=== PATIENT | female | born 1965 | race Caucasian/White ===

== ENCOUNTER → 2016-10-09 | Outpatient (CLI) | payer OTHER ==
[~2016-10-09] MED LIST: ALBU18002 INH; ALBUAER19 INH; CRG/20 PO; CYAN100020 PO; CYAN500T13 PO; FERR1TAB13 PO; FERR325T5 PO; FURO-85 PO; FURO20TA PO; IRON PO; LCTL45 PO; OMEP20TA40 PO; PRT40 PO; RXC5 PO; SPIR50TA2 PO; SPIR50TA3 PO; VERA1TAB53 PO; VTMD1000 PO
--- NOTE | 2016-10-09 15:47 | DIAGNOSTIC IMAGING REPORT ---
CT LUMBAR SPINE WITHOUT CT DOSE: 1903.36 mGy.cm CLINICAL HISTORY: Back pain and numbness. TECHNIQUE: Helical images were acquired in transverse plane. Reformatted sagittal and coronal images were reviewed. CONTRAST: No contrast was administered COMPARISON STUDY: None. FINDINGS: L1-2 level: There is no evidence of significant disc bulge or focal herniation. There is no evidence of spinal or foraminal stenosis. L2-3 level: There is a mild circumferential disc bulge. There is no significant spinal foraminal stenosis L3-4 level: There is a circumferential disc bulge. There is moderate spinal stenosis. There is no significant foraminal narrowing L4-5 level: There is a grade 1 spondylolisthesis of L4 and L5. There is a circumferential disc bulge. There is severe spinal stenosis. There is bilateral foraminal narrowing. There is advanced facet joint arthropathy. L5-S1 level: There is no evidence of significant disc bulge or focal herniation. There is no evidence of spinal or foraminal stenosis. IMPRESSION: 1. No acute fractures or subluxations 2. Disc bulge and moderate spinal stenosis at the L3-4 level 3. Grade 1 spondylolisthesis of L4 and L5. Circumferential disc bulge. Severe spinal stenosis. Bilateral foraminal narrowing. Facet joint arthropathy. Electronically signed by: Tom Bryant M.D. 10/09/2016 3:45 PM Dictated Date/Time: 10/09/2016 3:41 PM
--- NOTE | 2016-10-09 17:20 | DIAGNOSTIC IMAGING REPORT ---
MRI OF THE LUMBAR SPINE WITHOUT CONTRAST CLINICAL HISTORY: RADICULOPATHY,LUMBAR REGION COMPARISON STUDY: CT of the lumbar spine October 09, 2016. TECHNIQUE: Utilizing a 1.5 Marycruz magnet and dedicated coil, multiplanar, multiecho imaging of the lumbar spine was performed without IV contrast. FINDINGS: Purposes of numbering on this exam, the L5-S1 disc space is assigned to axial image 27 of 30. There is 3 mm of anterolisthesis of L4 and L5. Alignment is otherwise anatomic. Vertebral body heights are maintained. There are numerous T1 and T2 hyperintense lesions within the lower thoracic and lumbar spine consistent with hemangiomas. Endplate discogenic changes are noted at multiple levels. There is no intracanalicular mass or fluid collection. The conus terminates at the mid L1 level. L1-2: The central canal and neural foramen are patent. L2-3: The central canal and neural foramen are patent. L3-4: There is disc bulge with a left foraminal disc protrusion. There is mild narrowing of the central canal and moderate narrowing of the left neural foramen. L4-5: There is grade I anterolisthesis with uncovering of the disc, ligamentous hypertrophy and facet arthrosis. There is severe narrowing of the central canal and lateral recesses with moderate narrowing of both neural foramen. L5-S1: The central canal and neural foramen are patent. IMPRESSION: 1. Severe central canal stenosis at L4-L5 due to grade I anterolisthesis, ligamentous hypertrophy, facet arthrosis and disc bulge. Minimal central canal narrowing at L3-L4. 2. Moderate left neural foraminal stenosis at L3-L4 due to disc bulge with left foraminal disc protrusion. 3. Numerous hemangiomas within the lower thoracic and lumbar spine. Electronically signed by: Ketan Liriano M.D. 10/09/2016 5:19 PM Dictated Date/Time: 10/09/2016 5:12 PM
--- NOTE | 2016-10-09 17:20 | DIAGNOSTIC IMAGING REPORT ---
MRI OF THE THORACIC SPINE WITHOUT CONTRAST CLINICAL HISTORY: SEGMENTAL/SOMATIC DYSFUNCTION LUMBAR REGION COMPARISON: None. TECHNIQUE: Utilizing a 1.5 Marycruz magnet and dedicated coil, multiplanar, multiecho imaging of the thoracic spine was performed without IV contrast. FINDINGS: Alignment of the thoracic spine is anatomic. Vertebral body heights are maintained. A 1.8 cm T1 and T2 hyperintense T10 vertebral body lesion is consistent with a hemangioma. Additional hemangiomas within the thoracic and lumbar spine are noted. There are no areas of suspicious marrow replacement. There is subtle endplate signal abnormality along the inferior endplate of T6 which is probably degenerative. There is no intracanalicular mass or fluid collection. Thoracic cord signal and caliber are normal. The central canal and neural foramen are patent. Paravertebral soft tissues are unremarkable. Note is made of upper abdominal varices as shown on CT of February 15, 2015. IMPRESSION: 1. Normal thoracic cord signal and caliber. 2. No thoracic disc herniation. Patent central canal and neural foramen. 3. Scattered hemangiomas within the thoracic and lumbar spine. Electronically signed by: Ketan Liriano M.D. 10/09/2016 5:18 PM Dictated Date/Time: 10/09/2016 5:04 PM
== END ==
LOC: C.CTS 15:25
PROVIDERS: ATTEND Physician Assistant
DX: M99.03 Segmental and somatic dysfunction of lumbar region (principal); M54.16 Radiculopathy, lumbar region; M99.02 Segmental and somatic dysfunction of thoracic region

== ENCOUNTER 2016-11-05 05:26 | Inpatient (IN) | payer OTHER ==
[2016-10-20 08:41] VITALS: BMI 42.0
--- NOTE | 2016-10-20 09:03 | PAT Medication Instructions ---
Service Date Oct 20, 2016. Current Home Medication List Albuterol Sulfate (Proair Respiclick), 2 PUFF INH Q4 PRN for SOB/Wheezing Cholecalciferol (Vitamin D3), 1 TAB PO QAM Cyanocobalamin (Vitamin B12), 1 TAB PO QAM Furosemide (Lasix), 20 MG PO QPM Nadolol (Corgard), 20 MG PO QPM Omeprazole (Cvs Omeprazole), 1 TAB PO QAM [Iron], 65 MG PO QAM Medication Instructions For Your Scheduled Surgery - Hold the following medications the morning of surgery: [Iron], 65 MG PO QAM Cholecalciferol (Vitamin D3), 1 TAB PO QAM Cyanocobalamin (Vitamin B12), 1 TAB PO QAM Furosemide (Lasix), 40 MG PO QAM - Take the following medications the morning of surgery with a sip of water OTHERWISE NOTHING TO EAT OR DRINK AFTER MIDNIGHT: Omeprazole (Cvs Omeprazole), 1 TAB PO QAM Albuterol Sulfate (Proair Respiclick), 2 PUFF INH Q4 PRN for SOB/Wheezing (use if needed; BRING TO HOSPITAL) - Take the following medications as scheduled the night before surgery: Furosemide (Lasix), 20 MG PO QPM Nadolol (Corgard), 20 MG PO QPM If you have any questions please call us at [phone] or [phone] or [phone]
[2016-10-20 09:37] LABS: BASO % 0.6 %; BASO ABS # 0.04 K/uL (0-0.2); COMPLETE YES; EOS % 6.9 %; HEMATOCRIT 36.4 % (37-47); IG% 0.3 %; LYMPH % 23.6 %; LYMPH ABS # 1.65 K/uL (1.2-3.4); MEAN CELL VOLUME 91.7 fL (80-100); MEAN CORPUSCULAR HEMOGLOBIN 31.7 pg (25-34); MEAN CORPUSCULAR HGB CONC 34.6 g/dl (32-36); MEAN PLATELET VOLUME 9.3 fL (7.4-10.4); MONO % 17.4 %; NEUT % 51.2 %; PLATELET COUNT 231 K/uL (130-400); RED BLOOD COUNT 3.97 M/uL (4.2-5.4)
[2016-10-20 09:42] LABS: URINE APPEARANCE CLEAR (CLEAR); URINE BILIRUBIN NEG (NEG); URINE COLOR YELLOW; URINE NITRITE NEG (NEG); UROBILINOGEN POS (NEG)
[2016-10-20 09:44] LABS: MANUAL MICROSCOPIC REQUIRED? NO; REVIEW REQ? NO
--- NOTE | 2016-10-20 10:12 | DIAGNOSTIC IMAGING REPORT ---
TWO VIEW CHEST CLINICAL HISTORY: Preoperative examination. FINDINGS: PA and lateral chest radiographs are compared to study dated 02/15/2015. The examination is degraded by large body habitus. The cardiomediastinal silhouette is unremarkable. The lungs and pleural spaces are clear. There is no pneumothorax. The bony thorax appears intact. IMPRESSION: No active disease in the chest. Electronically signed by: Surinder Thomson M.D. 10/20/2016 10:11 AM Dictated Date/Time: 10/20/2016 10:10 AM
[2016-10-20 10:47] LABS: BUN/CREATININE RATIO 9.8 (10-20); CALCIUM 9.4 mg/dl (8.5-10.1); CREATININE 1.1 mg/dl (0.60-1.20); POTASSIUM 4.7 mmol/L (3.5-5.1)
[2016-11-05] VITALS (9 sets, daily range): BP systolic 93–124; BP diastolic 61–77; PULSE 57–74; TEMP 36.3–36.9; O2SAT 96–98; Ht 160 cm; Wt 110.0 kg
[~2016-11-05] VITALS: Ht 160 cm; Wt 110.0 kg
[~2016-11-05 05:26] MED LIST changes: -ALBUAER19 INH; -CYAN500T13 PO; -FERR1TAB13 PO; -FERR325T5 PO; -LCTL45 PO; -PRT40 PO; -RXC5 PO; -SPIR50TA2 PO; -SPIR50TA3 PO; -VERA1TAB53 PO
[2016-11-05] MEDS ORDERED: PREGABALIN 75 MG CAP PO SCH (06:00)
[2016-11-05] MEDS ORDERED: CeleBREX 200 MG CAP PO SCH (06:00)
[2016-11-05] MEDS ORDERED: LACTATED RINGER'S 1000ML 1,000 ML IV SCH (06:00)
[2016-11-05] MEDS ORDERED: CEFAZOLIN 2000 MG/60 ML D5W IV SCH (06:00)
[2016-11-05] MEDS ORDERED: DEXAMETHASONE SOD INJ 4 MG/ML VIAL ONE (06:40)
[2016-11-05] MEDS ORDERED: LIDOCAINE HCL 2% 2 ML VIAL (20MG/ML) ONE (06:40)
[2016-11-05] MEDS ORDERED: HYDROmorphone INJ 2 MG/ML SYR/VIAL ONE (06:40)
[2016-11-05] MEDS ORDERED: MIDAZOLAM HCL 1 MG/ML 2ML VIAL ONE (06:40)
[2016-11-05] MEDS ORDERED: GLYCOPYRROLATE INJ 0.2 MG/ML VIAL ONE ×2 (06:40→08:07)
[2016-11-05] MEDS ORDERED: NEOSTIGMINE METHYLSULFATE 5 MG/5 ML SYR ONE (06:40)
[2016-11-05] MEDS ORDERED: ONDANSETRON INJ 2 MG/ML 2 ML VIAL ONE (06:40)
[2016-11-05] MEDS ORDERED: ROCURONIUM BROMIDE 10 MG/ML 5 ML VIAL ONE (06:40)
[2016-11-05] MEDS ORDERED: PROPOFOL IV EMULSION 10 MG/ML 20 ML VIAL IV ONE (06:40)
[2016-11-05] MEDS ORDERED: FENTANYL CITRATE INJ 50 MCG/1 ML 2 ML VIAL ONE (06:40)
[2016-11-05] MEDS ORDERED: HEPARIN SOD (PORCINE) 1000 UNIT/ML 10 ML VIAL ONE (06:59)
[2016-11-05] MEDS ORDERED: BACITRACIN 50000 UNIT VIAL ONE (06:59)
[2016-11-05] MEDS ORDERED: BUPIVACAINE/EPINEPHRINE 0.5% MPF 1:200,000 10 ML VIAL ONE ×2 (07:00)
--- NOTE | 2016-11-05 07:28 | History & Physical Bridge Note ---
H&P Re-Evaluation Bridge Note: I have examined the patient, reviewed the History & Physical and in the interval since the performance of the History & Physical I have noted the following changes of clinical significance: cleared by pcp, preop LFTs and coags acceptable..No changes noted
[2016-11-05] MEDS ORDERED: THROMBIN FOR SOLN 20000 UNIT KIT ONE (07:41)
[2016-11-05] MEDS ORDERED: THROMBIN 5000 UNITS KIT ONE (07:41)
[2016-11-05] MEDS ORDERED: ONDANSETRON INJ 2 MG/ML 2 ML VIAL IV PRN ×2 (07:45→09:00)
[2016-11-05] MEDS ORDERED: ATROPINE SULFATE 0.1 MG/ML 5ML SYR IV PRN (07:45)
[2016-11-05] MEDS ORDERED: PROMETHAZINE HCL INJ 12.5 MG in SODIUM CHLORIDE 0.9% 50ML 50 ML IV PRN ×2 (07:45→09:00)
[2016-11-05] MEDS ORDERED: HYDROmorphone INJ 2 MG/ML SYR/VIAL IV PRN (07:45)
[2016-11-05] MEDS ORDERED: FLOSEAL HEMOSTATIC MATRIX 10ML TOP ONE (08:47)
--- NOTE | 2016-11-05 08:50 | [facility] Post Operative Brief Note ---
Immediate Operative Summary Operative Date Nov 05, 2016. Pre-Operative Diagnosis Degenerative spondylolisthesis at L4-L5, spinal stenosis L4-L5 and L5-S1 Post-Operative Diagnosis Same as preoperative diagnosis Procedure(s) Performed L4-L5 Decompression and Instrumented Fusion; Interbody Fusion; Autograft versus Allograft Surgeon Dr. Ole Salazar Director Of [employer] Surgeon(s) Torsten Pope PA-C Estimated Blood Loss 300mL Findings dict Specimens No pathology specimens per surgeon
--- NOTE | 2016-11-05 08:54 | [facility] Operative Report ---
Operative Report Operative Date Nov 05, 2016. Pre-Operative Diagnosis Degenerative spondylolisthesis at L4-L5, spinal stenosis L4-L5 Post-Operative Diagnosis Same as preoperative diagnosis Procedure(s) Performed 1. L4 laminectomy 2. L4-5 pedicle screw instrumentation with K2M screws bilateral 3. Posterolateral fusion L4-5 bilateral 4. R Iliac crest bone marrow aspirtation Surgeon Dr. Ole Salazar Juice Weigher Surgeon(s) Torsten Pope PA-C Estimated Blood Loss 300mL Findings see below Specimens No pathology specimens per surgeon Drains 1 Anesthesia GETA Complication(s) None Description of Procedure After identification of the patient and the operative level they were brought to the OR where they underwent induction of general anesthesia. They were positioned prone on a Ahsan spine table with all bony prominence well-padded. Care was taken to avoid pressure on the periorbital area. The lumbosacral area was sterilely prepped and draped in the usual fashion. Antibiotics were administered, a time-out was performed, level was confirmed, and skin incision was with localized lateral fluoroscopy and a spinal needle. The skin was infiltrated with half percent Marcaine with epinephrine. I then made skin incision from the spinous process of L3-5. The dorsal fascia was incised and posterior exposure was accomplished with dissection out to the tips of the transverse processes from L4-5 bilaterally. I then packed the gutters with thrombin-soaked sponges and used fluoroscopy to confirm the operative levels with markers at the operative levels. After identification of the appropriate level I placed Gelpi retractors and proceeded to perform midline decompression. Laminectomies of L4 were performed in the midline with takedown of the intervening ligamentum flavum. I then used an osteotome to remove the medial facets at L4-5. Facet hypertrophy and degenerative changes were noted at the operative levels. I then completed decompression with Kerrison rongeurs and palpated the nerve roots were adequately decompressed at the operative levels from L4-5 bilaterally. I palpated all nerve roots were decompressed adequately. I then obtained hemostasis of epidural bleeding with bipolar cautery and Surgiflo. I then proceeded to place pedicle screws bilaterally at L4-5 with bony anatomy confirmed to be intact with the ball-tipped feeler. I confirmed screw length, trajectory, and position with fluoroscopy. Following this I turned my attention to the L4-5 disc space and prepared the disc space for subsequent cage introduction with a combination of marla and curettes. During preparation I noted the inferior endplate was soft and was violated, therefore no cage was placed. Bone graft consisted of morselized local bone from laminectomy bone as well as bone graft cement mason helper saturated with stem cell concentrate. I obtained stem cell concentrate using a stem cell concentration system after aspiration of bone marrow from the right iliac crest via a separate stab incisions with a Jamshidi needle. I then applied this to bone graft cement mason helper. I then lowered the Austin frame to restore lordosis. I applied rods and end caps bilaterally with final tightening of all caps. I irrigated with bacitracin solution. I then decorticated the transverse processes bilaterally at the operative levels from L4-5 as well as facet joints with a high-speed bur. I then packed the lateral gutters and facets with the bone graft mixture consisting of: infuse BMP and a collagen sponge, tricalcium phosphate logs, stem cell concentrate, morcellized local bone, and bone graft cement mason helper. I then confirmed hemostasis and closed in a layered fashion over a ERICA drain. All sponge and needle counts were correct in the case. I attest to the content of the Intraoperative Record and any orders documented therein. Any exceptions are noted below.
[2016-11-05] MEDS ORDERED: BISACODYL 10 MG SUPP PR PRN (09:00)
[2016-11-05] MEDS ORDERED: NALOXONE HCL 0.4 MG/1 ML VIAL/CARP IV PRN ×2 (09:00→09:45)
[2016-11-05] MEDS ORDERED: LORAZEPAM INJ 0.5 MG in SYRINGE 0 ML IV PRN (09:00)
[2016-11-05] MEDS ORDERED: METOCLOPRAMIDE HCL INJ 5 MG/ML 2 ML VIAL IV PRN (09:00)
[2016-11-05] MEDS ORDERED: LORAZEPAM 0.5 MG TAB PO PRN (09:00)
[2016-11-05] MEDS ORDERED: MAGNESIUM HYDROXIDE SUSP 30 ML UDC PO PRN (09:00)
[2016-11-05] MEDS ORDERED: FAMOTIDINE 20 MG TAB PO PRN (09:00)
[2016-11-05] MEDS ORDERED: ALBUTEROL HFA 8 GM INHALER INH PRN (09:00)
--- NOTE | 2016-11-05 09:03 | DIAGNOSTIC IMAGING REPORT ---
LUMBAR SPINE 2 OR 3 VIEW HISTORY:51 yearsFemaleL4-5 DECOMPRESSION/FUSION/INTERBODY COMPARISON: Lumbar spine CT 10/09/2016. TECHNIQUE: Frontal and lateral spot fluoroscopic images of the lumbar spine were obtained utilizing 9.5 seconds of fluoroscopy time. Interpretation of the images was conducted after the conclusion of the procedure. FINDINGS/IMPRESSION: There has been interval laminectomy with posterior interbody sarah and screw fixation at the L4-L5 level. There appears to be improved alignment at this interspace. The above report was generated using voice recognition software. It may contain grammatical, syntax or spelling errors. Electronically signed by: Amos Galo M.D. 11/05/2016 9:02 AM Dictated Date/Time: 11/05/2016 8:59 AM
[2016-11-05] MEDS ORDERED: SODIUM CHLORIDE 0.9% 1000ML 1,000 ML IV SCH (09:34)
--- NOTE | 2016-11-05 09:37 | Discharge Instructions ---
Discharge Instructions Date of Service Nov 05, 2016. Admission Reason for Admission: Spinal Stenosis Discharge Discharge Diagnosis / Problem: same Discharge Goals Goal(s): Decrease discomfort Activity Recommendations Activity Limitations: per Instructions/Follow-up section . Current Hospital Diet Patient's current hospital diet: Regular Diet Discharge Diet Recommended Diet: Regular Diet Procedures Procedures Performed: 1. L4 laminectomy 2. L4-5 pedicle screw instrumentation with K2M screws bilateral 3. Posterolateral fusion L4-5 bilateral 4. R Iliac crest bone marrow aspirtation Pending Studies Studies pending at discharge: no Medical Emergencies . Who to Call and When: Medical Emergencies: If at any time you feel your situation is an emergency, please call 911 immediately. . Non-Emergent Contact Non-Emergency issues call your: Surgeon . "Provider Documentation" section prepared by Ole Salazar. . VTE Core Measure Inpt VTE Proph given/why not?: Krishan Burton, ESME's PA Drug Monitoring Program Search Results: patient reviewed within database, no issues identified ( checked by PAAntonio)
[2016-11-05] MEDS ORDERED: HYDROmorphone HCL 0.5MG/ML 50 ML CASSETTE ONE (09:41)
--- NOTE | 2016-11-05 10:28 | Anesthesiology Progress Note ---
Anesthesia Post Op Note Date & Time Nov 05, 2016 at 10:28 Vital Signs Pain Intensity: 6 Vital Signs Past 12 Hours Date Time Temp Pulse Resp B/P (MAP) Pulse Ox O2 Delivery O2 Flow Rate FiO2 11/05/16 10:10 74 14 92/58 95 Nasal Cannula 4 11/05/16 10:00 36.4 74 16 92/56 96 Nasal Cannula 4 11/05/16 09:50 76 16 97/58 97 Nasal Cannula 4 11/05/16 09:40 77 15 102/60 96 Mask 4 11/05/16 09:30 80 20 107/55 97 Mask 8 11/05/16 09:20 82 18 106/63 96 Mask 8 11/05/16 09:13 36.9 85 16 104/63 93 Mask 8 11/05/16 06:06 36.9 74 18 100/64 97 Room Air Notes Mental Status: alert / awake / arousable, participated in evaluation Pt Amnestic to Procedure: Yes Nausea / Vomiting: adequately controlled Pain: adequately controlled Airway Patency, RR, SpO2: stable & adequate BP & HR: stable & adequate Hydration State: stable & adequate Anesthetic Complications: no major complications apparent
[2016-11-05] MEDS: HYDROmorphone HCL 0.5MG/ML 50 ML CASSETTE IV PRN ×2 (10:30→15:10)
[2016-11-05] MEDS: SODIUM CHLORIDE 0.9% 1000ML 1,000 ML IV SCH ×2 (10:51→20:53)
[2016-11-05] MEDS ORDERED: FERR1TAB13 PO (12:48)
--- NOTE | 2016-11-05 15:19 | Medical Consult ---
Consultation Date of Consultation: Nov 05, 2016. Attending Physician: Ole Salazar M.D. Reason for Consultation: Post Op Medical Management History of Present Illness 51 year old female who is s/p L4-5 decompression and fusion today by Dr. Salazar. Patient has been having worsening back pain with BL foot numbness for the past several years. Patient failed outpatient conservative measures and therefore presented for the planned procedure today. Post operatively the patient is doing well. She reports her pain is well controlled. She denies chest pain and shortness of breath. Denies radiation of the pain into her legs or numbness. She denies abdominal pain and nausea. No lightheadedness or dizziness. Reilly is in place draining yellow urine. Past Medical/Surgical History Medical Problems: (1) CKD (chronic kidney disease), stage III Status: Chronic (2) CHRIS (nonalcoholic steatohepatitis) Status: Chronic (3) Paroxysmal SVT (supraventricular tachycardia) Status: Chronic (4) SVT (supraventricular tachycardia) Status: Resolved (5) Varices, esophageal Permanent Comment: grade II on EGD 2014 Status: Chronic Surgical Problems: (1) H/O elbow surgery Permanent Comment: Antecubital elbow release Status: Chronic (2) S/P D&C (status post dilation and curettage) Permanent Comment: S/P miscarriage Status: Chronic (3) Status post carpal tunnel release of both wrists Status: Chronic Family History FH: cancer FATHER (Lymphoma) FH: diabetes mellitus MOTHER FH: multiple sclerosis BROTHER FH: thyroid cancer MOTHER Hypertension MOTHER Social History Smoking Status: Never Smoker Alcohol Use: none Allergies Coded Allergies: Pamabrom (Unverified Allergy, Unknown, HIVES, 11/05/16) Pyrilamine (Unverified Allergy, Unknown, HIVES, 11/05/16) Iodinated Diagnostic Agents (Verified Adverse Reaction, Intermediate, TACHYCARDIA, 11/05/16) Home Medications Kp Ferrous Sulfate (Ferrous Sulfate) 325 Mg Tab 1 Tab PO DAILY 30 Days Lasix (Furosemide) 20 Mg Tab 20 Mg PO DAILY afternoon Lasix (Furosemide) 20 Mg Tab 40 Mg PO QPM Corgard (Nadolol) 20 Mg Tab 10 Mg PO QPM Cvs Omeprazole (Omeprazole) 20 Mg Tab 1 Tab PO QAM Proair Respiclick (Albuterol Sulfate) 108 Mcg/Act Aer 2 Puff INH Q4 PRN Vitamin D3 (Cholecalciferol) 1,000 Inter.unit Tab 1 Tab PO QAM Vitamin B12 (Cyanocobalamin) 1,000 Mcg Tab 1 Tab PO QAM Current Inpatient Medications Current Inpatient Medications Medications (Trade) Dose Ordered Sig/Sunny Route Start Time Stop Time Status Last Admin Dose Admin Cefazolin Sodium 60 ml @ 100 mls/hr PREOP IV 11/05/16 06:00 11/05/16 18:00 11/05/16 07:28 100 MLS/HR Celecoxib (CeleBREX CAP) 200 mg PREOP PO 11/05/16 06:00 11/05/16 18:00 11/05/16 05:56 200 MG Pregabalin (Lyrica Cap) 75 mg PREOP PO 11/05/16 06:00 11/05/16 18:00 11/05/16 05:56 75 MG Albuterol (Ventolin Hfa Inhaler) 2 puffs Q4 PRN INH 11/05/16 09:00 12/05/16 08:59 Pantoprazole Sodium (Protonix Tab) 40 mg QAM PO 11/06/16 09:00 12/06/16 08:59 Dexamethasone Sodium Phosphate 6 mg/Syringe 1.5 ml @ 1 mls/min Q8H IV 11/05/16 16:00 11/06/16 08:02 Promethazine HCl 12.5 mg/Sodium Chloride 50.5 ml @ 202 mls/hr Q6H PRN IV 11/05/16 09:00 12/05/16 08:59 Ondansetron HCl (Zofran Inj) 4 mg Q6H PRN IV 11/05/16 09:00 12/05/16 08:59 Metoclopramide HCl (Reglan Inj) 10 mg Q6H PRN IV 11/05/16 09:00 12/05/16 08:59 Lorazepam (Ativan Tab) 0.5 mg Q8H PRN PO 11/05/16 09:00 12/05/16 08:59 Lorazepam 0.5 mg/ Syringe 0.25 ml @ 1 mls/min Q8H PRN IV 11/05/16 09:00 12/05/16 08:59 Sodium Chloride 1,000 ml @ 75 mls/hr [id number] IV 11/05/16 08:54 12/05/16 08:53 11/05/16 10:51 75 MLS/HR Polyethylene (Miralax Powder Packet) 17 gm Q6 PO 11/07/16 06:00 12/07/16 05:59 Bisacodyl (Dulcolax Supp) 10 mg DAILY PRN GA 11/05/16 09:00 12/05/16 08:59 Magnesium Hydroxide (Milk Of Magnesia Susp) 30 ml DAILY PRN PO 11/05/16 09:00 12/05/16 08:59 Hydromorphone HCl (Dilaudid Inj) 0.5-1mg prn moder... Q3H PRN IV 11/06/16 06:00 11/20/16 05:59 Oxycodone HCl (Roxicodone Immediate Rel Tab) 5-10mg prn moderate to sev... Q4H PRN PO 11/06/16 06:00 11/20/16 05:59 Cefazolin Sodium 2000 mg/Dextrose 60 ml @ 100 mls/hr Q8H IV 11/05/16 16:00 11/06/16 00:35 Naloxone HCl (Narcan Inj) 0.1 mg Q5M PRN IV 11/05/16 09:00 12/05/16 08:59 Senna/Docusate Sodium (Senokot S Tab) 2 tab HS PO 11/05/16 21:00 12/05/16 20:59 Famotidine (Pepcid Tab) 20 mg Q12 PRN PO 11/05/16 09:00 12/05/16 08:59 Miscellaneous Information (Discontinue SWEAT BAND SEWER) 1 ea TODAY@0600 N/A 11/06/16 06:00 11/06/16 06:01 Naloxone HCl (Narcan Inj) 0.1 mg Q5M PRN IV 11/05/16 09:45 11/06/16 06:00 Hydromorphone HCl (Dilaudid Retail Sales Assistant) 25 mg PRN PRN IV 11/05/16 09:45 11/06/16 06:00 11/05/16 10:30 25 MG Sodium Chloride 1,000 ml @ 15 mls/hr Q24H IV 11/05/16 09:34 11/06/16 06:00 Nadolol (Corgard Tab) 10 mg QPM PO 11/05/16 21:00 8/11/17 20:59 Review of Systems ROS per HPI, all other systems reviewed and negative Physical Exam Date Time Temp Pulse Resp B/P (MAP) Pulse Ox O2 Delivery O2 Flow Rate FiO2 11/05/16 14:28 71 18 106/72 (83) 98 Nasal Cannula 2.0 11/05/16 13:41 57 18 124/77 (93) 98 Nasal Cannula 4.0 11/05/16 12:42 66 16 114/77 (89) 98 Nasal Cannula 2.0 11/05/16 11:35 60 14 111/76 (88) 97 Nasal Cannula 2.0 11/05/16 10:55 36.7 66 14 115/76 (89) 96 Nasal Cannula 2.0 11/05/16 10:54 Nasal Cannula 4.0 11/05/16 10:35 97 Nasal Cannula 4.0 11/05/16 10:10 74 14 92/58 95 Nasal Cannula 4 11/05/16 10:00 36.4 74 16 92/56 96 Nasal Cannula 4 11/05/16 09:50 76 16 97/58 97 Nasal Cannula 4 11/05/16 09:40 77 15 102/60 96 Mask 4 11/05/16 09:30 80 20 107/55 97 Mask 8 11/05/16 09:20 82 18 106/63 96 Mask 8 11/05/16 09:13 36.9 85 16 104/63 93 Mask 8 11/05/16 06:06 36.9 74 18 100/64 97 Room Air General Appearance: no apparent distress Head: normocephalic Eyes: normal inspection ENT: hearing grossly normal Neck: supple, no JVD Respiratory/Chest: lungs clear, normal breath sounds, no respiratory distress Cardiovascular: regular rate, rhythm, no edema, normal peripheral pulses Abdomen/GI: normal bowel sounds, non tender, soft Genitourinary - Female: + pertinent finding (reilly in place draining clear yellow urine) Back: + pertinent finding (s/p back surgery, pedal pushes and pulls strong BL) Neurologic/Psych: no motor/sensory deficits, alert, normal mood/affect, oriented x 3 Skin: normal color, warm/dry Laboratory Results Last 24 Hours Test 11/05/16 06:45 11/05/16 14:32 Assessment & Plan S/P L4-5 DECOMPRESSION / FUSION - POD#0 - activity and wound care orders as per ortho - pain control with bowel regimen - PT/OT - monitor H/H for acute blood loss anemia and transfuse blood products PRN CHRIS W/ VARICES - stable, no signs of variceal bleeding - continue Nadolol - anticoagulate cautiously HX SVT - continue beta carol DVT PROPHYLAXIS - deferred to ortho - would use pharmacologic prophylaxis cautiously due to varices Thank you for this consultation. We will follow the patient with you during their hospital stay. You can reach a member of the [facility] Hospitalist Team 17/11 via pager @ . ATTENDING NOTE : pt seen at bedside , in agreement with H& P by Zuleika CURRAN 51 yo F underwent spinal decompression surgery today pt found to be heavily sedated during my interview opens eyes to voice , able to say " yes " , No daughter present at bedside P/E: Gen ; sedated lungs: CTA HT ; regular ext : s/p spinal decompression neuro; no focal deficit A/P : s/p lumber decompression surgery -cont management as per spinal ortho Hx of CHRIS with esophageal varices -on Nadolol avoid antiplatelets DVT prophylaxis : mechanical PPx will be appropriate avoid pharmacological anticoagulation due recent spinal surgery and hx of varices please refer to Zuleika CURRAN note for further detail
[2016-11-05] MEDS: DEXAMETHASONE INJ 6 MG in SYRINGE 0 ML IV SCH ×2 (15:24→23:47)
[2016-11-05] MEDS: CEFAZOLIN IV 2,000 MG in DEXTROSE 5% 50ML 50 ML IV SCH ×2 (15:24→23:46)
[2016-11-05 15:55] LABS: URINE APPEARANCE TURBID (CLEAR); URINE BILIRUBIN NEG (NEG); URINE COLOR DK YELLOW; URINE EPITHELIAL CELL AUTO >30 /lpf (0-5); URINE NITRITE NEG (NEG); URINE SPECIFIC GRAVITY 1.026 (1.000-1.030); UROBILINOGEN NEG (NEG); ZZURINE CULT IF INDIC CATH YES
[2016-11-05 15:56] LABS: MANUAL MICROSCOPIC REQUIRED? NO; REVIEW REQ? YES
[2016-11-05 16:04] LABS: URINE MUCUS PRESENT (NONE PRSENT)
[2016-11-05] MEDS: DOCUSATE SODIUM/SENNA 50/8.6MG TAB PO SCH (20:53)
[2016-11-05] MEDS: NADOLOL 40 MG TAB PO SCH (20:54)
[2016-11-05] MEDS ORDERED: NADOLOL 40 MG TAB PO SCH (21:00)
[2016-11-06 03:41] VITALS: BP 95/63; PULSE 58; TEMP 36.3; O2SAT 96
[2016-11-06] MEDS ORDERED: HYDROmorphone INJ 0.5 MG/0.5 ML SYR IV PRN (06:00)
[2016-11-06] MEDS ORDERED: DC PCA SCH (06:00)
[2016-11-06 06:13] LABS: COMPLETE YES; EOS % 0.1 %; HEMATOCRIT 29.3 % (37-47); IG% 0.4 %; LYMPH % 6.2 %; LYMPH ABS # 1.11 K/uL (1.2-3.4); MEAN CELL VOLUME 90.2 fL (80-100); MEAN CORPUSCULAR HEMOGLOBIN 31.1 pg (25-34); MEAN CORPUSCULAR HGB CONC 34.5 g/dl (32-36); MEAN PLATELET VOLUME 9.7 fL (7.4-10.4); MONO % 6.1 %; NEUT % 87.2 %; PLATELET COUNT 189 K/uL (130-400); RED BLOOD COUNT 3.25 M/uL (4.2-5.4)
[2016-11-06] MEDS ORDERED: NURSING VERBAL MED ORDER ONE (06:30)
[2016-11-06 06:43] LABS: INR 1.1 (0.9-1.1); PROTHROMBIN TIME (PATIENT) 11.8 SECONDS (9.0-12.0)
[2016-11-06 06:47] LABS: BUN/CREATININE RATIO 14.9 (10-20); CALCIUM 8.2 mg/dl (8.5-10.1); CREATININE 1.1 mg/dl (0.60-1.20); POTASSIUM 4.7 mmol/L (3.5-5.1)
[2016-11-06] MEDS: DEXAMETHASONE INJ 6 MG in SYRINGE 0 ML IV SCH (07:26)
[2016-11-06 08:07] VITALS: BP 91/60; PULSE 60; TEMP 36.3; O2SAT 97
[2016-11-06 08:26] VITALS: O2SAT 97
[2016-11-06] MEDS: PANTOprazole SOD 40 MG TAB PO SCH (08:57)
--- NOTE | 2016-11-06 10:00 | Anesthesiology Progress Note ---
Anesthesia Post Op Note Date & Time Nov 06, 2016 at 10:00 Vital Signs Pain Intensity: 3.0 Vital Signs Past 12 Hours Date Time Temp Pulse Resp B/P (MAP) Pulse Ox O2 Delivery O2 Flow Rate FiO2 11/06/16 08:26 97 Room Air 11/06/16 08:07 36.3 60 16 91/60 (70) 97 Room Air 11/06/16 07:20 Room Air 11/06/16 03:41 36.3 58 18 95/63 (74) 96 Room Air 11/05/16 23:05 36.5 62 16 93/61 (72) 97 Room Air 95/63 (74) Notes Mental Status: alert / awake / arousable, participated in evaluation Pt Amnestic to Procedure: Yes Nausea / Vomiting: adequately controlled Pain: adequately controlled Airway Patency, RR, SpO2: stable & adequate BP & HR: stable & adequate Hydration State: stable & adequate Anesthetic Complications: no major complications apparent
[2016-11-06] MEDS: OXYCODONE HCL IR 5 MG TAB (IMMEDIATE RELEASE) PO PRN ×2 (11:26→15:44)
[2016-11-06 11:43] VITALS: BP 99/64; PULSE 62; TEMP 36.7; O2SAT 98
--- NOTE | 2016-11-06 13:22 | Orthopedic Progress Note ---
Orthopedic Progress Note Date of Service Nov 06, 2016. Subjective Post OP Day: 1 Reports: feeling well, pain controlled w PO medications, Denies: complaints, chest pain, SOB, nausea / vomiting, light headedness, calf pain, using DATA CENTER ARCHITECT Objective calves soft nontender, N/V intact, dressing C/D/I, A&O x3, hemovac drainage Date Time Temp Pulse Resp B/P (MAP) Pulse Ox O2 Delivery O2 Flow Rate FiO2 11/06/16 11:43 36.7 62 16 99/64 (76) 98 Room Air 11/06/16 08:26 97 Room Air 11/06/16 08:07 36.3 60 16 91/60 (70) 97 Room Air 11/06/16 07:20 Room Air 11/06/16 03:41 36.3 58 18 95/63 (74) 96 Room Air 11/05/16 23:05 36.5 62 16 93/61 (72) 97 Room Air 95/63 (74) 11/05/16 20:20 Room Air 11/05/16 19:58 36.3 59 18 114/74 (87) 98 Room Air 11/05/16 15:30 36.5 66 18 99/66 (77) 98 Nasal Cannula 2.0 11/05/16 15:15 Nasal Cannula 2.0 11/05/16 14:28 71 18 106/72 (83) 98 Nasal Cannula 2.0 11/05/16 13:41 57 18 124/77 (93) 98 Nasal Cannula 4.0 Laboratory Results 24 Hours: Test 11/06/16 05:39 White Blood Count 17.80 K/uL Red Blood Count 3.25 M/uL Hemoglobin 10.1 g/dL Hematocrit 29.3 % Mean Corpuscular Volume 90.2 fL Mean Corpuscular Hemoglobin 31.1 pg Mean Corpuscular Hemoglobin Concent 34.5 g/dl Platelet Count 189 K/uL Mean Platelet Volume 9.7 fL Neutrophils (%) (Auto) 87.2 % Lymphocytes (%) (Auto) 6.2 % Monocytes (%) (Auto) 6.1 % Eosinophils (%) (Auto) 0.1 % Basophils (%) (Auto) 0.0 % Neutrophils # (Auto) 15.51 K/uL Lymphocytes # (Auto) 1.11 K/uL Monocytes # (Auto) 1.09 K/uL Eosinophils # (Auto) 0.01 K/uL Basophils # (Auto) 0.00 K/uL Prothromb Time International Ratio 1.1 Prothrombin Time 11.8 SECONDS Assessment & Plan Assessment: comfortable, numbness improved, tolerated PT Plan: watch labs, d/c tomorrow?
[2016-11-06] MEDS ORDERED: RXC5 PO (13:24)
[2016-11-06 15:25] VITALS: BP 96/62; PULSE 60; TEMP 36.3; O2SAT 98
--- NOTE | 2016-11-06 18:29 | Progress Note ---
Internal Med Progress Note Date of Service: Nov 06, 2016. Provider Documentation: SUBJECTIVE: sitting up on chair , mentions of feeling fine has minimum pain on back surgical site no fever or chills OBJECTIVE: Vital Signs-as noted below Exam: General-no sign of distress Eyes-sclera non icteric ENT-NAD Neck-no JVD Lungs-CTA Heart-regular S1/S2 Abdomen-soft ,non tender Extremities-s/p lumber spinal decompression surgery , ERICA drain present Neuro-AAO x3, no focal deficit Lab data as noted below. ASSESSMENT & PLAN: S/P L4-5 DECOMPRESSION / FUSION - POD#1 - back pain well controlled - PT/OT -leukocytosis due to parish and post op steroid use HYPONATREMIA: acute on chronic -due to vol loss ? Na 131 on 09/2016 Na 125 today , no symptoms of dizzy spell IVF NSS @ 80 ml /hr , follow PRP CHRIS W/ VARICES - stable, no signs of variceal bleeding - continue Nadolol - anticoagulate cautiously HX SVT - continue beta carol DVT PROPHYLAXIS - deferred to ortho DISPOSITION : per primary team Vital Signs: Date Time Temp Pulse Resp B/P (MAP) Pulse Ox O2 Delivery O2 Flow Rate FiO2 11/06/16 15:45 Room Air 11/06/16 15:25 36.3 60 18 96/62 (73) 98 Room Air 11/06/16 11:43 36.7 62 16 99/64 (76) 98 Room Air 11/06/16 08:26 97 Room Air 11/06/16 08:07 36.3 60 16 91/60 (70) 97 Room Air 11/06/16 07:20 Room Air 11/06/16 03:41 36.3 58 18 95/63 (74) 96 Room Air 11/05/16 23:05 36.5 62 16 93/61 (72) 97 Room Air 95/63 (74) 11/05/16 20:20 Room Air 11/05/16 19:58 36.3 59 18 114/74 (87) 98 Room Air Lab Results: Results Past 24 Hours Test 11/06/16 05:39 Range/Units White Blood Count 17.80 4.8-10.8 K/uL Red Blood Count 3.25 4.2-5.4 M/uL Hemoglobin 10.1 12.0-16.0 g/dL Hematocrit 29.3 37-47 % Mean Corpuscular Volume 90.2 80-100 fL Mean Corpuscular Hemoglobin 31.1 25-34 pg Mean Corpuscular Hemoglobin Concent 34.5 32-36 g/dl Platelet Count 189 130-400 K/uL Mean Platelet Volume 9.7 7.4-10.4 fL Neutrophils (%) (Auto) 87.2 % Lymphocytes (%) (Auto) 6.2 % Monocytes (%) (Auto) 6.1 % Eosinophils (%) (Auto) 0.1 % Basophils (%) (Auto) 0.0 % Neutrophils # (Auto) 15.51 1.4-6.5 K/uL Lymphocytes # (Auto) 1.11 1.2-3.4 K/uL Monocytes # (Auto) 1.09 0.11-0.59 K/uL Eosinophils # (Auto) 0.01 0-0.5 K/uL Basophils # (Auto) 0.00 0-0.2 K/uL RDW Standard Deviation 41.6 36.4-46.3 fL RDW Coefficient of Variation 12.5 11.5-14.5 % Immature Granulocyte % (Auto) 0.4 % Immature Granulocyte # (Auto) 0.08 0.00-0.02 K/uL Prothrombin Time 11.8 9.0-12.0 SECONDS Prothromb Time International Ratio 1.1 0.9-1.1 Activated Partial Thromboplast Time 27.0 21.0-31.0 SECONDS Partial Thromboplastin Ratio 1.0 Sodium Level 125 136-145 mmol/L Potassium Level 4.7 3.5-5.1 mmol/L Chloride Level 96 98-107 mmol/L Carbon Dioxide Level 19 21-32 mmol/L Anion Gap 10.0 3-11 mmol/L Blood Urea Nitrogen 16 7-18 mg/dl Creatinine 1.10 0.60-1.20 mg/dl Est Creatinine Clear Calc Drug Dose 71.2 ml/min Estimated GFR () 66.8 Estimated GFR (Non- 57.7 BUN/Creatinine Ratio 14.9 10-20 Random Glucose 162 70-99 mg/dl Calcium Level 8.2 8.5-10.1 mg/dl Total Bilirubin 1.0 0.2-1 mg/dl Direct Bilirubin 0.3 0-0.2 mg/dl Aspartate Amino Transf (AST/SGOT) 23 15-37 U/L Alanine Aminotransferase (ALT/SGPT) 21 12-78 U/L Alkaline Phosphatase 88 45-117 U/L Total Protein 6.6 6.4-8.2 gm/dl Albumin 2.6 3.4-5.0 gm/dl
[2016-11-06] MEDS ORDERED: SODIUM CHLORIDE 0.9% 1000ML 1,000 ML IV SCH (18:30)
[2016-11-06] MEDS: DOCUSATE SODIUM/SENNA 50/8.6MG TAB PO SCH (21:14)
[2016-11-06] MEDS: NADOLOL 40 MG TAB PO SCH (21:17)
[2016-11-06 23:08] VITALS: BP 95/60; PULSE 62; TEMP 36.5; O2SAT 97
[2016-11-07] MEDS: POLYETHYLENE (MIRALAX) 17 GM PACK PO SCH ×3 (06:00→17:43)
[2016-11-07 06:25] VITALS: BP 103/72; PULSE 68; TEMP 36.6; O2SAT 95
[2016-11-07 07:29] LABS: BUN/CREATININE RATIO 18.5 (10-20); CALCIUM 8.5 mg/dl (8.5-10.1); CREATININE 1.2 mg/dl (0.60-1.20); POTASSIUM 4.9 mmol/L (3.5-5.1)
[2016-11-07] MEDS: PANTOprazole SOD 40 MG TAB PO SCH (07:46)
[2016-11-07] MEDS: OXYCODONE HCL IR 5 MG TAB (IMMEDIATE RELEASE) PO PRN ×2 (07:48→21:04)
[2016-11-07 08:00] VITALS: BP 98/56; PULSE 62; TEMP 36.4; O2SAT 97
[2016-11-07] MEDS ORDERED: BISACODYL 10 MG SUPP PR STA (09:00)
--- NOTE | 2016-11-07 09:00 | Discharge Summary ---
Orthopedic Discharge Summary Admission Date/Reason Nov 05, 2016 at 08:57 Spinal Stenosis. Discharge Date/Disposition Nov 07, 2016 Home Diagnosis Principal Diagnosis: same Procedure(s) Performed lumbar fusion Medication Reconciliation New Medications: Oxycodone HCl (Oxycodone HCl) 5 Mg Tab 5-10 MG PO Q4H PRN for Moderate - severe pain, #90 TAB Continued Medications: Albuterol Sulfate (Proair Respiclick) 108 Mcg/Act Aer 2 PUFF INH Q4 PRN for SOB/Wheezing Cholecalciferol (Vitamin D3) 1,000 Inter.unit Tab 1 TAB PO QAM Cyanocobalamin (Vitamin B12) 1,000 Mcg Tab 1 TAB PO QAM Ferrous Sulfate (Kp Ferrous Sulfate) 325 Mg Tab 1 TAB PO DAILY for 30 Days, #30 TAB 3 Refills Furosemide (Lasix) 20 Mg Tab 40 MG PO QPM, TAB Furosemide (Lasix) 20 Mg Tab 20 MG PO DAILY, TAB afternoon Nadolol (Corgard) 20 Mg Tab 10 MG PO QPM, TAB Omeprazole (Cvs Omeprazole) 20 Mg Tab 1 TAB PO QAM Admission Physical Exam As per Admitting History & Physical. Hospital Course The patient was admitted for elective lumbar fusion. They tolerated procedure well and were stable on the floor. They progressed with PT, had stable labs, HVC output decreased, pain was controlled, and bowel function returned. They were discharged in stable condition Discharge Instructions Please refer to the electronic Patient Visit Report (Discharge Instructions) for additional information.
--- NOTE | 2016-11-07 09:00 | Orthopedic Progress Note ---
Orthopedic Progress Note Date of Service Nov 07, 2016. Subjective Post OP Day: 2 Reports: feeling well, pain controlled w PO medications, Denies: complaints, chest pain, SOB, nausea / vomiting, light headedness, calf pain, using DISABILITY COORDINATOR Objective calves soft nontender, N/V intact, dressing C/D/I, A&O x3, hemovac drainage Date Time Temp Pulse Resp B/P (MAP) Pulse Ox O2 Delivery O2 Flow Rate FiO2 11/07/16 08:00 36.4 62 18 98/56 (70) 97 Room Air 11/07/16 08:00 97 Room Air 11/07/16 06:25 36.6 68 20 103/72 (82) 95 Room Air 11/07/16 00:05 Room Air 11/06/16 23:08 36.5 62 20 95/60 (72) 97 Room Air 11/06/16 15:45 Room Air 11/06/16 15:25 36.3 60 18 96/62 (73) 98 Room Air 11/06/16 11:43 36.7 62 16 99/64 (76) 98 Room Air Laboratory Results 24 Hours: Test 11/07/16 06:45 Hematocrit 29.0 % Hemoglobin 9.6 g/dL Assessment & Plan Assessment: comfortable, numbness improved, tolerated PT Plan: watch labs-Na still low, d/c tomorrow?
[2016-11-07] MEDS ORDERED: SODIUM CHLORIDE 0.9% 500ML 500 ML IV SCH (09:15)
[2016-11-07] MEDS ORDERED: SODIUM CHLORIDE 0.9% 1000ML 1,000 ML IV SCH (09:30)
[2016-11-07] MEDS ORDERED: FUROSEMIDE 20 MG TAB PO ONE (10:00)
--- NOTE | 2016-11-07 10:03 | Progress Note ---
Subjective Date of Service: Nov 07, 2016. Subjective Pt evaluation today including: conversation w/ patient, physical exam, lab review, review of studies, review of inpatient medication list Saw/examined the patient in room 319 Doing okay today c/o constipation today No headaches, no nausea/vomiting Decreased PO intake due to the feeling of swelling and fullness in the abdomen Review of Systems Constitutional: No fever, No chills Respiratory: No cough, No shortness of breath Cardiac: No chest pain, No edema, No palpitations Abdomen: + constipation, No pain, No nausea, No vomiting, No diarrhea Heme: No abnormal bleeding/bruising Medications Current Inpatient Medications Medications (Trade) Dose Ordered Sig/Sunny Route Start Time Stop Time Status Last Admin Dose Admin Albuterol (Ventolin Hfa Inhaler) 2 puffs Q4 PRN INH 11/05/16 09:00 12/05/16 08:59 Pantoprazole Sodium (Protonix Tab) 40 mg QAM PO 11/06/16 09:00 12/06/16 08:59 11/07/16 07:46 40 MG Promethazine HCl 12.5 mg/Sodium Chloride 50.5 ml @ 202 mls/hr Q6H PRN IV 11/05/16 09:00 12/05/16 08:59 Ondansetron HCl (Zofran Inj) 4 mg Q6H PRN IV 11/05/16 09:00 12/05/16 08:59 Metoclopramide HCl (Reglan Inj) 10 mg Q6H PRN IV 11/05/16 09:00 12/05/16 08:59 Lorazepam (Ativan Tab) 0.5 mg Q8H PRN PO 11/05/16 09:00 12/05/16 08:59 Lorazepam 0.5 mg/ Syringe 0.25 ml @ 1 mls/min Q8H PRN IV 11/05/16 09:00 12/05/16 08:59 Polyethylene (Miralax Powder Packet) 17 gm Q6 PO 11/07/16 06:00 12/07/16 05:59 11/07/16 06:00 17 GM Bisacodyl (Dulcolax Supp) 10 mg DAILY PRN CO 11/05/16 09:00 12/05/16 08:59 Magnesium Hydroxide (Milk Of Magnesia Susp) 30 ml DAILY PRN PO 11/05/16 09:00 12/05/16 08:59 Hydromorphone HCl (Dilaudid Inj) 0.5-1mg prn moder... Q3H PRN IV 11/06/16 06:00 11/20/16 05:59 Oxycodone HCl (Roxicodone Immediate Rel Tab) 5-10mg prn moderate to sev... Q4H PRN PO 11/06/16 06:00 11/20/16 05:59 11/07/16 07:48 10 MG Naloxone HCl (Narcan Inj) 0.1 mg Q5M PRN IV 11/05/16 09:00 12/05/16 08:59 Senna/Docusate Sodium (Senokot S Tab) 2 tab HS PO 11/05/16 21:00 12/05/16 20:59 11/06/16 21:14 2 TAB Famotidine (Pepcid Tab) 20 mg Q12 PRN PO 11/05/16 09:00 12/05/16 08:59 Nadolol (Corgard Tab) 10 mg QPM PO 11/05/16 21:00 12/05/16 20:59 11/06/16 21:17 10 MG Furosemide (Lasix Tab) 20 mg NOW ONCE PO 11/07/16 10:00 11/07/16 10:01 UNV Objective Vital Signs Date Time Temp Pulse Resp B/P (MAP) Pulse Ox O2 Delivery O2 Flow Rate FiO2 11/07/16 08:00 36.4 62 18 98/56 (70) 97 Room Air 11/07/16 08:00 97 Room Air 11/07/16 07:10 Room Air 11/07/16 06:25 36.6 68 20 103/72 (82) 95 Room Air 11/07/16 00:05 Room Air 11/06/16 23:08 36.5 62 20 95/60 (72) 97 Room Air 11/06/16 15:45 Room Air 11/06/16 15:25 36.3 60 18 96/62 (73) 98 Room Air 11/06/16 11:43 36.7 62 16 99/64 (76) 98 Room Air Physical Exam General Appearance: no apparent distress ENT: hearing grossly normal Respiratory/Chest: lungs clear, normal breath sounds, no respiratory distress, no accessory muscle use Cardiovascular: regular rate, rhythm, no edema, no murmur Abdomen: non tender, + abnormal bowel sounds, + distended Extremities: normal inspection, no pedal edema Neurologic/Psychiatric: no motor/sensory deficits, alert, normal mood/affect Skin: normal color Laboratory Results Last 24 Hours Test 11/07/16 06:45 11/07/16 09:36 Hemoglobin 9.6 g/dL Hematocrit 29.0 % Sodium Level 123 mmol/L Potassium Level 4.9 mmol/L Chloride Level 94 mmol/L Carbon Dioxide Level 19 mmol/L Anion Gap 10.0 mmol/L Blood Urea Nitrogen 22 mg/dl Creatinine 1.20 mg/dl Est Creatinine Clear Calc Drug Dose 65.3 ml/min Estimated GFR () 60.2 Estimated GFR (Non- 51.9 BUN/Creatinine Ratio 18.5 Random Glucose 123 mg/dl Calcium Level 8.5 mg/dl Assessment and Plan This is a 51 year old female with a PMH of CHRIS cirrhosis, CKD stage 3 presents for lumbar decompression/fusion Hyponatremia in the setting of CHRIS cirrhosis patient has had some issues with hyponatremia as outpatient currently Na is dropping; 131 --> 125 --> 123 baseline Na is around 130-131 the current drop is more likely related to fluid buildup will check serum osm, urine osm, urine random sodium hold fluids give 20mg of Lasix recheck chemistry in the afternoon if Na back to ~ 130 by tomorrow, can d/c home (11/08) s/p Lumbar Decompression/Fusion L4-L5 repair POD #2 doing well, pain controlled PT/OT further management as per ortho Hx. of PSVT cont. b-carol DVT ppx as per ortho FULL CODE
[2016-11-07 14:57] LABS: BUN/CREATININE RATIO 21.6 (10-20); CALCIUM 8.4 mg/dl (8.5-10.1); CREATININE 1.1 mg/dl (0.60-1.20); POTASSIUM 5.1 mmol/L (3.5-5.1)
[2016-11-07 15:44] VITALS: BP 96/62; PULSE 61; TEMP 36.3; O2SAT 98
[2016-11-07] MEDS ORDERED: ALBUMIN 25% 50 ML with FUROSEMIDE INJ 40 MG IV ONE ×2 (16:45)
[2016-11-07] MEDS ORDERED: NURSING VERBAL MED ORDER ONE (17:45)
[2016-11-07 19:05] VITALS: BP 115/74; PULSE 67; TEMP 36.5; O2SAT 98
[2016-11-07 20:55] VITALS: BP 95/58; PULSE 67
[2016-11-07] MEDS: NADOLOL 40 MG TAB PO SCH (21:00)
[2016-11-07] MEDS: DOCUSATE SODIUM/SENNA 50/8.6MG TAB PO SCH (21:01)
[2016-11-07 23:12] VITALS: BP 96/60; PULSE 62; TEMP 36.4; O2SAT 98
[2016-11-08 07:03] VITALS: BP 112/65; PULSE 63; TEMP 36.6; O2SAT 95
[2016-11-08 07:09] LABS: BUN/CREATININE RATIO 24.9 (10-20); CALCIUM 8.5 mg/dl (8.5-10.1); POTASSIUM 4.8 mmol/L (3.5-5.1)
[2016-11-08] MEDS: PANTOprazole SOD 40 MG TAB PO SCH (07:55)
[2016-11-08] MEDS: OXYCODONE HCL IR 5 MG TAB (IMMEDIATE RELEASE) PO PRN ×2 (08:02→13:08)
[2016-11-08 12:21] VITALS: BP 112/65; PULSE 63; TEMP 36.6; O2SAT 95
== END 2016-11-08 13:26 | disposition home or self-care (01) | DRG 460 ==
LOC: C.ACU 05:26 → C.3E 08:57 → ENRESERV 09:29
PROVIDERS: ADMIT Orthopaedic Surgery Orthopaedic Surgery of the Spine; ATTEND Orthopaedic Surgery Orthopaedic Surgery of the Spine
PROC: 07DR3ZZ Extraction of Iliac Bone Marrow, Percutaneous Approach (ICD-10-PCS; principal; 2016-11-05 07:30)
PROC: 0SG00AJ Fusion of Lumbar Vertebral Joint with Interbody Fusion Device, Posterior Approach, Anterior Column, Open Approach (ICD-10-PCS; principal; 2016-11-05 07:30)
DX: M48.06 Spinal stenosis, lumbar region (principal); I10 Essential (primary) hypertension; E66.9 Obesity, unspecified

== ENCOUNTER 2017-01-01 19:16 | Observation (INO) | payer OTHER ==
[~2017-01-01] VITALS: Ht 160 cm; Wt 94.6 kg
[~2017-01-01 19:16] MED LIST changes: +FERR1TAB13 PO; -IRON PO; +RXC5 PO
[2017-01-01] MEDS ORDERED: SODIUM CHLORIDE 0.9% 1000ML 1,000 ML IV STA (19:45)
[2017-01-01] MEDS ORDERED: SPIR50TA2 PO (19:46)
[2017-01-01 20:00] LABS: BASO % 0.6 %; BASO ABS # 0.05 K/uL (0-0.2); COMPLETE YES; EOS % 2.4 %; HEMATOCRIT 34.8 % (37-47); IG% 0.2 %; LYMPH % 28.2 %; LYMPH ABS # 2.37 K/uL (1.2-3.4); MEAN CELL VOLUME 88.1 fL (80-100); MEAN CORPUSCULAR HEMOGLOBIN 29.9 pg (25-34); MEAN CORPUSCULAR HGB CONC 33.9 g/dl (32-36); MONO % 14.8 %; NEUT % 53.8 %; PLATELET COUNT 232 K/uL (130-400); RED BLOOD COUNT 3.95 M/uL (4.2-5.4)
[2017-01-01 20:29] LABS: ALKALINE PHOSPHATASE 223 U/L (45-117); ALT/SGPT 30 U/L (12-78); BLOOD UREA NITROGEN 6 mg/dl (7-18); BUN/CREATININE RATIO 6.8 (10-20); CALCIUM 8.7 mg/dl (8.5-10.1); CARBON DIOXIDE 20 mmol/L (21-32); CHLORIDE 104 mmol/L (98-107); CREATININE 0.89 mg/dl (0.60-1.20); GLUCOSE 92 mg/dl (70-99); SODIUM 132 mmol/L (136-145)
--- NOTE | 2017-01-01 20:29 | DIAGNOSTIC IMAGING REPORT ---
CHEST ONE VIEW PORTABLE HISTORY: Atypical CHEST PAIN COMPARISON: Chest 10/20/2016. FINDINGS: There is mild central pulmonary vascular congestion without overt edema. The heart is borderline enlarged. No pleural effusions. No pneumothorax. No focal lung consolidations to suggest pneumonia. IMPRESSION: Borderline cardiomegaly with mild pulmonary vascular congestion without overt edema. Electronically signed by: Bobby Mendez M.D. 01/01/2017 8:27 PM Dictated Date/Time: 01/01/2017 8:26 PM
[2017-01-01] MEDS ORDERED: SODIUM CHLORIDE 0.9% 500ML 500 ML IV SCH (21:45)
[2017-01-01 21:49] LABS: POTASSIUM 3.7 mmol/L (3.5-5.1)
[2017-01-01 21:54] LABS: MAGNESIUM 1.7 mg/dl (1.8-2.4)
--- NOTE | 2017-01-01 21:59 | History and Physical ---
History & Physical Date & Time of Service: Jan 01, 2017 at 21:54 Chief Complaint: Pressure In Chest,Heart Racing,Trouble Breathing Primary Care Physician: Kristen Nogueira D.O. History of Present Illness Source: patient, clinic records 51 year old female with history of Paroxysmal SVT, CHRIS Cirrhosis, CKD 3 presenting with chest discomfort and palpitation an hour prior to admission. Patient follows with [facility] for PSVT, last episode 2011, currently maintained on Nadolol. Patient was at her usual state of health until this evening, while preparing dinner, patient had a sudden onset of chest tightness, palpitations and some dizziness. Denies sweating, nausea, dyspnea. She called her daughter and she was brought to the ER. While in transit, patient was noted to be pale but no syncope noted. Upon arrival at the ER, patient reports that her symptoms have resolved. She estimates that her symptoms lasted for about an hour. HR 97, BP 137/84, EKG Sinus rhythm. Troponin point of care was 0.05. She was then advised admission. On my exam, patient seen laying in bed, not in distress, appears comfortable, daughter at bedside. States symptoms have not recurred since admission to the ER. Denies active chest pain, dyspnea, palpitations, dizziness, nausea. No other symptoms Past Medical/Surgical History Medical Problems: (1) CKD (chronic kidney disease), stage III Status: Chronic (2) CHRIS (nonalcoholic steatohepatitis) Status: Chronic (3) Paroxysmal SVT (supraventricular tachycardia) Status: Chronic (4) SVT (supraventricular tachycardia) Status: Resolved (5) Varices, esophageal Permanent Comment: grade II on EGD 2014 Status: Chronic Surgical Problems: (1) H/O elbow surgery Permanent Comment: Antecubital elbow release Status: Chronic (2) S/P D&C (status post dilation and curettage) Permanent Comment: S/P miscarriage Status: Chronic (3) Status post carpal tunnel release of both wrists Status: Chronic Family History FH: cancer FATHER (Lymphoma) FH: diabetes mellitus MOTHER FH: multiple sclerosis BROTHER FH: thyroid cancer MOTHER Hypertension MOTHER Social History Smoking Status: Never Smoker Smokeless Tobacco Use: No Alcohol Use: socially Drug Use: none Marital Status: Housing status: lives with family Multi-Drug Resistant Organisms History of MDRO: No Allergies Coded Allergies: Pamabrom (Unverified Allergy, Unknown, HIVES, 11/05/16) Pyrilamine (Unverified Allergy, Unknown, HIVES, 11/05/16) Iodinated Diagnostic Agents (Verified Adverse Reaction, Intermediate, TACHYCARDIA, 11/05/16) Home Medications Scheduled Cholecalciferol (Vitamin D3), 1 TAB PO QAM Cyanocobalamin (Vitamin B12), 1 TAB PO QAM Ferrous Sulfate (Kp Ferrous Sulfate), 1 TAB PO DAILY Furosemide (Lasix), 40 MG PO QAM Furosemide (Lasix), 20 MG PO DAILY Nadolol (Corgard), 10 MG PO QPM Omeprazole (Cvs Omeprazole), 1 TAB PO QAM Spironolactone (Aldactone), 50 MG PO DAILY Scheduled PRN Albuterol Sulfate (Proair Respiclick), 2 PUFF INH Q4 PRN for SOB/Wheezing Oxycodone HCl (Oxycodone HCl), 5-10 MG PO Q4H PRN for Moderate - severe pain Review of Systems Constitutional- no fever; no weight loss Eyes- no acute visual changes ENT- no sinus drainage; no pharyngitis Pulmonary- no cough, no wheezing, no shortness of breath Cardiac- (+) as noted above GI- no nausea, no vomiting, no diarrhea, no melena, no hematochezia - no dysuria, no hematuria Musculoskeletal- no arthralgias, no myalgias Derm- no rashes, no new skin lesions, no changing skin lesions Hematologic- no unusual bruising, no unusual bleeding Lymphatics- no adenopathy Endocrine- no polyuria or polydipsia; no heat or cold intolerance Neuro- no headaches, no focal neurologic symptoms Psych- no anxiety, no depression Physical Exam Vital Signs Date Time Temp Pulse Resp B/P (MAP) Pulse Ox O2 Delivery O2 Flow Rate FiO2 01/01/17 21:28 95 18 121/74 97 Room Air 01/01/17 20:33 87 18 126/82 100 Room Air 01/01/17 19:44 97 Room Air 01/01/17 19:29 103 01/01/17 19:19 37.3 97 18 135/84 98 Room Air General Appearance: WD/WN, no apparent distress Head: normocephalic, atraumatic Eyes: normal inspection, EOMI ENT: normal ENT inspection, hearing grossly normal Neck: supple, no adenopathy, thyroid normal, no JVD Respiratory/Chest: chest non-tender, lungs clear, normal breath sounds, no respiratory distress, no accessory muscle use Cardiovascular: regular rate, rhythm, no JVD, no murmur, normal peripheral pulses Abdomen/GI: normal bowel sounds, non tender, soft, no organomegaly Back: normal inspection, no CVA tenderness Extremities/Musculoskelatal: + pertinent finding (mild lower leg edema, with mild erythema but no tenderness) Neurologic/Psych: residential collections II-XII nml as tested, no motor/sensory deficits, alert, normal mood/affect, oriented x 3 Skin: normal color, warm/dry, no rash Lymphatic: no adenopathy Diagnostics Laboratory Results Results Past 24 Hours Test 01/01/17 19:28 01/01/17 20:04 01/01/17 21:31 01/01/17 21:44 Range/Units White Blood Count 8.40 4.8-10.8 K/uL Red Blood Count 3.95 4.2-5.4 M/uL Hemoglobin 11.8 12.0-16.0 g/dL Hematocrit 34.8 37-47 % Mean Corpuscular Volume 88.1 80-100 fL Mean Corpuscular Hemoglobin 29.9 25-34 pg Mean Corpuscular Hemoglobin Concent 33.9 32-36 g/dl Platelet Count 232 130-400 K/uL Mean Platelet Volume 9.0 7.4-10.4 fL Neutrophils (%) (Auto) 53.8 % Lymphocytes (%) (Auto) 28.2 % Monocytes (%) (Auto) 14.8 % Eosinophils (%) (Auto) 2.4 % Basophils (%) (Auto) 0.6 % Neutrophils # (Auto) 4.52 1.4-6.5 K/uL Lymphocytes # (Auto) 2.37 1.2-3.4 K/uL Monocytes # (Auto) 1.24 0.11-0.59 K/uL Eosinophils # (Auto) 0.20 0-0.5 K/uL Basophils # (Auto) 0.05 0-0.2 K/uL RDW Standard Deviation 44.7 36.4-46.3 fL RDW Coefficient of Variation 13.7 11.5-14.5 % Immature Granulocyte % (Auto) 0.2 % Immature Granulocyte # (Auto) 0.02 0.00-0.02 K/uL Sodium Level 132 136-145 mmol/L Potassium Level 3.7 3.5-5.1 mmol/L Chloride Level 104 98-107 mmol/L Carbon Dioxide Level 20 21-32 mmol/L Anion Gap 8.0 3-11 mmol/L Blood Urea Nitrogen 6 7-18 mg/dl Creatinine 0.89 0.60-1.20 mg/dl Est Creatinine Clear Calc Drug Dose 86.7 ml/min Estimated GFR () 86.4 Estimated GFR (Non- 74.5 BUN/Creatinine Ratio 6.8 10-20 Random Glucose 92 70-99 mg/dl Calcium Level 8.7 8.5-10.1 mg/dl Magnesium Level 1.8-2.4 mg/dl Total Bilirubin 1.0 0.2-1 mg/dl Direct Bilirubin 0-0.2 mg/dl Aspartate Amino Transf (AST/SGOT) 15-37 U/L Alanine Aminotransferase (ALT/SGPT) 30 12-78 U/L Alkaline Phosphatase 223 45-117 U/L Total Protein 7.8 6.4-8.2 gm/dl Albumin 3.0 3.4-5.0 gm/dl Lipase 157 73-393 U/L Thyroid Stimulating Hormone (TSH) 1.550 0.300-4.500 uIu/ml Bedside Troponin I 0.050 0-0.045 ng/ml Creatine Kinase MB Ratio 0-3.0 Test 01/01/17 21:53 Range/Units Diagnostic Radiology CHEST ONE VIEW PORTABLE HISTORY: Atypical CHEST PAIN COMPARISON: Chest 10/20/2016. FINDINGS: There is mild central pulmonary vascular congestion without overt edema. The heart is borderline enlarged. No pleural effusions. No pneumothorax. No focal lung consolidations to suggest pneumonia. IMPRESSION: Borderline cardiomegaly with EKG HR 66, sinus rhythm, no signs of acute ischemia or infarct Impression Assessment and Plan 51 year old female with history of Paroxysmal SVT, CHRIS Cirrhosis, CKD 3 presenting with chest discomfort and palpitation an hour prior to admission. EPISODE OF CHEST DISCOMFORT, PALPITATIONS POSSIBLE TACHYARRHYTHMIA, r/o ACS HISTORY OF PAROXYSMAL SVT - initial troponin 0.04 - follow cardiac markers echo - continue usual Nadolol 10mg po HS Aspirin ordered - NPO post midnight gentle IV fluids - monitor electrolytes - Cardiology consulted CHRIS CIRRHOSIS - appears compensated held Lasix and Spironolactone for now re-assess volume status tomorrow CKD 3 stable BILATERAL LOWER LEG EDEMA chronic per patient check D dimer, may need Doppler US to r/o DVT DVT PROPHYLAXIS check D dimer prior to providing SCDs FULL CODE PER PATIENT DISPO lives at home with family anticipate d/c home when medically stable ff up with Dr. Nogueira for PCP and [facility] VTE Prophylaxis VTE Risk Assessment Done? Y/N: Yes Risk Level: Low Given or contraindicated: SCD's (if d dimer/doppler US negative)
[2017-01-01] MEDS ORDERED: ACETAMINOPHEN 325 MG TAB PO PRN (22:00)
[2017-01-01] MEDS ORDERED: OXYCODONE HCL IR 5 MG TAB (IMMEDIATE RELEASE) PO PRN (22:00)
[2017-01-01 22:11] LABS: CKMB/CK RATIO 1.2 (0-3.0)
[2017-01-01] MEDS ORDERED: ASPIRIN 81 MG CHEW PO ONE (22:30)
[2017-01-01 22:35] VITALS: BP 110/74; PULSE 89; TEMP 36.8; O2SAT 97; Ht 160 cm; Wt 94.6 kg
[2017-01-01] MEDS ORDERED: IV FLUIDS COMPLETED PRN (23:45)
--- NOTE | 2017-01-02 01:52 | EMERGENCY ROOM VISIT NOTE ---
ED Visit Note First contact with patient: 19:19 Chief Complaint: I'm having palpitations. History of Present Illness: Ms. Belle is a 51-year-old white female who is brought into the ED via wheelchair accompanied by her daughter complaining of palpitations. Historically patient reports she has a history of supraventricular tachycardia. Patient reports she was standing in the kitchen approximately one hour before she arrived in the emergency department and developed an acute onset of palpitations, chest pressure, shortness of breath and lightheadedness. She reports her daughter took her heart rate and it was overall 100. Her daughter drove her to the ED for further evaluation and care. Patient describes her chest discomfort as a pressure sensation. She currently rates her discomfort 2/10 but reports it was high as 6/10. The discomfort was nonradiating. She did not identify any aggravating or alleviating factors related to the discomfort. She did not take any medications for her discomfort prior to arrival at the hospital. She does report during transport to the hospital she felt like her heart raced stopped racing and she had reduction of her chest discomfort. Associated with her discomfort she does report that she was having some shortness of breath and was diaphoretic. She denies fevers, chills, skin eruptions, skin color changes, headache, upper respiratory tract symptoms, cough, wheezing, abdominal pain, decreased appetite , nausea, vomiting, lower extremity weakness/numbness/tingling, previous clots, claudication, cramping, recent surgery/inactivity/extended travel. Review of Systems: As noted above in history of present illness. All body systems were reviewed and found to be negative as noted above. Past Medical History: As previously noted, hypertension, liver cirrhosis, esophageal varices, chronic kidney disease, status post D&C, carpal tunnel release and unspecified back surgery. Current Medications: Medications Dose Route/Sig Max Daily Dose Days Date Category Dose Instructions Aldactone (Spironolactone) 50 Mg Tab 50 Mg PO DAILY 01/01/17 Reported Oxycodone HCl 5 Mg Tab 5-10 Mg PO Q4H PRN 11/06/16 Rx Kp Ferrous Sulfate (Ferrous Sulfate) 325 Mg Tab 1 Tab PO DAILY 30 11/05/16 Reported Lasix (Furosemide) 20 Mg Tab 20 Mg PO DAILY 10/20/16 Reported afternoon Lasix (Furosemide) 20 Mg Tab 40 Mg PO QAM 10/20/16 Reported Corgard (Nadolol) 20 Mg Tab 10 Mg PO QPM 10/20/16 [address] [facility] Omeprazole (Omeprazole) 20 Mg Tab 1 Tab PO QAM 10/20/16 Reported Proair Respiclick (Albuterol Sulfate) 108 Mcg/Act Aer 2 Puff INH Q4 PRN 10/20/16 Reported Vitamin D3 (Cholecalciferol) 1,000 Inter.unit Tab 1 Tab PO QAM 10/20/16 Reported Vitamin B12 (Cyanocobalamin) 1,000 Mcg Tab 1 Tab PO QAM 10/20/16 Reported Allergies to Medications: IV contrast agents, Pamabrom, Pyrilamine. 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 Physical Examination: Vital Signs: Date Time Temp Pulse Resp B/P (MAP) Pulse Ox O2 Delivery O2 Flow Rate FiO2 01/01/17 20:33 87 18 126/82 100 Room Air 01/01/17 19:44 97 Room Air 01/01/17 19:29 103 01/01/17 19:25 97 Room Air 01/01/17 19:19 37.3 97 18 135/84 98 Room Air GENERAL: 51-year-old female in mild to moderate distress due to symptoms, nontoxic-appearing, afebrile and hemodynamically stable. NEUROLOGICAL: Awake, alert and oriented to person, place and time. Answering questions appropriately and following commands. Normal gait. Good hand eye coordination. SKIN: Warm, dry and pink. No soft tissue eruptions or trauma noted. HEENT: Atraumatic and normocephalic. PERRLA. EOMI. Sclera white and conjunctiva pink. No drainage from naris. Oral cavity moist and pink. Pharynx is nonerythematous or edematous. Speech normal. Trachea midline. No jugular venous distention. BACK: No tenderness over the bony spine. No CVA tenderness. THORAX: Lungs sounds are clear to auscultation and equal bilaterally with symmetrical chest wall. No wheezing, rales or rhonchi. No crepitus, tenderness , subcutaneous air or deformities noted. HEART: Regular rate and rhythm. No gallops, rubs or murmurs are appreciated. PMI is not displaced. No lifts, heaves or thrills. ABDOMEN: Obese, soft and nontender. Positive bowel sounds in all quadrants. No guarding, rigidity or organomegaly. EXTREMITIES: Moves all extremities well on command and with purpose. All distal neurovascular statuses are intact and equal bilaterally. No calf tenderness or cords. ED Course: Patient is assessed as noted above. Patient's medication list was reviewed. Laboratory Testing: Test 01/01/17 19:28 01/01/17 20:04 Range/Units White Blood Count 8.40 4.8-10.8 K/uL Red Blood Count 3.95 4.2-5.4 M/uL Hemoglobin 11.8 12.0-16.0 g/dL Hematocrit 34.8 37-47 % Mean Corpuscular Volume 88.1 80-100 fL Mean Corpuscular Hemoglobin 29.9 25-34 pg Mean Corpuscular Hemoglobin Concent 33.9 32-36 g/dl Platelet Count 232 130-400 K/uL Mean Platelet Volume 9.0 7.4-10.4 fL Neutrophils (%) (Auto) 53.8 % Lymphocytes (%) (Auto) 28.2 % Monocytes (%) (Auto) 14.8 % Eosinophils (%) (Auto) 2.4 % Basophils (%) (Auto) 0.6 % Neutrophils # (Auto) 4.52 1.4-6.5 K/uL Lymphocytes # (Auto) 2.37 1.2-3.4 K/uL Monocytes # (Auto) 1.24 0.11-0.59 K/uL Eosinophils # (Auto) 0.20 0-0.5 K/uL Basophils # (Auto) 0.05 0-0.2 K/uL RDW Standard Deviation 44.7 36.4-46.3 fL RDW Coefficient of Variation 13.7 11.5-14.5 % Immature Granulocyte % (Auto) 0.2 % Immature Granulocyte # (Auto) 0.02 0.00-0.02 K/uL Sodium Level 132 136-145 mmol/L Potassium Level 3.5-5.1 mmol/L Chloride Level 104 98-107 mmol/L Carbon Dioxide Level 20 21-32 mmol/L Anion Gap 8.0 3-11 mmol/L Blood Urea Nitrogen 6 7-18 mg/dl Creatinine 0.89 0.60-1.20 mg/dl Est Creatinine Clear Calc Drug Dose 86.7 ml/min Estimated GFR () 86.4 Estimated GFR (Non- 74.5 BUN/Creatinine Ratio 6.8 10-20 Random Glucose 92 70-99 mg/dl Calcium Level 8.7 8.5-10.1 mg/dl Magnesium Level 1.8-2.4 mg/dl Total Bilirubin 1.0 0.2-1 mg/dl Direct Bilirubin 0-0.2 mg/dl Aspartate Amino Transf (AST/SGOT) 15-37 U/L Alanine Aminotransferase (ALT/SGPT) 30 12-78 U/L Alkaline Phosphatase 223 45-117 U/L Total Protein 7.8 6.4-8.2 gm/dl Albumin 3.0 3.4-5.0 gm/dl Lipase 157 73-393 U/L Thyroid Stimulating Hormone (TSH) 1.550 0.300-4.500 uIu/ml Bedside Troponin I 0.050 0-0.045 ng/ml EKG: Was read by myself and reviewed with Dr. Conde; shows normal sinus rhythm with a ventricular rate of 92 bpm. No ischemic changes. This was compared to a previous and no acute changes were noted. Chest X-Rays: Were read by myself and the radiologist showing borderline cardiomegaly with mild pulmonary vascular congestion without overt edema. No consolidations or pneumothorax. Patient was hydrated with normal saline. Patient was reassessed multiple times during her stay in the emergency department. Patient's case was reviewed with Dr. Conde; we agreed on diagnostic approach, treatment, disposition and plan. Patient's case was consulted with case management and Dr. Mccann, [facility] for medical observation/admission. Patient was educated about today's findings. Clinical Impression: Palpitations. Elevated troponin. Decision-Making: Initially my differential diagnosis I considered supraventricular tachycardia, other arrhythmias, acute coronary syndrome, pulmonary emboli, and other causes. Disposition and Plan: Patient be brought in the hospital by the [facility]ist; please see their notes and orders for final disposition and plan.
[2017-01-02 03:53] VITALS: BP 97/62; PULSE 89; TEMP 37
[2017-01-02 04:17] LABS: BASO % 1.1 %; BASO ABS # 0.06 K/uL (0-0.2); COMPLETE YES; EOS % 3.8 %; HEMATOCRIT 30.4 % (37-47); IG% 0.2 %; LYMPH % 32.9 %; LYMPH ABS # 1.82 K/uL (1.2-3.4); MEAN CELL VOLUME 89.4 fL (80-100); MEAN CORPUSCULAR HGB CONC 33.6 g/dl (32-36); MONO % 13.9 %; NEUT % 48.1 %; PLATELET COUNT 202 K/uL (130-400); WHITE BLOOD COUNT 5.53 K/uL (4.8-10.8)
[2017-01-02 04:35] LABS: BLOOD UREA NITROGEN 7 mg/dl (7-18); BUN/CREATININE RATIO 9.9 (10-20); CALCIUM 7.8 mg/dl (8.5-10.1); CARBON DIOXIDE 21 mmol/L (21-32); CHLORIDE 107 mmol/L (98-107); CREATININE 0.74 mg/dl (0.60-1.20); GLUCOSE 88 mg/dl (70-99); MAGNESIUM 1.9 mg/dl (1.8-2.4); POTASSIUM 3.6 mmol/L (3.5-5.1); SODIUM 135 mmol/L (136-145)
[2017-01-02 04:40] LABS: CKMB/CK RATIO 1.4 (0-3.0)
[2017-01-02 05:37] VITALS: O2SAT 96
--- NOTE | 2017-01-02 06:38 | DIAGNOSTIC IMAGING REPORT ---
ULTRASOUND VENOUS DOPPLER LWR EXT BILA CLINICAL HISTORY: Atypical chest pain. Leg swelling. ELEVATED D-DIMER COMPARISON STUDY: No previous studies for comparison. FINDINGS: Real-time and color flow Doppler imaging were performed. Flow was seen within the femoral, popliteal and calf veins with no intraluminal thrombus demonstrated. The saphenous vein is patent. IMPRESSION: No evidence of lower extremity DVT. Electronically signed by: Tom Bryant M.D. 01/02/2017 6:37 AM Dictated Date/Time: 01/02/2017 6:36 AM
[2017-01-02 07:15] VITALS: BP 99/64; PULSE 79; TEMP 37; O2SAT 95
[2017-01-02] MEDS ORDERED: PANTOprazole SOD 40 MG TAB PO SCH (09:00)
[2017-01-02 10:26] LABS: CKMB/CK RATIO 1.1 (0-3.0)
--- NOTE | 2017-01-02 11:17 | DIAGNOSTIC IMAGING REPORT ---
NUCLEAR MEDICINE VENTILATION/PERFUSION SCAN CLINICAL HISTORY: Chest pain and palpitations. Evaluate for evidence of pulmonary embolism. COMPARISON: Chest radiograph January 01, 2017. TECHNIQUE: For the ventilation portion of this exam, 32 mCi of DTPA was inhaled at 10:30 AM on January 02, 2017. Immediately following inhalation, imaging of the chest was carried out in the anterior, posterior, left lateral, right lateral, LPO, RPO, DANISH and SCHMITZ projections. For the perfusion portion of exam, 5.75 mCi of technetium 99m MAA was injected IV at 10:55 AM on January 02, 2017. Immediately following injection, imaging of the chest was carried out in the same projections. FINDINGS: Mild central radiotracer deposition is noted on the ventilation images. No mismatched defects are identified on this examination. This study is low probability for pulmonary embolus. IMPRESSION: Low probability for pulmonary embolus. Electronically signed by: Ketan Liriano M.D. 01/02/2017 11:15 AM Dictated Date/Time: 01/02/2017 11:13 AM
[2017-01-02 11:31] VITALS: BP 110/72; PULSE 78; TEMP 36.8; O2SAT 96
--- NOTE | 2017-01-02 13:46 | CARDIOLOGY CONSULTATION ---
DATE OF CONSULTATION: 01/02/2017 CONSULTATION REQUESTED BY: Dr. Mccann. REASON FOR CONSULTATION: Chest discomfort and palpitations. HISTORY OF PRESENT ILLNESS: Ms. Belle is a 51-year-old woman who is remotely seen in our cardiology clinic by Dr. Moran in the past for a history of SVT. She presented to [facility] on 01/01/2017 with a complaint of chest discomfort and palpitations. The patient states that on the evening of 01/01/2017, she was in her kitchen, doing Gato fluid, when she suddenly felt her heart start to race. She states it felt as though her heart was pounding out of her chest and this was quickly associated with a sensation of chest pressure. She states that this is exactly similar to her episode of SVT most recently in 2011. After a few minutes, she was able to sit down and catch her breath and her symptoms slowly improved, but still persisted somewhat. At that point, she called her daughter, who insisted her and bringing her to the Emergency Department and her symptoms resolved en route. Upon further questioning, the patient states that she was feeling short of breath and diaphoretic with this episode, but denied any associated lightheadedness or syncope. Again, she states this is exactly similar to previous episodes. Otherwise, she has been in normal health lately with no significant changes to her normal routines. PAST SURGICAL HISTORY: 1. Carpal tunnel surgery. 2. D&C. 3. Upper endoscopy. 4. Elbow surgery. MEDICAL ILLNESSES: 1. History of SVT, controlled on nadolol. 2. Hypertension. 3. Nonalcoholic steatohepatitis. 4. Morbid obesity. 5. Stage III chronic kidney disease. 6. Questionable history of esophageal varices. FAMILY HISTORY: Noncontributory. SOCIAL HISTORY: Denies any alcohol, tobacco or recreational drug use. She is . She lives at home with her . REVIEW OF SYSTEMS: As per HPI, all other review of systems reviewed and negative at this time. ALLERGIES: 1. ____. 2. GLUTEN MEAL. 3. IODINATED CONTRAST AGENTS. MEDICATIONS AN OUTPATIENT: 1. Nadolol 10 mg daily. 2. Lasix 40 mg q.a.m. and 20 mg q.p.m. 3. Spironolactone 50 mg daily. 4. Iron daily. 5. Oxycodone as needed. 6. Omeprazole daily. PHYSICAL EXAMINATION: VITALS: Temperature is 37, pulse 78, respiratory rate 12, and blood pressure 99/64. GENERAL: Awake, alert, and oriented x3, in no acute distress. HEENT: Normocephalic and atraumatic. Pupils equal, round, and reactive to light and accommodation. Extraocular muscles intact. Anicteric sclerae. Moist mucous membranes. NECK: No JVD and no bruit. PULMONARY: Clear to auscultation bilaterally. No rales, rhonchi, or wheezing. ABDOMEN: Bowel sounds x4. Obese. No rebound, guarding, or tenderness. No organomegaly. EXTREMITIES: No clubbing, cyanosis or edema. +2 pedal pulses bilaterally. SKIN: Warm and dry. TEST RESULTS: A 12-lead EKG performed in the Emergency Department independently reviewed at this time shows normal sinus rhythm at 96 beats per minute, normal axis, normal intervals, and normal study. LABORATORY STUDIES OF SIGNIFICANCE: CPK of 123 followed by 100 followed by 97. Troponin negative x3. Exercise stress echocardiogram was nonischemic. No inducible arrhythmias. Markedly reduced exercise tolerance. IMPRESSION: 1. Palpitations with chest discomfort. 2. Nonischemic exercise stress echocardiogram. 3. History of paroxysmal supraventricular tachycardia. RECOMMENDATIONS: Ms. Belle was counseled given the fact that her stress test was nonischemic along with the fact that we are not able to induce any tachyarrhythmias, no further testing will be necessary at this time. Given the fact that this is her first episode since 2011 along with the fact that she is reluctant to increase or change any of her medications, at this point I would recommend continuing her on current dose of nadolol and following with Dr. Moran as an outpatient and consideration there can be given to adjusting her medications or placing her on long-term monitor. Otherwise, it is okay to discharge the patient to home from a cardiac standpoint.
--- NOTE | 2017-01-02 14:25 | Discharge Instructions ---
Discharge Instructions Date of Service Jan 02, 2017. Admission Reason for Admission: Palpitations Discharge Discharge Diagnosis / Problem: Palpitations with chest discomfort in setting of prior SVT Discharge Goals Goal(s): Prevent Disease Progression Activity Recommendations Activity Limitations: per Instructions/Follow-up section . Instructions / Follow-Up Instructions / Follow-Up Please take all medications as instructed. Please ensure follow-up with your [facility] in the next few weeks. You have an appointment with Dr. Nogueira on 01/08 @ 11:55am for follow-up from this hospitalization. It was a pleasure taking care of you! Call if you have any questions or problems. You can reach a [facility] Hospitalist on duty at [facility] 24 hours a day by calling [phone]. Take care of yourself. Neris Butler DO [facility] Hospitalist Current Hospital Diet Patient's current hospital diet: AHA Diet (Heart Healthy) Discharge Diet Recommended Diet: AHA Diet (Heart Healthy) Procedures Procedures Performed: DSE-final read pending, reported as negative for inducible ischemia. TTE Pending Studies Studies pending at discharge: no Medical Emergencies . Who to Call and When: Medical Emergencies: If at any time you feel your situation is an emergency, please call 911 immediately. . Non-Emergent Contact Non-Emergency issues call your: Primary Care Provider . . "Provider Documentation" section prepared by Neris Butler. . VTE Core Measure Inpt VTE Proph given/why not?: SCD's (if d dimer/doppler US negative)
[2017-01-02 14:28] VITALS: BP 110/72; PULSE 78; TEMP 36.8; O2SAT 96
--- NOTE | 2017-01-02 14:42 | EXERCISE STRESS ECHO ---
*NOTICE TO RECEIVING CONSTITUTION PARTY AGENCY This information is strictly Confidential and protected under [place] law. [place] law prohibits you from making any further disclosure of this information unless further disclosure is expressly permitted by the written consent of the person to whom it pertains or is authorized by law. A general authorization for the release of medical or other information is not sufficient for this purpose. Hospital accepts no responsibility if the information is made available to any other person, INCLUDING THE PATIENT. Interpretation Summary * Name: CHRISTINA JEREZ Study Date: 01/02/2017 11:23 AM BP: 108/64 mmHg * Patient Location: C.2T\S\S240\S\1 HR: 80 * : 1965 (M/d/yyyy) Gender: Female Height: 63 in * Age: 51 yrs Ethnicity: CA Weight: 208 lb * Ordering Physician: Mookie Eden * Referring Physician: Self, Referred * Performed By: Payton Gao RDCS * * Reason For Study: CHEST PAIN * BSA: 2.0 m2 * -- Conclusions -- * Nonischemic exercise stress echocardiogram. * No arrhythmias. * Normal HR and BP response to exercise. * Markedly reduced exercise tolerance. * At rest, normal LV chamber size and wall thickness. * Normal LV systolic function, EF 55-60%. * No segmental left ventricular wall motion abnormalities are noted. * Grade I diastolic dysfunction. * No significant valvular pathology. Procedure Details * ECHOEX, CPT #86684 * She refused Definity due to an allergy Left Ventricle * The left ventricle is normal in size. * There is normal left ventricular wall thickness. * Ejection Fraction = 55-60%. * Left ventricular systolic function is normal. * No segmental left ventricular wall motion abnormalities are noted. * The left ventricular wall motion is normal. Right Ventricle * The right ventricular cavity size is normal (basal dimension <4.2 cm in right ventricular apical 4-chamber view). * The right ventricular systolic function is normal as assessed by tricuspid annular plane systolic excursion (TAPSE) (normal >1.5 cm). Atria * The left atrial size is normal. * Right atrial size is normal. * No ASD detected; PFO is not assessed. Mitral Valve * The mitral valve is normal in structure and function. Tricuspid Valve * The tricuspid valve is normal in structure and function. Aortic Valve * The aortic valve is normal in structure and function. Pulmonic Valve * The pulmonary valve is not well seen, but the Doppler examination is normal without significant regurgitation or stenosis. Great Vessels * The aortic root is normal size. Pericardium * There is no pericardial effusion. Stress Parameters * Normal baseline electrocardiogram. * There was no new ST segment depression. * No arrhythmia were noted with stress. * The stress portion of this study was personally supervised by the undersigned interpreting physician. * Rest heart rate was '80' BPM. * Rest blood pressure was '108/64' * Maximum heart rate achieved was 146 bpm. * Maximum heart rate was 86 % of maximum age-predicted heart rate. * Maximum blood pressure was '147/70' * Total exercise time was '4:42' * Maximum exercise MET level achieved was '6.60' METS * Maximum treadmill speed was '2.50' miles per hour. * Maximum treadmill elevation was '12.00'% grade. * Exercise was terminated due to 'ACHIEVING TARGET HR' Left Ventricular Diastolic Function * Grade I diastolic dysfunction, (abnormal relaxation pattern). MMode 2D Measurements and Calculations IVSd 0.99 cm IVSs 1.4 cm LVIDd 4.8 cm LVIDs 3.3 cm LVPWd 10 cm LVPWs 1.4 cm IVS/LVPW 0.99 FS 29.9 % EDV(Teich) 105.8 ml ESV(Teich) 45.4 ml EF(Teich) 57.1 % EDV(cubed) 108.4 ml ESV(cubed) 37.3 ml EF(cubed) 65.6 % % IVS thick 36.4 % % LVPW thick 37.0 % LV mass(C)d 166.9 grams LV mass(C)dI 84.9 grams/m\S\2 LV mass(C)s 154.5 grams LV mass(C)sI 78.6 grams/m\S\2 SV(Teich) 60.4 ml SI(Teich) 30.7 ml/m\S\2 SV(cubed) 71.1 ml SI(cubed) 36.2 ml/m\S\2 Ao root diam 2.7 cm Ao root area 5.6 cm\S\2 LA dimension 3.7 cm LA/Ao 1.4 LVAd ap4 30.7 cm\S\2 LVLd ap4 7.9 cm EDV(MOD-sp4) 96.6 ml EDV(sp4-el) 101.1 ml LVAs ap4 17.5 cm\S\2 LVLs ap4 6.4 cm ESV(MOD-sp4) 40.2 ml ESV(sp4-el) 40.8 ml EF(MOD-sp4) 58.5 % EF(sp4-el) 59.6 % LVAd ap2 34.2 cm\S\2 LVLd ap2 8.8 cm EDV(MOD-sp2) 107.1 ml EDV(sp2-el) 112.5 ml LVAs ap2 18.8 cm\S\2 LVLs ap2 6.6 cm ESV(MOD-sp2) 43.3 ml ESV(sp2-el) 45.1 ml EF(MOD-sp2) 59.6 % EF(sp2-el) 59.9 % LVLd %diff 10.3 % EDV(MOD-bp) 108.3 ml LVLs %diff 3.5 % ESV(MOD-bp) 41.8 ml EF(MOD-bp) 61.3 % SV(MOD-sp4) 56.5 ml SI(MOD-sp4) 28.7 ml/m\S\2 SV(MOD-sp2) 63.8 ml SI(MOD-sp2) 32.4 ml/m\S\2 SV(MOD-bp) 66.4 ml SI(MOD-bp) 33.8 ml/m\S\2 SV(sp4-el) 60.3 ml SI(sp4-el) 30.6 ml/m\S\2 SV(sp2-el) 67.3 ml SI(sp2-el) 34.2 ml/m\S\2 Doppler Measurements and Calculations MV E max brenda 91.3 cm/sec MV A max brenda 106.7 cm/sec MV E/A 0.86 MV dec time 0.24 sec Ao V2 max 153.7 cm/sec Ao max PG 9.4 mmHg Ao max PG (full) 2.4 mmHg LV V1 max PG 7.1 mmHg LV V1 max 132.8 cm/sec
[2017-01-02] MEDS ORDERED: NADOLOL 40 MG TAB PO SCH (21:00)
--- NOTE | 2017-01-03 22:58 | Discharge Summary ---
Discharge Summary Date of Service Jan 03, 2017. Discharge Summary Admission Date: Jan 01, 2017 at 21:24 Discharge Date: Jan 02, 2017 Discharge Disposition: Home Principal Diagnosis: 1. Palpitations with chest discomfort. 2. Nonischemic exercise stress echocardiogram. 3. History of paroxysmal supraventricular tachycardia Procedures: TTE Vaccinations: None. Consultations: Cardio Pending Studies/Follow-Up: see instructions below. Medication Reconciliation Continued Medications: Albuterol Sulfate (Proair Respiclick) 108 Mcg/Act Aer 2 PUFF INH Q4 PRN for SOB/Wheezing Cholecalciferol (Vitamin D3) 1,000 Inter.unit Tab 1 TAB PO QAM Cyanocobalamin (Vitamin B12) 1,000 Mcg Tab 1 TAB PO QAM Ferrous Sulfate (Kp Ferrous Sulfate) 325 Mg Tab 1 TAB PO DAILY for 30 Days, #30 TAB 3 Refills Furosemide (Lasix) 20 Mg Tab 40 MG PO QAM, TAB Furosemide (Lasix) 20 Mg Tab 20 MG PO DAILY, TAB afternoon Nadolol (Corgard) 20 Mg Tab 10 MG PO QPM, TAB Omeprazole (Cvs Omeprazole) 20 Mg Tab 1 TAB PO QAM Oxycodone HCl (Oxycodone HCl) 5 Mg Tab 5-10 MG PO Q4H PRN for Moderate - severe pain, #90 TAB Spironolactone (Aldactone) 50 Mg Tab 50 MG PO DAILY, TAB Admission Information HPI (per Admitting provider): 51 year old female with history of Paroxysmal SVT, CHRIS Cirrhosis, CKD 3 presenting with chest discomfort and palpitation an hour prior to admission. Patient follows with [facility] Cardiology for PSVT, last episode 2011, currently maintained on Nadolol. Patient was at her usual state of health until this evening, while preparing dinner, patient had a sudden onset of chest tightness, palpitations and some dizziness. Denies sweating, nausea, dyspnea. She called her daughter and she was brought to the ER. While in transit, patient was noted to be pale but no syncope noted. Upon arrival at the ER, patient reports that her symptoms have resolved. She estimates that her symptoms lasted for about an hour. HR 97, BP 137/84, EKG Sinus rhythm. Troponin point of care was 0.05. She was then advised admission. On my exam, patient seen laying in bed, not in distress, appears comfortable, daughter at bedside. States symptoms have not recurred since admission to the ER. Denies active chest pain, dyspnea, palpitations, dizziness, nausea. No other symptoms Physical Exam (per Admitting): General Appearance: WD/WN, no apparent distress Head: normocephalic, atraumatic Eyes: normal inspection, EOMI ENT: normal ENT inspection, hearing grossly normal Neck: supple, no adenopathy, thyroid normal, no JVD Respiratory/Chest: chest non-tender, lungs clear, normal breath sounds, no respiratory distress, no accessory muscle use Cardiovascular: regular rate, rhythm, no JVD, no murmur, normal peripheral pulses Abdomen/GI: normal bowel sounds, non tender, soft, no organomegaly Back: normal inspection, no CVA tenderness Extremities/Musculoskelatal: + pertinent finding (mild lower leg edema, with mild erythema but no tenderness) Neurologic/Psych: signal manager II-XII nml as tested, no motor/sensory deficits, alert , normal mood/affect, oriented x 3 Skin: normal color, warm/dry, no rash Lymphatic: no adenopathy Hospital Course 51 yo F arrived to ER with palpitations that began one hour [employer] associated with chest pressure, shortness of breath and lightheadedness. Had a history of SVT and this felt like prior episodes. EKG revealed sinus rhythm in the ER. She was admitted to telemetry and serial cardiac enzymes were negative overnight. She remained hemodynamically stable and afebrile. She underwent a stress echo the following morning which was negative for inducible ischemia. She was sent home in stable condition to continue Nadolol without any changes to her regimen. Follow-up with Cardiology was recommended as outpatient for consideration of long-term monitoring. Total time spent on discharge = 60 minutes This includes examination of the patient, discharge planning, medication reconciliation, and communication with other providers. Discharge Instructions [facility] [address] [place] [address] Discharge Medical Patient Name: Hannah Belle Unit Number: [id number] Date of : 1965 Patient Status: Discharged Inpatient (obs) Attending Doctor: Neris Butler DO DI: Medical v4 Discharge Instructions Date of Service Jan 02, 2017. Admission Reason for Admission: Palpitations Discharge Discharge Diagnosis / Problem: Palpitations with chest discomfort in setting of prior SVT Discharge Goals Goal(s): Prevent Disease Progression Activity Recommendations Activity Limitations: per Instructions/Follow-up section . Instructions / Follow-Up Instructions / Follow-Up Please take all medications as instructed. Please ensure follow-up with your Plate Inspector in the next few weeks. You have an appointment with Dr. Nogueira on 01/08 @ 11:55am for follow-up from this hospitalization. It was a pleasure taking care of you! Call if you have any questions or problems. You can reach a [facility] hospitalist on duty at [facility] 24 hours a day by calling [phone]. Take care of yourself. Neris Butler, DO [facility] Current [facility] Diet Patient's current hospital diet: AHA Diet (Heart Healthy) Discharge Diet Recommended Diet: AHA Diet (Heart Healthy) Procedures Procedures Performed: DSE-final read pending, reported as negative for inducible ischemia. TTE Pending Studies Studies pending at discharge: no Medical Emergencies . Who to Call and When: Medical Emergencies: If at any time you feel your situation is an emergency, please call 911 immediately. . Non-Emergent Contact Non-Emergency issues call your: Primary Care Provider . . "Provider Documentation" section prepared by Neris Butler. . VTE Core Measure Inpt VTE Proph given/why not?: SCD's (if d dimer/doppler US negative) Additional Copies To Kristen Nogueira D.O.
== END 2017-01-02 15:56 | disposition home or self-care (01) ==
LOC: C.EDB 19:18 → C.2T 21:24 → ENRESERV 21:28
PROVIDERS: ADMIT Internal Medicine; ATTEND Hospitalist
DX: R00.2 Palpitations (principal); R42 Dizziness and giddiness; R07.89 Other chest pain; R06.02 Shortness of breath; R78.89 Finding of other specified substances, not normally found in blood; K75.81 Nonalcoholic steatohepatitis (NASH); N18.3 Chronic kidney disease, stage 3 (moderate)

== ENCOUNTER → 2017-02-02 | Outpatient (CLI) | payer OTHER ==
[~2017-02-02] MED LIST changes: +SPIR50TA2 PO
--- NOTE | 2017-02-02 07:37 | DIAGNOSTIC IMAGING REPORT ---
MRI LUMBAR SPINE W/O CONTRAST CLINICAL HISTORY: LUMBAR SPINE PAIN TECHNIQUE: Sagittal and axial T1, T2 and STIR images were obtained. COMPARISON STUDY: 10/09/2016 OBSERVATIONS: The patient refused intravenous gadolinium. Since the prior study, the patient has undergone an L4-5 posterior pedicle screw spinal fusion. Since the prior study the patient has developed a fracture the anterior superior L4 endplate. L1-2: No disc protrusions or extrusions. No evidence of spinal canal or neural foraminal compromise. L2-3: No disc protrusions or extrusions. No evidence of spinal canal or neural foraminal compromise. L3-4: There is diffuse circumferential disc bulge. There is moderate spinal stenosis. There is bilateral foraminal narrowing. L4-5: There are postsurgical changes of a L4-5 discectomy and posterior spinal fusion with a posterior laminectomy. Soft tissue thickening surrounding the thecal sac likely represents postsurgical epidural fibrosis. As stated above, the patient refused intravenous contrast. L5-S1: No disc protrusions or extrusions. No evidence of spinal canal or neural foraminal compromise. The conus medullaris and cauda equina appear normal. IMPRESSION: 1. Interval discectomy and posterior spinal fusion at the L4-5 level 2. L3-4 circumferential disc bulge, moderate spinal stenosis, and bilateral foraminal narrowing 3. Interval development of a fracture involving the anterior superior L4 endplate Electronically signed by: Tom Bryant M.D. 02/02/2017 7:36 AM Dictated Date/Time: 02/02/2017 7:29 AM
== END | disposition home or self-care (01) ==
LOC: C.MRI 06:37
PROVIDERS: ATTEND Orthopaedic Surgery Orthopaedic Surgery of the Spine
DX: M54.5 Low back pain (principal)

== ENCOUNTER 2017-03-11 14:50 | Observation (INO) | payer OTHER ==
[~2017-03-11] VITALS: Ht 160 cm; Wt 108.7 kg
--- NOTE | 2017-03-11 15:28 | EMERGENCY ROOM VISIT NOTE ---
History Report prepared by Ernst: Kwan Benz Under the Supervision of: Dr. Linwood Vega M.D. First contact with patient: 15:01 Chief Complaint: TACHYCARDIA Stated Complaint: SVT ATTACK, HEART RATE HIGH, SENT BY History of Present Illness The patient is a 51 year old female who presents to the Emergency Room with complaints of a resolved SVT attack that happened around 1300, and it lasted 30- 45 minutes. The patient states that she was at home and had chest tightness and her heart was racing. The patient states that once it resolved she called her doctor, and they told her to come to the ED for evaluation. She states that the tightness did not radiate anywhere, and she was very short of breath during the episode. The patient denies any nausea, vomiting, sweating, fevers, chills, cough, and congestion. She reports that she has a history of SVT which started in 2011, and she had an episode of it last month as well. She states that last time she was admitted to the hospital, and she had a stress test. The patient denies smoking, history of blood clots, cancer, recent long flights, or family history of cardiac issues at a young age. Source of History: patient Onset: 1300 Position: other (global) Quality: other (SVT) Timing: resolved Associated Symptoms: No fevers, No chills, No diaphoresis, No cough, No nausea, No vomiting Note: Associated symptoms: Chest tightness Review of Systems See HPI for pertinent positives and negatives. A total of ten systems were reviewed and were otherwise negative. Past Medical & Surgical Medical Problems: (1) Chest tightness (2) CKD (chronic kidney disease), stage III (3) CHRIS (nonalcoholic steatohepatitis) (4) Palpitations (5) Paroxysmal SVT (supraventricular tachycardia) (6) SVT (supraventricular tachycardia) (7) Varices, esophageal Surgical Problems: (1) H/O elbow surgery (2) S/P D&C (status post dilation and curettage) (3) Status post carpal tunnel release of both wrists Family History FH: cancer FATHER (Lymphoma) FH: diabetes mellitus MOTHER FH: multiple sclerosis BROTHER FH: thyroid cancer MOTHER Hypertension MOTHER Social History Smoking Status: Never Smoker Alcohol Use: occasionally Drug Use: none Marital Status: Current/Historical Medications Scheduled Cholecalciferol (Vitamin D3), 1,000 INTER.UNIT PO QAM Cyanocobalamin (Vitamin B12 500MCG), 500 MCG PO DAILY Ferrous Sulfate (Ferrous Sulfate), 325 MG PO DAILY Furosemide (Lasix), 40 MG PO QAM Furosemide (Lasix), 20 MG PO QAfternoon Nadolol (Corgard), 10 MG PO QPM Omeprazole (Cvs Omeprazole), 20 MG PO QAM Scheduled PRN Albuterol Sulfate (Proair Respiclick), 2 PUFFS INH Q4H PRN for SOB/Wheezing Allergies Coded Allergies: Pamabrom (Unverified Allergy, Unknown, HIVES, 11/05/16) Pyrilamine (Unverified Allergy, Unknown, HIVES, 11/05/16) Iodinated Diagnostic Agents (Verified Adverse Reaction, Intermediate, TACHYCARDIA, 11/05/16) Physical Exam Vital Signs Date Time Temp Pulse Resp B/P (MAP) Pulse Ox O2 Delivery O2 Flow Rate FiO2 03/11/17 19:18 83 03/11/17 19:12 82 18 120/77 95 Room Air 03/11/17 18:00 103/62 03/11/17 17:50 82 16 100 03/11/17 17:35 82 20 98 03/11/17 17:30 103/71 03/11/17 17:20 80 28 99 03/11/17 17:05 77 18 99 03/11/17 17:00 102/63 03/11/17 16:50 87 23 100 03/11/17 16:35 81 23 98 03/11/17 16:33 119/74 03/11/17 16:33 80 16 119/74 99 Room Air 03/11/17 16:30 84/66 03/11/17 16:20 79 14 98 03/11/17 16:05 84 22 98 03/11/17 16:00 110/63 03/11/17 15:52 98 Room Air 03/11/17 15:50 84 16 99 03/11/17 15:36 100/65 03/11/17 15:20 86 20 03/11/17 15:11 90 03/11/17 15:08 99 Room Air 03/11/17 15:07 119/71 03/11/17 14:55 97 Room Air 03/11/17 14:53 36.7 88 18 139/85 98 Room Air Physical Exam GENERAL: Awake, alert, well-appearing, in no distress HENT: Normocephalic, atraumatic. Oropharynx unremarkable. EYES: Normal conjunctiva. Sclera non-icteric. NECK: Supple. No nuchal rigidity. FROM. No JVD. RESPIRATORY: Clear to auscultation. CARDIAC: Regular rate, normal rhythm. Extremities warm and well perfused. Pulses equal. ABDOMEN: Soft, non-distended. No tenderness to palpation. No rebound or guarding. No masses. RECTAL: Deferred. MUSCULOSKELETAL: Chest examination reveals no tenderness. The back is symmetrical on inspection without obvious abnormality. There is no CVA tenderness to palpation. No joint edema. LOWER EXTREMITIES: Calves are equal size bilaterally and non-tender. No edema. No discoloration. NEURO: Normal sensorium. No sensory or motor deficits noted. SKIN: No rash or jaundice noted. Medical Decision & Procedures ER Provider Diagnostic Interpretation: Radiology results as stated below per my review and radiologist interpretation: CHEST ONE VIEW PORTABLE CLINICAL HISTORY: Chest pain. COMPARISON STUDY: Chest radiograph January 01, 2017. FINDINGS: Lung volumes are normal. No pneumothorax or pleural effusion is noted. There is pulmonary vascular congestion without overt edema. Ill-defined right midlung opacity may be artifactual. There is no lobar consolidation. Cardiomediastinal silhouette is stable. IMPRESSION: 1. Pulmonary vascular congestion. 2. Subtle apparent right midlung opacity. This is likely artifactual and related to overlying soft tissues. However, short-term follow-up PA and lateral chest radiographs are recommended. Electronically signed by: Ketan Liriano M.D. 03/11/2017 3:58 PM Dictated Date/Time: 03/11/2017 3:54 PM Laboratory Results 03/11/17 15:35 Red Blood Count 4.29, Mean Corpuscular Volume 85.5, Mean Corpuscular Hemoglobin 29.6, Mean Corpuscular Hemoglobin Concent 34.6, Mean Platelet Volume 9.5, Neutrophils (%) (Auto) 42.5, Lymphocytes (%) (Auto) 34.9, Monocytes (%) (Auto) 17.0, Eosinophils (%) (Auto) 4.8, Basophils (%) (Auto) 0.6, Neutrophils # (Auto ) 2.73, Lymphocytes # (Auto) 2.24, Monocytes # (Auto) 1.09, Eosinophils # (Auto ) 0.31, Basophils # (Auto) 0.04 03/11/17 15:35 Test 03/11/17 15:35 03/11/17 17:52 White Blood Count 6.42 K/uL (4.8-10.8) Red Blood Count 4.29 M/uL (4.2-5.4) Hemoglobin 12.7 g/dL (12.0-16.0) Hematocrit 36.7 % (37-47) Mean Corpuscular Volume 85.5 fL (80-100) Mean Corpuscular Hemoglobin 29.6 pg (25-34) Mean Corpuscular Hemoglobin Concent 34.6 g/dl (32-36) Platelet Count 243 K/uL (130-400) Mean Platelet Volume 9.5 fL (7.4-10.4) Neutrophils (%) (Auto) 42.5 % Lymphocytes (%) (Auto) 34.9 % Monocytes (%) (Auto) 17.0 % Eosinophils (%) (Auto) 4.8 % Basophils (%) (Auto) 0.6 % Neutrophils # (Auto) 2.73 K/uL (1.4-6.5) Lymphocytes # (Auto) 2.24 K/uL (1.2-3.4) Monocytes # (Auto) 1.09 K/uL (0.11-0.59) Eosinophils # (Auto) 0.31 K/uL (0-0.5) Basophils # (Auto) 0.04 K/uL (0-0.2) RDW Standard Deviation 45.0 fL (36.4-46.3) RDW Coefficient of Variation 14.5 % (11.5-14.5) Immature Granulocyte % (Auto) 0.2 % Immature Granulocyte # (Auto) 0.01 K/uL (0.00-0.02) Prothrombin Time 12.3 SECONDS (9.0-12.0) Prothromb Time International Ratio 1.1 (0.9-1.1) Activated Partial Thromboplast Time 27.2 SECONDS (21.0-31.0) Partial Thromboplastin Ratio 1.0 Anion Gap 10.0 mmol/L (3-11) Est Creatinine Clear Calc Drug Dose 71.4 ml/min Estimated GFR () 67.6 Estimated GFR (Non- 58.3 BUN/Creatinine Ratio 10.5 (10-20) Calcium Level 9.2 mg/dl (8.5-10.1) Magnesium Level 2.1 mg/dl (1.8-2.4) Total Bilirubin 1.1 mg/dl (0.2-1) Direct Bilirubin 0.4 mg/dl (0-0.2) Aspartate Amino Transf (AST/SGOT) 42 U/L (15-37) Alanine Aminotransferase (ALT/SGPT) 29 U/L (12-78) Alkaline Phosphatase 206 U/L (45-117) Pro-B-Type Natriuretic Peptide 142 pg/ml (0-900) Total Protein 8.3 gm/dl (6.4-8.2) Albumin 3.3 gm/dl (3.4-5.0) Lipase 176 U/L (73-393) Thyroid Stimulating Hormone (TSH) 1.820 uIu/ml (0.300-4.500) Bedside Troponin I 0.070 ng/ml (0-0.045) Laboratory results reviewed by me ECG Indication: tachycardia Rate (beats per minute): 89 Rhythm: normal sinus Findings: no acute ischemic change, other (normal axis) ED Course 1501: The patient was evaluated in room B6. A complete history and physical exam was performed. 171: I reevaluated the patient, and she was doing well. 1901: I discussed the patient with Wendy Pinto - he will evaluate the patient for further treatment. Medical Decision I reviewed the patient's past medical history, medications, and the nursing notes as described above. Differential Diagnoses include: SVT, other arrhythmias, ACS, CHF, pneumonia, bronchitis, dehydration, and electrolyte abnormality The patient is a 51-year-old woman with a past medical history of SVT who presents emergency Department after having an episode around 1 PM of palpitations and chest tightness with shortness of breath per history of present illness. The patient reports that the episode lasted approximately 45 minutes but she called her doctor and was advised to come in for evaluation. Arrival the patient is well-appearing, in no acute distress with afebrile and stable vital signs. EKG is normal sinus at 89 with no signs of acute ischemia. CXR with mild pulmonary edema however patient denies sob at this time and O2 sat wnl on RA. WBC wnl. Trop 1 negative. EKG unremarkable with NSR and no acute ischemia. Patient feeling fatigued but otherwise without recurrent symptoms. Trop2 sent and was mildly elevated to 0.07. Most likely related to prior likely tachy- arrythmia, however, will require admission for trending trop and tele- monitoring. Case d/w Dr. Arteaga, [facility] hospitalist, who will admit the patient for further management. Medication Reconcilliation Current Medication List: was personally reviewed by me Blood Pressure Screening Patient's blood pressure: Normal blood pressure Consults Time Called: 1849 Consulting Physician: Dr. Leblanc Returned Call: 1901 I discussed the patient with Dr. Leblanc - he will evaluate the patient for further treatment. Impression Primary Impression: Substernal chest pain Scribe Attestation The scribe's documentation has been prepared under my direction and personally reviewed by me in its entirety. I confirm that the note above accurately reflects all work, treatment, procedures, and medical decision making performed by me. Departure Information Dispostion Being Evaluated By Hospitalist Referrals Kristen Nogueira D.O. (PCP) Patient Instructions [facility]
[2017-03-11] MEDS ORDERED: CYAN500T13 PO (15:39)
[2017-03-11] MEDS ORDERED: FERR325T5 PO (15:39)
[2017-03-11 15:54] LABS: BASO % 0.6 %; BASO ABS # 0.04 K/uL (0-0.2); COMPLETE YES; EOS % 4.8 %; HEMATOCRIT 36.7 % (37-47); IG% 0.2 %; LYMPH % 34.9 %; LYMPH ABS # 2.24 K/uL (1.2-3.4); MEAN CELL VOLUME 85.5 fL (80-100); MEAN CORPUSCULAR HEMOGLOBIN 29.6 pg (25-34); MEAN CORPUSCULAR HGB CONC 34.6 g/dl (32-36); MEAN PLATELET VOLUME 9.5 fL (7.4-10.4); NEUT % 42.5 %; PLATELET COUNT 243 K/uL (130-400); RED BLOOD COUNT 4.29 M/uL (4.2-5.4); WHITE BLOOD COUNT 6.42 K/uL (4.8-10.8)
--- NOTE | 2017-03-11 15:59 | DIAGNOSTIC IMAGING REPORT ---
CHEST ONE VIEW PORTABLE CLINICAL HISTORY: Chest pain. COMPARISON STUDY: Chest radiograph January 01, 2017. FINDINGS: Lung volumes are normal. No pneumothorax or pleural effusion is noted. There is pulmonary vascular congestion without overt edema. Ill-defined right midlung opacity may be artifactual. There is no lobar consolidation. Cardiomediastinal silhouette is stable. IMPRESSION: 1. Pulmonary vascular congestion. 2. Subtle apparent right midlung opacity. This is likely artifactual and related to overlying soft tissues. However, short-term follow-up PA and lateral chest radiographs are recommended. Electronically signed by: Ketan Liriano M.D. 03/11/2017 3:58 PM Dictated Date/Time: 03/11/2017 3:54 PM
[2017-03-11 16:11] LABS: ALT/SGPT 29 U/L (12-78); BLOOD UREA NITROGEN 11 mg/dl (7-18); BUN/CREATININE RATIO 10.5 (10-20); CALCIUM 9.2 mg/dl (8.5-10.1); CARBON DIOXIDE 22 mmol/L (21-32); CHLORIDE 101 mmol/L (98-107); CREATININE 1.09 mg/dl (0.60-1.20); GLUCOSE 78 mg/dl (70-99); MAGNESIUM 2.1 mg/dl (1.8-2.4); POTASSIUM 3.9 mmol/L (3.5-5.1); SODIUM 133 mmol/L (136-145)
[2017-03-11 16:22] LABS: ALKALINE PHOSPHATASE 206 U/L (45-117); AST/SGOT 42 U/L (15-37)
[2017-03-11] MEDS ORDERED: POTASSIUM CHLORIDE 10 MEQ TABCR PO STA (19:54)
[2017-03-11] MEDS ORDERED: POTASSIUM CHLORIDE 10 MEQ TABCR ONE (20:07)
[2017-03-11] MEDS ORDERED: MoRPHine SULFATE 2 MG/ML CARP IV PRN (20:45)
[2017-03-11] MEDS ORDERED: LORAZEPAM 2 MG/ML 1 ML VIAL IV PRN (20:45)
[2017-03-11] MEDS ORDERED: ONDANSETRON INJ 2 MG/ML 2 ML VIAL IV PRN (20:45)
[2017-03-11] MEDS ORDERED: ACETAMINOPHEN 325 MG TAB PO PRN (20:45)
[2017-03-11] MEDS ORDERED: NITROGLYCERIN 0.4 MG SL PER TAB CHARGE SL PRN (20:45)
[2017-03-11] MEDS ORDERED: TRAMADOL HCL 50 MG TAB PO PRN (20:45)
[2017-03-11] MEDS ORDERED: ENOXAPARIN 40 MG/0.4 ML SYR SC SCH (20:45)
[2017-03-11] MEDS ORDERED: LORAZEPAM INJ 0.5 MG in SYRINGE 0.75 ML IV PRN (21:00)
[2017-03-11] MEDS ORDERED: NADOLOL 40 MG TAB PO SCH (21:00)
[2017-03-11] MEDS ORDERED: NSS + 20MEQ KCL 1000ML 1,000 ML IV ONE (21:00)
[2017-03-11] MEDS ORDERED: IV FLUIDS COMPLETED PRN (21:15)
[2017-03-11 21:31] LABS: INR 1.1 (0.9-1.1); PROTHROMBIN TIME (PATIENT) 12.3 SECONDS (9.0-12.0)
[2017-03-11] MEDS ORDERED: HEPARIN IV LOW DOSE NO BOLUS SCH (21:39)
[2017-03-11 22:26] VITALS: BP 117/78; PULSE 79; TEMP 37; O2SAT 98; Ht 160 cm; Wt 108.7 kg
--- NOTE | 2017-03-11 22:51 | HISTORY & PHYSICAL EXAMINATION ---
DATE OF ADMISSION: 03/11/2017 PRIMARY CARE DOCTOR: Dr. Nogueira. CHIEF COMPLAINT: SVT. HISTORY OF PRESENT ILLNESS: History obtained from patient and records. 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 Recent confinement 12/2016 for palpitations with chest discomfort. Stress echo negative. Patient discharged to home. Patient was driving home yesterday when she experienced palpitations, chest tightness, shortness of breath which lasted for about 30 minutes. Episode reminiscent of SVT episodes in the past, Symptoms relieved with some vagal maneuvers. Still a little short of breath after episode resolved. On and off leg swelling as per patient Denies unusual stress or exertion at home. No cough symptoms. Compliant with home medications. Patient told to by PCP to come to the Emergency Room. MEDICAL HISTORY: As above. SURGERIES: Gynecologic procedures, carpal tunnel surgery. HOME MEDICATIONS: Include ProAir, cyanocobalamin, vitamin D2, ferrous sulfate, Lasix, Corgard, omeprazole. ALLERGIES: TO PAMABROM, PYRILAMINE, IODINATED CONTRAST MEDIA. FAMILY HISTORY: Cancer, diabetes, MS, thyroid cancer. PERSONAL AND SOCIAL HISTORY: Nonsmoker, no chronic intake of alcoholic beverages. 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 REVIEW OF SYSTEMS: As per HPI. All 10 systems reviewed. All other ROS negative. PHYSICAL EXAMINATION: VITAL SIGNS: Blood pressure was noted to be 139/85 later 84/66 later 119/70, pulse rate 88, respiratory rate 18, temperature 36.5, sats 98 on room air. GENERAL: Noted to be slightly anxious, obese, no respiratory distress. SKIN: Normal color. warm HEENT: [place] palpebral conjunctivae. No ptosis. Dry mucosa. NECK: Short neck. No tenderness. CHEST: Clear to auscultation. No tenderness. HEART: Regular rate and rhythm, no murmur. ABDOMEN: Soft, nontender. EXTREMITIES: Minimal LE edema, no tenderness, no gross deformities. NEUROLOGIC: Coherent. No gross focality. LABORATORY DATA: Hemoglobin 12.7, hematocrit 36.7, white cell 6.42, platelets 243. Sodium 131, potassium 3.9, chloride 101, CO2 of 22, BUN 20_, creatinine 1. Glucose was noted to be 78. BNP was normal. Troponin was noted to be 0.07. D-dimer was abnormal. Chest x-ray subtle right mid lung opacity, likely artifactual, mild pulmonary congestion. EKG as per my interpretation, 90, normal sinus rhythm, LAD, LAFB, no ischemia. ASSESSMENT: 1. Chest pain, palpitations, sob symptoms Possible PSVT Patient currently NSR. ro pulmonary embolism as precipitant of episode on account of abnormal d-dimer. 2. Troponinemia secondary to above 3. Cirrhosis secondary to NAFLD No overt decompensation. PLAN: Observation PCU. Facilitate home BB. V/Q scan and lower extremity venous Dopplers for PE workup (Unable to do CT angio due to IV dye allergy.) IV heparin for thromboembolic prevention until PE ruled out Follow cardiac markers Cardiology consult RE recurrent SVT (Patient known to Dr. Moran.) DVT prophylaxis, Heparin. Full code. MTDD
[2017-03-11 23:33] VITALS: BP 106/70; PULSE 71; TEMP 36.3; O2SAT 98
[2017-03-11] MEDS: HEPARIN 25,000 UNIT/500ML D5W 500 ML IV PRN (23:46)
[2017-03-12] MEDS ORDERED: INFLUENZA ADMINISTRATION CHARGE ONE (00:15)
[2017-03-12] MEDS ORDERED: INFLUENZA VIRUS QUAD VACCINE 0.5 ML SYR IM. ONE (00:15)
[2017-03-12 04:16] VITALS: BP 101/67; PULSE 73; TEMP 36.5; O2SAT 97
[2017-03-12 05:12] LABS: BASO % 0.7 %; BASO ABS # 0.04 K/uL (0-0.2); COMPLETE YES; EOS % 6.8 %; HEMATOCRIT 34.8 % (37-47); IG% 0.3 %; LYMPH % 42.2 %; LYMPH ABS # 2.48 K/uL (1.2-3.4); MEAN CELL VOLUME 86.6 fL (80-100); MEAN CORPUSCULAR HEMOGLOBIN 27.9 pg (25-34); MEAN CORPUSCULAR HGB CONC 32.2 g/dl (32-36); MEAN PLATELET VOLUME 9.7 fL (7.4-10.4); MONO % 14.5 %; NEUT % 35.5 %; PLATELET COUNT 219 K/uL (130-400); RED BLOOD COUNT 4.02 M/uL (4.2-5.4); WHITE BLOOD COUNT 5.88 K/uL (4.8-10.8)
[2017-03-12 05:22] LABS: PARTIAL THROMBOPLASTIN RATIO 1.4
[2017-03-12 05:37] LABS: BLOOD UREA NITROGEN 12 mg/dl (7-18); BUN/CREATININE RATIO 12.3 (10-20); CALCIUM 8.4 mg/dl (8.5-10.1); CARBON DIOXIDE 20 mmol/L (21-32); CHLORIDE 104 mmol/L (98-107); CREATININE 0.98 mg/dl (0.60-1.20); GLUCOSE 93 mg/dl (70-99); POTASSIUM 4.4 mmol/L (3.5-5.1); SODIUM 131 mmol/L (136-145)
[2017-03-12] MEDS ORDERED: HEPARIN IV BOLUS 4,500 UNIT in SYRINGE 0 ML IV ONE (06:00)
[2017-03-12] MEDS: HEPARIN 25,000 UNIT/500ML D5W 500 ML IV PRN (06:07)
--- NOTE | 2017-03-12 06:58 | DIAGNOSTIC IMAGING REPORT ---
ULTRASOUND BILATERAL LOWER EXTREMITY VENOUS CLINICAL HISTORY: Lower extremity edema. COMPARISON STUDY: Bilateral lower extremity venous ultrasound dated 01/02/2017. TECHNIQUE: Real-time, grayscale, and color Doppler sonography of the deep veins of the right and left lower extremity was performed from the inguinal crease to the calf. Compression and augmentation were utilized. FINDINGS: There is no sonographic evidence of deep venous thrombosis identified in the right or left lower extremity. The common femoral, superficial femoral, and popliteal veins are patent and normally compressible bilaterally. The greater saphenous vein and the profunda femoris vein at the junction with the common femoral vein are clear in both legs. The visualized calf veins are patent bilaterally. IMPRESSION: There is no sonographic evidence of deep venous thrombosis identified in the right or left lower extremity. Electronically signed by: Surinder Thomson M.D. 03/12/2017 6:57 AM Dictated Date/Time: 03/12/2017 6:57 AM
[2017-03-12 08:39] VITALS: BP 92/57; PULSE 78; TEMP 36.7; O2SAT 98
[2017-03-12] MEDS ORDERED: FERROUS SULFATE 325 MG TAB PO SCH (09:00)
[2017-03-12] MEDS ORDERED: PANTOprazole SOD 40 MG TAB PO SCH (09:00)
--- NOTE | 2017-03-12 09:25 | DIAGNOSTIC IMAGING REPORT ---
NUCLEAR PULMONARY VENTILATION/PERFUSION SCAN CLINICAL HISTORY: Atypical chest pain. Dyspnea. COMPARISON STUDY: Chest x-ray dated 03/11/2017. VQ scan dated 01/02/2017. TECHNIQUE: Initially, ventilation images of both lungs are obtained following the inhalation of 32 mCi of aerosolized technetium 99m DTPA. Subsequently, perfusion images of both lungs were obtained following the IV administration of 5.5 mCi of technetium 99m MAA. Ventilation and perfusion images were acquired in the anterior, posterior, and oblique projections. FINDINGS: A chest x-ray performed 03/11/2017 shows no definite acute cardiopulmonary abnormality. The ventilation of both lungs is mildly heterogeneous but appears symmetric. There is mild deposition of tracer within the central airways. Inhaled tracer is noted in the stomach. Perfusion is mildly heterogeneous. No perfusion defects are identified. IMPRESSION: Findings are considered low probability for pulmonary embolus. Electronically signed by: Surinder Thomson M.D. 03/12/2017 9:24 AM Dictated Date/Time: 03/12/2017 9:21 AM
--- NOTE | 2017-03-12 10:57 | CARDIOLOGY CONSULTATION ---
DATE OF CONSULTATION: 03/12/2017 CONSULTATION REQUESTED BY: Dr. Leblanc. REASON FOR CONSULTATION: Palpitations. HISTORY OF PRESENT ILLNESS: Ms. Belle is a 51-year-old woman who normally follows with Dr. Moran of our cardiology practice for a history of SVT. She presented to [facility] on 03/11/2017 with a complaint of palpitations. The patient states that she was driving her car yesterday, not feeling overly stressed or anxious. When she suddenly developed some slight chest tightness, quickly followed by a feeling of her heart racing. She states it lasted approximately 30 minutes and then resolved on its own. She states that this is similar, but yet not as severe as previous episodes of SVT in the past. She states that she has been compliant with her medications at home including her Corgard and she is not quite sure what set off this episode. She presented to [facility]. She was admitted to telemetry and PE was ruled out by VQ scan. She had no arrhythmias overnight. Currently, she states that she feels fine. She is very anxious to be discharged. Of note, this episode was very similar to an episode she had in December of this year, when she was again admitted to [facility]. At that time, her telemetry monitoring was unremarkable as was a stress test and the patient was discharged home with recommendations to follow up with cardiology as an outpatient. Of note, the patient did not follow up with cardiology as recommended. PAST SURGICAL HISTORY: 1. Carpal tunnel surgery. 2. D&C. 3. Upper endoscopy. 4. Elbow surgery. MEDICAL ILLNESSES: 1. History of SVT, controlled on nadolol. 2. Hypertension. 3. Nonalcoholic steatohepatitis. 4. Obesity. 5. Stage III chronic kidney disease. 6. Questionable history of esophageal varices. FAMILY HISTORY: Noncontributory. SOCIAL HISTORY: Denies any alcohol, tobacco or recreational drug use. She is . She lives at home with her . REVIEW OF SYSTEMS: As per HPI. All other review of systems reviewed and negative at this time. ALLERGIES: 1. PAMPRIN. 2. GLUTEN MEAL. 3. IODINATED CONTRAST AGENTS. MEDICATIONS AN OUTPATIENT: 1. Nadolol 10 mg daily. 2. Lasix 40 mg q.a.m. and 20 mg q.p.m. 3. Spironolactone 50 mg daily. 4. Iron daily. 5. Oxycodone as needed. 6. Omeprazole daily. PHYSICAL EXAMINATION: VITALS: Temperature 36.7, pulse 78, respiratory rate 12, and blood pressure 92/57. GENERAL: Awake, alert, and oriented x3 in no acute distress. HEENT: Normocephalic and atraumatic. Pupils equal, round, and reactive to light and accommodation. Extraocular muscles intact. Anicteric sclerae. Moist mucous membranes. NECK: No JVD and no bruit. CARDIOVASCULAR: Regular. Positive S4. Normal S1 and S2. No S3. No murmurs or rubs. PULMONARY: Clear to auscultation bilaterally. No rales, rhonchi, or wheezing. ABDOMEN: Bowel sounds x4. Soft. No rebound, guarding, or tenderness. No organomegaly. EXTREMITIES: No clubbing, cyanosis or edema. +2 pedal pulses bilaterally. SKIN: Warm and dry. TEST RESULTS: Exercise stress echocardiogram performed on 01/02/2017 was read as nonischemic exercise stress echocardiogram, no arrhythmias, normal heart rate and blood pressure response to exercise, markedly reduced exercise tolerance, at rest normal LV chamber size and wall thickness, normal LV systolic function, EF 55%-60%, no segmental left ventricle wall motion abnormalities were noted, grade 1 diastolic dysfunction, and no significant valvular pathology. A 12-lead EKG performed in the Emergency Department independently reviewed at this time shows normal sinus rhythm at 89 beats per minute, left axis deviation, normal intervals, no signs of active ischemia, and no significant change compared to previous study. Review of telemetry monitoring shows sinus rhythm without any arrhythmias or significant ectopy. Sodium 131, potassium 4.4, BUN 12, and creatinine of 1. Troponin negative x3. IMPRESSION: 1. Palpitations. 2. History of supraventricular tachycardia. 3. Recent nonischemic exercise stress echocardiogram. 4. Hyponatremia. RECOMMENDATIONS: It was my pleasure to see Ms. Belle in consultation today. Given the patient's ongoing history of SVT and recurrent episodes, I believe the most prudent course of action at this point will be try and capture one of her episodes on telemetry monitoring for accurate diagnosis. Again, she is very hesitant to make any medication changes. So, we will continue her current dose of Corgard. I have already contacted my office and she will stop there for a 2-week Zio patch monitor after discharge and then follow up with Dr. Moran as an outpatient. Otherwise, her hyponatremia should be further worked up at this time and appropriately treated as it may be a possible cause for SVT.
[2017-03-12 11:05] VITALS: BP 99/64; PULSE 68; O2SAT 99
[2017-03-12] MEDS ORDERED: SPIR50TA3 PO (12:29)
--- NOTE | 2017-03-12 12:36 | Discharge Instructions ---
Discharge Instructions Date of Service Mar 12, 2017. Admission Reason for Admission: Chest Tightness Discharge Discharge Diagnosis / Problem: Chest discomfort Discharge Goals Goal(s): Prevent Disease Progression Activity Recommendations Activity Limitations: per Instructions/Follow-up section . Instructions / Follow-Up Instructions / Follow-Up Please take all medications as instructed on list above. Please note we are restarting your SPIRONOLACTONE 50mg every other day as discussed. Because of this change to your medication regimen, you will need some non-fasting bloodwork in the next 1-2 weeks. A script was provided for you at discharge. Results are to be sent to Dr. Nogueira's office. Please follow-up with [facility] Cardiology to picking machine operator your event monitor as instructed. You have an appointment with Dr. Kristen Nogueira on , 03/17 @ 11:15am for follow-up from this hospitalization. It was a pleasure taking care of you! Call if you have any questions or problems. You can reach a [facility] hospitalist on duty at [facility] 24 hours a day by calling [phone]. Take care of yourself. Neris Butler DO [facility] Current [facility] Diet Patient's current hospital diet: AHA Diet (Heart Healthy) Discharge Diet Recommended Diet: AHA Diet (Heart Healthy), Gluten Free Diet Pending Studies Studies pending at discharge: no Medical Emergencies . Who to Call and When: Medical Emergencies: If at any time you feel your situation is an emergency, please call 911 immediately. . Non-Emergent Contact Non-Emergency issues call your: Primary Care Provider . . "Provider Documentation" section prepared by Neris Butler. . VTE Core Measure Inpt VTE Proph given/why not?: Other Anticoagulation (heparin drip)
[2017-03-12 13:44] VITALS: BP 99/64; PULSE 68; TEMP 36.7; O2SAT 99
--- NOTE | 2017-03-12 22:13 | Discharge Summary ---
Discharge Summary Date of Service Mar 12, 2017. Discharge Summary Admission Date: Mar 11, 2017 at 19:35 Discharge Date: Mar 12, 2017 Discharge Disposition: Home Principal Diagnosis: Chest tightness Procedures: None. Vaccinations: Flu Consultations: Cards Pending Studies/Follow-Up: see instructions below. Medication Reconciliation New Medications: Spironolactone (Aldactone) 50 Mg Tab 50 MG PO Q2D for 30 Days, #30 TAB 1 Refill Take one pill every other day. Continued Medications: Albuterol Sulfate (Proair Respiclick) 108 Mcg/Act Aer 2 PUFFS INH Q4H PRN for SOB/Wheezing Cholecalciferol (Vitamin D3) 1,000 Inter.unit Tab 1000 INTER.UNIT PO QAM Cyanocobalamin (Vitamin B12 500MCG) 500 Mcg Tab 500 MCG PO DAILY, TAB Ferrous Sulfate (Ferrous Sulfate) 325 Mg Tab 325 MG PO DAILY Furosemide (Lasix) 20 Mg Tab 40 MG PO QAM, TAB Furosemide (Lasix) 20 Mg Tab 20 MG PO QAfternoon, TAB Nadolol (Corgard) 20 Mg Tab 10 MG PO QPM, TAB Omeprazole (Cvs Omeprazole) 20 Mg Tab 20 MG PO QAM Admission Information HPI (per Admitting provider): HISTORY OF PRESENT ILLNESS: History obtained from patient and records. 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 Recent confinement 12/2016 for palpitations with chest discomfort. Stress echo negative. Patient discharged to home. Patient was driving home yesterday when she experienced palpitations, chest tightness, shortness of breath which lasted for about 30 minutes. Episode reminiscent of SVT episodes in the past, Symptoms relieved with some vagal maneuvers. Still a little short of breath after episode resolved. On and off leg swelling as per patient Denies unusual stress or exertion at home. No cough symptoms. Compliant with home medications. Patient told to by PCP to come to the Emergency Room. Physical Exam (per Admitting): PHYSICAL EXAMINATION: VITAL SIGNS: Blood pressure was noted to be 139/85 later 84/66 later 119/70, pulse rate 88, respiratory rate 18, temperature 36.5, sats 98 on room air. GENERAL: Noted to be slightly anxious, obese, no respiratory distress. SKIN: Normal color. warm HEENT: [place] palpebral conjunctivae. No ptosis. Dry mucosa. NECK: Short neck. No tenderness. CHEST: Clear to auscultation. No tenderness. HEART: Regular rate and rhythm, no murmur. ABDOMEN: Soft, nontender. EXTREMITIES: Minimal LE edema, no tenderness, no gross deformities. NEUROLOGIC: Coherent. No gross focality. Hospital Course 51 yo F with a h/o SVT presented with chest tightness while driving her car which was followed by palpitations lasting approximately 30 minutes and resolved spontaneously. She had been compliant with her Nadolol. She was admitted to telemetry and PE was ruled out by VQ scan. She had no arrhythmias overnight and remained asymptomatic, afebrile and hemodynamically stable overnight. She had previously been admitted in December with a similar episode. At that time her telemetry monitoring was unremarkable and so was her stress test. She had been discharged home with instructions to follow-up with Cardiology as an outpatient, but she did not follow-up prior to representing with symptoms. She was noted to have hyponatremia and with her history of cirrhosis, she was on Lasix and Aldactone. However, a couple of months prior ( and prior to the last admission) she was told to stop her Aldactone per the GI provider as outpatient. Unfortunately, she began to have a lot of swelling and started back on it on her own every other day instead of daily. Then just a couple of weeks ago she ran out and the GI provider would not provide a refill. This was refilled for her at discharge until she can get in to see her GI provider in a follow-up and understand the plan better. These fluid changes may have been a trigger for events here. Also the hyponatremia, as a result of the diuretics or other, was also considered a possible trigger for her SVT. Exam on discharge was unremarkable. She was tolerating PO, ambulating at baseline and mentating at baseline. She was discharged in stable condition with close PCP and Cardiology follow-up recommended. Total time spent on discharge = 60 minutes This includes examination of the patient, discharge planning, medication reconciliation, and communication with other providers. Discharge Instructions [facility] [address] [place] [address] Discharge Medical Patient Name: Hannah Belle Unit Number: [id number] Date of : 1965 Patient Status: Discharged Inpatient (obs) Attending Doctor: Neris Butler DO DI: Medical v4 Discharge Instructions Date of Service Mar 12, 2017. Admission Reason for Admission: Chest Tightness Discharge Discharge Diagnosis / Problem: Chest discomfort Discharge Goals Goal(s): Prevent Disease Progression Activity Recommendations Activity Limitations: per Instructions/Follow-up section . Instructions / Follow-Up Instructions / Follow-Up Please take all medications as instructed on list above. Please note we are restarting your SPIRONOLACTONE 50mg every other day as discussed. Because of this change to your medication regimen, you will need some non-fasting bloodwork in the next 1-2 weeks. A script was provided for you at discharge. Results are to be sent to Dr. Nogueira's office. Please follow-up with [facility] Cardiology to picker box operator your event monitor as instructed. You have an appointment with Dr. Kristen Nogueira on , 03/17 @ 11:15am for follow-up from this hospitalization. It was a pleasure taking care of you! Call if you have any questions or problems. You can reach a [facility] hospitalist on duty at [facility] 24 hours a day by calling [phone]. Take care of yourself. Neris Butler, [facility] Hospitalist Current Hospital Diet Patient's current hospital diet: AHA Diet (Heart Healthy) Discharge Diet Recommended Diet: AHA Diet (Heart Healthy), Gluten Free Diet Pending Studies Studies pending at discharge: no Medical Emergencies . Who to Call and When: Medical Emergencies: If at any time you feel your situation is an emergency, please call 911 immediately. . Non-Emergent Contact Non-Emergency issues call your: Primary Care Provider . . "Provider Documentation" section prepared by Neris Butler. . VTE Core Measure Inpt VTE Proph given/why not?: Other Anticoagulation (heparin drip) Additional Copies To Kristen Nogueira D.O.
== END 2017-03-12 14:27 | disposition home or self-care (01) ==
LOC: C.EDB 14:51 → C.2T 19:35 → ENRESERV 19:49
PROVIDERS: ADMIT Hospitalist; ATTEND Hospitalist
DX: R07.89 Other chest pain (principal); Z79.899 Other long term (current) drug therapy; I47.1 Supraventricular tachycardia; K75.81 Nonalcoholic steatohepatitis (NASH); K76.6 Portal hypertension; Z98.890 Other specified postprocedural states; N18.3 Chronic kidney disease, stage 3 (moderate); E66.9 Obesity, unspecified; Z80.7 Family history of other malignant neoplasms of lymphoid, hematopoietic and related tissues; Z83.3 Family history of diabetes mellitus; Z82.0 Family history of epilepsy and other diseases of the nervous system

== ENCOUNTER 2017-11-30 15:09 | Observation (INO) | payer OTHER ==
[~2017-11-30] VITALS: Ht 160 cm; Wt 118.9 kg
[~2017-11-30 15:09] MED LIST changes: -CYAN100020 PO; +CYAN500T13 PO; -FERR1TAB13 PO; +FERR325T5 PO; -RXC5 PO; -SPIR50TA2 PO; +SPIR50TA5 PO
[2017-11-30] MEDS ORDERED: ONDANSETRON INJ 2 MG/ML 2 ML VIAL IV STA (16:31)
[2017-11-30] MEDS ORDERED: HYDROmorphone INJ 1 MG/ML SYR IV STA (16:31)
[2017-11-30] MEDS ORDERED: SODIUM CHLORIDE 0.9% 1000ML 1,000 ML IV STA (16:31)
--- NOTE | 2017-11-30 16:57 | EMERGENCY ROOM VISIT NOTE ---
History First contact with patient: 16:20 Chief Complaint: ABDOMINAL PAIN Stated Complaint: SHARP LOWER RIGHT AB PAIN Nursing Triage Summary: right side abdominal pain since this morning. denies n/v/d. History of Present Illness The patient is a 52 year old female who presents to the Emergency Room with complaints of right lower quadrant abdominal pain. The patient states the pain began approximately 6 hours ago. She states the pain came on fairly suddenly. Pain is in the right lower abdomen and radiates across the abdomen. It is a sharp pain and worsens with movement. She rates her discomfort a 10/10. Nothing has helped her pain. She denies any history of similar symptoms. She reports that she has been told before she has cirrhosis other abdominal issues or surgeries. She denies urinary symptoms, vaginal bleeding or discharge, or changes in her bowel movements. She denies nausea or vomiting. Review of Systems A complete 10 point review of systems was reviewed with the patient with pertinent positives and negatives as per history of present illness. All else were negative. Past Medical/Surgical History Medical Problems: (1) Abdominal pain (2) Chest tightness (3) CKD (chronic kidney disease), stage III (4) CHRIS (nonalcoholic steatohepatitis) (5) Palpitations (6) Paroxysmal SVT (supraventricular tachycardia) (7) SVT (supraventricular tachycardia) (8) Varices, esophageal Surgical Problems: (1) H/O elbow surgery (2) S/P D&C (status post dilation and curettage) (3) Status post carpal tunnel release of both wrists Family History FH: cancer FATHER (Lymphoma) FH: diabetes mellitus MOTHER FH: multiple sclerosis BROTHER FH: thyroid cancer MOTHER Hypertension MOTHER Social History Smoking Status: Never Smoker Alcohol Use: occasionally Drug Use: none Marital Status: Current/Historical Medications Scheduled Cholecalciferol (Vitamin D3), 1,000 INTER.UNIT PO QAM Cyanocobalamin (Vitamin B12 500MCG), 500 MCG PO QAM Ferrous Sulfate (Ferrous Sulfate), 325 MG PO QAM Furosemide (Lasix), 20 MG PO BID17 Nadolol (Corgard), 10 MG PO BID Omeprazole (Cvs Omeprazole), 20 MG PO QAM Spironolactone (Aldactone), 50 MG PO QAM Scheduled PRN Albuterol Sulfate (Proair Respiclick), 2 PUFFS INH Q4H PRN for SOB/Wheezing Physical Exam Vital Signs Date Time Temp Pulse Resp B/P (MAP) Pulse Ox O2 Delivery O2 Flow Rate FiO2 11/30/17 21:59 86 18 115/76 94 Room Air 11/30/17 21:46 90 11/30/17 21:34 89 16 108/63 94 Room Air 11/30/17 20:41 89 113/71 Room Air 11/30/17 20:13 93 17 106/76 92 Room Air 11/30/17 19:14 89 17 99/85 93 Nasal Cannula 3.0 11/30/17 17:56 92 Nasal Cannula 3.0 11/30/17 17:54 87 20 97/66 86 Room Air 11/30/17 17:08 90 11/30/17 15:35 37.3 94 18 113/68 96 Room Air Physical Exam VITALS: Vitals are noted on the nurse's note and reviewed by myself. Vital signs stable. GENERAL: This is a 52-year-old female, in no acute distress, nondiaphoretic, well-developed well-nourished. SKIN: The skin was without rashes. EARS: External auditory canals clear, tympanic membranes pearly reyes without erythema or effusion bilaterally. EYES: Pupils equal round and reactive to light and accommodation. MOUTH: Mucous membranes moist. HEART: Regular rate and rhythm without murmurs gallops or rubs. LUNGS: Clear to auscultation bilaterally without wheezes, rales or rhonchi. ABDOMEN: Positive bowel sounds x 4. Soft, mild tenderness throughout the abdomen with focal tenderness in the right lower quadrant. No guarding or rebound tenderness. NEURO: Patient was alert and oriented to person place and time. Medical Decision & Procedures ER Provider Diagnostic Interpretation: ABD/PELVIS NO IV OR ORAL CONT IMPRESSION: 1. Allowing for noncontrast technique, no acute intra-abdominal pathology. 2. Cirrhosis with portal hypertension evidenced by varices. 3. Hepatic steatosis. 4. Punctate nonobstructing left renal calculus. 5. Findings suggest congestive change of the lung bases. Early pulmonary edema cannot be excluded. CHEST ONE VIEW PORTABLE FINDINGS: Atherosclerosis of the aortic arch. Cardiac silhouette mildly enlarged. Pulmonary vascular prominence. Bronchial wall cuffing. No focal opacity. No large effusion or pneumothorax. Osseous structures normal. Upper abdomen normal. IMPRESSION: 1. Cardiomegaly with volume overload/congestive change. (LIVER) ABDOMEN LIMITED IMPRESSION: 1. Cirrhosis. 2. No cholelithiasis or biliary ductal dilatation. Laboratory Results Test 11/30/17 16:50 11/30/17 18:00 11/30/17 22:09 Prothrombin Time 11.8 SECONDS (9.0-12.0) Prothromb Time International Ratio 1.1 (0.9-1.1) Magnesium Level 1.9 mg/dl (1.8-2.4) Troponin I < 0.015 ng/ml (0-0.045) Lipase 98 U/L (73-393) Urine Color DK YELLOW Urine Appearance CLEAR (CLEAR) Urine pH 8.0 (4.5-7.5) Urine Specific [place] 1.017 (1.000-1.030) Urine Protein NEG (NEG) Urine Glucose (UA) NEG (NEG) Urine Ketones NEG (NEG) Urine Occult Blood TRACE (NEG) Urine Nitrite NEG (NEG) Urine Bilirubin NEG (NEG) Urine Urobilinogen POS (NEG) Urine Leukocyte Esterase TRACE (NEG) Urine WBC (Auto) 1-5 /hpf (0-5) Urine RBC (Auto) 5-10 /hpf (0-4) Urine Hyaline Casts (Auto) 1-5 /lpf (0-5) Urine Epithelial Cells (Auto) >30 /lpf (0-5) Urine Bacteria (Auto) 1+ (NEG) Direct Bilirubin 0.5 mg/dl (0-0.2) Medications Administered Medications (Trade) Dose Ordered Sig/Sunny Route Start Time Stop Time Status Last Admin Dose Admin Sodium Chloride 1,000 ml @ 999 mls/hr Q1H1M STAT IV 11/30/17 16:31 11/30/17 17:31 DC 11/30/17 16:58 999 MLS/HR Hydromorphone HCl (Dilaudid Inj) 1 mg NOW STAT IV 11/30/17 16:31 11/30/17 16:36 DC 11/30/17 16:59 1 MG Ondansetron HCl (Zofran Inj) 4 mg NOW STAT IV 11/30/17 16:31 11/30/17 16:36 DC 11/30/17 16:58 4 MG Ceftriaxone Sodium (Rocephin Inj) 1 gm NOW STAT IV 11/30/17 22:39 8/6/18 23:09 DC 11/30/17 23:21 1 GM ED Course The patient was evaluated as above. Labs were drawn and IV access was obtained. Patient was medicated with 1 mg Dilaudid. Patient did have a decrease in O2 saturations, likely secondary to receiving the Dilaudid. CT of the abdomen and pelvis was performed and read by radiology as above. Patient was reassessed and her pain is returning. Treatment plan was discussed with the patient. She is agreeable to admission. Case was discussed with the [facility]ist, Dr. Leblanc. They agreed to evaluate the patient for admission/observation. Medical Decision Differential diagnosis includes appendicitis, cholecystitis, pancreatitis, gastritis, gastroenteritis, kidney stone, pyelonephritis, UTI, among others. The patient is a 52-year-old female who presents today complaining of abdominal pain. She initially described this as a pain in her right lower abdomen, although it does seem to be radiating there from her right upper abdomen. Labs revealed no leukocytosis or anemia. Total bilirubin was found to be elevated at 2.0, up from recent labs. Patient's creatinine is also slightly elevated at 1.23. AST elevated at 42, alkaline phosphatase 121. INR was within normal limits. Urinalysis suggestive of infection versus contamination. Culture pending. CT was initially performed and does not show any acute findings within the abdomen. Chest x-ray shows congestive changes. Ultrasound of the liver again demonstrates cirrhosis. Due to patient's acutely worsening pain and elevation of bilirubin, I do feel she would benefit from admission/ observation in GI consultation. Patient is agreeable to this. She was admitted to the [facility] service. The patient's case was reviewed with Dr. Vega, ED attending physician, who agreed with my assessment and treatment plan. Medication Reconcilliation Current Medication List: was personally reviewed by wa Blood Pressure Screening Patient's blood pressure: Normal blood pressure Impression Primary Impression: Right upper quadrant abdominal pain Departure Information Referrals Kristen Nogueira D.O. (PCP) Patient Instructions My [facility]
[2017-11-30] MEDS ORDERED: SPIR50TA2 PO (16:59)
[2017-11-30 17:05] LABS: BASO % 0.1 %; BASO ABS # 0.01 K/uL (0-0.2); EOS % 3.4 %; EOS ABS # 0.31 K/uL (0-0.5); HEMATOCRIT 40.9 % (37-47); HEMOGLOBIN 13.9 g/dL (12.0-16.0); IG# 0.01 K/uL (0.00-0.02); LYMPH % 11.8 %; LYMPH ABS # 1.09 K/uL (1.2-3.4); MEAN CELL VOLUME 92.5 fL (80-100); MEAN CORPUSCULAR HEMOGLOBIN 31.4 pg (25-34); MEAN PLATELET VOLUME 10.4 fL (7.4-10.4); MONO % 12.2 %; MONO ABS # 1.13 K/uL (0.11-0.59); NEUT % 72.4 %; PLATELET COUNT 169 K/uL (130-400); RED CELL DISTRIBUTION WIDTH CV 13.6 % (11.5-14.5); WHITE BLOOD COUNT 9.25 K/uL (4.8-10.8)
[2017-11-30 17:19] LABS: ALBUMIN 3.8 gm/dl (3.4-5.0); ALKALINE PHOSPHATASE 121 U/L (45-117); ALT/SGPT 32 U/L (12-78); AST/SGOT 42 U/L (15-37); BLOOD UREA NITROGEN 16 mg/dl (7-18); CALCIUM 9.5 mg/dl (8.5-10.1); CARBON DIOXIDE 22 mmol/L (21-32); CREATININE 1.23 mg/dl (0.60-1.20); GLUCOSE 86 mg/dl (70-99); LIPASE 98 U/L (73-393); POTASSIUM 3.8 mmol/L (3.5-5.1); SODIUM 135 mmol/L (136-145); TOTAL PROTEIN 8.5 gm/dl (6.4-8.2)
--- NOTE | 2017-11-30 17:48 | DIAGNOSTIC IMAGING REPORT ---
ABD/PELVIS NO IV OR ORAL CONT CLINICAL HISTORY: 52 years-old Female presenting with RLQ pain, allergy to IV contrast. TECHNIQUE: Multidetector CT of the abdomen and pelvis was performed without the use of intravenous contrast. IV contrast: None. A dose lowering technique was used consistent with the principles of ALARA (as low as reasonably achievable). COMPARISON: 02/15/2015. CT DOSE (mGy.cm): The estimated cumulative dose is 1884.89 mGy.cm. FINDINGS: Retirement Specialist topogram: Posterior lumbar fusion hardware. Lung bases: Mosaic attenuation. Mild bronchial wall thickening. Pulmonary arteries are dilated relative to their adjacent bronchi. Mild multichamber enlargement of the heart. No pericardial or pleural effusion. Liver: Cirrhotic morphology. Density consistent with hepatic steatosis. Biliary: No gross biliary ductal dilatation allowing for noncontrast technique. Normal gallbladder. Pancreas: Moderate parenchymal atrophy. Spleen: Top normal in size measuring 12 cm in maximal sagittal dimension. Adrenal glands: Normal noncontrast appearance. Kidneys and ureters: Punctate nonobstructing calculus at the lower pole of the left kidney. No hydronephrosis. Ureters grossly normal. Bladder: Circumferential bladder wall thickening though this may be due to underdistention. Pelvic organs: Normal noncontrast appearance. Bowel: Normal noncontrast appearance. The appendix is normal. No bowel obstruction. Peritoneal cavity: No free fluid or intraperitoneal gas. Lymph nodes: No gross lymphadenopathy allowing for noncontrast technique. Vasculature: Prominent perisplenic varices evident. Atherosclerosis of the normal caliber abdominal aorta. Abdominal wall: Normal. Musculoskeletal: Postsurgical changes of posterior lumbar fusion at L4-5. IMPRESSION: 1. Allowing for noncontrast technique, no acute intra-abdominal pathology. 2. Cirrhosis with portal hypertension evidenced by varices. 3. Hepatic steatosis. 4. Punctate nonobstructing left renal calculus. 5. Findings suggest congestive change of the lung bases. Early pulmonary edema cannot be excluded. Electronically signed by: David Epstein M.D. 11/30/2017 5:46 PM Dictated Date/Time: 11/30/2017 5:36 PM
--- NOTE | 2017-11-30 18:26 | DIAGNOSTIC IMAGING REPORT ---
CHEST ONE VIEW PORTABLE CLINICAL HISTORY: 52 years-old Female presenting with abd pain. TECHNIQUE: Portable upright AP view of the chest was obtained. COMPARISON: 03/11/2017. FINDINGS: Atherosclerosis of the aortic arch. Cardiac silhouette mildly enlarged. Pulmonary vascular prominence. Bronchial wall cuffing. No focal opacity. No large effusion or pneumothorax. Osseous structures normal. Upper abdomen normal. IMPRESSION: 1. Cardiomegaly with volume overload/congestive change. Electronically signed by: David Epstein M.D. 11/30/2017 6:24 PM Dictated Date/Time: 11/30/2017 6:22 PM
[2017-11-30 21:15] LABS: INR 1.1 (0.9-1.1)
--- NOTE | 2017-11-30 21:24 | DIAGNOSTIC IMAGING REPORT ---
(LIVER) ABDOMEN LIMITED CLINICAL HISTORY: 52 years-old Female presenting with right abdominal pain, hx cirrhosis. TECHNIQUE: Real-time grayscale and limited color Doppler ultrasound imaging of the abdomen limited to the right upper quadrant was performed. COMPARISON: CT performed earlier today. FINDINGS: Pancreas: Visualized portions of the pancreatic head and body normal. Liver: Nodular contour with hyperechogenic parenchyma and heterogeneous echotexture, consistent with cirrhosis. The liver measures 15.7 cm in maximal sagittal dimension. No sonographic evidence of hepatic mass. Main portal vein patent with normal directional flow. Biliary: No intrahepatic biliary ductal dilatation. Common bile duct not well visualized though measuring up to 7 mm in diameter. Gallbladder: No evidence of gallstones, gallbladder wall thickening, gallbladder distention, or pericholecystic fluid or inflammatory change. Sonographic Castro's sign negative. Right kidney: Normal in appearance without evidence of hydronephrosis. Ascites: Trace ascites. Other: None. IMPRESSION: 1. Cirrhosis. 2. No cholelithiasis or biliary ductal dilatation. Electronically signed by: David Epstein M.D. 11/30/2017 9:23 PM Dictated Date/Time: 11/30/2017 9:21 PM
[2017-11-30] MEDS ORDERED: CEFTRIAXONE SOD INJ 1 GM ADDVIAL IV STA (22:39)
[2017-11-30] MEDS ORDERED: IV FLUIDS COMPLETED PRN (23:00)
[2017-11-30] MEDS ORDERED: PROCHLORPERAZINE INJ 5 MG in SYRINGE 4 ML IV PRN (23:00)
[2017-11-30] MEDS ORDERED: MoRPHine SULFATE 2 MG/ML CARP IV PRN (23:00)
[2017-11-30] MEDS ORDERED: ALBUMIN HUMAN 25% 12.5 GM/50 ML VIAL IV ONE (23:00)
[2017-11-30] MEDS ORDERED: ACETAMINOPHEN 325 MG TAB PO PRN (23:00)
[2017-11-30] MEDS ORDERED: OXYCODONE HCL IR 5 MG TAB (IMMEDIATE RELEASE) PO STA (23:10)
[2017-11-30 23:57] VITALS: BP 139/89; PULSE 87; TEMP 37.1; O2SAT 94; Ht 160 cm; Wt 118.9 kg
[2017-12-01 00:15] VITALS: O2SAT 94
--- NOTE | 2017-12-01 04:23 | HISTORY & PHYSICAL EXAMINATION ---
DATE OF ADMISSION: 11/30/2017 CHIEF COMPLAINT: Abdominal pain. HISTORY OF PRESENT ILLNESS: History obtained from the patient and records. Medical history significant for PSVT, cirrhosis secondary to NAFLD, portal hypertension/esophageal varices as per records. Recent confinement 02/2017 for chest tightness, PSVT episode. This morning, patient woke up with achy right-sided abdominal pain worse with motion, some nausea, no emesis. Denies dysuria. No fever, no chills. Intractable pain at the ER. At the ER, decreased responsiveness and hypoxemia noted after Dilaudid administration. MEDICAL HISTORY: As above. [facility] GI visit last month Increased diuretic dosing for increased peripheral edema. SURGERIES: She has had carpal tunnel, D and C, cervical procedures. HOME MEDICATIONS: Include omeprazole, Aldactone, albuterol, vitamin B12, vitamin D3, ferrous sulfate, Lasix, Corgard. ALLERGIES: ALLERGIC TO dye, pamabrom, pyrilamine FAMILY HISTORY: Diabetes, hypertension, thyroid disease. PERSONAL AND SOCIAL HISTORY: Nonsmoker. No chronic ETOH intake. REVIEW OF SYSTEMS: As per HPI, all 10 systems reviewed. All other ROS negative. PHYSICAL EXAMINATION: VITAL SIGNS: Blood pressure was noted to be 113/68, pulse rate 94, RR 18, temperature 37 O2 sats 96 on room air. GENERAL: Noted to be obese, uncomfortable, no respiratory distress. SKIN: Normal color, warm. HEENT: [place] palpebral conjunctivae. No ptosis. Dry mucosa. NECK: Short, supple. CHEST: Decreased effort, no tenderness. HEART: Regular rate and rhythm, no murmur. ABDOMEN: Distention, right abdominal tenderness. EXTREMITIES: Minimal LE edema, no tenderness. No gross deformities. NEUROLOGIC: Coherent. No gross focality. LABORATORY DATA: Hemoglobin is 13.9, white cell count 8, platelets noted to be 169. Sodium noted to be 136, potassium 4, chloride 103, CO2 is 22, creatinine 1.3. Glucose was noted to be 86. Total bilirubin 2, AST 42, alkaline phosphatase 121. CT abdomen and pelvis showed hepatic steatosis, cirrhosis, esophageal varices, nonobstructing L renal calculus, lung congestion. Ultrasound of the abdomen, cirrhosis UA, occult blood, trace WBC est. ASSESSMENT: 1. R sided abdominal pain ? urinary tract infection vs abdominal wall pain 2. Cirrhosis secondary to NAFLD No overt decompensation 3. ARF, secondary to illness 4. History of PSVT as per records. PLAN: Observation [facility] Analgesia Follow urine cultures. Ceftriaxone for possible UTI. Hold home diuretics until creatinine at baseline. IV albumin. DVT prophylaxis, SCDs. RE hx esophageal varices. Full code. Patient's children requesting updates from providers. Ms. Fierroie Jake, contact number [phone]. Naomi Joseph, contact number [phone]. [facility]
[2017-12-01] MEDS: FERROUS SULFATE 325 MG TAB PO SCH (07:40)
[2017-12-01] MEDS: NADOLOL 40 MG TAB PO SCH ×2 (07:40→21:19)
[2017-12-01] MEDS: OXYCODONE HCL IR 5 MG TAB (IMMEDIATE RELEASE) PO PRN ×3 (07:41→21:31)
[2017-12-01 08:00] VITALS: O2SAT 94
[2017-12-01 08:02] VITALS: BP 104/67; PULSE 91
[2017-12-01 08:18] LABS: ALBUMIN 3.3 gm/dl (3.4-5.0); CALCIUM 8.4 mg/dl (8.5-10.1); CREATININE 1.14 mg/dl (0.60-1.20); POTASSIUM 3.9 mmol/L (3.5-5.1); TOTAL PROTEIN 7.4 gm/dl (6.4-8.2)
[2017-12-01 08:19] VITALS: TEMP 36.9; O2SAT 93
[2017-12-01 08:31] LABS: BASO % 0.2 %; BASO ABS # 0.02 K/uL (0-0.2); EOS % 3.8 %; EOS ABS # 0.38 K/uL (0-0.5); HEMATOCRIT 36.6 % (37-47); HEMOGLOBIN 11.9 g/dL (12.0-16.0); IG# 0.02 K/uL (0.00-0.02); LYMPH % 22.1 %; MEAN CELL VOLUME 94.1 fL (80-100); MEAN CORPUSCULAR HEMOGLOBIN 30.6 pg (25-34); MEAN CORPUSCULAR HGB CONC 32.5 g/dl (32-36); MEAN PLATELET VOLUME 10.3 fL (7.4-10.4); MONO % 13.1 %; MONO ABS # 1.31 K/uL (0.11-0.59); NEUT % 60.6 %; NEUT ABS # 6.04 K/uL (1.4-6.5); PLATELET COUNT 154 K/uL (130-400); RED CELL DISTRIBUTION WIDTH CV 13.6 % (11.5-14.5); RED CELL DISTRIBUTION WIDTH SD 46.7 fL (36.4-46.3); WHITE BLOOD COUNT 9.97 K/uL (4.8-10.8)
[2017-12-01] MEDS ORDERED: PANTOprazole SOD 40 MG TAB PO SCH (09:00)
--- NOTE | 2017-12-01 12:37 | Progress Note ---
Medicine Progress Note Date & Time of Visit: Dec 01, 2017 at 12:36. Subjective Seen resting in bed, having lunch, not in distress Daughter at the bedside As permission patient allow me to examine her States she still has right-sided abdominal pain more in the upper quadrant today Denies fever chills Denies urinary symptoms Objective Last 8 Hrs Date Time Temp Pulse Resp B/P (MAP) Pulse Ox O2 Delivery O2 Flow Rate FiO2 12/01/17 08:19 36.9 18 93 Room Air 12/01/17 08:02 91 104/67 (79) 12/01/17 08:00 94 Room Air Physical Exam: General-oriented 3, not in distress, speaking in sentences Head- atraumatic Eyes- anicteric ENT- oropharynx clear Neck- supple, no JVD Lungs- clear breath sounds bilaterally Heart- regular rhythm; no murmur, normal rate Abdomen- normal bowel sounds, nondistended, soft, mild upper and lower quadrant tenderness Extremities-trace pretibial edema, no calf tenderness Neuro- alert, oriented x 3; no gross focal deficits Skin- warm & dry Laboratory Results: Last 24 Hours Test 11/30/17 16:50 11/30/17 18:00 11/30/17 22:09 12/01/17 07:03 White Blood Count 9.25 K/uL Red Blood Count 4.42 M/uL Hemoglobin 13.9 g/dL Hematocrit 40.9 % Mean Corpuscular Volume 92.5 fL Mean Corpuscular Hemoglobin 31.4 pg Mean Corpuscular Hemoglobin Concent 34.0 g/dl Platelet Count 169 K/uL Mean Platelet Volume 10.4 fL Neutrophils (%) (Auto) 72.4 % Lymphocytes (%) (Auto) 11.8 % Monocytes (%) (Auto) 12.2 % Eosinophils (%) (Auto) 3.4 % Basophils (%) (Auto) 0.1 % Neutrophils # (Auto) 6.70 K/uL Lymphocytes # (Auto) 1.09 K/uL Monocytes # (Auto) 1.13 K/uL Eosinophils # (Auto) 0.31 K/uL Basophils # (Auto) 0.01 K/uL RDW Standard Deviation 46.0 fL RDW Coefficient of Variation 13.6 % Immature Granulocyte % (Auto) 0.1 % Immature Granulocyte # (Auto) 0.01 K/uL Prothrombin Time 11.8 SECONDS Prothromb Time International Ratio 1.1 Sodium Level 135 mmol/L 133 mmol/L Potassium Level 3.8 mmol/L 3.9 mmol/L Chloride Level 103 mmol/L 101 mmol/L Carbon Dioxide Level 22 mmol/L 23 mmol/L Anion Gap 9.0 mmol/L 9.0 mmol/L Blood Urea Nitrogen 16 mg/dl 18 mg/dl Creatinine 1.23 mg/dl 1.14 mg/dl Est Creatinine Clear Calc Drug Dose 65.9 ml/min 71.2 ml/min Estimated GFR () 58.0 63.6 Estimated GFR (Non- 50.0 54.9 BUN/Creatinine Ratio 12.8 16.1 Random Glucose 86 mg/dl 92 mg/dl Calcium Level 9.5 mg/dl 8.4 mg/dl Magnesium Level 1.9 mg/dl Total Bilirubin 2.0 mg/dl 3.5 mg/dl Aspartate Amino Transf (AST/SGOT) 42 U/L 35 U/L Alanine Aminotransferase (ALT/SGPT) 32 U/L 26 U/L Alkaline Phosphatase 121 U/L 84 U/L Troponin I < 0.015 ng/ml Total Protein 8.5 gm/dl 7.4 gm/dl Albumin 3.8 gm/dl 3.3 gm/dl Globulin 4.6 gm/dl 4.1 gm/dl Albumin/Globulin Ratio 0.8 0.8 Lipase 98 U/L Urine Color DK YELLOW Urine Appearance CLEAR Urine pH 8.0 Urine Specific [place] 1.017 Urine Protein NEG Urine Glucose (UA) NEG Urine Ketones NEG Urine Occult Blood TRACE Urine Nitrite NEG Urine Bilirubin NEG Urine Urobilinogen POS Urine Leukocyte Esterase TRACE Urine WBC (Auto) 1-5 /hpf Urine RBC (Auto) 5-10 /hpf Urine Hyaline Casts (Auto) 1-5 /lpf Urine Epithelial Cells (Auto) >30 /lpf Urine Bacteria (Auto) 1+ Direct Bilirubin 0.5 mg/dl Test 12/01/17 07:04 White Blood Count 9.97 K/uL Red Blood Count 3.89 M/uL Hemoglobin 11.9 g/dL Hematocrit 36.6 % Mean Corpuscular Volume 94.1 fL Mean Corpuscular Hemoglobin 30.6 pg Mean Corpuscular Hemoglobin Concent 32.5 g/dl Platelet Count 154 K/uL Mean Platelet Volume 10.3 fL Neutrophils (%) (Auto) 60.6 % Lymphocytes (%) (Auto) 22.1 % Monocytes (%) (Auto) 13.1 % Eosinophils (%) (Auto) 3.8 % Basophils (%) (Auto) 0.2 % Neutrophils # (Auto) 6.04 K/uL Lymphocytes # (Auto) 2.20 K/uL Monocytes # (Auto) 1.31 K/uL Eosinophils # (Auto) 0.38 K/uL Basophils # (Auto) 0.02 K/uL RDW Standard Deviation 46.7 fL RDW Coefficient of Variation 13.6 % Immature Granulocyte % (Auto) 0.2 % Immature Granulocyte # (Auto) 0.02 K/uL Date/Time Source Procedure Growth Status 11/30/17 18:00 Urine , Clean Catch Urine Culture - Preliminary Alpha Strep. Not Enterococcus Resulted Assessment & Plan 52-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 Right-sided abdominal pain Positive elevated bilirubin Still having right-sided abdominal pain GI consulted Possible UTI Final urine culture results pending On empiric ceftriaxone History of [place] cirrhosis Continue nadolol Holding Lasix and Aldactone in light of acute renal failure Resume tomorrow if renal function continues to be stable Acute renal failure Resolved, likely prerenal etiology Monitor History of PSVT On nadolol DVT prophylaxis SCDs Avoiding anticoagulation as patient has a history of esophageal varices Disposition Anticipate discharge to home when medically stable Current Inpatient Medications: Current Inpatient Medications Medications (Trade) Dose Ordered Sig/Sunny Route Start Time Stop Time Status Last Admin Dose Admin Oxycodone HCl (Roxicodone Immediate Rel Tab) 5 mg Q4H PRN PO 11/30/17 22:45 12/14/17 22:44 12/01/17 07:41 5 MG Miscellaneous (Iv Fluids Completed) 1 ea PRN PRN N/A 11/30/17 23:00 11/30/18 22:59 Acetaminophen (Tylenol Tab) 325 mg Q6H PRN PO 11/30/17 23:00 12/30/17 22:59 Morphine Sulfate (MoRPHine SULFATE INJ) 2 mg Q4H PRN IV 11/30/17 23:00 12/14/17 22:59 Prochlorperazine Edisylate 5 mg/ Syringe 5 ml @ 5 mls/min Q6H PRN IV 11/30/17 23:00 12/30/17 22:59 Ferrous Sulfate (Feosol Tab) 325 mg QAM PO 12/01/17 09:00 12/31/17 08:59 12/01/17 07:40 325 MG Nadolol (Corgard Tab) 10 mg BID PO 12/01/17 09:00 12/31/17 08:59 12/01/17 07:40 10 MG Pantoprazole Sodium (Protonix Tab) 40 mg QAM PO 12/01/17 09:00 12/31/17 08:59 12/01/17 07:40 40 MG Ceftriaxone Sodium 1 gm/ Dextrose 50 ml @ 100 mls/hr Q24H IV 12/01/17 23:00 12/04/17 23:29
--- NOTE | 2017-12-01 13:45 | Gastrointestinal Consultation ---
Gastrointestinal Consultation Date of Consultation: Dec 01, 2017 Attending Physician: Alvarez Mccann Consulting Physician: Bud Champion Reason for Consultation: RUQ abd pain, elevated Tbili History of Present Illness Patient is a 52 year old female who is admitted for abd pain, nausea w/o vomiting. She has hx of NAFLD cirrhosis, baseline MELD 9, celiac disease, she is being followed in outpt [facility] GI by BINA Calhoun. She had complications of non bleeding esophageal varices, portal HTN, edema. Recently diuretics increased due to her c/o increased peripheral edema. Starting Thursday she noticed RUQ abd pain w radiating to LUQ area. Pain mostly aggravated by motion, and associated with nausea. She just ate lunch when I saw her and she denies any increased abd pain post prandially. She denies any fever, chills, CP , SOB, or bowel habit changes including diarrhea. She denies any sick contact. Only new meds are diuretic dose changes, no recent antibiotics. She takes Aleve at times for back pain. Denies any ETOH intake. Pt doesn't count sodium intake, daughter said at home lot of food are already salted. Labs: No leukocytosis. H/H 11.9/36.6, INR 1.1, Na 133, BUN/Cr 18/1.14. Tbili 3.5 , AST 42, ALT 32, AP 121, Lipase 98. Urine culture alpha strep not enterococcus. She is on Ceftriaxone. CT abd/pelvis w/o contrast: 1. Allowing for noncontrast technique, no acute intra-abdominal pathology. 2. Cirrhosis with portal hypertension evidenced by varices. 3. Hepatic steatosis. 4. Punctate nonobstructing left renal calculus. 5. Findings suggest congestive change of the lung bases. Early pulmonary edema cannot be excluded. Liver u/s: 1. Cirrhosis. 2. No cholelithiasis or biliary ductal dilatation. CXR: 1. Cardiomegaly with volume overload/congestive change. Past Medical/Surgical History Medical Problems: (1) Substernal chest pain Status: Acute Past Medical History: See above, HTN, PSVT Past Surgical History: Carpal tunnel, D&C, cervical procedures. Family History FH: cancer FATHER (Lymphoma) FH: diabetes mellitus MOTHER FH: multiple sclerosis BROTHER FH: thyroid cancer MOTHER Hypertension MOTHER Social History Smoking Status: Never Smoker Alcohol Use: none Drug Use: none Marital Status: Allergies Coded Allergies: Hydromorphone (Verified Allergy, Intermediate, 0, 11/30/17) sob Pamabrom (Unverified Allergy, Unknown, HIVES, 11/30/17) Pyrilamine (Unverified Allergy, Unknown, HIVES, 11/30/17) Iodinated Diagnostic Agents (Verified Adverse Reaction, Intermediate, TACHYCARDIA, 11/30/17) Current Medications Home Meds and Scripts Medications Dose Route/Sig Max Daily Dose Days Date Category Aldactone (Spironolactone) 50 Mg Tab 50 Mg PO QAM 11/30/17 Reported Ferrous Sulfate 325 Mg Tab 325 Mg PO QAM 03/11/17 Reported Vitamin B12 500MCG (Cyanocobalamin) 500 Mcg Tab 500 Mcg PO QAM 03/11/17 Reported Lasix (Furosemide) 20 Mg Tab 20 Mg PO BID17 10/20/16 Reported Corgard (Nadolol) 20 Mg Tab 10 Mg PO BID 10/20/[address] [facility] Omeprazole (Omeprazole) 20 Mg Tab 20 Mg PO QAM 10/20/16 Reported Proair Respiclick (Albuterol Sulfate) 108 Mcg/Act Aer 2 Puffs INH Q4H PRN 10/20/16 Reported Vitamin D3 (Cholecalciferol) 1,000 Inter.unit Tab 1,000 Inter.unit PO QAM 10/20/16 Reported Review of Systems Constitutional: No fever, No chills Respiratory: No cough, No shortness of breath Cardiac: No chest pain Abdomen: + pain (ruq ), + nausea, No vomiting, No diarrhea, No constipation, No GI bleeding Skin: No rash, No itch, No jaundice Physical Exam Date Time Temp Pulse Resp B/P (MAP) Pulse Ox O2 Delivery O2 Flow Rate FiO2 12/01/17 08:19 36.9 18 93 Room Air 12/01/17 08:02 91 104/67 (79) 12/01/17 08:00 94 Room Air 12/01/17 00:15 94 Room Air 11/30/17 23:57 37.1 87 18 139/89 94 Room Air 11/30/17 23:26 85 17 98/72 94 Room Air 11/30/17 21:59 86 18 115/76 94 Room Air 11/30/17 21:46 90 11/30/17 21:34 89 16 108/63 94 Room Air 11/30/17 20:41 89 113/71 Room Air 11/30/17 20:13 93 17 106/76 92 Room Air 11/30/17 19:14 89 17 99/85 93 Nasal Cannula 3.0 11/30/17 17:56 92 Nasal Cannula 3.0 11/30/17 17:54 87 20 97/66 86 Room Air 11/30/17 17:08 90 11/30/17 15:35 37.3 94 18 113/68 96 Room Air General Appearance: WD/WN, no apparent distress, + obese Eyes: normal inspection, PERRL, EOMI Neck: supple, no JVD, trachea midline Respiratory/Chest: normal breath sounds, no respiratory distress, no accessory muscle use Cardiovascular: regular rate, rhythm, no gallop, no murmur Abdomen: normal bowel sounds, soft, + tenderness (RUQ) Extremities: + swelling (mild swelling on bilateral LE ) Neurologic/Psych: alert, normal mood/affect, oriented x 3 Skin: normal color, no jaundice, no rash Laboratory Results Last 24 Hours Test 11/30/17 16:50 11/30/17 18:00 11/30/17 22:09 12/01/17 07:03 White Blood Count 9.25 K/uL Red Blood Count 4.42 M/uL Hemoglobin 13.9 g/dL Hematocrit 40.9 % Mean Corpuscular Volume 92.5 fL Mean Corpuscular Hemoglobin 31.4 pg Mean Corpuscular Hemoglobin Concent 34.0 g/dl Platelet Count 169 K/uL Mean Platelet Volume 10.4 fL Neutrophils (%) (Auto) 72.4 % Lymphocytes (%) (Auto) 11.8 % Monocytes (%) (Auto) 12.2 % Eosinophils (%) (Auto) 3.4 % Basophils (%) (Auto) 0.1 % Neutrophils # (Auto) 6.70 K/uL Lymphocytes # (Auto) 1.09 K/uL Monocytes # (Auto) 1.13 K/uL Eosinophils # (Auto) 0.31 K/uL Basophils # (Auto) 0.01 K/uL RDW Standard Deviation 46.0 fL RDW Coefficient of Variation 13.6 % Immature Granulocyte % (Auto) 0.1 % Immature Granulocyte # (Auto) 0.01 K/uL Prothrombin Time 11.8 SECONDS Prothromb Time International Ratio 1.1 Sodium Level 135 mmol/L 133 mmol/L Potassium Level 3.8 mmol/L 3.9 mmol/L Chloride Level 103 mmol/L 101 mmol/L Carbon Dioxide Level 22 mmol/L 23 mmol/L Anion Gap 9.0 mmol/L 9.0 mmol/L Blood Urea Nitrogen 16 mg/dl 18 mg/dl Creatinine 1.23 mg/dl 1.14 mg/dl Est Creatinine Clear Calc Drug Dose 65.9 ml/min 71.2 ml/min Estimated GFR () 58.0 63.6 Estimated GFR (Non- 50.0 54.9 BUN/Creatinine Ratio 12.8 16.1 Random Glucose 86 mg/dl 92 mg/dl Calcium Level 9.5 mg/dl 8.4 mg/dl Magnesium Level 1.9 mg/dl Total Bilirubin 2.0 mg/dl 3.5 mg/dl Aspartate Amino Transf (AST/SGOT) 42 U/L 35 U/L Alanine Aminotransferase (ALT/SGPT) 32 U/L 26 U/L Alkaline Phosphatase 121 U/L 84 U/L Troponin I < 0.015 ng/ml Total Protein 8.5 gm/dl 7.4 gm/dl Albumin 3.8 gm/dl 3.3 gm/dl Globulin 4.6 gm/dl 4.1 gm/dl Albumin/Globulin Ratio 0.8 0.8 Lipase 98 U/L Urine Color DK YELLOW Urine Appearance CLEAR Urine pH 8.0 Urine Specific [place] 1.017 Urine Protein NEG Urine Glucose (UA) NEG Urine Ketones NEG Urine Occult Blood TRACE Urine Nitrite NEG Urine Bilirubin NEG Urine Urobilinogen POS Urine Leukocyte Esterase TRACE Urine WBC (Auto) 1-5 /hpf Urine RBC (Auto) 5-10 /hpf Urine Hyaline Casts (Auto) 1-5 /lpf Urine Epithelial Cells (Auto) >30 /lpf Urine Bacteria (Auto) 1+ Direct Bilirubin 0.5 mg/dl Test 12/01/17 07:04 White Blood Count 9.97 K/uL Red Blood Count 3.89 M/uL Hemoglobin 11.9 g/dL Hematocrit 36.6 % Mean Corpuscular Volume 94.1 fL Mean Corpuscular Hemoglobin 30.6 pg Mean Corpuscular Hemoglobin Concent 32.5 g/dl Platelet Count 154 K/uL Mean Platelet Volume 10.3 fL Neutrophils (%) (Auto) 60.6 % Lymphocytes (%) (Auto) 22.1 % Monocytes (%) (Auto) 13.1 % Eosinophils (%) (Auto) 3.8 % Basophils (%) (Auto) 0.2 % Neutrophils # (Auto) 6.04 K/uL Lymphocytes # (Auto) 2.20 K/uL Monocytes # (Auto) 1.31 K/uL Eosinophils # (Auto) 0.38 K/uL Basophils # (Auto) 0.02 K/uL RDW Standard Deviation 46.7 fL RDW Coefficient of Variation 13.6 % Immature Granulocyte % (Auto) 0.2 % Immature Granulocyte # (Auto) 0.02 K/uL Impression Patient is a 52 year old female seen for RUQ abd pain w radiation to LUQ, nausea w/o vomiting and elevated Tbili 3. Abd pain is aggravated by motion, and light palpation. 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 CT and liver u/s w/o significant biliary dilation, gallstones or sludge, CBD 7mm. No acute intrabdominal process. No bowel obstruction. No free fluid. She does have a UTI currently on Ceftriaxone. CXR w signs of congestive heart. DDx: gastritis, PUD (Aleve use), ? biliary colic. MELD: 17 Plan - Obtain MRCP, though yield of biliary stones likely low. - Monitor LFTs - 2g Na, gluten free diet - I had discussed with her about obtaining EGD to r/o PUD, gastritis, Hpylori but pt refused any endoscopic evaluations. - Continue Nadolol 10mg BID - Increase Protonix to 40mg BID - Trial Dicyclomine 10mg TID prn abd pain - Home diuretics Lasix 40mg BID, Spironolactone 50mg daily currently held for UTI, increased Cr. Should restart once renal function improves. - Congestive heart and UTI management per primary team. Attending attestation I have seen, examined this patient, and agree with the findings and above by our mid-level provider Art Brennan. -Patient lying in bed comfortably, just finished PT. C/O pain with moving around and previously ate a solid lunch without pain. Now after PT is having significant pain. States pain is related to moving around and not related to eating. Labs all look in order except indirect bilirubin which likely is related to underlying liver disease. -Ok with MRCP -GI meds to include bentyl and PPI -Will follow
[2017-12-01] MEDS ORDERED: DICYCLOMINE HCL 20 MG TAB PO PRN (14:00)
[2017-12-01 15:28] VITALS: BP 130/83; PULSE 75; TEMP 37.4; O2SAT 92
[2017-12-01] MEDS: PANTOprazole SOD 40 MG TAB PO SCH (21:19)
--- NOTE | 2017-12-01 21:29 | DIAGNOSTIC IMAGING REPORT ---
MRCP HISTORY: elevated total bilirubin, right upper quadrant abd pain TECHNIQUE: MRCP of the abdomen was performed without the use of intravenous contrast according to standard departmental protocol. COMPARISON STUDY: Abdominal ultrasound 11/30/2017. Abdomen and pelvis CT 11/30/2017. MRCP 02/13/2015. FINDINGS: Posterior decompression fusion at L4-L5 with pedicle screws and rods. The spleen remains mildly enlarged measuring 13.8 cm in length. This remains unchanged. Nodular contour to the liver consistent with cirrhosis. The lung bases are clear. Multiple splenic varices remain unchanged. No ascites identified. No hepatic or splenic masses. No retroperitoneal lymphadenopathy. The main portal vein remains patent. Normal caliber common bile duct. No filling defects within the common bile duct. The colon bile duct measures up to 3 mm. No gallbladder wall thickening. No gallstones. The main pancreatic duct is also normal and course and caliber. There is a 9 mm T2 hyperintense lesion within the upper pole the right kidney. This is incompletely characterize on this noncontrast study but favors a cyst. Normal pancreas. IMPRESSION: 1. Cirrhosis, splenomegaly, and multiple splenic varices remain unchanged. 2. No gallstones. No gallbladder wall thickening. 3. The common bile duct and main pancreatic duct are normal in course and caliber. No filling defects identified. Electronically signed by: Bobby Mendez M.D. 12/01/2017 9:28 PM Dictated Date/Time: 12/01/2017 9:22 PM
[2017-12-01] MEDS ORDERED: CEFTRIAXONE SOD INJ 1 GM in DEXTROSE 5% ADD-VANTAGE 50ML 50 ML IV SCH (23:00)
[2017-12-01 23:16] VITALS: BP 100/67; PULSE 69; TEMP 36.9; O2SAT 90
[2017-12-02 06:58] VITALS: BP 106/68; PULSE 78; TEMP 36.9; O2SAT 92
[2017-12-02] MEDS: PANTOprazole SOD 40 MG TAB PO SCH ×2 (07:51→20:24)
[2017-12-02] MEDS: NADOLOL 40 MG TAB PO SCH ×2 (07:51→20:23)
[2017-12-02] MEDS: FERROUS SULFATE 325 MG TAB PO SCH (07:51)
[2017-12-02 07:56] LABS: ALBUMIN 3.3 gm/dl (3.4-5.0); CALCIUM 8.4 mg/dl (8.5-10.1); CREATININE 1.48 mg/dl (0.60-1.20); POTASSIUM 4.1 mmol/L (3.5-5.1); TOTAL PROTEIN 7.6 gm/dl (6.4-8.2)
--- NOTE | 2017-12-02 12:12 | Gastroenterology Progress Note ---
Progress Note Date of Service: Dec 02, 2017 Subjective Pt evaluation today including: conversation w/ patient, conversation w/ family , physical exam, chart review, lab review, review of studies, review of inpatient medication list Pt denies any abd pain overnight. Had some pain this AM. Tolerated diet well w/ o n/v. Bowels moved this AM. MRCP w/o filling defect Tbili trending down Review of Systems Constitutional: No fever, No chills Respiratory: No cough, No shortness of breath Cardiac: No chest pain Abdomen: + pain, No nausea, No vomiting, No diarrhea Medications Current Inpatient Medications Medications (Trade) Dose Ordered Sig/Sunny Route Start Time Stop Time Status Last Admin Dose Admin Oxycodone HCl (Roxicodone Immediate Rel Tab) 5 mg Q4H PRN PO 11/30/17 22:45 12/14/17 22:44 12/01/17 21:31 5 MG Miscellaneous (Iv Fluids Completed) 1 ea PRN PRN N/A 11/30/17 23:00 11/30/18 22:59 Acetaminophen (Tylenol Tab) 325 mg Q6H PRN PO 11/30/17 23:00 12/30/17 22:59 Morphine Sulfate (MoRPHine SULFATE INJ) 2 mg Q4H PRN IV 11/30/17 23:00 12/14/17 22:59 Prochlorperazine Edisylate 5 mg/ Syringe 5 ml @ 5 mls/min Q6H PRN IV 11/30/17 23:00 12/30/17 22:59 Ferrous Sulfate (Feosol Tab) 325 mg QAM PO 12/01/17 09:00 12/31/17 08:59 12/02/17 07:51 325 MG Nadolol (Corgard Tab) 10 mg BID PO 12/01/17 09:00 12/31/17 08:59 12/02/17 07:51 10 MG Ceftriaxone Sodium 1 gm/ Dextrose 50 ml @ 100 mls/hr Q24H IV 12/01/17 23:00 12/04/17 23:29 12/01/17 21:45 100 MLS/HR Pantoprazole Sodium (Protonix Tab) 40 mg BID PO 12/01/17 21:00 12/31/17 08:59 12/02/17 07:51 40 MG Dicyclomine HCl (Bentyl Tab) 10 mg TID PRN PO 12/01/17 14:00 12/31/17 13:59 12/01/17 21:17 10 MG Objective Vital Signs Date Time Temp Pulse Resp B/P (MAP) Pulse Ox O2 Delivery O2 Flow Rate FiO2 12/02/17 08:00 Room Air 12/02/17 06:58 36.9 78 18 106/68 (81) 92 Room Air 12/01/17 23:16 36.9 69 18 100/67 (78) 90 Room Air 12/01/17 20:00 Room Air 12/01/17 16:00 Room Air 12/01/17 15:28 37.4 75 16 130/83 (99) 92 Room Air Physical Exam General Appearance: WD/WN, no apparent distress, + obese Eyes: normal inspection, PERRL, EOMI Neck: supple, no JVD, trachea midline Respiratory/Chest: normal breath sounds, no respiratory distress, no accessory muscle use Cardiovascular: regular rate, rhythm, no gallop, no murmur Abdomen: normal bowel sounds, soft, + tenderness (RUQ) Extremities: no calf tenderness, + pedal edema Neurologic/Psych: alert, normal mood/affect, oriented x 3 Skin: normal color, no jaundice, no rash Laboratory Results Last 24 Hours Test 12/02/17 07:11 Sodium Level 129 mmol/L Potassium Level 4.1 mmol/L Chloride Level 100 mmol/L Carbon Dioxide Level 21 mmol/L Anion Gap 8.0 mmol/L Blood Urea Nitrogen 20 mg/dl Creatinine 1.48 mg/dl Est Creatinine Clear Calc Drug Dose 54.8 ml/min Estimated GFR () 46.4 Estimated GFR (Non- 40.0 BUN/Creatinine Ratio 13.2 Random Glucose 108 mg/dl Calcium Level 8.4 mg/dl Total Bilirubin 2.3 mg/dl Aspartate Amino Transf (AST/SGOT) 28 U/L Alanine Aminotransferase (ALT/SGPT) 24 U/L Alkaline Phosphatase 90 U/L Total Protein 7.6 gm/dl Albumin 3.3 gm/dl Globulin 4.3 gm/dl Albumin/Globulin Ratio 0.8 Assessment and Plan Patient is a 52 year old female seen for RUQ abd pain w radiation to LUQ, nausea w/o vomiting and elevated Tbili 3. Abd pain is aggravated by motion, and light palpation. 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 CT and liver u/s w/o significant biliary dilation, gallstones or sludge, CBD 7mm. No acute intrabdominal process. No bowel obstruction. No free fluid. She does have a UTI currently on Ceftriaxone. CXR w signs of congestive heart. DDx: gastritis, PUD (Aleve use), ? biliary colic, shingles, UTI related flank pain. MELD: 17 (bilirubin driven) Overnight w/o pain. Used Bentyl. Slight pain today. Tolerated breakfast well. MRCP negative for filling defect. Tbili decreasing. Plan - 2g Na, gluten free diet - I had discussed with her about obtaining EGD to r/o PUD, gastritis, Hpylori but pt refused any endoscopic evaluations. - Continue Nadolol 10mg BID - Increase Protonix to 40mg BID - Continue Dicyclomine 10mg TID prn abd pain - Home diuretics Lasix 40mg BID, Spironolactone 50mg daily currently held for UTI, increased Cr. Should restart once renal function improves. - Congestive heart and UTI management per primary team. - GI will sign off; call if new questions/concerns arise. Attending attestation I have seen, examined this patient, and agree with the findings and above by our mid-level provider Art Brennan. -Pain appears to be MSK related, tolerating diet, labs have improved, all GI imaging is normal. -Pt refused EGD -F/U with Maylin Swartz
--- NOTE | 2017-12-02 15:08 | Progress Note ---
Medicine Progress Note Date & Time of Visit: Dec 02, 2017 at 15:07. Subjective Resting in bed, watching TV, comfortable States after having lunch she immediately had recurrence of right-sided abdominal pain-severe On my exam it is moderate No nausea No dysuria or any other urinary symptoms No other symptoms Objective Last 8 Hrs Date Time Temp Pulse Resp B/P (MAP) Pulse Ox O2 Delivery O2 Flow Rate FiO2 12/02/17 08:00 Room Air Physical Exam: General-oriented 3, not in distress, speaking in sentences Eyes- anicteric Neck- no JVD Lungs- clear breath sounds bilaterally, no rales or wheezes Heart-normal rate, regular rhythm; no murmurs Abdomen- normal bowel sounds, nondistended, soft, mild right upper and lower quadrant tenderness Extremities-trace pretibial edema, no calf tenderness Neuro- alert, oriented x 3; no gross focal deficits Skin- warm & dry Laboratory Results: Last 24 Hours Test 12/02/17 07:11 Sodium Level 129 mmol/L Potassium Level 4.1 mmol/L Chloride Level 100 mmol/L Carbon Dioxide Level 21 mmol/L Anion Gap 8.0 mmol/L Blood Urea Nitrogen 20 mg/dl Creatinine 1.48 mg/dl Est Creatinine Clear Calc Drug Dose 54.8 ml/min Estimated GFR () 46.4 Estimated GFR (Non- 40.0 BUN/Creatinine Ratio 13.2 Random Glucose 108 mg/dl Calcium Level 8.4 mg/dl Total Bilirubin 2.3 mg/dl Aspartate Amino Transf (AST/SGOT) 28 U/L Alanine Aminotransferase (ALT/SGPT) 24 U/L Alkaline Phosphatase 90 U/L Total Protein 7.6 gm/dl Albumin 3.3 gm/dl Globulin 4.3 gm/dl Albumin/Globulin Ratio 0.8 Assessment & Plan 52-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 Right-sided abdominal pain Positive elevated bilirubin, trending down MRCP unrevealing GI consulted, recommend upper GI endoscopy to rule out peptic ulcer disease, etc., patient declines at this time Protonix increased to twice daily Bentyl 3 times daily as needed ordered Patient had recurrence of abdominal pain after lunch We will continue to monitor UTI ruled out Final urine culture alpha strep DC ceftriaxone History of Jerez cirrhosis Continue nadolol Holding Lasix and Aldactone in light of acute renal failure Resume tomorrow if renal function continues to be stable Acute renal failure Creatinine increased to 1.4 IV normal saline solution ordered 500 cc total Continue to monitor creatinine History of PSVT On nadolol DVT prophylaxis SCDs Encouraged ambulation Avoiding anticoagulation as patient has a history of esophageal varices Disposition Anticipate discharge to home when medically stable Current Inpatient Medications: Current Inpatient Medications Medications (Trade) Dose Ordered Sig/Sunny Route Start Time Stop Time Status Last Admin Dose Admin Oxycodone HCl (Roxicodone Immediate Rel Tab) 5 mg Q4H PRN PO 11/30/17 22:45 12/14/17 22:44 12/01/17 21:31 5 MG Miscellaneous (Iv Fluids Completed) 1 ea PRN PRN N/A 11/30/17 23:00 11/30/18 22:59 Acetaminophen (Tylenol Tab) 325 mg Q6H PRN PO 11/30/17 23:00 12/30/17 22:59 Morphine Sulfate (MoRPHine SULFATE INJ) 2 mg Q4H PRN IV 11/30/17 23:00 12/14/17 22:59 Prochlorperazine Edisylate 5 mg/ Syringe 5 ml @ 5 mls/min Q6H PRN IV 11/30/17 23:00 12/30/17 22:59 Ferrous Sulfate (Feosol Tab) 325 mg QAM PO 12/01/17 09:00 12/31/17 08:59 12/02/17 07:51 325 MG Nadolol (Corgard Tab) 10 mg BID PO 12/01/17 09:00 12/31/17 08:59 12/02/17 07:51 10 MG Ceftriaxone Sodium 1 gm/ Dextrose 50 ml @ 100 mls/hr Q24H IV 12/01/17 23:00 12/04/17 23:29 12/01/17 21:45 100 MLS/HR Pantoprazole Sodium (Protonix Tab) 40 mg BID PO 12/01/17 21:00 12/31/17 08:59 12/02/17 07:51 40 MG Dicyclomine HCl (Bentyl Tab) 10 mg TID PRN PO 12/01/17 14:00 12/31/17 13:59 12/01/17 21:17 10 MG
[2017-12-02] MEDS ORDERED: DICYCLOMINE HCL 10 MG CAP PO ONE (15:15)
[2017-12-02] MEDS ORDERED: SODIUM CHLORIDE 0.9% 500ML 500 ML IV SCH (15:15)
[2017-12-02 15:56] VITALS: BP 105/67; PULSE 76; TEMP 36.8; O2SAT 92
[2017-12-02 20:00] VITALS: O2SAT 92
[2017-12-02 20:20] VITALS: BP 97/62; PULSE 74
[2017-12-02 23:36] VITALS: BP 129/81; PULSE 80; TEMP 36.9; O2SAT 91
[2017-12-03 07:45] VITALS: BP 106/68; PULSE 74; TEMP 36.6; O2SAT 93
[2017-12-03 07:48] LABS: ALBUMIN 3.2 gm/dl (3.4-5.0); CALCIUM 8.6 mg/dl (8.5-10.1); CREATININE 1.08 mg/dl (0.60-1.20); TOTAL PROTEIN 7.6 gm/dl (6.4-8.2)
[2017-12-03] MEDS: NADOLOL 40 MG TAB PO SCH (07:51)
[2017-12-03] MEDS: PANTOprazole SOD 40 MG TAB PO SCH (07:51)
[2017-12-03] MEDS: FERROUS SULFATE 325 MG TAB PO SCH (07:51)
--- NOTE | 2017-12-03 10:19 | Progress Note ---
Progress Note Date of Service Dec 03, 2017. (Karlie Delacruz CRNP) Progress Note GI asked to see pt again as she had recurrence of upper abd pain after supper and after breakfast this AM. She was eating solid meals. No BMs, no n/v. She is now agreeable to EGD evaluation. She is stable for DC home. She prefers outpt EGD instead of inpt. I have sent a request for our GI schedulers to contact her today/tomorrow to set up EGD appointment next week. Meanwhile can DC home on Protonix 40mg BID, Bentyl 10mg TID prn abd pain, Carafate 1g QID x 1-2 weeks. (Karlie Delacruz, BINA)
[2017-12-03] MEDS ORDERED: FUROSEMIDE 20 MG TAB PO ONE (11:30)
[2017-12-03] MEDS ORDERED: SPIRONOLACTONE 100 MG TAB PO ONE (11:30)
--- NOTE | 2017-12-03 13:29 | Progress Note ---
Medicine Progress Note Date & Time of Visit: Dec 03, 2017 at 13:23. Subjective Seen sitting up in bed, appears comfortable States she had some epigastric/right upper quadrant pain after meals since yesterday denies nausea/vomiting No melena or hematochezia Denies other symptoms Otherwise feels good Objective Last 8 Hrs Date Time Temp Pulse Resp B/P (MAP) Pulse Ox O2 Delivery O2 Flow Rate FiO2 12/03/17 07:45 36.6 74 20 106/68 (81) 93 Room Air Physical Exam: General-oriented 3, not in distress, speaking in sentences Eyes- anicteric Neck- no JVD Lungs- clear breath sounds bilaterally Heart-normal rate, regular rhythm; no murmurs Abdomen- normal bowel sounds, nondistended, soft, no tenderness Extremities-trace pretibial edema, no calf tenderness Neuro- alert, oriented x 3; no gross focal deficits Skin- warm & dry Laboratory Results: Last 24 Hours Test 12/03/17 06:47 Sodium Level 132 mmol/L Potassium Level 4.0 mmol/L Chloride Level 103 mmol/L Carbon Dioxide Level 21 mmol/L Anion Gap 8.0 mmol/L Blood Urea Nitrogen 15 mg/dl Creatinine 1.08 mg/dl Est Creatinine Clear Calc Drug Dose 75.1 ml/min Estimated GFR () 67.9 Estimated GFR (Non- 58.6 BUN/Creatinine Ratio 14.1 Random Glucose 96 mg/dl Calcium Level 8.6 mg/dl Total Bilirubin 1.6 mg/dl Aspartate Amino Transf (AST/SGOT) 25 U/L Alanine Aminotransferase (ALT/SGPT) 20 U/L Alkaline Phosphatase 88 U/L Total Protein 7.6 gm/dl Albumin 3.2 gm/dl Globulin 4.4 gm/dl Albumin/Globulin Ratio 0.7 Assessment & Plan 52-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 Right-sided abdominal/epigastric pain, Positive elevated bilirubin, trending down MRCP unrevealing GI consulted, recommend upper GI endoscopy to rule out peptic ulcer disease, gastritis, etc., patient declines at this time GI recommends outpatient EGD, GI clinic to call patient regarding appointment for this Recommend the following: Protonix 40 mg twice a day Carafate 4 times daily 1-2 weeks Bentyl 3 times daily as needed ordered We will provide instruction regarding dietary modifications Case discussed at length with patient and his son on speaker phone They are agreeable and comfortable advised patient to call for discharge to home today and monitoring of patient as an outpatient, outpatient EGD The family doctor or return to the ER immediately if with worsening of symptoms , nausea, vomiting, change in bowel movements UTI ruled out Final urine culture alpha strep DC ceftriaxone History of Jerez cirrhosis Continue nadolol Lasix and Aldactone were held in light of elevation of creatinine Creatinine back to normal Resume diuretics Acute renal failure resolved Creatinine increased to 1.4 IV normal saline solution ordered 500 cc total Creatinine is back to baseline History of PSVT On nadolol DVT prophylaxis NEUROLOGICAL: No headache, change in mental status, weakness, numbness, or dizziness. SCDs Encouraged ambulation Avoiding anticoagulation as patient has a history of esophageal varices Disposition DC home today and follow up with her primary care physician in 3-5 days- appointment date on patient's discharge instructions GI clinic to call patient regarding EGD schedule Current Inpatient Medications: Current Inpatient Medications Medications (Trade) Dose Ordered Sig/Sunny Route Start Time Stop Time Status Last Admin Dose Admin Oxycodone HCl (Roxicodone Immediate Rel Tab) 5 mg Q4H PRN PO 11/30/17 22:45 12/14/17 22:44 12/01/17 21:31 5 MG Miscellaneous (Iv Fluids Completed) 1 ea PRN PRN N/A 11/30/17 23:00 11/30/18 22:59 Acetaminophen (Tylenol Tab) 325 mg Q6H PRN PO 11/30/17 23:00 12/30/17 22:59 12/03/17 06:14 325 MG Morphine Sulfate (MoRPHine SULFATE INJ) 2 mg Q4H PRN IV 11/30/17 23:00 12/14/17 22:59 Prochlorperazine Edisylate 5 mg/ Syringe 5 ml @ 5 mls/min Q6H PRN IV 11/30/17 23:00 12/30/17 22:59 Ferrous Sulfate (Feosol Tab) 325 mg QAM PO 12/01/17 09:00 12/31/17 08:59 12/03/17 07:51 325 MG Nadolol (Corgard Tab) 10 mg BID PO 12/01/17 09:00 12/31/17 08:59 12/03/17 07:51 10 MG Pantoprazole Sodium (Protonix Tab) 40 mg BID PO 12/01/17 21:00 12/31/17 08:59 12/03/17 07:51 40 MG Dicyclomine HCl (Bentyl Tab) 10 mg TID PRN PO 12/01/17 14:00 12/31/17 13:59 12/01/17 21:17 10 MG Furosemide (Lasix Tab) 20 mg BID17 PO 12/03/17 17:00 01/02/18 16:59 Spironolactone (Aldactone Tab) 50 mg QAM PO 12/04/17 09:00 01/03/18 08:59
[2017-12-03] MEDS ORDERED: PANT40TA2 PO (13:36)
[2017-12-03] MEDS ORDERED: CRFUDL PO (13:36)
[2017-12-03] MEDS ORDERED: BNT20 PO (13:36)
--- NOTE | 2017-12-03 13:47 | Discharge Instructions ---
Discharge Instructions Date of Service Dec 03, 2017. Admission Reason for Admission: Abdominal Pain Discharge Discharge Diagnosis / Problem: Abdominal pain Discharge Goals Goal(s): Diagnostic testing, Therapeutic intervention Activity Recommendations Activity Limitations: as noted below (Resume activity gradually as tolerated) Driving or Machine Use: No driving until reevaluated by primary care physician . Instructions / Follow-Up Instructions / Follow-Up Please refer to new medications and follow instructions carefully. Call primary care physician or return to the ER immediately for worsening of symptoms, Increasing abdominal pain, nausea or vomiting, changes in bowel movements, black or bloody stools.. Avoid acidic foods/beverages, caffeinated beverages, spicy foods. Recommend small, frequent meals- soft diet. Follow up with Primary Care Physician Dr. Christian Yee on Thursday2017 at 1:00pm ([facility]). [facility] will call you regarding the appointment for the Upper GI Endoscopy. Their telephone number is . Current Hospital Diet Patient's current hospital diet: Low Sodium Diet (2gm Na) Discharge Diet Recommended Diet: AHA Diet (Heart Healthy), Low Fiber Diet Pending Studies Studies pending at discharge: yes List of pending studies: Upper GI Endoscopy Medical Emergencies . Who to Call and When: Medical Emergencies: If at any time you feel your situation is an emergency, please call 911 immediately. . Non-Emergent Contact Non-Emergency issues call your: Primary Care Provider Call Non-Emergent contact if: you have a fever, your pain is not controlled, your pain is worsening, your pain is unusual for you, you have any medication questions . . "Provider Documentation" section prepared by Alvarez Mccann. .
[2017-12-03 13:51] VITALS: BP 106/68; PULSE 74; TEMP 36.6; O2SAT 93
--- NOTE | 2017-12-03 13:54 | Discharge Summary ---
Discharge Summary Date of Service Dec 03, 2017. Discharge Summary Admission Date: Nov 30, 2017 at 22:40 Discharge Date: Dec 03, 2017 Discharge Disposition: Home Principal Diagnosis: Right-sided abdominal/epigastric pain Secondary Diagnoses/Problems: Please refer to hospital course below. Procedures: ABD/PELVIS NO IV OR ORAL CONT CLINICAL HISTORY: 52 years-old Female presenting with RLQ pain, allergy to IV contrast. TECHNIQUE: Multidetector CT of the abdomen and pelvis was performed without the use of intravenous contrast. IV contrast: None. A dose lowering technique was used consistent with the principles of ALARA (as low as reasonably achievable). COMPARISON: 02/15/2015. CT DOSE (mGy.cm): The estimated cumulative dose is 1884.89 mGy.cm. 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 Lung bases: Mosaic attenuation. Mild bronchial wall thickening. Pulmonary arteries are dilated relative to their adjacent bronchi. Mild multichamber enlargement of the heart. No pericardial or pleural effusion. Liver: Cirrhotic morphology. Density consistent with hepatic steatosis. Biliary: No gross biliary ductal dilatation allowing for noncontrast technique. Normal gallbladder. Pancreas: Moderate parenchymal atrophy. Spleen: Top normal in size measuring 12 cm in maximal sagittal dimension. Adrenal glands: Normal noncontrast appearance. Kidneys and ureters: Punctate nonobstructing calculus at the lower pole of the left kidney. No hydronephrosis. Ureters grossly normal. Bladder: Circumferential bladder wall thickening though this may be due to underdistention. Pelvic organs: Normal noncontrast appearance. Bowel: Normal noncontrast appearance. The appendix is normal. No bowel obstruction. Peritoneal cavity: No free fluid or intraperitoneal gas. Lymph nodes: No gross lymphadenopathy allowing for noncontrast technique. Vasculature: Prominent perisplenic varices evident. Atherosclerosis of the normal caliber abdominal aorta. Abdominal wall: Normal. Musculoskeletal: Postsurgical changes of posterior lumbar fusion at L4-5. IMPRESSION: 1. Allowing for noncontrast technique, no acute intra-abdominal pathology. 2. Cirrhosis with portal hypertension evidenced by varices. 3. Hepatic steatosis. 4. Punctate nonobstructing left renal calculus. 5. Findings suggest congestive change of the lung bases. Early pulmonary edema cannot be excluded. CHEST ONE VIEW PORTABLE CLINICAL HISTORY: 52 years-old Female presenting with abd pain. TECHNIQUE: Portable upright AP view of the chest was obtained. COMPARISON: 03/11/2017. FINDINGS: Atherosclerosis of the aortic arch. Cardiac silhouette mildly enlarged. Pulmonary vascular prominence. Bronchial wall cuffing. No focal opacity. No large effusion or pneumothorax. Osseous structures normal. Upper abdomen normal. IMPRESSION: 1. Cardiomegaly with volume overload/congestive change. (LIVER) ABDOMEN LIMITED CLINICAL HISTORY: 52 years-old Female presenting with right abdominal pain, hx cirrhosis. TECHNIQUE: Real-time grayscale and limited color Doppler ultrasound imaging of the abdomen limited to the right upper quadrant was performed. COMPARISON: CT performed earlier today. FINDINGS: Pancreas: Visualized portions of the pancreatic head and body normal. Liver: Nodular contour with hyperechogenic parenchyma and heterogeneous echotexture, consistent with cirrhosis. The liver measures 15.7 cm in maximal sagittal dimension. No sonographic evidence of hepatic mass. Main portal vein patent with normal directional flow. Biliary: No intrahepatic biliary ductal dilatation. Common bile duct not well visualized though measuring up to 7 mm in diameter. Gallbladder: No evidence of gallstones, gallbladder wall thickening, gallbladder distention, or pericholecystic fluid or inflammatory change. Sonographic Castro's sign negative. Right kidney: Normal in appearance without evidence of hydronephrosis. Ascites: Trace ascites. Other: None. IMPRESSION: 1. Cirrhosis. 2. No cholelithiasis or biliary ductal dilatation. MRCP HISTORY: elevated total bilirubin, right upper quadrant abd pain TECHNIQUE: MRCP of the abdomen was performed without the use of intravenous contrast according to standard departmental protocol. COMPARISON STUDY: Abdominal ultrasound 11/30/2017. Abdomen and pelvis CT 11/30/2017. MRCP 02/13/2015. FINDINGS: Posterior decompression fusion at L4-L5 with pedicle screws and rods. The spleen remains mildly enlarged measuring 13.8 cm in length. This remains unchanged. Nodular contour to the liver consistent with cirrhosis. The lung bases are clear. Multiple splenic varices remain unchanged. No ascites identified. No hepatic or splenic masses. No retroperitoneal lymphadenopathy. The main portal vein remains patent. Normal caliber common bile duct. No filling defects within the common bile duct. The colon bile duct measures up to 3 mm. No gallbladder wall thickening. No gallstones. The main pancreatic duct is also normal and course and caliber. There is a 9 mm T2 hyperintense lesion within the upper pole the right kidney. This is incompletely characterize on this noncontrast study but favors a cyst. Normal pancreas. IMPRESSION: 1. Cirrhosis, splenomegaly, and multiple splenic varices remain unchanged. 2. No gallstones. No gallbladder wall thickening. 3. The common bile duct and main pancreatic duct are normal in course and caliber. No filling defects identified. Consultations: Heel Turner Dr. Champion/BINA Delacruz Pending Studies/Follow-Up: Please refer to hospital course below. Medication Reconciliation New Medications: Dicyclomine HCl (Dicyclomine HCl) 20 Mg Tab 10 MG PO TID PRN for abd pain for 14 Days, #20 TAB 0 Refills Pantoprazole (Pantoprazole Sodium) 40 Mg Tab 40 MG PO BID for 14 Days, #28 TAB 0 Refills take at least 30 minutes before meal Sucralfate (Sucralfate) 1 Gm/10 Ml Susp 1 GM PO QID for 14 Days, #560 ML 0 Refills Continued Medications: Albuterol Sulfate (Proair Respiclick) 108 Mcg/Act Aer 2 PUFFS INH Q4H PRN for SOB/Wheezing Cholecalciferol (Vitamin D3) 1,000 Inter.unit Tab 1000 INTER.UNIT PO QAM Cyanocobalamin (Vitamin B12 500MCG) 500 Mcg Tab 500 MCG PO QAM Ferrous Sulfate (Ferrous Sulfate) 325 Mg Tab 325 MG PO QAM Furosemide (Lasix) 20 Mg Tab 20 MG PO BID17 Nadolol (Corgard) 20 Mg Tab 10 MG PO BID Spironolactone (Aldactone) 50 Mg Tab 50 MG PO QAM Discontinued Medications: Omeprazole (Cvs Omeprazole) 20 Mg Tab 20 MG PO QAM Admission Information HPI (per Admitting provider): DATE OF ADMISSION: 11/30/2017 CHIEF COMPLAINT: Abdominal pain. HISTORY OF PRESENT ILLNESS: History obtained from the patient and records. Medical history significant for PSVT, cirrhosis secondary to NAFLD, portal hypertension/esophageal varices as per records. Recent confinement 02/2017 for chest tightness, PSVT episode. This morning, patient woke up with achy right-sided abdominal pain worse with motion, some nausea, no emesis. Denies dysuria. No fever, no chills. Intractable pain at the ER. At the ER, decreased responsiveness and hypoxemia noted after Dilaudid administration. Physical Exam (per Admitting): PHYSICAL EXAMINATION: VITAL SIGNS: Blood pressure was noted to be 113/68, pulse rate 94, RR 18, temperature 37 O2 sats 96 on room air. GENERAL: Noted to be obese, uncomfortable, no respiratory distress. SKIN: Normal color, warm. HEENT: [place] palpebral conjunctivae. No ptosis. Dry mucosa. NECK: Short, supple. CHEST: Decreased effort, no tenderness. HEART: Regular rate and rhythm, no murmur. ABDOMEN: Distention, right abdominal tenderness. EXTREMITIES: Minimal LE edema, no tenderness. No gross deformities. NEUROLOGIC: Coherent. No gross focality. Hospital Course 52-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 Right-sided abdominal/epigastric pain Positive elevated bilirubin, trending down from 3.5 to 1.6 MRCP negative for filling defect GI consulted, recommend upper GI endoscopy to rule out peptic ulcer disease, gastritis, etc., patient declines at this time abdominal tenderness improvintg GI recommends outpatient EGD, GI clinic to call patient regarding appointment for this Recommend the following: Protonix 40 mg twice a day Carafate 4 times daily 1-2 weeks Bentyl 3 times daily as needed ordered will provide instruction regarding dietary modifications Case discussed at length with patient and his son on speaker phone They are agreeable and comfortable advised patient to call for discharge to home today and monitoring of patient as an outpatient, outpatient EGD Advised to call primary care physician or return to the ER immediately if with worsening of symptoms, nausea, vomiting, change in bowel movements UTI ruled out Final urine culture alpha strep Discontinued ceftriaxone History of [place] cirrhosis Continue nadolol Lasix and Aldactone were held in light of elevation of creatinine Creatinine back to normal Resumed diuretics Acute renal failure resolved Creatinine increased to 1.4 IV normal saline solution ordered 500 cc total Creatinine is back to baseline History of PSVT On nadolol DC home today and follow up with her primary care physician in 3-5 days- appointment date on patient's discharge instructions GI clinic to call patient regarding EGD schedule Total time spent on discharge = 40 minutes This includes examination of the patient, discharge planning, medication reconciliation, and communication with other providers. Discharge Instructions Discharge Instructions Date of Service Dec 03, 2017. Admission Reason for Admission: Abdominal Pain Discharge Discharge Diagnosis / Problem: Abdominal pain Discharge Goals Goal(s): Diagnostic testing, Therapeutic intervention Activity Recommendations Activity Limitations: as noted below (Resume activity gradually as tolerated) Driving or Machine Use: No driving until reevaluated by primary care physician . Instructions / Follow-Up Instructions / Follow-Up Please refer to new medications and follow instructions carefully. Call primary care physician or return to the ER immediately for worsening of symptoms, Increasing abdominal pain, nausea or vomiting, changes in bowel movements, black or bloody stools.. Avoid acidic foods/beverages, caffeinated beverages, spicy foods. Recommend small, frequent meals- soft diet. Follow up with Primary Care Physician Dr. Christian Yee on Thursday2017 at 1:00pm ([facility]). [facility] will call you regarding the appointment for the Upper GI Endoscopy. Their telephone number is . Current Hospital Diet Patient's current hospital diet: Low Sodium Diet (2gm Na) Discharge Diet Recommended Diet: AHA Diet (Heart Healthy), Low Fiber Diet Pending Studies Studies pending at discharge: yes List of pending studies: Upper GI Endoscopy Medical Emergencies . Who to Call and When: Medical Emergencies: If at any time you feel your situation is an emergency, please call 911 immediately. . Non-Emergent Contact Non-Emergency issues call your: Primary Care Provider Call Non-Emergent contact if: you have a fever, your pain is not controlled, your pain is worsening, your pain is unusual for you, you have any medication questions . . "Provider Documentation" section prepared by Alvarez Mccann. .
[2017-12-03] MEDS ORDERED: SUCRALFATE 1 GM/10 ML UDC PO SCH (17:00)
[2017-12-03] MEDS ORDERED: FUROSEMIDE 20 MG TAB PO SCH (17:00)
[2017-12-04] MEDS ORDERED: SPIRONOLACTONE 100 MG TAB PO SCH (09:00)
== END 2017-12-03 16:43 | disposition home or self-care (01) ==
LOC: C.EDB 15:12 → C.MED 22:40 → ENRESERV 23:02 → C.MS2W 12-01 13:36
PROVIDERS: ADMIT Internal Medicine; ATTEND Internal Medicine
DX: R10.31 Right lower quadrant pain (principal); R10.13 Epigastric pain; Z79.899 Other long term (current) drug therapy; N18.3 Chronic kidney disease, stage 3 (moderate); I47.1 Supraventricular tachycardia; K76.0 Fatty (change of) liver, not elsewhere classified; K90.0 Celiac disease; K76.6 Portal hypertension

== ENCOUNTER → 2017-12-10 | Day surgery (SDC) | payer OTHER ==
[2017-12-07 11:26] VITALS: Ht 160 cm; Wt 117.3 kg
[~2017-12-10] VITALS: Ht 160 cm; Wt 117.3 kg
[~2017-12-10] MED LIST changes: +BNT20 PO; +CRFUDL PO; -FURO20TA PO; +LIDOCAINE HCL 2% 2 ML VIAL (20MG/ML) ONE; +MIDAZOLAM HCL 1 MG/ML 2ML VIAL ONE; -OMEP20TA40 PO; +ONDANSETRON INJ 2 MG/ML 2 ML VIAL ONE; +PANT40TA2 PO; +PROPOFOL IV EMULSION 10 MG/ML 20 ML VIAL ONE; +SODIUM CHLORIDE 0.9% 500ML 500 ML IV ONE; +SPIR50TA2 PO; -SPIR50TA5 PO
--- NOTE | 2017-12-10 11:06 | Endo History and Physical ---
History & Physical Date of Service: Dec 10, 2017. Chief Complaint: ABDOMINAL PAIN, CIRRHOSIS Referring Physician: DR. MULLER History of Present Illness Liver cirrhosis with Hx of esophageal varices, has intermittent abd pain Past Medical History Hypertension, Other Past Surgical History Hx Cardiac Surgery: No Hx Internal Defibrillator: No Hx Pacemaker: No Hx Abdominal Surgery: Yes (CERVIX SX, D&C) Hx of Implantable Prosthesis: No Hx Post-Op Nausea and Vomiting: No Hx Cancer Surgery: No Hx Thoracic Surgery: No Hx Orthopedic: Yes (Back surgery, RT/LT CTR, RT/LT ELBOW SX) Hx Urinary Tract Surgery: No Family History None Social History Smoking Status: Never Smoker Hx Substance Use: No Hx Alcohol Use: No Allergies Coded Allergies: Hydromorphone (Verified Allergy, Intermediate, 0, 12/07/17) sob Pamabrom (Verified Allergy, Unknown, HIVES, 12/10/17) Pyrilamine (Verified Allergy, Unknown, HIVES, 12/10/17) Iodinated Diagnostic Agents (Verified Adverse Reaction, Intermediate, TACHYCARDIA, 12/07/17) Current Medications Reported Home Medications Medications Dose Route/Sig Max Daily Dose Days Date Category Dose Instructions Sucralfate 1 Gm/10 Ml Susp 1 Gm PO QID 14 12/03/17 Rx Pantoprazole Sodium (Pantoprazole) 40 Mg Tab 40 Mg PO BID 14 12/03/17 Rx take at least 30 minutes before meal Dicyclomine HCl 20 Mg Tab 10 Mg PO TID PRN 14 12/03/17 Rx Aldactone (Spironolactone) 50 Mg Tab 50 Mg PO QAM 11/30/17 Reported Ferrous Sulfate 325 Mg Tab 325 Mg PO QAM 03/11/17 Reported Vitamin B12 500MCG (Cyanocobalamin) 500 Mcg Tab 500 Mcg PO QAM 03/11/17 Reported Lasix (Furosemide) 20 Mg Tab 20 Mg PO BID17 10/20/16 Reported Corgard (Nadolol) 20 Mg Tab 10 Mg PO BID 10/20/16 Reported Proair Respiclick (Albuterol Sulfate) 108 Mcg/Act Aer 2 Puffs INH Q4H PRN 10/20/16 Reported Vitamin D3 (Cholecalciferol) 1,000 Inter.unit Tab 1,000 Inter.unit PO QAM 10/20/16 Reported Vital Signs Weight (Kilograms): 117.27 Height (Feet): 5 Height (Inches): 3 Date Time Temp Pulse Resp B/P (MAP) Pulse Ox O2 Delivery O2 Flow Rate FiO2 12/10/17 10:42 36.5 60 18 104/65 (78) 97 Room Air Physical Exam General Appearance: no apparent distress Respiratory/Chest: Auscultation: breath sounds normal Cardiovascular: Heart Auscultation: RRR Abdomen: Inspection & Palpation: soft, non-distended Assessment and Plan Stable for EGD
--- NOTE | 2017-12-10 12:28 | GI REPORT ---
Patient Name: Hannah Belle Procedure Date: 12/10/2017 11:52 AM Date of : 1965 Admit Type: Outpatient Age: 52 Gender: Female Attending MD: Austin Florian MD Procedure: Upper GI endoscopy Providers: Austin Florian MD Referring MD: Maylin Bowens Indications: Follow-up of esophageal varices Medicines: Monitored Anesthesia Care Complications: No immediate complications. Estimated Blood Loss: Estimated blood loss: none. Procedure: Pre-Anesthesia Assessment: - Prior to the procedure, a History and Physical was performed, and patient medications and allergies were reviewed. The patient is competent. The risks and benefits of the procedure and the sedation options and risks were discussed with the patient. All questions were answered and informed consent was obtained. Patient identification and proposed procedure were verified by the physician and the nurse in the procedure room. Mental Status Examination: alert and oriented. Airway Examination: normal oropharyngeal airway and neck mobility. Respiratory Examination: clear to auscultation. CV Examination: normal. ASA Grade Assessment: III - A patient with severe systemic disease. After reviewing the risks and benefits, the patient was deemed in satisfactory condition to undergo the procedure. The anesthesia plan was to use monitored anesthesia care (MAC). Immediately prior to administration of medications, the patient was re-assessed for adequacy to receive sedatives. The heart rate, respiratory rate, oxygen saturations, blood pressure, adequacy of pulmonary ventilation, and response to care were monitored throughout the procedure. The physical status of the patient was re-assessed after the procedure. After obtaining informed consent, the endoscope was passed under direct vision. Throughout the procedure, the patient's blood pressure, pulse, and oxygen saturations were monitored continuously. The scope was introduced through the mouth, and advanced to the second part of duodenum. The upper GI endoscopy was accomplished without difficulty. The patient tolerated the procedure well. Findings: The Z-line was regular and was found 38 cm from the incisors. Two columns of grade III varices were found in the lower third of the esophagus,. Red vira signs were present. Two bands were successfully placed with complete eradication, resulting in deflation of varices. There was no bleeding during the procedure. Mild portal hypertensive gastropathy was found in the gastric body. There is no endoscopic evidence of varices in the gastric fundus. The duodenal bulb and second portion of the duodenum were normal. Impression: - Z-line regular, 38 cm from the incisors. - Grade III esophageal varices with red vira sign. Banded. - Portal hypertensive gastropathy. - Normal duodenal bulb and second portion of the duodenum. - No specimens collected. Recommendation: - Discharge patient to home. - Clear liquid diet today then soft diet for 2 days. - Use Protonix (pantoprazole) 40 mg PO BID for 1 month then continue once daily. - Use sucralfate 1 gram PO QID for 2 weeks. - Repeat upper endoscopy in 8 weeks for retreatment. - Continue Nadolol. - Return to referring physician. Austin Florian MD 12/10/2017 12:28:23 PM This report has been signed electronically. Note Initiated On: 12/10/2017 11:52 AM Number of Addenda: 0 I attest to the content of the Intraoperative Record and orders documented therein, exceptions below {[id number]}
--- NOTE | 2017-12-10 12:49 | Discharge Instructions ---
Endoscopy Patient Instructions Date / Procedure(s) Performed Dec 10, 2017. EGD Allergy Information Coded Allergies: Hydromorphone (Verified Allergy, Intermediate, 0, 12/07/17) sob Pamabrom (Verified Allergy, Unknown, HIVES, 12/10/17) Pyrilamine (Verified Allergy, Unknown, HIVES, 12/10/17) Iodinated Diagnostic Agents (Verified Adverse Reaction, Intermediate, TACHYCARDIA, 12/07/17) Discharge Date / Findings Dec 10, 2017. Large esophageal varices, banded. Provider Instructions Activity Restrictions - No exercising or heavy lifting for 24 hours. - Do not drink alcohol the day of the procedure. - Do not drive a car or operate machinery until the day after the procedure. - Do not make any important decisions or sign important papers in 24 hours after the procedure. Following Day: - Return to full activity which may include returning to work/school. Diet Start your diet with liquids and light foods (jello, soup, juice, toast). Then eat your usual diet if not nauseated. Treatment For Common After Affects For mild abdominal pain, bloating, or excessive gas: - Rest - Eat lightly - Lie on right side Follow-Up Information Follow-up with DR. MULLER as scheduled Anesthesia Information What You Should Know You have had a procedure that required some medicine to reduce anxiety and discomfort. This treatment is called moderate sedation. After receiving the treatment, you may be sleepy, but you will be able to breathe on your own. The effects of the treatment may last for several hours. Follow these instructions along with Activity/Diet recommendations noted above: * Do NOT do anything where dizziness or clumsiness would be dangerous. * Rest quietly at home today, then you can be up and about tomorrow. * Have a responsible person stay with you the rest of today. * You may have had an I.V. today. If so, you may take the dressing off later today. Recommendations Call your doctor if: * Trouble breathing * Continuous vomiting for more than 24 hours * Temperature above 101 degrees * Severe abdominal pain or bloating * Pain not relieved by pain medicine ordered * There is increased drainage or redness from any incision * A large amount of rectal bleeding greater than 2-3 tablespoons. (If you had a polyp/s removed or have hemorrhoids, a small amount of blood - from the rectum is to be expected.) * You have any unanswered questions or concerns. IN THE EVENT OF A SERIOUS EMERGENCY, GO TO THE NEAREST EMERGENCY ROOM Your discharge instructions were prepared by provider Austin Florian. Patient Instructions Signature Page Hannah Belle Patient (or Guardian) Signature/Date: I have read and understand the instructions given to me by my caregivers. Caregiver/RN/Doctor Signature/Date: The above-named patient and/or guardian has received patient instructions on this date. + Original Patient Signature Page (only) stays with chart. Please make copy for patient.
[2017-12-10 12:52] VITALS: BP 118/64; PULSE 65; O2SAT 97
--- NOTE | 2017-12-10 12:55 | Anesthesiology Progress Note ---
Anesthesia Post Op Note Date & Time Dec 10, 2017 at 12:55 Vital Signs Pain Intensity: 0 Vital Signs Past 12 Hours Date Time Temp Pulse Resp B/P (MAP) Pulse Ox O2 Delivery O2 Flow Rate FiO2 12/10/17 12:37 67 24 107/67 (80) 94 Room Air 12/10/17 12:22 68 24 102/64 (77) 95 Room Air 12/10/17 10:42 36.5 60 18 104/65 (78) 97 Room Air Notes Mental Status: alert / awake / arousable, participated in evaluation Pt Amnestic to Procedure: Yes Nausea / Vomiting: adequately controlled Pain: adequately controlled Airway Patency, RR, SpO2: stable & adequate BP & HR: stable & adequate Hydration State: stable & adequate Anesthetic Complications: no major complications apparent
== END | disposition home or self-care (01) ==
LOC: C.GI 10:17
PROVIDERS: ATTEND Student in an Organized Health Care Education/Training Program
DX: R10.9 Unspecified abdominal pain (principal); K74.60 Unspecified cirrhosis of liver; K31.89 Other diseases of stomach and duodenum; Z91.041 Radiographic dye allergy status; Z88.5 Allergy status to narcotic agent; I85.00 Esophageal varices without bleeding

== ENCOUNTER 2020-03-05 18:28 | Observation (INO) ==
[2020-03-05] MEDS ORDERED: SODIUM CHLORIDE 0.9% 1000ML 1,000 ML IV SCH (18:45)
[2020-03-05 18:54] LABS: Basophils # (auto) 0.04 K/uL (0-0.2); Basophils % (auto) 0.4 %; Eosinophils # (auto) 0.27 K/uL (0-0.5); Eosinophils % (auto) 2.8 %; Hematocrit (blood only) 41.2 % (37-47); Hemoglobin 13.5 g/dL (12.0-16.0); Immature Granulocytes # (auto) 0.03 K/uL (0.00-0.02); Immature Granulocytes % (auto) 0.3 %; Lymphocytes # (auto) 1.58 K/uL (1.2-3.4); Lymphocytes % (auto) 16.3 %; Mean Corpuscular Hemoglobin 31.2 pg (25-34); Mean Corpuscular Hgb Conc 32.8 g/dL (32-36); Mean Corpuscular Volume 95.2 fL (80-100); Mean Platelet Volume 9.6 fL (7.4-10.4); Monocytes # (auto) 1.02 K/uL (0.11-0.59); Monocytes % (auto) 10.5 %; Neutrophils # (auto) 6.74 K/uL (1.4-6.5); Neutrophils % (auto) 69.7 %; Platelet Count 225 K/uL (130-400); RDW Coefficient of Variation 13.4 % (11.5-14.5); RDW Standard Deviation 47.1 fL (36.4-46.3); Red Blood Count 4.33 M/uL (4.2-5.4); White Blood Count 9.68 K/uL (4.8-10.8)
--- NOTE | 2020-03-05 19:02 | XRay Report ---
SINGLE VIEW CHEST CLINICAL HISTORY: Atypical chest pain. FINDINGS: An AP, portable, semierect chest radiograph is compared to study dated 11/30/2017. The heart is top normal for projection. Chronic residual thickening is similar to previous. Mild atelectasis is seen at the left lung base. The lungs and pleural spaces are otherwise clear. No pneumothorax is see n. The skeletal structures are osteopenic. The bony thorax is grossly intact. IMPRESSION: No active disease in the chest. ACT 112: Negative or not required by law. Electronically signed by: Surinder Thomson M.D. 03/05/2020 7:01 PM
[2020-03-05 19:08] LABS: Partial Thromboplastin Ratio 0.9; Partial Thromboplastin Time 26.4 Seconds (21.0-31.0); Prothrombin Time 10.9 Seconds (9.0-12.0)
[2020-03-05 19:15] LABS: BUN Creatinine Ratio 11.6 (10-20); Calcium 9.1 mg/dl (8.5-10.1); Creatinine Clr Calc Pharmacy 62.2 ml/min; Est GFR (African American) 64.7; Est GFR (Non-African American) 55.9; Potassium 3.5 mmol/L (3.5-5.1)
[2020-03-05 19:29] LABS: Troponin I 0.116 ng/ml (0-0.045)
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
[2020-03-05] MEDS ORDERED: ACETAMINOPHEN 325 MG TAB PO PRN (22:58)
[2020-03-05] MEDS ORDERED: ONDANSETRON INJ 2 MG/ML 2 ML VIAL IV PRN (22:58)
[2020-03-05] MEDS ORDERED: POLYETHYLENE (MIRALAX) 17 GM PACK PO PRN (22:58)
[2020-03-05] MEDS ORDERED: NITROGLYCERIN SL 0.4 MG/TAB TAB SL PRN (22:58)
[2020-03-05] MEDS ORDERED: ZOLPIDEM TARTRATE 5 MG TAB PO PRN (22:58)
[2020-03-05] MEDS ORDERED: NAPROXEN 250 MG TAB PO PRN (23:15)
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
[2020-03-06] MEDS: HEPARIN SOD 5,000 UNIT/0.5 ML VIAL SQ SCH ×2 (06:16→14:00)
[2020-03-06 06:30] LABS: Appearance Urine Cloudy (Clear); Bacteria Urine Automated Negative (Negative); Bilirubin Urine Negative (Negative); Blood Urine Negative (Negative); Cast Urine Automated 0 /lpf (0-5); Color Urine Yellow; Glucose Urine UA Negative (Negative); Ketones Urine Negative (Negative); Leukocyte Esterase Urine Negative (Negative); Nitrite Urine Negative (Negative); Protein Urine Negative (Negative); RBC Urine Automated 0-4 /hpf (0-4); Specific Gravity Urine 1.014 (1.000-1.030); Urobilinogen Urine Negative (Negative); WBC Urine Automated 0 /hpf (0-5)
[2020-03-06 06:48] LABS: Amphetamines+Metham, Urine Neg (Neg); Barbiturates, Urine Neg (Neg); Benzodiazepine, Urine Neg (Neg); Cocaine, Urine Neg (Neg); MDMA (Ecstacy), Urine Neg (Neg); Methadone, Urine Neg (Neg); Opiate, Urine Neg (Neg); Phencyclidine, Urine Neg (Neg)
[2020-03-06 08:12] LABS: Hematocrit (blood only) 38.2 % (37-47); Hemoglobin 12.3 g/dL (12.0-16.0); Mean Corpuscular Hemoglobin 30.7 pg (25-34); Mean Corpuscular Hgb Conc 32.2 g/dL (32-36); Mean Corpuscular Volume 95.3 fL (80-100); Mean Platelet Volume 9.6 fL (7.4-10.4); Platelet Count 213 K/uL (130-400); RDW Coefficient of Variation 13.6 % (11.5-14.5); RDW Standard Deviation 47.6 fL (36.4-46.3); Red Blood Count 4.01 M/uL (4.2-5.4)
[2020-03-06 08:44] LABS: Calcium 8.8 mg/dl (8.5-10.1); Creatinine Clr Calc Pharmacy 95.2 ml/min; Est GFR (African American) 93.4; Est GFR (Non-African American) 80.6; Potassium 3.8 mmol/L (3.5-5.1)
[2020-03-06 08:53] LABS: Troponin I 0.062 ng/ml (0-0.045)
[2020-03-06] MEDS ORDERED: FUROSEMIDE 40 MG TAB PO SCH (09:00)
[2020-03-06] MEDS ORDERED: FERROUS SULFATE 325 MG TAB PO SCH (09:00)
[2020-03-06] MEDS ORDERED: PANTOprazole 40 MG TAB PO SCH (09:00)
[2020-03-06] MEDS ORDERED: CHOLECALCIFEROL 1,000 UNITS 25 MCG TAB PO SCH (09:00)
[2020-03-06] MEDS ORDERED: SPIRONOLACTONE 25 MG TAB PO SCH (09:00)
[2020-03-06] MEDS ORDERED: FLUTICASONE PROPIONATE NA SPR 16 GM BTL NAE SCH (09:00)
[2020-03-06] MEDS ORDERED: MAGNESIUM OXIDE 400 MG TAB PO SCH (09:00)
[2020-03-06] MEDS ORDERED: PYRIDOXINE HCL 50 MG TAB PO SCH (09:00)
[2020-03-06] MEDS ORDERED: FLUTICASONE/VILANTEROL 200/25MCG 14 PUFFS/INHALER INH SCH (09:00)
[2020-03-06] MEDS ORDERED: ATROPINE SULFATE 0.1 MG/ML 10ML SYR IV ONE (09:46)
[2020-03-06] MEDS ORDERED: DOBUTamine HCL 12.5 MG/ML 20 ML VIAL IV ONE (09:47)
[2020-03-06] MEDS ORDERED: METOPROLOL TARTRATE 1 MG/ML VIAL IV ONE (09:47)
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
--- NOTE | 2020-03-06 11:42 | Electrocardiogram Report ---
Test Reason : Blood Pressure : / mmHG Vent. Rate : 081 BPM Atrial Rate : 081 BPM P-R Int : 200 ms QRS Dur : 104 ms QT Int : 394 ms P-R-T Axes : 060 -27 029 degrees QTc Int : 457 ms Normal sinus rhythm Possible Left atrial enlargement Borderline ECG When compared with ECG of 30-NOV-2017 17:08, No significant change was found Confirmed by Fabio Beebe ([id number]) on 03/06/2020 11:41:48 AM Referred By: REFERRED SELF Confirmed By:Fabio Beebe
--- NOTE | 2020-03-06 11:45 | Electrocardiogram Report ---
Test Reason : Blood Pressure : / mmHG Vent. Rate : 075 BPM Atrial Rate : 075 BPM P-R Int : 198 ms QRS Dur : 102 ms QT Int : 436 ms P-R-T Axes : 062 -26 026 degrees QTc Int : 486 ms Normal sinus rhythm Incomplete right bundle branch block Septal infarct , age undetermined Abnormal ECG When compared with ECG of 05-MAR-2020 18:36, (unconfirmed) No significant change was found Confirmed by Fabio Beebe ([id number]) on 03/06/2020 11:44:41 AM Referred By: REFERRED SELF Confirmed By:Fabio Beebe
--- NOTE | 2020-03-06 11:48 | Electrocardiogram Report ---
Test Reason : Blood Pressure : / mmHG Vent. Rate : 078 BPM Atrial Rate : 078 BPM P-R Int : 194 ms QRS Dur : 102 ms QT Int : 420 ms P-R-T Axes : 049 -23 010 degrees QTc Int : 479 ms Normal sinus rhythm Prolonged QT Abnormal ECG When compared with ECG of 05-MAR-2020 20:06, (unconfirmed) No significant change was found Confirmed by Fabio Beebe ([id number]) on 03/06/2020 11:48:35 AM Referred By: REFERRED SELF Confirmed By:Fabio Beebe
--- NOTE | 2020-03-06 11:53 | Electrocardiogram Report ---
Test Reason : Blood Pressure : / mmHG Vent. Rate : 068 BPM Atrial Rate : 068 BPM P-R Int : 208 ms QRS Dur : 102 ms QT Int : 444 ms P-R-T Axes : 012 -17 013 degrees QTc Int : 472 ms Normal sinus rhythm Normal ECG When compared with ECG of 05-MAR-2020 21:35, (unconfirmed) No significant change was found Confirmed by Fabio Beebe ([id number]) on 03/06/2020 11:53:01 AM Referred By: REFERRED SELF Confirmed By:Fabio Beebe
--- NOTE | 2020-03-06 11:59 | Communication Note ---
Date of Service: March 06, 2020 Patient underwent dobutamine stress echocardiogram. The first attempt of the test had to be terminated as the patient's IV infiltrated after the test was initiated. A new IV was placed, and the test was repeated. There was no EKG or echocardiographic evidence of inducible ischemia of the heart rate achieved. The heart rate response was suboptimal as the patient's heart rate was attenuated due to chronic beta-carol use, but was felt to be clinically adequate. No symptoms suggestive angina were induced. Headache was reported with dobutamine administration. Patient left the department stable condition. Heart rate and blood pressure had returned to preprocedure baseline. Recommendations: Continue prior to hospital treatment with nadolol, furosemide, spironolactone. Patient's anxiety/grief concerns to be addressed by the hospital service.
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
[2020-03-06] MEDS ORDERED: GABAPENTIN 300 MG CAP PO SCH (21:00)
[2020-03-06] MEDS ORDERED: nadoloL 40 MG TAB PO SCH (21:00)
== END 2020-03-06 16:28 | disposition home or self-care (01) ==
LOC: ED 18:28 → 2S 18:28 → SUATTDRO 21:54 → 2S 22:24

== ENCOUNTER 2023-03-29 07:32 | Inpatient (IN) ==
--- OUTSIDE RECORDS SUMMARY | 2023-03-29 07:38 | External Medical Summary | Summary of Care ---
Author Name Unknown Organization [facility] Address [address] [place] [address] Phone [phone] Care Team Providers Care Chemical Recovery Operator Name Role Phone Laura Lisseth Ag PA-C Primary Care Provider [phone] Reason for Visit * Reason Onset Date Comments Appointment 03/16/2023 Encounter Details Date Type Department Care Team (Late st Contact Info) Description 03/16/2023 Telephone Radiology [address] [facility] [place] [address] Yamile Bundy TECH Appointment Allergies Active Allergy Reactions Criticality Noted Date Comments Perflutren Lipid Microsphere Medium 020 Back pain Hydromorphone Hcl High 12/05/2017 Chest pain, SOB, trouble breathing Iodinated Contrast Media 02/19/2012 Sob, pain Aybj-Wpkldazx-Gvgtxygdfn Hives High 01/16/2012 Penicillins Unknown 09/20/2021 documented as of this encounter (statuses as of 03/16/2023) Medications Medication Sig Dispensed Refills Start Date End Date Status Ferrous Sulfate (IRON) 325 (65 FE) MG TABS Take by mouth daily. 0 Active Cholecalciferol (EQL VITAMIN D3) 1000 UNITS Tablet Take 1,000 Units by mouth daily. 0 05/26/2016 Active Pyridoxine HCl (VITAMIN B-6) 500 MG TABS Take 1 Tablet by mouth in the morning. 0 Active Magnesium 250 MG Tablet Take 1 Tablet by mouth in the morning. 0 Active Probiotic 250 MG Oral Capsule Take by mouth. 0 Active Erythromycin 5 MG/GM Ophthalmic Ointment 0 09/18/2021 Activ e prednisoLONE Acetate 1 % Ophthalmic Suspension (Pred Forte) 0 09/18/2021 Active Carboxymeth-Glycerin- Polysorb 0.5-1-0.5 % Ophthalmic Solution Instill into eye . 0 09/11/2021 Active Naproxen Sodium 220 MG Oral Capsule Take 1 Capsule by mouth as needed for Pain, Mild. 0 Active Refresh 1.4-0.6 % Ophthalmic Solution (polyvinyl alcohol-povidone PF) 1 Drop as needed. 0 Active Furosemide 40 MG Oral Tablet (Lasix) TAKE 1 TABLET BY MOUTH TWICE A DAY 180 Tablet 3 08/25/2022 Active Nadolol 20 MG Oral Tablet (Corgard)Indications: Paroxysmal SVT (supraventricular tachycardia) TAKE 1 TABLET BY MOUTH EVERY DAY 90 Tablet 3 08/25/2022 Active Pantoprazole Sodium 40 MG Oral Tablet Delayed Release (Protonix) TAKE 1 TABLET BY MOUTH EVERY DAY 90 Tablet 3 08/25/2022 Active Spironolactone 50 MG Oral Tablet (Aldactone)Indication s:Liver cirrhosis secondary to CHRIS (nonalcoholic steatohepatitis) (HCC) TAKE 1 TABLET BY MOUTH EVERY DAY 90 Tablet 3 08/25/2022 Active Fluticasone Propionate 50 MCG/ACT Nasal Suspension (Flonase) SPRAY 2 SPRAYS INTO EACH NOSTRIL EVERY DAY 48 mL 1 09/28/2022 Active Albuterol Sulfate HFA 108 (90 Base) MCG/ACT Inhalation Aerosol SolutionIndications:M ild persistent asthma without complication Inhale 2 Puffs by mouth every 4 hours as needed for Wheezing. 18 g 5 01/05/2023 Active Fluticasone-Salmetero l 230-21 MCG/ACT Inhalation Aerosol (Advair)Indications:M ild persistent asthma without complication Inhale 2 Puffs by mouth in the morning and 2 Puffs before bedtime. 12 g 12 01/05/2023 Active LORazepam 1 MG Oral Tablet (Ativan) 1 tab 1/2 hour prior to MRI then 1 tab at MRI site then 1 tab if needed 3 Tablet 0 02/17/2023 Active documented as of this encounter (statuses as of 03/16/2023) Active Problems Problem Noted Date Diagnosed Date Depression, unspecified 03/05/2023 Morbid obesity 01/05/2023 Asthma, mild persistent 02/03/2022 Chronic obstructive pulmonary disease 11/05/2021 Cellulitis of left lower extremity 11/29/2020 Stage 3a chronic kidney disease 03/05/2020 Overview: Per CKD protocol Asthma with severity to be determined 11/09/2019 Nocturnal hypoxemia 09/28/2019 Periodic limb movement disorder (PLMD) 0 Secondary esophageal varices without bleeding Body mass index (BMI) of 40.0 to 44.9 in adult 0 07/04/2019 Overview: Per Obesity protocol - Per Obesity protocol Spinal stenosis of lumbar re gion with neurogenic claudication 02/10/2019 Portal hypertension 01/08/2017 Liver cirrhosis secondary to CHRIS (nonalcoholic steatohepatitis) 03/31/2016 Vitamin D deficiency 06/04/2015 Paroxysmal SVT (supraventricular tachycardia) documented as of this encounter (statuses as of 03/16/2023) Resolved Problems Problem Noted Date Diagnosed Date Resolved Date Generalized anxiety disorder 02/03/2022 01/05/2023 Vasculitis 12/27/2020 01/29/2021 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 01/29/2021 EMERY (dyspnea on exertion) 09/28/2019 Sacroiliitis, not elsewhere classified 09/14/2019 11/30/2020 BMI 45.0-49.9, adult 09/14/2019 020 Body mass index (BMI) of 45. 0 to 49.9 in adult 10/04/2018 07/07/2019 Overview: Per Obesity protocol Body mass index (BMI) of 40. 0 to 44.9 in adult 01/08/2017 10/06/2018 Overview: Per Obesity protocol ICD-10 update of inactive term Kidney disease, chronic, sta ge III (GFR 30-59 ml/min) 09/01/2016 03/08/2020 Overview: Per CKD protocol #1 Edema 01/27/2014 11/30/2020 documented as of this encounter (statuses as of 03/16/2023) Immunizations Name Administration Dates Next Due COVID-19 mRNA, LNP-s, No Pre serve, 2-Dose Series (Pfizer) 08/10/2020,07/20/2020 COVID-19, LNP-s, No Preserve , Lupillo-sucrose, Ages 12+ (Pfizer) 07/16/2021 TDAP (age 10 and older)(Boostrix) 07/29/2013 Zoster Vaccine Recombinant (Shingrix) 10/04/2019 ,07/04/2019 documented as of this encounter Social History Tobacco Use Types Packs/Day Years Used Date Smoking Tobacco: Never Smokeless Tobacco: Never Alcohol Use Standard Drinks/Week Comments Yes 0 (1 standard drink = 0.6 oz pur e alcohol) once or twice a year AUDIT-C Answer Date Recorded Q1: How often do you have a drink containing alc ohol? Monthly or less 01/29/2021 Q2: How many drinks containi ng alcohol do you have on a typical day when you are drinking? Not asked 01/29/2021 Q3: How often do you have si x or more drinks on one occasion? Not asked 01/29/2021 PHQ-2 Answer Date Recorded PHQ-2 Score 0 07/04/2019 Sex and Gender Information Value Date Recorded Sex Assigned at Not on file Gender Identity Not on file Sexual Orientation Not on file Job Start Date Occupation Industry Not on file Not on file Not on file documented as of this encounter Functional Status Functional Status Response Date of Assess ment Are you deaf or do you have serious difficulty h earing? No 11/29/2020 Are you blind or do you have serious difficulty seeing, even when wearing glasses? No 11/29/2020 Do you have serious difficul ty walking or climbing stairs? (5 years old or older) No 11/29/2020 Do you have difficulty dress ing or bathing? (5 years old or older) No 11/29/2020 Because of a physical, menta l, or emotional condition, do you have difficulty doing errands alone such as visiting a doctor s office or shopping? (15 years old or older) No 11/30/19 21 Cognitive Status Response Date of Assessm ent Because of a physical, menta l, or emotional condition, do you have serious difficulty concentrating, remembering, or making decisions? (5 years old or older) No 11/29/2020 documented as of this encounter Plan of Treatment Upcoming Encounters Date Type Department Care Team (Late st Contact Info) Description 03/17/2023 11:30 AM EST Office Visit Gastroenterology, [facility] [address] [facility] [place] [address] Maylin Swartz CRNP [address] [place] [address] 03/20/2023 4:00 PM EST Imaging Radiology [address] [facility] [place] [address] 04/06/2023 2:40 PM EST Office Visit Nephrology, [facility] [address] [place] [address] Ky Puentes MD [address] [place] [address] 06/24/2023 10:00 AM EST Office Visit Neurology [facility] [address] [place] [address] Joseline Espinosa PA-C [address] [place] [address] 12/25/2023 9:00 AM EDT Imaging Radiology [address] [place] [address] Health Maintenance Due Date Last Done Comments Hepatitis B (1 of 3 - 3-dose series) 1964 Pneumococcal Vaccine: Pediatrics (0 to 5 Years) and At-Risk Patients (6 to 64 Years) (1 - PCV) 1970 Alpha-1 Antitrypsin 1982 HPV/Co-Test 1994 Cologuard 2009 Colonoscopy 2009 Colorectal Cancer Screening 2009 Fecal Occult Blood Test 2009 Sigmoidoscopy 2009 Depression Screening 07/03/2020 07/04/2019 COVID-19 Vaccine ( season) 2022 07/16/2021, 08/10/2020, 07/20/2020 Influenza Vaccine (FLU shot) (#1) 2022 GFR 07/06/2023 01/05/2023, 12/26, 09/20/2021, Additional history exists DTaP,Tdap,and Td Vaccines (2 - Td or Tdap) 07/30/2023 07/29/2013 Mammogram 12/24/2023 12/23/2022, 03/0 06/2020, 08/03/2017, Additional history exists Albumin/Creatinine Ratio 01/06/2024 01/05/2023 CKD HGB USE SMARTSET 04503 01/06/202401/05, 04/07/2022, 04/07/2022, Additional history exists CKD PHOS USE SMARTSET 20633 01/06/202412/26, 01/08/2022, 11/30/2020, Additional history exists O2 ASSESSMENT COMPLETED IN PAST YEAR FOR COPD 02/27/2024 02/26/2023 Cervical Cancer Screening 10/14/2024 Pap Smear 10/14/2024 10/14/2021, 04/0 08/2020, 03/02/2017, Additional history exists Diabetes Screening 01/05/2026 01/05/2023, 0 01/05/2023, 04/07/2022, Additional history exists Lipid Panel 04/07/2027 04/07/2022, 07/0 09/2016, 08/15/2014 Zoster Vaccines Completed 10/04/2019, 07/04/2019 GARDASIL-HPV IMMUNIZATION SERIES Aged Out No longer eligible based on patient's age to complete this topic MENINGOCOCCAL (MENACTRA/MENVEO) Aged Out No longer eligible based on patient's age to complete this topic documented as of this encounter Medical Devices Not on filedocumented as of this encounter Advance Directives Latest Code Status on File Code Status Date Activated Date Inactivated Comments Full Code 11/29/2020 5:58 PM 12/02/2020 6:44 PM This or mamta reflects the patients wishes and were consensually agreed upon. Question Answer Comments Discussion of Advance Directives occurred with: Patient Healthcare Agents on File Name Relationship Healthcare Agent [facility] p Communication Kamini Jake Adult Child First Alternate Health Care Agent Care Teams Chemical Recovery Operator Relationship Specialty Start Date End Date Laura July Kimberli, MABLEC [address] [facility] [place] [address] PCP - General Physician Education Rn 09/06/18 documented as of this encounter
--- OUTSIDE RECORDS SUMMARY | 2023-03-29 07:38 | External Medical Summary | Summary of Care ---
Author Name Unknown Organization [facility] Address [address] [facility] [address] Phone [phone] Care Team Providers Care Stapler Hand Name Role Phone Lisseth Sanchez PA-C Primary Care Provider [phone] Reason for Visit * Reason Onset Date Comments Health Maintenance 03/13/2023 Encounter Details Date Type Department Care Team (Late st Contact Info) Description 03/13/2023 Telephone Family Practice [facility] [place] [address] [facility] [place] [address] Lisseth Sanchez PA-C [address] [facility] [place] [address] Health Maintenance Allergies Active Allergy Reactions Criticality Noted Date Comments Perflutren Lipid Microsphere Medium 020 Back pain Hydromorphone Hcl High 12/05/2017 Chest pain, SOB, trouble breathing Iodinated Contrast Media 02/19/2012 Sob, pain Qktw-Ocrxmwsa-Uayqowsawk Hives High 01/16/2012 Penicillins Unknown 09/20/2021 documented as of this encounter (statuses as of 03/13/2023) Medications Medication Sig Dispensed Refills Start Date [...] as of this encounter (statuses as of 03/13/2023) Active Problems Problem Noted Date Diagnosed Date [...] as of this encounter (statuses as of 03/13/2023) Resolved Problems Problem Noted Date Diagnosed Date [...] as of this encounter (statuses as of 03/13/2023) Immunizations Name Administration Dates Next Due COVID-19 mRNA, LNP-s, No Pre serve, 2-Dose Series ([employer]) 08/10/2020,07/20/2020 COVID-19, LNP-s, No Preserve , Lupillo-sucrose, [...] (15 years old or older) No 11/30/19 Cognitive Status Response Date of Assessm ent Because of a physical, menta l, or emotional condition, do you have serious difficulty concentrating, remembering, or making decisions? (5 years old or older) No 11/29/2020 documented as of this encounter Miscellaneous Notes * Telephone Encounter - Palak Martinez LPN - 03/13/2023 9:50 AM EST Care Gaps Comprehensive Care Outreach Last Office/Telemedicine Visit: 01/05/2023 (in office), 03/12/2020 (telemedicine) Next Office Visit: Visit date not found Hemoglobin AIC Results: Lab Results Component Value Date/Time HEMOGLOBIN A1C - [facility] 5.5 01/05/2023 11:26 AM HEMOGLOBIN A1C - [facility] 5.5 04/07/2022 10:10 AM Reviewed Health Maintenance below: Health Maintenance Topic Date Due Hepatitis B (1 of 3 - 3-dose series) Never done Pneumococcal Vaccine: Pediatrics (0 to 5 Years) and At-Risk Patients (6 to 64 Years) (1 - PCV) Never done Alpha-1 Antitrypsin Never done Colorectal Cancer Screening Never done Depression Screening 07/03/2020 Influenza Vaccine (FLU shot) (1) Never done COVID-19 Vaccine ( season) 2022 GFR 07/06/2023 Cologuard follow my g Just [place] Care Gap Outreach Action Taken: Myportal message sent documented in this encounter Plan of Treatment Upcoming Encounters Date Type Department Care Team (Late st Contact Info) Description 03/20/2023 4:00 PM EST Imaging Radiology [address], [address] [place] [address] 04/06/2023 2:40 PM EST Office Visit Nephrology, [place] [address] [place] [address] Ky Puentes MD [address] [place] [address] 06/24/2023 10:00 AM EST Office Visit Neurology [facility] [address] [place] [address] Joseline Espinosa PA-C [address] [place] [address] [address] 12/25/2023 9:00 AM EDT Imaging Radiology [facility], [place] [address] [place] [address] Scheduled Procedures Name Priority Associated Diagnoses Date/Ti me ESOPHAGOGASTRODUODENOSCOPY ( EGD), FLEXIBLE, TRANSORAL, DIAGNOSTIC Recall Esophageal varices (HCC) Health Maintenance Due Date Last Done Comments Hepatitis B (1 of 3 - 3-dose series) 1965 Pneumococcal Vaccine: Pediatrics (0 to 5 Years) and At-Risk Patients (6 to 64 Years) (1 - PCV) 1970 Alpha-1 Antitrypsin 1982 HPV/Co-Test 1994 Cologuard 2009 Colonoscopy 2009 Colorectal Cancer Screening 2009 Fecal Occult Blood Test 2009 Sigmoidoscopy 2009 Depression Screening 07/03/2020 07/04/2019 COVID-19 Vaccine (4 - 2022- season) 2022 07/16/2021, 08/10/2020, 07/20/2020 Influenza Vaccine (FLU shot) (#1) 2022 GFR 07/06/2023 01/05/2023, 12/26, 09/20/2021, Additional history exists DTaP,Tdap,and Td Vaccines (2 - Td or Tdap) 07/30/2023 07/29/2013 Mammogram 12/24/2023 12/23/2022, 03/0 06/2020, 08/03/2017, Additional history exists Albumin/Creatinine Ratio 01/06/2024 01/05/2023 CKD HGB USE SMARTSET 69274 01/06/202401/05, 04/07/2022, 04/07/2022, Additional history exists CKD PHOS USE SMARTSET 99971 01/06/202412/26, 01/08/2022, 11/30/2020, Additional history exists O2 [...] [facility] p Communication Kamini Joseph Adult Child First Alternate Health Care Agent Care Teams Stapler Hand Relationship Specialty Start Date End Date Lisseth Sanchez PA-C [address] [place] [address] PCP - General Physician Senior Cytotechnologist 09/06/18 documented as of this encounter
--- OUTSIDE RECORDS SUMMARY | 2023-03-29 07:38 | External Medical Summary | Summary of Care ---
Author Name Unknown Organization [facility] Address [address] [facility] [place] [address] Phone [phone] Care Team Providers Care Terminal Superintendent Name Role Phone Lisseth Sanchez PA-C Primary Care Provider [phone] Reason for Visit * Reason Comments Follow Up Encounter Details Date Type Department Care Team (Late st Contact Info) Description 03/17/2023 11:30 AM EST Telemedicine Gastroenterology, [facility] [address] [place] [address] Maylin Swartz CRNP [address] [place] [address] NAFLD (nonalcoholic fatty liver disease)* Allergies Active Allergy Reactions Criticality Noted Date Comments Perflutren Lipid Microsphere Medium 020 Back pain Hydromorphone Hcl High 12/05/2017 Chest pain, SOB, trouble breathing Iodinated Contrast Media 02/19/2012 Sob, pain Pirz-Nxrmhfjh-Qfhefwaqbx Hives High 01/16/2012 Penicillins Unknown 09/20/2021 documented as of this encounter (statuses as of 03/17/2023) Medications Medication Sig Dispensed Refills Start Date [...] as of this encounter (statuses as of 03/17/2023) Active Problems Problem Noted Date Diagnosed Date [...] as of this encounter (statuses as of 03/17/2023) Resolved Problems Problem Noted Date Diagnosed Date [...] as of this encounter (statuses as of 03/17/2023) Immunizations Name Administration Dates Next Due COVID-19 [...] No 11/29/2020 documented as of this encounter Progress Notes * Maylin Swartz CRNP - 03/17/2023 11:51 AM EST Telemedicine Visit 03/17/2023: REFERRING PHYSICIAN: Lisseth Sanchez PA-C Patient location: HOME. I was in a hospital or clinic location. After connecting through televideo,patient was verified with two unique identifiers. Patient (or authorized legal resources representative) was then informed that this was a Telemedicine visit and being conducted confidentially over secure lines. Methods to assure confidentiality were taken. Patient acknowledged consent and understanding of pr ivacy and security of the Telemedicine visit. The patient agreed to participate. CC: f/u CHRIS Cirrhosis, Celiac HPI: Recall that Ms. Hannah Belle is a 57 yr old female pt of Lisseth Sanchez with a hx of DM-2, obesity, Celiac who presents for recheck for CHRIS cirrhosis complicated by esophageal varices and ascites. She is doing well. She was recently on Topamax for tremor which caused poor coordination, fatigue,slow mentation. The med was dc'ed and she feels much better, "back to normal." Now - Passing 2 BMs/day. No blood in bowel movements, no increase fluid on her belly or lower legs,no yellow eyes or skin, no confusion. No recent meld labs Current GI Meds: Nadolol 20mg QD - only takes at night because causes dizziness. Pantoprazole 40mg daily Furosemide 40mg BID Spironolactone 50mg daily Complications: EV: grade 2 on EGD in 2014. No varices on recent EGD. Most recent EGD March 2022: No esophageal varices. Normal stomach and duodenum Ascites: stable, maintained on furosemide 40mg BID/spironolactone 50mg daily Screenings: For HCC: (due) US June 2021: Hepatic cirrhosis. No hepatic mass identified. MRI liver 06/27/20: Cirrhosis with portal hypertension. No hepatic lesions suspicious for hepatocellular carcinoma. Past Medical History: Diagnosis Date Celiac disease 12/08/2016 ttG 125 Dysplasia of cervix, high grade MARYAM 2 2016 HTN, goal below 140/90 Leukocytoclastic vasculitis (HCC) 11/30/2020 Liver cirrhosis secondary to CHRIS (nonalcoholic steatohepatitis) (HCC) 03/31/2016 Menopause Nocturnal hypoxemia 09/28/2019 Paroxysmal SVT (supraventricular tachycardia) 01/16/2012 Portal hypertension (HCC) 01/08/2017 Secondary esophageal varices without bleeding (HCC) 09/14/2019 Spinal stenosis of lumbar region with neurogenic claudication 02/10/2019 Stage 3a chronic kidney disease 03/05/2020 Per CKD protocol Family History Problem Relation Age of Onset Diabetes Mother Hypertension Mother Thyroid Disorder Mother Cancer Father lymph nodes Neurological Disorder Brother MS No Past Hx Daughter No Past Hx Son Diabetes Sister Diabetes Sister Past Surgical History: Procedure Laterality Date CARPAL TUNNEL SURGERY Carpal tunnel release bialteroal DILATION AND CURETTAGE (D&C) after miscarriage. EGD, FLEXIBLE, DIAGNOSTIC 03/09/2015 eso varices, portal gastropathy, celiac disease on bx/ESOPHAGOGASTRODUODENOSCOPY (EGD), FLEXIBLE, TRANSORAL, DIAGNOSTIC performed by Poli Velásquez DO at ENDOSCOPY [facility] EGD, FLEXIBLE, DIAGNOSTIC 12/10/2017 eso varices, portal hypertensive gastropathy, repeat 8 wks/[facility] EGD, FLEXIBLE, DIAGNOSTIC 12/10/2017 portal hypertensive gastropathy, repeat 8 wks/[facility] EGD, FLEXIBLE, DIAGNOSTIC 04/26/2019 normal, repeat 1 yr/[facility] EGD, FLEXIBLE, DIAGNOSTIC N/A 04/02/2022 normal/repeat 1-2 years/EGD/[place] INFORMATION antecubital elbow release REMOVE CERVIX CONE W/LOOP ELECTRODE N/A 07/31/2016 LOOP ELECTROSURGERY EXCISION PROCEDURE performed by Braeden Florentino MD at OR [facility] SPINAL FUSION, 4-7 VERT, ANTERIOR Social History Tobacco Use Smoking status: Never Smokeless tobacco: Never Vaping Use Vaping Use: Never used Substance Use Topics Alcohol use: Yes Comment: once or twice a year Drug use: No Review of patient's allergies indicates: Allergen Reactions Dilaudid [Hydromorphone Hcl] Chest pain, SOB, trouble breathing Pamprin [Ikks-Ivyeoija-Dttjihzgyr] Hives Definity [Perflutren Lipid Microsphere] Back pain Iodinated Contrast Media Sob, pain Penicillins Unknown Current Outpatient Medications Medication Sig Dispense Refill Ferrous Sulfate (IRON) 325 (65 FE) MG TABS Take by mouth daily. Cholecalciferol (EQL VITAMIN D3) 1000 UNITS Tablet Take 1,000 Units by mouth daily. Pyridoxine HCl (VITAMIN B-6) 500 MG TABS Take 1 Tablet by mouth in the morning. Magnesium 250 MG Tablet Take 1 Tablet by mouth in the morning. Probiotic 250 MG Oral Capsule Take by mouth. Erythromycin 5 MG/GM Ophthalmic Ointment prednisoLONE Acetate 1 % Ophthalmic Suspension (Pred Forte) Zrykotuszei-Prwdvsfa-Owdirixs 0.5-1-0.5 % Ophthalmic Solution Instill into eye . (Patient not taking: Reported on 02/26/2023) Naproxen Sodium 220 MG Oral Capsule Take 1 Capsule by mouth as needed for Pain, Mild. Refresh 1.4-0.6 % Ophthalmic Solution (polyvinyl alcohol-povidone PF) 1 Drop as needed. Furosemide 40 MG Oral Tablet (Lasix) TAKE 1 TABLET BY MOUTH TWICE A DAY 180 Tablet 3 Nadolol 20 MG Oral Tablet (Corgard) TAKE 1 TABLET BY MOUTH EVERY DAY 90 Tablet 3 Pantoprazole Sodium 40 MG Oral Tablet Delayed Release (Protonix) TAKE 1 TABLET BY MOUTH EVERY DAY 90 Tablet 3 Spironolactone 50 MG Oral Tablet (Aldactone) TAKE 1 TABLET BY MOUTH EVERY DAY 90 Tablet 3 Fluticasone Propionate 50 MCG/ACT Nasal Suspension (Flonase) SPRAY 2 SPRAYS INTO EACH NOSTRIL EVERYDAY 48 mL 1 Albuterol Sulfate HFA 108 (90 Base) MCG/ACT Inhalation Aerosol Solution Inhale 2 Puffs by mouth every 4 hours as needed for Wheezing. 18 g 5 Fluticasone-Salmeterol 230-21 MCG/ACT Inhalation Aerosol (Advair) Inhale 2 Puffs by mouth in the morning and 2 Puffs before bedtime. 12 g 12 LORazepam 1 MG Oral Tablet (Ativan) 1 tab 1/2 hour prior to MRI then 1 tab at MRI site then 1 tab if needed 3 Tablet 0 No current facility-administered medications for this visit. REVIEW OF SYSTEMS: A total of 12 systems were reviewed. All other findings negative except as noted in HPI. EXAM: GENERAL: Appears stated age, well developed, well nourished in no acute distress. SKIN: No apparent rashes, jaundice, ecchymosis, oral lesions. HEENT: Neck supple. Normocephalic, sclera non-icteric LUNGS: No respiratory distress or apparent accessory muscles used. Normal chest excursion. No audible wheezing NEURO: No lateralizing findings. Cranial nerves IV, V, , VII, XI and XII in tact. Motor grossly normal. PSYCHOSOCIAL: Appropriate affect, normal memory recall, ASSESSMENT AND PLAN: Continue furosemide 40 BID, spironolactone 50 daily. Continue Pantoprazole 40mg daily Continue Nadolol 20 mg daily Low salt diet. Avoid tylenol. NAFLD (nonalcoholic fatty liver disease) (Primary) - CBC WITH WBC DIFFERENTIAL; Future; Expected date: 03/19/2023 - COMPREHENSIVE METABOLIC PANEL; Future; Expected date: 03/19/2023 - BILIRUBIN, DIRECT; Future; Expected date: 03/19/2023 - PT INR; Future; Expected date: 03/19/2023 - US ABDOMEN LIMITED; Future; Expected date: 03/24/2023 Follow Up: Return in about 6 months (around 09/15/2023). - ED for emergencies - yellow eyes or skin, confusion, lethargy, blood in bowel movements black tarry bowel movements. - Please call with any questions or concerns RETURN TO CLINIC: 6m BINA Morin 03/17/2023 12:08 PM R: 03/17/2023 documented in this encounter Plan of Treatment Upcoming Encounters Date Type Department Care Team (Late st Contact Info) Description 03/20/2023 4:00 PM EST Imaging Radiology [address], [address] [place] [address] 04/06/2023 2:40 PM EST Office Visit Nephrology, [place] [address] [place] [address] Ky Puentes MD 200 [facility] [place] [address] 06/24/2023 10:00 AM EST Office Visit Neurology [facility] [place] [facility] [place] [address] Joseline Espinosa PA-C 200 [facility] [place] [address] 12/25/2023 9:00 AM EDT Imaging Radiology [address] [facility] [place] [address] Scheduled Orders Name Type Priority Associated Diagnoses Orde r Schedule CBC WITH WBC DIFFERENTIAL Lab Routine NAFLD (nonalcoholic fatty liver disease) Expected: 03/19/2023, Expires: 03/17/2024 COMPREHENSIVE METABOLIC PANEL Lab Routine NAFLD (nonalcoholic fatty liver disease) Expected: 03/19/2023, Expires: 03/17/2024 BILIRUBIN, DIRECT Lab Routine NAFLD (nonalcoholic fatty liver disease) Expected: 03/19/2023, Expires: 03/17/2024 PT INR Lab Routine NAFLD (nonalcoholic fatty liver disease) Expected: 03/19/2023, Expires: 03/17/2024 US ABDOMEN LIMITED Medical Imaging Routine NAFLD (nonalcoholic fatty liver disease) Expected: 03/24/2023, Expires: 04/16/2024 Health Maintenance Due Date Last Done Comments Hepatitis B (1 of 3 - 3-dose series) 1965 Pneumococcal Vaccine: Pediatrics (0 to 5 Years) and At-Risk Patients (6 to 64 Years) (1 - PCV) 1970 Alpha-1 Antitrypsin 1982 HPV/Co-Test 1994 Cologuard 2009 Colonoscopy 2009 Colorectal Cancer Screening 2009 Fecal Occult Blood Test 2009 Sigmoidoscopy 2009 Depression Screening 07/03/2020 07/04/2019 COVID-19 Vaccine (2022- season) 2022 07/16/2021, 08/10/2020, 07/20/2020 Influenza Vaccine (FLU shot) (#1) 2022 GFR 07/06/2023 01/05/2023, 12/26, 09/20/2021, Additional history exists DTaP,Tdap,and Td Vaccines (2 - Td or Tdap) 07/30/2023 07/29/2013 Mammogram 12/24/2023 12/23/2022, 03/0 06/2020, 08/03/2017, Additional history exists Albumin/Creatinine Ratio 01/06/2024 01/05/2023 CKD HGB USE SMARTSET 22414 01/06/202401/05, 04/07/2022, 04/07/2022, Additional history exists CKD PHOS USE SMARTSET 41848 01/06/202412/26, 01/08/2022, 11/30/2020, Additional history exists O2 [...] Not on filedocumented as of this encounter Visit Diagnoses Diagnosis NAFLD (nonalcoholic fatty liver disease)- Primary Other chronic nonalcoholic liver disease documented in this encounter Advance Directives Latest Code Status on File Code Status Date Activated Date Inactivated Comments Full Code 11/29/2020 5:58 PM 12/02/2020 6:44 PM This or mamta reflects the patients wishes and were consensually agreed upon. Question Answer Comments Discussion of Advance Directives occurred with: Patient Healthcare Agents on File Name Relationship Healthcare Agent [facility] p Communication Kamini Jake Adult Child First Alternate Health Care Agent Care Teams Terminal Superintendent Relationship Specialty Start Date End Date Laura July PHILLY Ag [address] [place] [address] PCP - General Physician Supplier Quality Manager 09/06/18 documented as of this encounter
--- OUTSIDE RECORDS SUMMARY | 2023-03-29 07:39 | External Medical Summary ---
Author Name Unknown Address Unknown Organization [id number]:[facility] [place] [address] [facility] [address] Laboratory Report Ordering Provider Test Date Status 01/05/2023 11:26:52 Final Observation Date Value Abnormality Reference (Units ) Status HbA1C 01/05/2023 11:26:52 5.5 4.0-5.6 (% ) Final The use of HbA1c to monitor glycemic status is based on normal hemoglobin and HbA composition. This test should not be used in patients with abnormal hemoglobin that affects the half life of the red blood cell or the in vivo glycation rates. Glucose, estimated average 01/05/2023 11:26:52 111 <126 (mg/dL) Final Performing Location [facility] [place] [address] [facility] [address]
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
--- OUTSIDE RECORDS SUMMARY | 2023-03-29 07:39 | External Medical Summary | Summary of Care ---
Author Name Unknown Organization [facility] Address [address] [place] [address] Phone [phone] Care Team Providers Care Coal Inspector Name Role Phone Lisseth Sanchez PA-C Primary Care Provider [phone] Reason for Visit * Reason Comments Tremor * Evaluate & Treat - Unlimited Visits (Within 30 days (routine)) - Authorized Specialty Diagnoses / Procedures Referred By Charity guerra Referred To Contact Neurology Diagnoses Tremors of nervous system Lisseth Sanchez PA-C [address] [place] [address] Referral ID Status Reason Start Date Expiration Date Visits Requested Visits Authorized [id number] Authorized Specialty Services Required 01/05/[phone] Encounter Details Date Type Department Care Team Description 01/16/2023 [facility] [address] [place] [address] Sanjay Smyth MD [address] [place] [address] Action tremor* Allergies Active Allergy Reactions Severity Noted Date Comments Perflutren Lipid Microsphere Medium 020 Back pain Hydromorphone Hcl High 12/05/2017 Chest pain, SOB, trouble breathing Iodinated Contrast Media 02/19/2012 Sob, pain Fqcv-Nnowgapx-Vviyqwwuro Hives High 01/16/2012 Penicillins Unknown 09/20/2021 documented as of this encounter (statuses as of 01/22/2023) Medications Medication Sig Dispensed Refills Start Date [...] Ophthalmic Suspension (Pred Forte) 0 09/18/2021 Active Carboxymeth-Glycerin -Polysorb 0.5-1-0.5 % Ophthalmic Solution Instill into eye [...] 08/25/2022 Active Nadolol 20 MG Oral Tablet (Corgard)Indications :Paroxysmal SVT (supraventricular tachycardia) TAKE 1 TABLET BY MOUTH EVERY DAY 90 Tablet 3 08/25/2022 Active Pantoprazole Sodium 40 MG Oral Tablet Delayed Release (Protonix) TAKE 1 TABLET BY MOUTH EVERY DAY 90 Tablet 3 08/25/2022 Active Spironolactone 50 MG Oral Tablet (Aldactone)Indicatio ns:Liver cirrhosis secondary to CHRIS (nonalcoholic steatohepatitis) (HCC) TAKE 1 TABLET BY MOUTH EVERY DAY 90 Tablet 3 08/25/2022 Active Fluticasone Propionate 50 MCG/ACT Nasal Suspension (Flonase) SPRAY 2 SPRAYS INTO EACH NOSTRIL EVERY DAY 48 mL 1 09/28/2022 Active Albuterol Sulfate HFA 108 (90 Base) MCG/ACT Inhalation Aerosol SolutionIndications: Mild persistent asthma without complication Inhale 2 Puffs by mouth every 4 hours as needed for Wheezing. 18 g 5 01/05/2023 Active Fluticasone-Salmeter ol 230-21 MCG/ACT Inhalation Aerosol (Advair)Indications: Mild persistent asthma without complication Inhale 2 Puffs by mouth in the morning and 2 Puffs before bedtime. 12 g 12 01/05/2023 Active Topiramate 25 MG Oral Tablet (Topamax)Indications :Action tremor Take 1 Tablet by mouth every night at bedtime for 7 days, THEN 1 Tablet 2 times a day for 7 days, THEN 2 Tablets 2 times a day for 28 days. 133 Tablet 0 01/16/2023 02/27/2023 Active documented as of this encounter (statuses as of 01/22/2023) Active Problems Problem Noted Date Morbid obesity 01/05/2023 Asthma, mild persistent 02/03/2022 Chronic obstructive pulmonary disease Cellulitis of left lower extremity 11/29 Stage 3a chronic kidney disease 03/05/20 Overview: Per CKD protocol Asthma with severity [...] as of this encounter (statuses as of 01/22/2023) Resolved Problems Problem Noted Date Resolved Date Generalized anxiety disorder 02/03/202202/2023 Vasculitis 12/27/2020 01/29/2021 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 10/0 08/2020 EMERY (dyspnea on exertion) 09/28/20192020 Sacroiliitis, not [...] as of this encounter (statuses as of 01/22/2023) Immunizations Name Administration Dates Next Due COVID-19 mRNA, LNP-s, No Pre serve, 2-Dose Series (Devario) 08/10/2020,07/20/2020 COVID-19, LNP-s, No Preserve , Lupillo-sucrose, Ages 12+ (Devario) 07/16/2021 TDAP (age 10 and older)(Boostrix) 07/29/2013 [...] Office Visit Nephrology Ky Puentes MD [address] [facility] [place] [address] 12/25/2023 Imaging Radiology Scheduled Procedures Name Priority Associated Diagnoses Date/Ti [...] or Tdap) 07/30/2023 07/29/2013 Mammogram 12/24/2023 12/23/2022, 03/06/2020, 08/03/2017, Additional history exists Albumin/Creatinine Ratio 01/06/2024 01/05/2023 CKD HGB USE SMARTSET 28133 01/06/202401/05, 04/07/2022, 04/07/2022, Additional history exists CKD PHOS USE SMARTSET 40511 01/06/202412/26, 01/08/2022, 11/30/2020, Additional history exists O2 [...] as of this encounter Visit Diagnoses Diagnosis Action tremor- Primary Essential and other specified forms of tremor documented in this encounter Advance Directives Latest Code Status on File Code Status Date Activated Date Inactivated Comments Full Code 11/29/2020 5:58 PM 12/02/2020 6:44 PM This or mamta reflects the patients wishes and were consensually agreed upon. Question Answer Comments Discussion of Advance Directives occurred with: Patient Healthcare Agents on File Name Relationship Healthcare Agent [facility] p Communication Kamini Joseph Adult Child First Alternate Health Care Agent Care Teams Coal Inspector Relationship Specialty Start Date End Date Laura Lisseth PHILLY Ag [address] [place] [address] PCP - General Physician Band Booker 09/06/18 documented as of this encounter
--- OUTSIDE RECORDS SUMMARY | 2023-03-29 07:39 | External Medical Summary | Summary of Care ---
Author Name Unknown Organization [facility] Address [address] [place] [address] Phone [phone] Care Team Providers Care Truck Chauffeur Name Role Phone Lisseth Sanchez PA-C Primary Care Provider [phone] Reason for Referral * Precert (Within 10 days (routine)) - Authorized Specialty Diagnoses / Procedures Referred By Charity guerra Referred To Contact Sleep Disorders Diagnoses Snoring Hypersomnolence Sleep apnea, unspecified type Procedures SLEEP STUDY, W/ CPAP (TREATMENT SETTINGS) Haylee Valenzuela DO [address] [place] [address] Referral ID Status Reason Start Date Expiration Date V isits Requested Visits Authorized [id number] Authorized 02/26/2023 999 999 * Precert (Within 10 days (routine)) - Authorized Specialty Diagnoses / Procedures Referred By Charity guerra Referred To Contact Sleep Disorders Diagnoses Snoring Hypersomnolence Sleep apnea, unspecified type Procedures SLEEP STUDY, W/O CPAP Haylee Valenzuela DO [address] [place] [address] Referral ID Status Reason Start Date Expiration Date V isits Requested Visits Authorized [id number] Authorized 02/26/2023 999 999 Reason for Visit * Reason Comments NEW PATIENT Here new sleep. Lizzy ent snores and stops breathing. * Evaluate & Treat - Unlimited Visits (Within 10 days (routine)) - Authorized Specialty Diagnoses / Procedures Referred By Contac t Referred To Contact Sleep Medicine / Sleep Disorders Diagnoses Action tremor Confusion and disorientation Joseline Espinosa PA-C [address] [place] [address] Referral ID Status Reason Start Date Expiration Date Visits Requested Visits Authorized [id number] Authorized Specialty Services Required 3 2 2 Encounter Details Date Type Department Care Team (Late st Contact Info) Description 02/26/2023 1:40 PM EDT Office [facility] [place] [address] [facility] [address] Haylee Valenzuela DO [address] [place] [address] Snoring*; Hypersomnolence; Sleep apnea, unspecified type Allergies Active Allergy Reactions Criticality Noted Date Comments Perflutren Lipid Microsphere Medium 020 Back pain Hydromorphone Hcl High 12/05/2017 Chest pain, SOB, trouble breathing Iodinated Contrast Media 02/19/2012 Sob, pain Tvvb-Oktbojbn-Kizldzdkem Hives High 01/16/2012 Penicillins Unknown 09/20/2021 documented as of this encounter (statuses as of 02/26/2023) Medications Medication Sig Dispensed Refills Start Date [...] as of this encounter (statuses as of 02/26/2023) Active Problems Problem Noted Date Diagnosed Date Morbid obesity 01/05/2023 Asthma, mild persistent [...] as of this encounter (statuses as of 02/26/2023) Resolved Problems Problem Noted Date Diagnosed Date [...] as of this encounter (statuses as of 02/26/2023) Immunizations Name Administration Dates Next Due COVID-19 mRNA, LNP-s, No Pre serve, 2-Dose Series (Oxonica) 08/10/2020,07/20/2020 COVID-19, LNP-s, No Preserve , Lupillo-sucrose, [...] Sign Reading Time Taken Comments Blood Pressure 118/78 02/26/2023 1:31 PM EDT Pulse 73 02/26/2023 1:31 PM EDT Temperature 37.1 C (98.8 F) 02/26/2023 1:31 PM ED T Respiratory Rate 16 02/26/2023 1:31 PM EDT Oxygen Saturation 96% 02/26/2023 1:31 PM EDT Inhaled Oxygen Concentration - - Weight 97.1 kg (214 lb) 02/26/2023 1:31 PM EDT Height 160 cm (5' 3") 02/26/2023 1:31 PM EDT Body Mass Index 37.91 02/26/2023 1:31 PM EDT documented in this encounter Functional Status [...] this encounter Patient Instructions * Patient Instructions* Haylee Valenzuela, DO - 02/26/2023 2:33 PM EDT OBSTRUCTIVE SLEEP APNEA We are concerned that you may have obstructive sleep apnea. Obstructive sleep apnea is when someonehas difficulties with breathing only during sleep. This typically happens without the patient beingaware they are having breathing issues. Obstructive sleep apnea is very common. It can be seen in kids and adults. It can cause symptoms of excessive daytime sleepiness, fatigue, morning headaches, and poor memory and cognition. It can also lead to difficulties at work or school and motor vehicle accidents. If left untreated, it puts people at risk for heart attacks, strokes, and diabetes. We diagnose obstructive sleep apnea with either an in-lab sleep study or a home sleep apnea test. If you come in for an in lab sleep study, a trained nutrition technician will be present at the sleep center to administer and monitor the test. They will be putting sensors on you that monitor your brain waves, breathing, movements, and respiratory effort. They will not be putting in any IV's or using any needles, and none of the sensors should be painful, though they may be annoying or uncomfortable to some patients when they are trying to sleep. You will have a private room with your own bathroom.Please feel free to bring your own pillow or blanket if you feel this would help you sleep more comf ortably. They provide these things for you, but we want you to feel as comfortable and relaxed as possible when you are spending the night in the sleep center. [facility] is accredited by the [place] [employer] (AASM). To receive accreditation, a sleep centermust meet or exceed all standards for professional quality sleep medicine care as designated by the[facility]. More information can be obtained at: SleepEducation.org documented in this encounter Progress Notes * Haylee Valenzuela DO - 02/26/2023 2:08 PM EDT Sleep Medicine Evaluation [address] [place] [address] Consultation was requested by: Joseline Espinosa PA-C for: sleepiness and a copy of this report is being sent to the provider electronically. Relevant available records reviewed. HPI: Hannah Belle is a(n) 57 year old female presenting for evaluation of excessive sleepiness,concern for sleep apnea. Prior PSG 06/10/2019 (BMI 47.11): AHI (4%) 2, SpO2 david 84%, time <89% 41 min, PLMI 16.6. She was more sleepy when taking topiramate (which had been started due to tremor). She would put her grandkids on the bus, then sleep until they got home from school. Stopped the topiramate a couple weeks ago. Sleepiness has improved off of the medication. 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 When working: Patient reports a typical bedtime of midnight. It takes varying times to fall asleep. Patient awakens varying times overnight, to go to the bathroom. Patient awakens for the day at 6 AM, feeling usually rested. Patient does not typically feel sleepy or tired during the day. Patient does sometimes take naps. If she worked that night and did not get as much sleep. When not working: Bedtime 9-9:30 PM with [employer]. Sleeps solidly those nights. Up around 6 AM. Patient does not use caffeine. The patient reports having ("+" indicates reports, "-" indicates denies): + Snoring, used to wake herself up snoring. + hx Observed apneas, had been mentioned years ago by her . - Choking/gasping awakenings (sometimes wakes up coughing though) probably Mouth breathing, always has a dry mouth - Acid reflux at night + Nocturia (depending on when she takes her fluid pill) sometimes Morning headaches -- woke up with a bad headache this morning unsure Teeth grinding Restless Legs Syndrome Symptoms ("+" indicates reports, "-" indicates denies): - Urge to move legs at night Parasomnias Symptoms ("+" indicates reports, "-" indicates denies): - Sleepwalking - Dream-enactment Excessive Daytime Sleepiness: Hollister Sleepiness Scale 13 Modified F.O.S.Q. 40 +/- Drowsy driving, she attributed this to the topiramate making her sleepy. sometimes Sleepy with sedentary activity Hollister Sleepiness Scale Question 02/26/2023 1:27 PM EDT - Filed by Debbie Begum LPN What is the chance you will doze off in the following situation? Sitting and reading High chance of dozing Watching TV High chance of dozing Sitting inactive in a public place, such as a theater or meeting No chance of dozing As a passenger in a car for an hour without a break Slight chance of dozing Lying down to rest in the afternoon when circumstances permit High chance of dozing When sitting and talking to someone No chance of dozing When sitting quietly after lunch without alcohol No chance of dozing In a car, while stopped for a few minutes in traffic High chance of dozing Score (range: 0 - 24) 13 Travel Screening Question 02/26/2023 1:28 PM EDT - Filed by Debbie Begum LPN Do you have any of the following new or worsening symptoms? None of these Have you recently been in contact with someone who was sick? No / Unsure Functional Outcomes Of Sleep Question 02/26/2023 1:31 PM EDT - Filed by Debbie Begum LPN Please complete the following questions. Do you have difficulty concentrating because you are sleepy or tired? No Do you have difficulty remembering things because you are sleepy or tired? No Do you have difficulty operating a motor vehicle for short distances (less than 100 miles) because you become sleepy? No Do you have difficulty operating a motor vehicle for long distances (more than 100 miles) because you become sleepy? No Do you have difficulty visiting family or friends in their home because you become sleepy or tired?No Has your relationship with family, friends, or work colleagues been affected because you are sleepyor tired? No Do you have difficulty watching a movie or video because you become sleepy or tired? No Do you have difficulty being as active as you want to be in the evening because you are tired or sleepy? No Do you have difficulty being as active as you want to be in the morning because you are tired or sleepy? No Has your mood been affected because you are sleepy or tired? No Score (range: 10 - 40) 40 Prior sleep study: just the one in 2019, as noted above. PMH: Past Medical History: Diagnosis Date Celiac disease [...] chronic kidney disease 03/05/2020 Per CKD protocol Note: Pt denies Celiac disease. Eats gluten and feels fine. Past Surgical History: Procedure Laterality Date CARPAL TUNNEL SURGERY Carpal tunnel release bialteroal DILATION AND CURETTAGE (D&C) after miscarriage. EGD, FLEXIBLE, DIAGNOSTIC 03/09/2015 eso varices, portal gastropathy, celiac disease on bx/ESOPHAGOGASTRODUODENOSCOPY (EGD), FLEXIBLE, TRANSORAL, DIAGNOSTIC performed by Poli Velásquez DO at ENDOSCOPY [facility] EGD, FLEXIBLE, DIAGNOSTIC 12/10/2017 eso varices, portal hypertensive gastropathy, repeat 8 wks/[facility] EGD, FLEXIBLE, DIAGNOSTIC 12/10/2017 portal hypertensive gastropathy, repeat 8 wks/[facility] EGD, FLEXIBLE, DIAGNOSTIC 04/26/2019 normal, repeat 1 yr/[facility] EGD, FLEXIBLE, DIAGNOSTIC N/A 04/02/2022 normal/repeat 1-2 years/EGD/[place] INFORMATION antecubital elbow release REMOVE CERVIX CONE W/LOOP ELECTRODE N/A 07/31/2016 LOOP ELECTROSURGERY EXCISION PROCEDURE performed by Braeden Florentino MD at OR [facility] SPINAL FUSION, 4-7 VERT, ANTERIOR ALLERGIES: Review of patient's allergies indicates: Allergen Reactions Dilaudid [Hydromorphone Hcl] Chest pain, SOB, trouble breathing Pamprin [Odll-Ydpygwau-Halylyuxsz] Hives Definity [Perflutren Lipid Microsphere] Back pain Iodinated Contrast Media Sob, pain Penicillins Unknown MEDS: Outpatient Medications Marked as Taking for the 02/26/23 encounter (Office Visit) with Haylee Valenzuela, Medication Sig LORazepam 1 MG Oral Tablet (Ativan) 1 tab 1/2 hour prior to MRI then 1 tab at MRI site then 1 tab if needed Albuterol Sulfate HFA 108 (90 Base) MCG/ACT Inhalation Aerosol Solution Inhale 2 Puffs by mouth every 4 hours as needed for Wheezing. Fluticasone-Salmeterol 230-21 MCG/ACT Inhalation Aerosol (Advair) Inhale 2 Puffs by mouth in the morning and 2 Puffs before bedtime. Fluticasone Propionate 50 MCG/ACT Nasal Suspension (Flonase) SPRAY 2 SPRAYS INTO EACH NOSTRIL EVERYDAY Furosemide 40 MG Oral Tablet (Lasix) TAKE 1 TABLET BY MOUTH TWICE A DAY Nadolol 20 MG Oral Tablet (Corgard) TAKE 1 TABLET BY MOUTH EVERY DAY Pantoprazole Sodium 40 MG Oral Tablet Delayed Release (Protonix) TAKE 1 TABLET BY MOUTH EVERY DAY Spironolactone 50 MG Oral Tablet (Aldactone) TAKE 1 TABLET BY MOUTH EVERY DAY Refresh 1.4-0.6 % Ophthalmic Solution (polyvinyl alcohol-povidone PF) 1 Drop as needed. Erythromycin 5 MG/GM Ophthalmic Ointment Naproxen Sodium 220 MG Oral Capsule Take 1 Capsule by mouth as needed for Pain, Mild. prednisoLONE Acetate 1 % Ophthalmic Suspension (Pred Forte) Probiotic 250 MG Oral Capsule Take by mouth. Magnesium 250 MG Tablet Take 1 Tablet by mouth in the morning. Pyridoxine HCl (VITAMIN B-6) 500 MG TABS Take 1 Tablet by mouth in the morning. Cholecalciferol (EQL VITAMIN D3) 1000 UNITS Tablet Take 1,000 Units by mouth daily. Ferrous Sulfate (IRON) 325 (65 FE) MG TABS Take by mouth daily. She takes the nadolol at nighttime. FHx: mother had sleep apnea Social hx: Tobacco Use: Low Risk (02/26/2023) Patient History Smoking Tobacco Use: Never Smokeless Tobacco Use: Never Passive Exposure: Not on file Alcohol use: rare, in moderation Drug use: none Employment: [employer] PE: VITAL SIGNS: Filed Vitals: 02/26/23 1331 BP: 118/78 Pulse: 73 Resp: 16 Temp: 37.1 C (98.8 F) TempSrc: Tympanic SpO2: 96% Weight: 97.1 kg (214 lb) Height: 1.6 m (5' 3") Body mass index is 37.91 kg/m. GEN: Ambulatory, obese, NAD EYES: No conjunctival icterus or pallor ORAL: Hard palate normal Oral mucous membranes moist OP: Soft palate normal Mallampati IV NECK: Circumference not enlarged RESP: Unlabored respirations Breath sounds clear, no wheezes or rales CVS: Regular rate and rhythm No murmurs or gallops NEURO: Speech clear and appropriate IMPRESSION/RECOMMENDATIONS: Snoring, hx witnessed apneas, excessive sleepiness - suspect ELSA. Reduced sleeps times after work shifts can also contribute to daytime sleepiness; byhistory the significant worsening of sleepiness did seem to be a SE of the topiramate and has improved with discontinuing the medication. - STOP-BANG 5 (snoring, tired, observed apneas, BMI > 35, and age > 50) - Discussed the pathophysiology, implications on short- and long-term health, diagnostic evaluation, and likely treatment options of ELSA - Schedule an overnight PSG - split night protocol if meets criteria. - Avoid driving when sleepy/drowsy. Follow-up: Return will send MyG with PSG results. | Check-out note: PSG [facility] Haylee Valenzuela DO documented in this encounter Nursing Notes * Debbie Begum LPN - 02/26/2023 1:35 PM EDT Chief Complaint Patient presents with NEW PATIENT Here new sleep. Patient snores and stops breathing. Neck: 13". Hollister Sleepiness Scale Question 02/26/2023 1:27 PM EDT - Filed by Debbie Begum LPN What is the chance you will doze off in the following situation? Sitting and reading High chance of dozing Watching TV High chance of dozing Sitting inactive in a public place, such as a theater or meeting No chance of dozing As a passenger in a car for an hour without a break Slight chance of dozing Lying down to rest in the afternoon when circumstances permit High chance of dozing When sitting and talking to someone No chance of dozing When sitting quietly after lunch without alcohol No chance of dozing In a car, while stopped for a few minutes in traffic High chance of dozing Score (range: 0 - 24) 13 Travel Screening Question 02/26/2023 1:28 PM EDT - Filed by Debbie Begum LPN Do you have any of the following new or worsening symptoms? None of these Have you recently been in contact with someone who was sick? No / Unsure Functional Outcomes Of Sleep Question 02/26/2023 1:31 PM EDT - Filed by Debbie Begum LPN Please complete the following questions. Do you have difficulty concentrating because you are sleepy or tired? No Do you have difficulty remembering things because you are sleepy or tired? No Do you have difficulty operating a motor vehicle for short distances (less than 100 miles) because you become sleepy? No Do you have difficulty operating a motor vehicle for long distances (more than 100 miles) because you become sleepy? No Do you have difficulty visiting family or friends in their home because you become sleepy or tired?No Has your relationship with family, friends, or work colleagues been affected because you are sleepyor tired? No Do you have difficulty watching a movie or video because you become sleepy or tired? No Do you have difficulty being as active as you want to be in the evening because you are tired or sleepy? No Do you have difficulty being as active as you want to be in the morning because you are tired or sleepy? No Has your mood been affected because you are sleepy or tired? No Score (range: 10 - 40) 40 documented in this encounter Plan of Treatment Upcoming Encounters Date Type Department Care Team (Late st Contact Info) Description 03/20/2023 4:00 PM EST Imaging Radiology [address] [place] [address] 04/06/2023 2:40 PM EST Office Visit Nephrology, [facility] [address] [facility] [place] [address] [place] Puentes MD [address] [facility] [place] [address] 06/24/2023 10:00 AM EST Office Visit Neurology [facility] [address] [place] [address] Joseline Espinosa PA-C [address] [place] [address] 12/25/2023 9:00 AM EDT Imaging Rad[facility] [address] [facility], [place] [address] [facility] [place] [address] Scheduled Orders Name Type Priority Associated Diagnoses Orde r Schedule SLEEP STUDY, W/O CPAP Procedures Routine Snoring Hypersomnolence Sleep apnea, unspecified type Ordered: 02/26/2023 SLEEP STUDY, W/ CPAP (TREATMENT SETTINGS) Procedures Routine Snoring Hypersomnolence Sleep apnea, unspecified type Ordered: 02/26/2023 Scheduled Procedures Name Priority Associated Diagnoses Date/Ti [...] Ratio 01/06/2024 01/05/2023 CKD HGB USE SMARTSET 22362 01/06/202401/05, 04/07/2022, 04/07/2022, Additional history exists CKD PHOS USE SMARTSET 40188 01/06/202412/26, 01/08/2022, 11/30/2020, Additional history exists O2 ASSESSMENT COMPLETED IN PAST YEAR FOR COPD 02/18/2024 02/26/2023 Cervical Cancer Screening 10/14/2024 Pap Smear [...] as of this encounter Visit Diagnoses Diagnosis Snoring- Primary Other dyspnea and respiratory abnormality Hypersomnolence Hypersomnia, unspecified Sleep apnea, unspecified type documented in this encounter Advance Directives Latest Code Status on File Code Status Date Activated Date Inactivated Comments Full Code 11/29/2020 5:58 PM 12/02/2020 6:44 PM This or mamta reflects the patients wishes and were consensually agreed upon. Question Answer Comments Discussion of Advance Directives occurred with: Patient Healthcare Agents on File Name Relationship Healthcare Agent [facility] p Communication Kamini Jake Adult Child First Alternate Health Care Agent Care Teams Truck Chauffeur Relationship Specialty Start Date End Date Laura Lisseth Kimberli, PAEzeC [address] [facility] [place] [address] PCP - General Physician Database Coordinator 09/06/18 documented as of this encounter
--- OUTSIDE RECORDS SUMMARY | 2023-03-29 07:39 | External Medical Summary | Summary of Care ---
Author Name Unknown Organization [facility] Address [address] [place] [address] Phone [phone] Care Team Providers Care Mold Finisher Name Role Phone Lisseth Sanchez PA-C Primary Care Provider [phone] Reason for Visit * Reason Onset Date Comments Health Maintenance 11/25/2022 Encounter Details Date Type Department Care Team Description 11/25/2022 Telephone Family Practice [facility] [place] [address] [facility] [place] [address] Lisseth Sanchez PA-C [address] [facility] [place] [address] Health Maintenance Allergies Active Allergy Reactions Severity Noted Date Comments Perflutren Lipid Microsphere Medium 020 Back pain Hydromorphone Hcl High 12/05/2017 Chest pain, SOB, trouble breathing Iodinated Contrast Media 02/19/2012 Sob, pain Dzcy-Ebvsrilg-Eneibfabdu Hives High 01/16/2012 Penicillins Unknown 09/20/2021 documented as of this encounter (statuses as of 11/25/2022) Medications Medication Sig Dispensed Refills Start Date [...] Oral Capsule Take by mouth. 0 Active Fluticasone-Salmetero l 230-21 MCG/ACT Inhalation Aerosol (Advair)Indications:M ild persistent asthma without complication Inhale 2 Puffs by mouth 2 times a day. 12 g 12 04/02/2021 Active Albuterol Sulfate HFA 108 (90 Base) MCG/ACT Inhalation Aerosol SolutionIndications:M ild persistent asthma without complication Inhale 2 Puffs by mouth every 4 hours as needed for Wheezing. 18 g 5 04/02/2021 Active Erythromycin 5 MG/GM Ophthalmic Ointment 0 09/18/2021 Activ e prednisoLONE Acetate 1 % Ophthalmic Suspension (Pred Forte) 0 09/18/2021 Active Carboxymeth-Glycerin- Polysorb 0.5-1-0.5 % Ophthalmic Solution Instill into eye . 0 09/11/2021 Active Naproxen Sodium 220 MG Oral Capsule Take by mouth 220 mg as needed for Pain, Mild. 0 Active Gabapentin 300 MG Oral Capsule (Neurontin)Indication s:Periodic limb movement disorder (PLMD) TAKE 1 CAPSULE BY MOUTH AT BEDTIME 90 MINUTES BEFORE BED 90 Capsule 1 01/28/2022 Active cycloSPORINE 0.05 % Ophthalmic Emulsion (Restasis) 1 Drop in the morning and 1 Drop before bedtime. 0 Active Refresh 1.4-0.6 % Ophthalmic Solution (polyvinyl alcohol-povidone PF) 1 Drop as needed. 0 Active Doxycycline Hyclate 100 MG Oral Tablet Take 1 Tablet (100 mg) by mouth in the morning and 1 Tablet (100 mg) before bedtime. 0 Active Furosemide 40 MG Oral Tablet (Lasix) TAKE 1 TABLET BY MOUTH TWICE A DAY 180 Tablet 3 08/25/2022 Active Nadolol 20 MG Oral Tablet (Corgard)Indications: Paroxysmal SVT (supraventricular tachycardia) (HCC) TAKE 1 TABLET [...] EVERY DAY 48 mL 1 09/28/2022 Active documented as of this encounter (statuses as of 11/25/2022) Active Problems Problem Noted Date Asthma, mild persistent 02/03/2022 Generalized anxiety disorder 02/03/2022 Chronic obstructive pulmonary disease Cellulitis of [...] as of this encounter (statuses as of 11/25/2022) Resolved Problems Problem Noted Date Resolved Date Vasculitis 12/27/2020 01/29/2021 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 10/0 [...] as of this encounter (statuses as of 11/25/2022) Immunizations Name Administration Dates Next Due COVID-19 [...] Telephone Encounter - Palak Martinez LPN - 11/25/2022 10:12 AM EDT Care Gaps Comprehensive Care Outreach Last Office/Telemedicine Visit: 02/03/2022 (in office), 03/12/2020 (telemedicine) Next Office Visit: Visit date not found Hemoglobin AIC Results: Lab Results Component Value Date/Time HEMOGLOBIN A1C - BELÉNER 5.5 04/07/2022 10:10 AM Reviewed Health Maintenance below: Health Maintenance Topic Date Due Hepatitis B (1 of 3 - 3-dose series) Never done Pneumococcal Vaccine: Pediatrics (0 to 5 Years) and At-Risk Patients (6 to 64 Years) (1 - PCV) Never done Albumin/Creatinine Ratio Never done Alpha-1 Antitrypsin Never done Colorectal Cancer Screening Never done Depression Screening, Annual for Pts 12 and Over 07/03/2020 Mammogram 06/27/2021 COVID-19 Vaccine (4 - Pfizer series) 09/10/2021 GFR 07/08/2022 Influenza Vaccine (FLU shot) (1) 12/26/2022 CKD PHOS USE SMARTSET 47210 01/08/2023 CKD HGB USE SMARTSET 12650 04/07/2023 Urine Colon Mamm scheduled Labs ordered and scheduled Ov scheduled Care Gap Outreach Action Taken: Spoke to patient documented in this encounter Plan of Treatment Upcoming Encounters Date Type Specialty Care Team Description 12/23/2022 Imaging Radiology 01/05/2023 Office Visit Family Medicine Lisseth Sanchez PA-C [address] [place] [address] 01/05/2023 Laboratory Laboratory [facility] [address] [place] [address] 04/06/2023 Office Visit Nephrology Ky Puentes MD [address] [place] [address] Scheduled Orders Name Type Priority Associated Diagnoses Orde r Schedule MAMMOGRAM SCREENING ANNALEE BILATERAL Medical Imaging Routine Encounter for screening mammogram for malignant neoplasm of breast Expected: 11/25/2022, Expires: 12/27/2023 ALBUMIN / CREATININE RATIO, URINE Lab Routine Chronic kidney disease, unspecified CKD stage Expected: 12/26/2022 (Approximate), Expires: 11/26/2023 COMPREHENSIVE METABOLIC PANEL Lab Routine Chronic kidney disease, unspecified CKD stage Expected: 12/26/2022, Expires: 11/26/2023 PHOSPHORUS Lab Routine Chronic kidney disease, unspecified CKD stage Expected: 12/26/2022, Expires: 11/26/2023 HGB Lab Routine Chronic kidney disease, unspecified CKD stage Expected: 12/26/2022, Expires: 11/26/2023 Scheduled Procedures Name Priority Associated Diagnoses Date/Ti [...] Occult Blood Test 2009 Sigmoidoscopy 2009 Depression Screening, Annual for Pts 12 and Over 07/03/2020 07/04/2019 Mammogram 06/27/2021 06/27/2020, 04/0 12/2017, 04/30/2016 COVID-19 Vaccine (4 - Pfizer series) 09/10/2021 07/16/2021, 08/10/2020, 07/20/2020 GFR 07/08/2022 01/08/2022, 08/26, 12/01/2020, Additional history exists Influenza Vaccine (FLU shot) (#1) 2022 CKD PHOS USE SMARTSET 40892 01/08/202312/26, 11/30/2020, 12/07/2019, Additional history exists CKD HGB USE SMARTSET 35578 04/07/202304/07, 04/07/2022, 01/08/2022, Additional history exists O2 ASSESSMENT COMPLETED IN PAST YEAR FOR COPD 04/07/2023 04/07/2022 DTaP,Tdap,and Td Vaccines (2 - Td or Tdap) 07/30/2023 07/29/2013 Cervical Cancer Screening 10/14/2024 Pap Smear 10/14/2024 10/14/2021, 04/0 08/2020, 03/02/2017, Additional history exists Diabetes Screening 04/07/2025 04/07/2022, 0 01/08/2022, 09/20/2021, Additional history exists Lipid Panel 04/07/2027 04/07/2022, 07/0 09/2016, 08/15/2014 Zoster Vaccines Completed 10/04/2019, 07/04/2019 GARDASIL-HPV IMMUNIZATION SERIES Aged Out No longer eligible based on patient's age to complete this topic MENINGOCOCCAL (MENACTRA/MENVEO) Aged Out No longer eligible based on patient's age to complete this topic documented as of this encounter Medical Devices Not on filedocumented as of this encounter Visit Diagnoses Diagnosis Encounter for screening mammogram for malignant neoplasm of breast- Primary Other screening mammogram Chronic kidney disease, unspecified CKD stage documented in this encounter Advance Directives Latest Code Status on File Code Status Date Activated Date Inactivated Comments Full Code 11/29/2020 5:58 PM 12/02/2020 6:44 PM This or mamta reflects the patients wishes and were consensually agreed upon. Question Answer Comments Discussion of Advance Directives occurred with: Patient Healthcare Agents on File Name Relationship Healthcare Agent [facility] p Communication Kamini Joseph Adult Child First Alternate Health Care Agent Care Teams Mold Finisher Relationship Specialty Start Date End Date Laura Lisseth PHILLY Ag [address] [place] [address] PCP - General Physician Manager Programs 09/06/18 documented as of this encounter
--- OUTSIDE RECORDS SUMMARY | 2023-03-29 07:39 | External Medical Summary ---
Author Name Unknown Address Unknown Organization [id number]:[facility] [place] [address] Laboratory Report Ordering Provider Test Date Status 01/05/2023 11:26:52 Final Observation Date Value Abnormality Reference (Units ) Status Phosphate 01/05/2023 11:26:52 3.4 2.5-4.8 (m g/dL) Final Performing Location [facility] [place] [address]
--- OUTSIDE RECORDS SUMMARY | 2023-03-29 07:39 | External Medical Summary | Summary of Care ---
Author Name Unknown Organization [facility] Address [address] [place] [address] Phone [phone] Care Team Providers Care Client Business Manager Name Role Phone Lisseth Sanchez PA-C Primary Care Provider [phone] Reason for Visit * Reason Comments Outpatient Testing Encounter Details Date Type Department Care Team Description 01/05/2023 Laboratory [facility] [place] [address] [place] [address] [facility] [address] [facility] [place] [address] Chronic kidney disease, unspecified CKD stage; Tremors of nervous system; Prediabetes; Vitamin D deficiency Allergies Active Allergy Reactions Severity Noted Date Comments Perflutren Lipid Microsphere Medium 020 Back pain Hydromorphone Hcl High 12/05/2017 Chest pain, SOB, trouble breathing Iodinated Contrast Media 02/19/2012 Sob, pain Unre-Xikkigdv-Vboyzbrsou Hives High 01/16/2012 Penicillins Unknown 09/20/2021 documented [...] before bedtime. 12 g 12 01/05/2023 Active documented as of this encounter (statuses as of 01/05/2023) Active Problems Problem Noted Date Morbid obesity 01/05/2023 Asthma, mild persistent 02/03/2022 Generalized anxiety disorder [...] mRNA, LNP-s, No Pre serve, 2-Dose Series (Telesocial) 08/10/2020,07/20/2020 COVID-19, LNP-s, No Preserve , Lupillo-sucrose, [...] Office Visit Nephrology Ky Puentes MD [address] [place] [address] 07/14/2023 Telemedicine Neurology Thiago Graves MD [address] [place] [address] 12/25/2023 Imaging Radiology Pending Results Name Type Priority Associated Diagnoses Date /Time COMPREHENSIVE METABOLIC PANEL Lab Routine Chronic kidney disease, unspecified CKD stage 01/05/2023 11:26 AM EDT PHOSPHORUS Lab Routine Chronic kidney disease, unspecified CKD stage 01/05/2023 11:26 AM EDT TSH WITH FREE T4 IF INDICATED Lab Routine Tremors of nervous system 01/05/2023 11:26 AM EDT CBC Lab Routine Tremors of nervous system 01/05/2023 11:26 AM EDT VITAMIN B12 Lab Routine Tremors of nervous system 01/05/2023 11:26 AM EDT HEMOGLOBIN A1C Lab Routine Prediabetes 01/05/2023 11:26 AM EDT 25-HYDROXY VITAMIN D Lab Routine Vitamin D deficiency 01/05/2023 11:26 AM EDT ALBUMIN / CREATININE RATIO, URINE Lab Routine Chronic kidney disease, unspecified CKD stage 01/05/2023 11:32 AM EDT Scheduled Procedures Name Priority Associated Diagnoses Date/Ti [...] shot) (#1) 2022 CKD PHOS USE SMARTSET 03723 01/08/2023 09/1 07/2021, 11/30/2020, 12/07/2019, Additional history exists CKD HGB USE SMARTSET 94569 04/07/202304/07, 04/07/2022, 01/08/2022, Additional history exists O2 ASSESSMENT COMPLETED IN PAST YEAR FOR COPD 04/07/2023 04/07/2022 DTaP,Tdap,and Td Vaccines (2 - Td or Tdap) 07/30/2023 07/29/2013 Mammogram 12/24/2023 12/23/2022, 03/0 06/2020, 08/03/2017, Additional history exists Cervical Cancer Screening 10/14/2024 Pap Smear 10/14/2024 [...] as of this encounter Visit Diagnoses Diagnosis Chronic kidney disease, unspecified CKD stage Tremors of nervous system Abnormal involuntary movements [...] Agents on File Name Relationship Healthcare Agent [facility] p Communication Kamini Fillmore Adult Child First Alternate Health Care Agent Care Teams Client Business Manager Relationship Specialty Start Date End Date Lisseth Sanchez PA-C [address] [place] [address] [place] [address] PCP - General Physician Motion Picture Film Examiner 09/06/18 documented as of this encounter
--- OUTSIDE RECORDS SUMMARY | 2023-03-29 07:39 | External Medical Summary ---
Author Name Unknown Address Unknown Organization K01:[facility] [place] [address] [facility] [address] Laboratory Report Ordering Provider Test Date Status 01/05/2023 11:26:52 Final Observation Date Value Abnormality Reference (Units ) Status TSH 01/05/2023 11:26:52 1.97 0.27-4.20 (uIU/mL) Final Performing Location [facility] [place] [address] [facility] [address]
--- OUTSIDE RECORDS SUMMARY | 2023-03-29 07:39 | External Medical Summary ---
Author Name Unknown Address Unknown Organization K09:[facility] [address] [place] [address] Laboratory Report Ordering Provider Test Date Status 01/05/2023 11:26:52 Final Observation Date Value Abnormality Reference (Units ) Status BUN 01/05/2023 11:26:52 13 6-20 (mg/dL) Final Creatinine 01/05/2023 11:26:52 1.0 0.5-1.0 (mg/dL) Final Glomerular filtration rate/1.73 sq M.predicted [Volume Rate/Area] in Serum, Plasma or Blood by Creatinine-based formula (CKD-EPI) 01/05/2023 11:26:52 67 >=60 (mL/min) Final eGFR is calculated based on the CKD-EPI 2020 equation SODIUM 01/05/2023 11:26:52 138 135-146 (m mol/L) Final Potassium 01/05/2023 11:26:52 4.1 3.5-5.1 (m mol/L) Final Cl 01/05/2023 11:26:52 103 98-107 (mm ol/L) Final CO2 01/05/2023 11:26:52 24 22-32 (mmo l/L) Final Anion gap 01/05/2023 11:26:52 11 7-15 (mmol /L) Final Glucose 01/05/2023 11:26:52 93 70-120 (mg /dL) Final Albumin 01/05/2023 11:26:52 3.4 Below low normal 3.8 -5.0 (g/dL) Final AST (Aspartate aminotransferase) 01/05/2023 11:26:52 57 Above high normal 10-35 (U/L) Final Alk Phos 01/05/2023 11:26:52 143 Above high normal 35 -130 (U/L) Final Bilirubin, Total 01/05/2023 11:26:52 1.5 Above high no rmal <=1.2 (mg/dL) Final Calcium 01/05/2023 11:26:52 9.0 8.4-10.2 ( mg/dL) Final Protein 01/05/2023 11:26:52 6.4 6.0-8.3 (g /dL) Final ALT (Alanine aminotransferase) 01/05/2023 11:26:52 39 Above high normal 10-35 (U/L) Final Performing Location [facility] [address] [place] [address]
--- OUTSIDE RECORDS SUMMARY | 2023-03-29 07:39 | External Medical Summary | Summary of Care ---
Author Name Unknown Organization [facility] Address [address] [place] [address] Phone [phone] Care Team Providers Care Mechanical Research Engineer Name Role Phone Lisseth Sanchez PA-C Primary Care Provider [phone] Reason for Visit * Reason Comments Outpatient Testing Encounter Details Date Type Department Care Team Description 01/05/2023 Laboratory [facility] [place] [address] [place] [address] [facility] [address] [facility] [place] [address] Chronic kidney disease, unspecified CKD stage; Tremors of nervous system; Prediabetes; Vitamin D deficiency Allergies Active Allergy Reactions Severity Noted Date Comments Perflutren Lipid Microsphere Medium 020 Back pain Hydromorphone Hcl High 12/05/2017 Chest pain, SOB, trouble breathing Iodinated Contrast Media 02/19/2012 Sob, pain Qtip-Ffbeyqvh-Sfgrrxuomr Hives High 01/16/2012 Penicillins Unknown 09/20/2021 documented [...] mRNA, LNP-s, No Pre serve, 2-Dose Series (Windcentrale) 08/10/2020,07/20/2020 COVID-19, LNP-s, No Preserve , Lupillo-sucrose, [...] Nephrology Ky Puentes MD [address] [place] [address] 07/14/2023 Telemedicine Neurology Thiago Graves MD [address] [place] [address] 12/25/2023 Imaging Radiology Pending Results Name Type [...] shot) (#1) 2022 CKD PHOS USE SMARTSET 94985 01/08/202312/26, 11/30/2020, 12/07/2019, Additional history exists CKD HGB USE SMARTSET 18677 04/07/202301/05, 04/07/2022, 04/07/2022, Additional history exists O2 ASSESSMENT COMPLETED IN [...] Not on filedocumented as of this encounter Procedures Procedure Name Priority Date/Time Associated Diagnosis Comments CBC Routine 01/05/2023 11:26 AM EDT Tremors of nervous system documented in this encounter Results * CBC (01/05/2023 11:26 AM EDT) WBC 5.74 4.00 - 10.80 K/uL 01/05/2023 11:36 AM EDT [facility] RBC 4.55 3.85 - 5.15 M/uL 01/05/2023 11:36 AM EDT [facility] HGB 14.1 12.0 - 15.3 g/dL 01/05/2023 11:36 AM EDT [facility] HCT 43.4 36.0 - 45.2 % 01/05/2023 11:36 AM EDT [facility] 56 MCV 95.4 81.5 - 97.5 fL 01/05/2023 11:36 AM EDT [address] MCH 31.0 27.0 - 34.0 pg 01/05/2023 11:36 AM EDT [address] MCHC 32.5 32.0 - 36.0 g/dL 01/05/2023 11:36 AM EDT [address] RDW 14.1 11.5 - 15.5 % 01/05/2023 11:36 AM EDT [address] PLT 207 140 - 400 K/uL 01/05/2023 11:36 AM EDT [address] MPV 10.2 6.6 - 11.1 fL 01/05/2023 11:36 AM EDT [address] Blood Venous blood specimen / Unknown Venipuncture / Unknown 01/05/2023 11:26 AM EDT 01/05/2023 11:27 AM EDT July Laura [facility]AG[facility] LAB BLOOD ORDERABLES [place] [address] [address] [facility] [place] [address] documented in this encounter Visit Diagnoses Diagnosis Chronic kidney [...] Agents on File Name Relationship Healthcare Agent [facility] Communication Kamini Joseph Adult Child First Alternate Health Care Agent Care Teams Mechanical Research Engineer Relationship Specialty Start Date End Date Lisseth Sanchez [facility]-C [address] [facility] [place] [address] PCP - General Physician Carrot Harvester 5/13/19 documented as of this encounter
--- OUTSIDE RECORDS SUMMARY | 2023-03-29 07:39 | External Medical Summary | Summary of Care ---
Author Name Unknown Organization [facility] Address [address] [place] [address] Phone [phone] Care Team Providers Care Metal Window Screen Assembler Name Role Phone Lisseth Sanchez PA-C Primary Care Provider [phone] Reason for Visit * Reason Onset Date Comments Advice 02/10/2023 Encounter Details Date Type Department Care Team Description [facility]/10[facility] [address] [place] [address] Sanjay Smyth MD [address] [place] [address] Advice Allergies Active Allergy Reactions Severity Noted Date Comments Perflutren Lipid Microsphere Medium 020 Back pain Hydromorphone Hcl High 12/05/2017 Chest pain, SOB, trouble breathing Iodinated Contrast Media 02/19/2012 Sob, pain Nlwh-Hpiusciw-Yzrwydxgxw Hives High 01/16/2012 Penicillins Unknown 09/20/2021 documented as of this encounter (statuses as of 02/11/2023) Medications Medication Sig Dispensed Refills Start Date [...] as of this encounter (statuses as of 02/11/2023) Active Problems Problem Noted Date Morbid obesity [...] as of this encounter (statuses as of 02/11/2023) Resolved Problems Problem Noted Date Resolved Date Generalized anxiety disorder 02/03/202202/2023 Vasculitis 12/27/2020 01/29/2021 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 Patient's daughter is calling because she doesn't think her mom can wean off the topiramate. She said her mom is staring off and it almost seems like she is drunk. She wants her to just stop taking the med instead of weaning off of it. Please call Kamini at [phone] to discuss. * Telephone Encounter - ELSA [place] - 02/10/2023 4:08 PM EDT Relayed below message to pt. Appt made, 02/16/2023 Joseline Altamirano MD * Telephone Encounter - Barak Katz LPN - 02/10/2023 2:33 PM EDT Please call patient and assist in scheduling new Neurology appointment in [place]. * Telephone Encounter - Barak Katz LPN - 02/10/2023 2:27 PM EDT Called patient. Patient verified identity by spelling of last name and date. Patient reporting that since starting the Topiramate for tremors, she has not noticed a decrease intremors and is reporting side effects. Patient has not been able to increase past the 50 mg dose asshe is lethargic and having slurred speech. During phone call patient was slowed to answer questions and seemed very tired and did have slightly slurred speech at times. Messaged provider and ok for patient to discontinue Topiramate and transfer care to Neurology [place]. Called patient and made aware of same. * Telephone Encounter - ELSA [place] - 02/10/2023 11:45 AM EDT Pt requesting a call back today around [phone] as she wants you to speak with her children. They feelshe is not responding well to the med prescribed , topiramate, by Dr Smyth. States she is sleeping all of the time and is in a daze .please call [phone] Topiramate 25 MG Oral Tablet (Topamax) [51806] (Order [id number]) Medication Date: 01/16/2023 [facility] Ordering/Authorizing: Sanjay Smyth Outpatient Medication Detail Disp Refills Start End Topiramate 25 MG Oral Tablet (Topamax) 133 Tablet 0 01/16/2023 02/27/2023 Sig - Route: Take 1 Tablet by mouth every night at bedtime for 7 days, THEN 1 Tablet 2 times a day for 7 days, THEN 2 Tablets 2 times a day for 28 days. - Oral Sent to pharmacy as: Topiramate 25 MG Oral Tablet (Topamax) Class: ePrescribing Order: [id number] Date/Time Signed: 01/16/2023 11:10 E-Prescribing Status: Receipt confirmed by pharmacy (01/16/2023 11:10 AM EDT) Associated Diagnoses Action tremor [G25.2] - Primary Order Providers Prescribing Provider ([id number]) Sanjay Smyth MD Supervision Information Encounter Supervising Provider Type of Supervision ([id number]) Sanjay Woodson DO Direct Order Supervising Provider ([id number]) Sanjay Woodson DO documented in this encounter Plan of Treatment Upcoming Encounters Date Type Specialty Care Team Description 02/16/2023 Office Visit Neurology Joseline Altamirano MD [address] [facility] [place] [address] 04/06/2023 Office Visit Nephrology Ky Puentes MD [address] [facility] [place] [address] 12/25/2023 Imaging Radiology Scheduled Procedures Name Priority [...] Screening 07/03/2020 07/04/2019 COVID-19 Vaccine (4 - season) 2022 07/16/2021, 08/10/2020, 07/20/2020 Influenza Vaccine (FLU shot) (#1) 2022 GFR 07/06/2023 01/05/2023, 12/26, 09/20/2021, Additional history exists DTaP,Tdap,and Td Vaccines (2 - Td or Tdap) 07/30/2023 07/29/2013 Mammogram 12/24/2023 12/23/2022, 0306/2020, 08/03/2017, Additional history exists Albumin/Creatinine Ratio 01/06/2024 01/05/2023 CKD HGB USE SMARTSET 97443 01/06/202401/05, 04/07/2022, 04/07/2022, Additional history exists CKD PHOS USE SMARTSET 90820 01/06/202412/26, 01/08/2022, 11/30/2020, Additional history exists O2 [...] 5:58 PM 12/02/2020 6:44 PM This or ammta reflects the patients wishes and were consensually agreed upon. Question Answer Comments Discussion of Advance Directives occurred with: Patient Healthcare Agents on File Name Relationship Healthcare Agent [facility] Communication Kamini Joseph Adult Child First Alternate Health Care Agent Care Teams Metal Window Screen Assembler Relationship Specialty Start Date End Date Lisseth Sanchez PA-C [address] [place] [address] PCP - General Physician Dramatic Coach 09/06/18 documented as of this encounter
--- OUTSIDE RECORDS SUMMARY | 2023-03-29 07:39 | External Medical Summary ---
Author Name Unknown Address Unknown Organization K01:[facility] [place] - [address] [place] [address] Laboratory Report Ordering Provider Test Date Status 01/05/2023 11:26:52 Final Deficient: <20 ng/mL
Ins ufficient: 20-29 ng/mL
Recommended/Optimum:30-50 ng/mL

Vitamin D intoxication is rare. If suspicious of Vitamin D toxicity, evaluation of serum Calcium and PTH is recommended. Observation Date Value Abnormality Reference (Units ) Status 25-OH Vitamin D total 01/05/2023 11:26:52 28 >19 (ng/mL) Final Performing Location [facility] - [address] [place] [address]
--- OUTSIDE RECORDS SUMMARY | 2023-03-29 07:39 | External Medical Summary | Summary of Care ---
Author Name Unknown Organization [facility] Address [address] [place] [address] Phone [phone] Care Team Providers Care Parking Analyst Name Role Phone Lisseth Sanchez PA-C Primary Care Provider [phone] Reason for Visit * Reason Onset Date Comments Advice 02/10/2023 Encounter Details Date Type Department Care Team Description [facility] [address] [place] [address] Sanjay Smyth MD [address] [place] [address] Advice Allergies Active Allergy Reactions Severity Noted Date Comments Perflutren Lipid Microsphere Medium 020 Back pain Hydromorphone Hcl High 12/05/2017 Chest pain, SOB, trouble breathing Iodinated Contrast Media 02/19/2012 Sob, pain Cvxa-Ioxbgitr-Tijspnrowm Hives High 01/16/2012 Penicillins Unknown 09/20/2021 documented [...] encounter Miscellaneous Notes * Telephone Encounter - Barb Bolanos RN - 02/11/2023 5:05 PM EDT [facility] Phone: Received call from daughter, verified the patient by name and . Questioned about taper topamax, how fast. Reviewed with Dr. Woodson and Dr. Sneed, okay to d/c to nothing from 25 mg daily she is currently taking, only has been 2 weeks. She verbalized understanding and appreciation. Barb Bolanos RN Cerebrovascular Nurse Navigator [facility] * Telephone Encounter - ELSA Moore - [...] off of it. Please call Kamini at [phone] to discuss. * Telephone Encounter - ELSA Del Rio - 02/10/2023 4:08 PM EDT Relayed below message to pt. Appt made, 02/16/2023 Joseline Altamirano MD * Telephone Encounter - Barak Katz LPN - 02/10/2023 2:33 PM EDT Please call patient and assist in scheduling new Neurology appointment in [place]. * Telephone Encounter - Barak Katz LPN [...] discontinue Topiramate and transfer care to Neurology [place]. Called patient and made aware of same. [...] and is in a daze .please call [phone] Topiramate 25 MG Oral Tablet (Topamax) [[id number]] (Order [id number]) Medication Date: 01/16/2023 [facility] Ordering/Authorizing: Sanjay Smyth Outpatient Medication Detail Disp [...] MG Oral Tablet (Topamax) Class: ePrescribing Order: [id number] Date/Time Signed: 01/16/2023 11:10 E-Prescribing Status: Receipt confirmed by pharmacy (01/16/2023 11:10 AM EDT) Associated Diagnoses Action tremor [G25.2] - Primary Order Providers Prescribing Provider ([id number]) Sanjay Smyth MD Supervision Information Encounter Supervising Provider Type of Supervision ([id number]) Sanjay Woodson DO Direct Order Supervising Provider ([id number]) Sanjay Woodson DO documented in this encounter Plan of Treatment Upcoming Encounters Date Type Specialty Care Team Description 02/16/2023 Office Visit Neurology Joseline Altamirano MD [address] [place] [place] [address] 04/06/2023 Office Visit Nephrology Ky Puentes MD [address] [place] [address] 12/25/2023 Imaging Radiology Scheduled Procedures Name Priority [...] Ratio 01/06/2024 01/05/2023 CKD HGB USE SMARTSET 89256 01/06/202401/05, 04/07/2022, 04/07/2022, Additional history exists CKD PHOS USE SMARTSET 71803 01/06/202412/26, 01/08/2022, 11/30/2020, Additional history exists O2 [...] Agents on File Name Relationship Healthcare Agent [facility] p Communication Kamini Joseph Adult Child First Alternate Health Care Agent Care Teams Parking Analyst Relationship Specialty Start Date End Date LauraJuly PHILLY Ag [address] [place] [address] PCP - General Physician Binder Lockstitch 09/06/18 documented as of this encounter
--- OUTSIDE RECORDS SUMMARY | 2023-03-29 07:39 | External Medical Summary | Summary of Care ---
Author Name Unknown Organization [facility] Address [address] [place] [address] Phone [phone] Care Team Providers Care Rubber Stamp Maker Name Role Phone Lisseth Sanchez PA-C Primary Care Provider [phone] Reason for Visit * Reason Onset Date Comments Health Maintenance 01/09/2023 Encounter Details Date Type Department Care Team Description 01/09/2023 Telephone Family Practice [facility] Mirta [place] [address] [facility] [place] [address] Lisseth Sanchez PA-C [address] [facility] [place] [address] Health Maintenance Allergies Active Allergy Reactions Severity Noted Date Comments Perflutren Lipid Microsphere Medium 020 Back pain Hydromorphone Hcl High 12/05/2017 Chest pain, SOB, trouble breathing Iodinated Contrast Media 02/19/2012 Sob, pain Hbsl-Uojqpshy-Blmgivucwm Hives High 01/16/2012 Penicillins Unknown 09/20/2021 documented as of this encounter (statuses as of 01/09/2023) Medications Medication Sig Dispensed Refills Start Date [...] as of this encounter (statuses as of 01/09/2023) Active Problems Problem Noted Date Morbid obesity [...] as of this encounter (statuses as of 01/09/2023) Resolved Problems Problem Noted Date Resolved Date [...] as of this encounter (statuses as of 01/09/2023) Immunizations Name Administration Dates Next Due COVID-19 mRNA, LNP-s, No Pre serve, 2-Dose Series ([facility]) 08/10/2020,07/20/2020 COVID-19, LNP-s, No Preserve , Lupillo-sucrose, [...] Telephone Encounter - Palak Martinez LPN - 01/09/2023 10:46 AM EDT Care Gaps Comprehensive Care Outreach [...] Cancer Screening Never done Depression Screening 07/03/2020 COVID-19 Vaccine (4 - Pfizer series) 09/10/2021 Influenza Vaccine (FLU shot) (1) Never done Just reached out Care Gap Outreach Action Taken: Outreach not indicated documented in this encounter Plan of Treatment Upcoming Encounters Date Type Specialty Care Team Description 04/06/2023 Office Visit Nephrology Ky Puentes MD [address] [place] [address] 07/14/2023 Telemedicine Neurology Thiago Graves MD [address] [place] [address] 12/25/2023 Imaging Radiology Scheduled Procedures Name Priority [...] Ratio 01/06/2024 01/05/2023 CKD HGB USE SMARTSET 82616 01/06/202401/05, 04/07/2022, 04/07/2022, Additional history exists CKD PHOS USE SMARTSET 36176 01/06/202412/26, 01/08/2022, 11/30/2020, Additional history exists O2 [...] Agents on File Name Relationship Healthcare Agent [facility] p Communication Kamini Joseph Adult Child First Alternate Health Care Agent Care Teams Rubber Stamp Maker Relationship Specialty Start Date End Date Lisseth Sanchez PA-C [address] [place] [address] PCP - General Physician Prop Making Supervisor 09/06/18 documented as of this encounter
--- OUTSIDE RECORDS SUMMARY | 2023-03-29 07:39 | External Medical Summary ---
Author Name Unknown Address Unknown Organization K01:[facility] [place] [address] [place] [address] Laboratory Report Ordering Provider Test Date Status 01/05/2023 11:26:52 Final Observation Date Value Abnormality Reference (Units ) Status Vitamin B12 01/05/2023 11:26:52 [phone] (pg/mL) Final Performing Location [facility] - [address] [place] [address]
--- OUTSIDE RECORDS SUMMARY | 2023-03-29 07:39 | External Medical Summary ---
Author Name Unknown Address Unknown Organization K09:[facility] [place] [address] Laboratory Report Ordering Provider Test Date Status 01/05/2023 11:26:52 Final Observation Date Value Abnormality Reference (Units ) Status WBC, Total 01/05/2023 11:26:52 5.74 4.00-10.8 0 (K/uL) Final RBC 01/05/2023 11:26:52 4.55 3.85-5.15 (M/uL) Final Hemoglobin 01/05/2023 11:26:52 14.1 12.0-15.3 (g/dL) Final HCT 01/05/2023 11:26:52 43.4 36.0-45.2 (%) Final MCV 01/05/2023 11:26:52 95.4 81.5-97.5 (fL) Final MCH 01/05/2023 11:26:52 31.0 27.0-34.0 (pg) Final MCHC 01/05/2023 11:26:52 32.5 32.0-36.0 (g/dL) Final RDW 01/05/2023 11:26:52 14.1 11.5-15.5 (%) Final Platelets 01/05/2023 11:26:52 207 140-400 (K /uL) Final MPV 01/05/2023 11:26:52 10.2 6.6-11.1 ( fL) Final Performing Location [facility] [place] [address]
--- OUTSIDE RECORDS SUMMARY | 2023-03-29 07:39 | External Medical Summary | Summary of Care ---
Author Name Unknown Organization [facility] Address [address] [place] [address] Phone [phone] Care Team Providers Care Exterminator Helper Name Role Phone Lisseth Sanchez PA-C Primary Care Provider Encounter Details Date Type Department Care Team (Late st Contact Info) Description 02/17/2023 Telephone Family Practice [facility] [address] [place] [address] Lisseth Sanchez PA-C [address] [place] [address] Allergies Active Allergy Reactions Criticality Noted Date Comments Perflutren Lipid Microsphere Medium 020 Back pain Hydromorphone Hcl High 12/05/2017 Chest pain, SOB, trouble breathing Iodinated Contrast Media 02/19/2012 Sob, pain Oiof-Zshshehc-Ewbqakvulb Hives High 01/16/2012 Penicillins Unknown 09/20/2021 documented as of this encounter (statuses as of 02/17/2023) Medications Medication Sig Dispensed Refills Start Date [...] as of this encounter (statuses as of 02/17/2023) Active Problems Problem Noted Date Diagnosed Date [...] as of this encounter (statuses as of 02/17/2023) Resolved Problems Problem Noted Date Diagnosed Date [...] as of this encounter (statuses as of 02/17/2023) Immunizations Name Administration Dates Next Due COVID-19 mRNA, LNP-s, No Pre serve, 2-Dose Series ([employer]) 08/10/2020,07/20/2020 COVID-19, LNP-s, No Preserve , Lupillo-sucrose, [...] encounter Miscellaneous Notes * Telephone Encounter - Lisseth Sanchez PA-C - 02/17/2023 7:23 PM EDT Additional lab ordered * Telephone Encounter - Lisseth Sanchez PA-C - 02/17/2023 7:20 PM EDT ----- Message from Joseline Espinosa PA-C sent at 02/17/2023 1:22 PM EDT ----- Regarding: tremor I saw Hannah today for tremor. She appeared very drowsy. I'm not treating the tremor until the underlying issues are address. I ordered an MRI brain and sleep study. After the visit I was looking more at her problem list and labs. I did order an ammonia level and ferritin. Would you look at the labs and see if there is anything else was should address. This is the first time meeting her so its really hard to know what her baseline is. Thank you Joseline Espinosa PA-C 02/17/2023 1:25 PM documented in this encounter Plan of Treatment Upcoming Encounters Date Type Department Care Team (Late st Contact Info) Description 02/26/2023 1:40 PM EDT Office Visit Sleep Disorders Ctr [facility] [address] [facility] [place] [phone] Haylee Valenzuela, [address] [facility] [place] [address] 03/20/2023 4:00 PM EST Imaging Radiology [address] [place] [address] 04/06/2023 2:40 PM EST Office Visit Nephrology, [place] [address] [place] [address] Ky Puentes MD [address] [facility] [place] [address] 06/24/2023 10:00 AM EST Office Visit Neurology [facility] [address] [place] [address] Joseline Espinosa PA-C [address] [place] [address] 12/25/2023 9:00 AM EDT Imaging Radiology [facility] [address] [facility], [place] [address] [place] [address] Scheduled Orders Name Type Priority Associated Diagnoses Orde r Schedule COMPREHENSIVE METABOLIC PANEL Lab Routine Tremors of nervous system Expected: 02/17/2023 (Approximate), Expires: 02/17/2024 Scheduled Procedures Name Priority Associated Diagnoses Date/Ti [...] Ratio 01/06/2024 01/05/2023 CKD HGB USE SMARTSET 98638 01/06/202401/05, 04/07/2022, 04/07/2022, Additional history exists CKD PHOS USE SMARTSET 62966 01/06/202412/26, 01/08/2022, 11/30/2020, Additional history exists O2 ASSESSMENT COMPLETED IN PAST YEAR FOR COPD 02/18/2024 02/17/2023 Cervical Cancer Screening 10/14/2024 Pap Smear 10/14/2024 [...] as of this encounter Visit Diagnoses Diagnosis Tremors of nervous system- Primary Abnormal involuntary movements documented in this encounter Advance Directives Latest Code Status on File Code Status Date Activated Date Inactivated Comments Full Code 11/29/2020 5:58 PM 12/02/2020 6:44 PM This or mamta reflects the patients wishes and were consensually agreed upon. Question Answer Comments Discussion of Advance Directives occurred with: Patient Healthcare Agents on File Name Relationship Healthcare Agent [facility] p Communication Kamini [place] Adult Child First Alternate Health Care Agent Care Teams Exterminator Helper Relationship Specialty Start Date End Date LauraJuly PHILLY Ag [address] [place] [address] PCP - General Physician Commissioned Fire Officer 09/06/18 documented as of this encounter
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
--- OUTSIDE RECORDS SUMMARY | 2023-03-29 07:39 | External Medical Summary | Summary of Care ---
Author Name Unknown Organization [facility] Address [address] [place] [address] Phone [phone] Care Team Providers Care Hog Counter Name Role Phone Lisseth Sanchez PA-C Primary Care Provider [phone] Reason for Visit * Reason Onset Date Comments Advice 02/10/2023 Encounter Details Date Type Department Care Team Description [facility]/10[facility] [address] [place] [address] Sanjay Smyth MD [address] [place] [address] Advice Allergies Active Allergy Reactions Severity Noted Date Comments Perflutren Lipid Microsphere Medium 020 Back pain Hydromorphone Hcl High 12/05/2017 Chest pain, SOB, trouble breathing Iodinated Contrast Media 02/19/2012 Sob, pain Kkkg-Kurtmxtw-Hqffimhkxj Hives High 01/16/2012 Penicillins Unknown 09/20/2021 documented [...] off of it. Please call Kamini at [phone] to discuss. * Telephone Encounter - ELSA [place] - 02/10/2023 4:08 PM EDT Relayed below message to pt. Appt made, 02/16/2023 Joseline Altamirano MD * Telephone Encounter - Barak Katz LPN - 02/10/2023 2:33 PM EDT Please call patient and assist in scheduling new Neurology appointment in [place]. * Telephone Encounter - Barak Katz LPN [...] discontinue Topiramate and transfer care to Neurology [place]. Called patient and made aware of same. [...] and is in a daze .please call [phone] Topiramate 25 MG Oral Tablet (Topamax) [97968] (Order [id number]) Medication Date: 01/16/2023 [facility] Ordering/Authorizing: Sanjay Smyth Outpatient Medication Detail Disp [...] MG Oral Tablet (Topamax) Class: ePrescribing Order: [id number] Date/Time Signed: 01/16/2023 11:10 E-Prescribing Status: Receipt confirmed by pharmacy (01/16/2023 11:10 AM EDT) Associated Diagnoses Action tremor [G25.2] - Primary Order Providers Prescribing Provider ([id number]) Sanjay Smyth MD Supervision Information Encounter Supervising Provider Type of Supervision ([id number]) Sanjay Woodson DO Direct Order Supervising Provider ([id number]) Sanjay Woodson DO documented in this encounter Plan of Treatment Upcoming Encounters Date Type Specialty Care Team Description 02/16/2023 Office Visit Neurology Joseline Altamirano MD [address] [facility] [place] [address] 04/06/2023 Office Visit Nephrology Ky Puentes MD [address] [facility] [place] [address] 12/25/2023 Imaging Radiology Scheduled Procedures Name Priority [...] Ratio 01/06/2024 01/05/2023 CKD HGB USE SMARTSET 85529 01/06/202401/05, 04/07/2022, 04/07/2022, Additional history exists CKD PHOS USE SMARTSET 92169 01/06/202412/26, 01/08/2022, 11/30/2020, Additional history exists O2 [...] on File Name Relationship Healthcare Agent [facility] Communication Kamini Joseph Adult Child First Alternate Health Care Agent Care Teams Hog Counter Relationship Specialty Start Date End Date Lisseth Sanchez PA-C [address] [place] [address] PCP - General Physician Stone Polisher Hand 09/06/18 documented as of this encounter
--- OUTSIDE RECORDS SUMMARY | 2023-03-29 07:39 | External Medical Summary | Summary of Care ---
Author Name Unknown Organization [facility] Address [address] [place] [address] Phone [phone] Care Team Providers Care Bean Weigher Name Role Phone Lisseth aSnchez PA-C Primary Care Provider [phone] Reason for Visit * Reason Comments Tremor * Evaluate & Treat - Unlimited Visits (Within 30 days (routine)) - Authorized Specialty Diagnoses / Procedures Referred By Charity guerra Referred To Contact Neurology Diagnoses Tremors of nervous system Lisseth Sanchez PA-C [address] [place] [address] Referral ID Status Reason Start Date Expiration Date Visits Requested Visits Authorized [id number] Authorized Specialty Services Required 01/05/2023 999 999 Encounter Details Date Type Department Care Team (Late st Contact Info) Description 01/16/2023 8:00 AM EDT [facility] [address] [place] [address] Sanjay Smyth MD [facility] [place] [address] Action tremor* Allergies Active Allergy Reactions Criticality Noted Date Comments Perflutren Lipid Microsphere Medium 020 Back pain Hydromorphone Hcl High 12/05/2017 Chest pain, SOB, trouble breathing Iodinated Contrast Media 02/19/2012 Sob, pain Cgbf-Nyynvpxp-Kucavnuvci Hives High 01/16/2012 Penicillins Unknown 09/20/2021 documented as of this encounter (statuses as of 03/03/2023) Medications Medication Sig Dispensed Refills Start Date [...] 01/05/2023 Active Topiramate 25 MG Oral Tablet (Topamax)Indicatio ns:Action tremor Take 1 Tablet by mouth every night at bedtime for 7 days, THEN 1 Tablet 2 times a day for 7 days, THEN 2 Tablets 2 times a day for 28 days. 133 Tablet 0 01/16/2023 02/17/2023 Discontinued (Patient preference/d iscontinuati on) documented as of this encounter (statuses as of 03/03/2023) Active Problems Problem Noted Date Diagnosed Date [...] as of this encounter (statuses as of 03/03/2023) Resolved Problems Problem Noted Date Diagnosed Date [...] as of this encounter (statuses as of 03/03/2023) Immunizations Name Administration Dates Next Due COVID-19 mRNA, LNP-s, No Pre serve, 2-Dose Series (twago - teamwork across global offices) 08/10/2020,07/20/2020 COVID-19, LNP-s, No Preserve , Lupillo-sucrose, [...] as of this encounter Progress Notes * aSnjay Woodson, - 03/03/2023 11:10 PM EST I have discussed the patient's management with the medical trainee and agree with the note. Please refer to the documented findings and plan of care. This patient's visit today consisted of a service. I have reviewed the medical history, physical examination, diagnosis, and plan, as performed by the trainee. Sanjay Woodson DO 03/03/2023 11:10 PM' documented in this encounter Plan of Treatment Upcoming Encounters Date Type Department Care Team (Late st Contact Info) Description 03/20/2023 4:00 PM EST Imaging Radiology [address], [address] [place] [address] 04/06/2023 2:40 PM EST Office Visit Nephrology, [facility] [place] [address] [place] [address] Ky Puentes MD [address] [place] [address] [address] 06/24/2023 10:00 AM EST Office Visit [facility] [place] [address] [place] [address] Joseline Espinosa PA-C [address] [place] [address] 12/25/2023 9:00 AM EDT Imaging Radiology [facility] [place] [address] [place] [address] Scheduled Procedures Name Priority Associated Diagnoses Date/Ti [...] Depression Screening 07/03/2020 07/04/2019 COVID-19 Vaccine ( - 2022- season) 2022 07/16/2021, 08/10/2020, 07/20/2020 Influenza Vaccine (FLU shot) (#1) 2022 GFR 07/06/2023 01/05/2023, 12/26, 09/20/2021, Additional history exists DTaP,Tdap,and Td Vaccines (2 - Td or Tdap) 07/30/2023 07/29/2013 Mammogram 12/24/2023 12/23/2022, 03/06/2020, 08/03/2017, Additional history exists Albumin/Creatinine Ratio 01/06/2024 01/05/2023 CKD HGB USE SMARTSET 29432 01/06/202401/05, 04/07/2022, 04/07/2022, Additional history exists CKD PHOS USE SMARTSET 10484 01/06/202412/26, 01/08/2022, 11/30/2020, Additional history exists O2 [...] Agent [facility] p Communication Kamini Smithland Adult Child First Alternate Health Care Agent Care Teams Bean Weigher Relationship Specialty Start Date End Date LauraJuly PHILLY Ag [address] [place] [address] PCP - General Physician Engineering Technical Specialist 09/06/18 documented as of this encounter
--- OUTSIDE RECORDS SUMMARY | 2023-03-29 07:39 | External Medical Summary ---
Author Name Unknown Address Unknown Organization K01:LABORATORY [facility] - [address] [place] [address] Laboratory Report Ordering Provider Test Date Status 01/05/2023 11:32:50 Final Normal: <30 mg/g creatinine< br/>High: 30-300 mg/g creatinine
Very High: >300 mg/g creatinine
Nephrotic: >2200 mg/g creatinine Observation Date Value Abnormality Reference (Units) Status Albumin, Urine 01/05/2023 11:32:50 <1.20 (mg/dL) Final Creatinine, Urine 01/05/2023 11:32:50 26 (mg/dL) Final ALBUMIN/CREATININE RATIO, HIDE 01/05/2023 11:32:50 Uninterpretable Albumin/Creatinine ratio due to very low albumin and creatinine values. <30 (mg/g Creat) Final Performing Location LABORATORY [facility] - [address] [facility] [address]
--- OUTSIDE RECORDS SUMMARY | 2023-03-29 07:40 | External Medical Summary | Summary of Care ---
Author Name Unknown Organization [facility] Address [address] [place] [address] Phone [phone] Care Team Providers Care Personal Lines Insurance Advisor Name Role Phone Lisseth Sanchez PA-C Primary Care Provider [phone] Reason for Visit * Reason Onset Date Comments abnormal pap 10/27/2022 Pap Close the Lo op Encounter Details Date Type Department Care Team Description 10/27/2022 Telephone Gynecology/Obstetrics [facility] [address], [place] [id number] Barb Wilson CRNP [address] [place] [address] abnormal pap (Pap Close the Loop) Allergies Active Allergy Reactions Severity Noted Date Comments Perflutren Lipid Microsphere Medium 020 Back pain Hydromorphone Hcl High 12/05/2017 Chest pain, SOB, trouble breathing Iodinated Contrast Media 02/19/2012 Sob, pain Llah-Ilxkwgso-Rzrzyvsbrx Hives High 01/16/2012 Penicillins Unknown 09/20/2021 documented as of this encounter (statuses as of 10/27/2022) Medications Medication Sig Dispensed Refills Start Date [...] as of this encounter (statuses as of 10/27/2022) Active Problems Problem Noted Date Asthma, mild [...] as of this encounter (statuses as of 10/27/2022) Resolved Problems Problem Noted Date Resolved Date [...] as of this encounter (statuses as of 10/27/2022) Immunizations Name Administration Dates Next Due COVID-19 [...] encounter Miscellaneous Notes * Telephone Encounter - Marisa Dial LPN - 10/27/2022 2:23 PM EDT Last Pap 10/14/21 See message dated 10/21/21 Due for Pap Left message for return call documented in this encounter Plan of Treatment Upcoming Encounters Date Type Specialty Care Team Description 11/07/2022 Office Visit Gastroenterology Maylin Swartz CRNP [address] [place] [address] 04/06/2023 [facility] [address] [facility] [address] Scheduled Procedures Name Priority Associated Diagnoses Date/Ti me ESOPHAGOGASTRODUODENOSCOPY ( EGD), FLEXIBLE, TRANSORAL, DIAGNOSTIC Recall Esophageal varices (HCC) Health Maintenance Due Date Last Done Comments Hepatitis B (1 of 3 - 3-dose series) 1965 Pneumococcal Vaccine: Pediatrics (0 to 5 Years) and At-Risk Patients (6 to 64 Years) (1 - PCV) 1970 Albumin/Creatinine Ratio 1982 Alpha-1 Antitrypsin 1982 Cologuard 2009 Colonoscopy 2009 Colorectal Cancer Screening 2009 Fecal Occult Blood Test 2009 Sigmoidoscopy 2009 Depression Screening, Annual for Pts 12 and Over 07/03/2020 07/04/2019 Mammogram 06/27/2021 06/27/2020, 12/2017, 04/30/2016 COVID-19 Vaccine (4 - Pfizer series) 09/10/2021 07/16/2021, 08/10/2020, 07/20/2020 GFR 07/08/2022 01/08/2022, 08/26, 12/01/2020, Additional history exists Influenza Vaccine (FLU shot) (#1) 2022 CKD PHOS USE SMARTSET 92487 01/08/202312/26, 11/30/2020, 12/07/2019, Additional history exists CKD HGB USE SMARTSET 06785 04/07/202304/07, 04/07/2022, 01/08/2022, Additional history exists O2 ASSESSMENT COMPLETED IN PAST YEAR FOR COPD 04/07/2023 04/07/2022 DTaP,Tdap,and Td Vaccines (2 - Td or Tdap) 07/30/2023 07/29/2013 Diabetes Screening 04/07/2025 04/07/2022, 0 01/08/2022, 09/20/2021, Additional history exists Pap Smear 10/14/2026 10/14/2021, 04/0 08/2020, 03/02/2017, Additional history exists Lipid Panel 04/07/2027 04/07/2022, [...] Agents on File Name Relationship Healthcare Agent Relationshi p Communication Kamini Jake Adult Child First Alternate Health Care Agent Care Teams Personal Lines Insurance Advisor Relationship Specialty Start Date End Date LauraJuly PHILLY Ag [address] [place] [place] [address] PCP - General Physician Salon Sales Consultant 09/06/18 documented as of this encounter
--- NOTE | 2023-03-29 07:56 | Emergency Department Note ---
ED Provider Note History of Present Illness Chief Complaint: Abdominal Pain Stated Complaint: ABDOMINAL PAIN Time Seen by Provider: 03/29/23 07:38 Source: patient Mode of arrival: ambulatory Limitations: no limitations This patient is a 57-year-old female who presents to the emergency department for evaluation of abdominal pain. Patient reports that her symptoms started 4 days ago. She states that she got up to go to the bathroom and developed some stabbing pains in her abdomen. She did have some vomiting and diarrhea at that time. She developed some chills that night. She later developed a fever and states temperatures have been up to 102 F. She has had fatigue, occasional headaches and intermittent stabbing abdominal pain. She reports this is mostly across her lower abdomen. She has been taking Excedrin, Tylenol and ibuprofen for symptoms. Patient has a history of cirrhosis. She denies heavy alcohol use. She does report that she was bitten by a tick a little over a month ago and did have a bull's-eye rash and some bodyaches after this. She was treated with 2 weeks of doxycycline and did take this. Home Medications Medication Instructions Recorded Confirmed Type cholecalciferol (vitamin D3) 25 1,000 unit PO QAM 01/29/18 03/29/23 History mcg (1,000 unit) tablet ferrous sulfate 325 mg (65 mg 325 mg PO QAM 01/29/18 03/29/23 History iron) tablet furosemide 40 mg tablet 40 mg PO BID 01/29/18 03/29/23 History nadolol 20 mg tablet 20 mg PO HS 01/29/18 03/29/23 History pantoprazole 40 mg tablet,delayed 40 mg PO QAM 01/29/18 03/29/23 History release pyridoxine (vitamin B6) 500 mg 500 mg PO QAM 01/29/18 03/29/23 History tablet spironolactone 50 mg tablet 50 mg PO QAM 01/29/18 03/29/23 History magnesium 250 mg tablet 250 mg PO QAM 04/15/19 03/29/23 History naproxen sodium 220 mg tablet 220 mg PO BID PRN Pain 01/19/20 03/29/23 History (Aleve) fluticasone propionate 50 2 spray intranasal DAILY 03/05/20 03/29/23 History mcg/actuation nasal spray,suspension albuterol sulfate 90 mcg/actuation 2 puff inhalation QID PRN 03/27/22 03/29/23 History aerosol inhaler Shortness Of Breath Or Wheezing carboxymethylcellulose sodium 1 % 1 drp ophthalmic (eye) BID 03/27/22 03/29/23 History eye liquid gel drops fluticasone propionate 230 2 puff inhalation BID 03/27/22 03/29/23 History mcg-salmeterol 21 mcg/actuation HFA inhaler (Advair HFA) prednisolone acetate 1 % eye 1 drp ophthalmic (eye) BID PRN 03/27/22 03/29/23 History drops,suspension flare Allergies Allergy/AdvReac Type Severity Reaction Status Date / Time pepper (genus Capsicum) Allergy Severe Diarrhea Verified 03/29/23 14:05 hydromorphone Allergy Intermediate Anaphylaxis Verified 03/29/23 10:25 pamabrom Allergy Intermediate HIVES Verified 03/29/23 10:25 pyrilamine Allergy Intermediate HIVES Verified 03/29/23 10:25 Penicillins Allergy Unknown Unknown Verified 03/29/23 10:25 Iodinated Contrast Media AdvReac Intermediate TACHYCARDIA Verified 03/29/23 10:25 Past Med/Surg History Medical History (Updated 04/01/23 @ 21:00 by Bethanie Pickett PA-C) Celiac disease Pt does not follow gluten free diet-Pt states she does not have History of COVID-19 07/2020-sob, cough, no hospitalization, no current issues Asthma well controlled with inhaler Periodic limb movement disorder Reactive airway disease Following with [facility] pulmonology, recently had chest CT showing air trapping, PFTs with good BD response. 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 BISHOP. Last seen 03/2021. "Walking several miles per day without exertional symptoms. Weight unchanged. Exercising regularly on her treadmill. Functional capacity as improved. Denies palpitations, lightheadedness, dizziness, syncope, or near syncope. ...Continue beta- carol, nadolol 10 mg twice daily. Furosemide and Aldactone will be continued as directed per Gastroenterology. No further cardiac testing at this time." Surgical History Family history of reaction to anesthesia MOTHER-NAUSEA/VOMITTING [place] teeth removed History of nasal cauterization History of surgery lesion removed from uterus History of dilatation and curettage History of elbow surgery RT/LEFT History of carpal tunnel release RT/LEFT History of esophagogastroduodenoscopy (EGD) 02/02/2018 [facility] History of surgery nasal cauterization Status post lumbar spine surgery for decompression of spinal cord S/P D&C (status post dilation and curettage) "S/P miscarriage " H/O elbow surgery "Antecubital elbow release" Status post carpal tunnel release of both wrists Family History Mother Family history of diabetes mellitus Sister Family history of diabetes mellitus 2 sisters Social History Smoking Status: Never smoker Second Hand Exposure: No; Do You Dip or Chew Tobacco: No; Hx Alcohol Use: Yes Alcohol type: wine and hard liquor Alcohol Intake Frequency: 2-4 x/Month Hx Substance Use: No Preferred Language: Syrian Communication Ability: Effective 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 Beliefs That Will Affect Care: None Current Living Situation: Family Current Living Situation Comment: Lives with daughter and son in law Other Information That Helps Us Care for You: No Feels Safe at Home: Yes Safety Concerns: Feels Safe At This Time Diet: low salt and regular Physical Activity Frequency: Daily Gender Identity: Female Assistive Devices: None Physical Exam Vital Signs Vital Signs - 24 hr 03/29/23 07:35 Temperature 36.8 C Temperature Source Temporal Artery Scan Pulse Rate 53 L Respiratory Rate 18 Respiratory Effort / Characteristics Non-Labored Respiratory Depth Normal Blood Pressure 95/57 L Blood Pressure Mean 69 Pulse Oximetry 96 Oxygen Delivery Method Room Air Sepsis Recent Fever Within 48 Hours No Sepsis New/Unexplained Change in Mental Status No Sepsis Action Taken by Nursing No Action Required VITALS: Vitals are noted on the nurse's note and reviewed by myself. GENERAL: This is a 57-year-old female, in no acute distress, well-developed well-nourished. SKIN: Slight jaundice noted. EYES: Pupils equal round and reactive to light and accommodation. MOUTH: Mucous membranes moist. NECK: Supple without nuchal rigidity. HEART: Regular rate and rhythm without murmurs gallops or rubs. LUNGS: Clear to auscultation bilaterally without wheezes, rales or rhonchi. ABDOMEN: Positive bowel sounds x 4. Soft, mild generalized tenderness to palpation. No guarding or rebound tenderness. NEURO: Patient was alert and oriented to person place and time. Course Administered Medications Acetaminophen (Acetaminophen 325 Mg Tab) 650 mg PO Q4H PRN PRN Reason: Pain or Fever Stop: 04/28/23 14:00 Last Admin: 03/30/23 12:24 Dose: 650 mg Documented By: ZAC Artificial Tears (Artificial Tears) 1 drops OP BID [facility] Stop: 04/28/23 20:59 Last Admin: 04/01/23 20:02 Dose: Not Given Documented By: Admin: 04/01/23 08:40 Dose: 1 drops Documented By: Admin: 03/31/23 21:09 Dose: 1 drops Documented By: Admin: 03/31/23 08:41 Dose: 1 drops Documented By: Admin: 03/30/23 19:44 Dose: 1 drops Documented By: Admin: 03/30/23 09:26 Dose: 1 drops Documented By: Admin: 03/29/23 20:58 Dose: Not Given Documented By: ASMITA Azithromycin (Azithromycin 250 Mg Tab) 500 mg PO QAM [facility] Stop: 04/02/23 09:01 Last Admin: 04/01/23 12:39 Dose: 500 mg Documented By: Enoxaparin Sodium (Enoxaparin Inj 40 Mg/0.4 Ml Syr) 40 mg SQ Q24H [facility] Stop: 04/28/23 14:29 Last Admin: 04/01/23 18:24 Dose: 40 mg Documented By: Admin: 03/31/23 17:22 Dose: 40 mg Documented By: Admin: 03/30/23 18:05 Dose: 40 mg Documented By: Admin: 03/29/23 18:11 Dose: 40 mg Documented By: ZAC Ferrous Sulfate (Ferrous Sulfate 325 Mg Tab) 325 mg PO QAM [facility] Stop: 04/29/23 08:59 Last Admin: 04/01/23 10:14 Dose: 325 mg Documented By: Admin: 03/31/23 11:05 Dose: 325 mg Documented By: Admin: 03/30/23 08:56 Dose: 325 mg Documented By: ZAC Fluticasone Propionate (Fluticasone Propionate Na Spr 16 Gm Btl) 2 sprays NA DAILY [facility] Stop: 04/29/23 08:59 Last Admin: 04/01/23 08:38 Dose: 2 sprays Documented By: Admin: 03/31/23 08:43 Dose: 2 sprays Documented By: Admin: 03/30/23 08:56 Dose: 2 sprays Documented By: ZAC Fluticasone/Vilanterol (Fluticasone/Vilanterol 200/25mcg 14 Puffs/Inhaler) 1 puffs INH DAILY [facility] Stop: 04/29/23 08:59 Last Admin: 04/01/23 08:39 Dose: 1 puffs Documented By: Admin: 03/31/23 08:43 Dose: 1 puffs Documented By: Admin: 03/30/23 09:00 Dose: Not Given Documented By: ZAC Lactobacillus Acidophilus (Advanced Probiotic 1250 Mg Capsule) 2 cap PO DAILY [facility] Stop: 04/29/23 08:59 Last Admin: 04/01/23 08:39 Dose: 2 cap Documented By: Admin: 03/31/23 08:44 Dose: 2 cap Documented By: Admin: 03/30/23 08:56 Dose: 2 cap Documented By: ZAC Nadolol (Nadolol 40 Mg Tab) 20 mg PO HS [facility] Stop: 04/28/23 20:59 Last Admin: 04/01/23 20:02 Dose: Not Given Documented By: Admin: 03/31/23 21:09 Dose: 20 mg Documented By: Admin: 03/30/23 21:15 Dose: Not Given Documented By: Admin: 03/29/23 20:57 Dose: Not Given Documented By: ASMITA Pantoprazole Sodium (Pantoprazole 40 Mg Tab) 40 mg PO QAM [facility] Stop: 04/29/23 08:59 Last Admin: 04/01/23 08:39 Dose: 40 mg Documented By: Admin: 03/31/23 08:44 Dose: 40 mg Documented By: Admin: 03/30/23 08:56 Dose: 40 mg Documented By: ZAC Pyridoxine HCl (Pyridoxine Hcl 50 Mg Tab) 500 mg PO QAM [facility] Stop: 04/29/23 08:59 Last Admin: 04/01/23 08:39 Dose: 500 mg Documented By: Admin: 03/31/23 08:45 Dose: 500 mg Documented By: Admin: 03/30/23 08:56 Dose: 500 mg Documented By: ZAC Discontinued Medications Azithromycin (Azithromycin 250 Mg Tab) 500 mg PO NOW STA Stop: 03/30/23 07:10 Last Admin: 03/30/23 08:01 Dose: 500 mg Documented By: ZAC Azithromycin ([facility]ith[facility] 250 Mg Tab) [facility]: 04/02/23 08:59 Last Admin: 03/31/23 08:42 Dose: 500 mg Documented By: ZAC Sodium Chloride (Nss) 1,000 mls @ 999 mls/hr IV .Q1H1M [facility] Stop: 03/29/23 12:00 Last Infusion: 03/29/23 14:32 Dose: Infused Documented By: Admin: 03/29/23 12:14 Dose: 999 mls/hr Documented By: Infusion: 03/29/23 11:05 Dose: Infused Documented By: Admin: 03/29/23 10:02 Dose: 999 mls/hr Documented By: YELENA Ceftriaxone Sodium (Rocephin) 2,000 mg in 50 mls @ 100 mls/hr IV NOW STA Stop: 03/29/23 10:25 Last Infusion: 03/29/23 14:32 Dose: Infused Documented By: Admin: 03/29/23 10:25 Dose: 100 mls/hr Documented By: YELENA Sodium Chloride (Nss) 500 mls @ 999 mls/hr IV .Q31M ONE Stop: 03/29/23 11:35 Last Infusion: 03/29/23 14:32 Dose: Infused Documented By: Admin: 03/29/23 12:15 Dose: 999 mls/hr Documented By: JESUS Albumin Human (Albumin 25%) 12.5 gm in 50 mls @ 50 mls/hr IV ONE ONE Stop: 03/29/23 14:58 Last Infusion: 03/29/23 17:41 Dose: Infused Documented By: Admin: 03/29/23 15:18 Dose: 50 mls/hr Documented By: VARUN Potassium Chloride/Sodium Chloride (Normal Saline W/20 Meq Kcl) 20 meq in 1,000 mls @ 80 mls/hr IV .[id number] [facility] Stop: 03/30/23 15:00 Last Infusion: 03/30/23 15:45 Dose: Infused Documented By: Admin: 03/30/23 06:26 Dose: 80 mls/hr Documented By: Infusion: 03/30/23 06:26 Dose: Infused Documented By: Admin: 03/29/23 18:11 Dose: 80 mls/hr Documented By: ZAC Ceftriaxone Sodium 2,000 mg/ (Dextrose) 50 mls @ 100 mls/hr IV Q24H [facility]; Protocol Stop: 04/04/23 08:59 Last Infusion: 04/01/23 09:09 Dose: Infused Documented By: Admin: 04/01/23 08:39 Dose: 100 mls/hr Documented By: Infusion: 03/31/23 09:23 Dose: Infused Documented By: Admin: 03/31/23 08:41 Dose: 100 mls/hr Documented By: Infusion: 03/30/23 09:27 Dose: Infused Documented By: Admin: 03/30/23 08:55 Dose: 100 mls/hr Documented By: ZAC Sodium Chloride (1/2 Nss) 1,000 mls @ 80 mls/hr IV .[id number] [facility] Stop: 04/01/23 18:14 Last Infusion: 04/01/23 18:25 Dose: Infused Documented By: Admin: 04/01/23 05:49 Dose: 80 mls/hr Documented By: Infusion: 04/01/23 05:49 Dose: Infused Documented By: Admin: 03/31/23 17:19 Dose: 80 mls/hr Documented By: ZAC Oxycodone HCl (Oxycodone Hcl Ir 5 Mg Tab (Immediate Release)) Confirm Administered Dose 5 mg .ROUTE .STK-MED ONE Stop: 03/31/23 22:08 Last Admin: 03/31/23 22:11 Dose: 5 mg Documented By: DEBORAH Potassium Chloride (Potassium Chloride Crtab 20 Meq Tabcr) 40 meq PO NOW STA Stop: 03/29/23 11:19 Last Admin: 03/29/23 12:10 Dose: 40 meq Documented By: JESUS Medical Decision Making Differential Diagnosis Spontaneous bacterial peritonitis, appendicitis, ovarian cyst, ovarian torsion, TOA, PID, diverticulitis, UTI, bowel obstruction, mesenteric ischemia, aortic pathology, inflammatory bowel disease, renal colic, PUD, pancreatitis, biliary pathology, hernia, volvulus, constipation, as well as other pathologies. Home Medications was personally reviewed by me Laboratory Data Attestation: I reviewed the patient's lab results. 04/01/23 04:58 04/01/23 04:58 Lab Results 03/29/23 03/29/23 03/29/23 Range/Units 08:04 09:10 10:02 WBC 4.50 L (4.8-10.8) K/ul RBC 3.94 L (4.20-5.40) M/uL Hgb 12.5 (12.0-16.0) g/dl Hct 36.0 L (37.0-47.0) % MCV 91.4 (80.0-100.0) fL MCH 31.7 (25.0-34.0) pg MCHC 34.7 (32.0-36.0) g/dL RDW Std Deviation 46.7 H (36.4-46.3) fL RDW Coeff of Baltazar 13.8 (11.5-14.5) % Plt Count 165 (130-400) K/uL MPV 10.7 (9.4-12.4) fL Immature Gran % (Auto) 0.2 % Neut % (Auto) 48.8 % Lymph % (Auto) 31.6 % [place] % (Auto) 12.9 % Eos % (Auto) 5.6 % Baso % (Auto) 0.9 % Neut # (Auto) 2.20 (1.40-6.50) K/uL Lymph # (Auto) 1.42 (1.20-3.40) K/uL [place] # (Auto) 0.58 (0.11-0.59) K/uL Eos # (Auto) 0.25 (0.00-0.50) K/uL Baso # (Auto) 0.04 (0.00-0.20) K/uL Immature Gran # (Auto) 0.01 (0.01-0.20) K/uL PT 13.0 H (9.0-12.0) Seconds INR 1.2 H (0.9-1.1) APTT 29.7 (21.0-31.0) Seconds PTT Ratio 1.1 Sodium 134 L (136-145) mmol/L Potassium 3.2 L (3.5-5.1) mmol/L Chloride 101 (98-107) mmol/L Carbon Dioxide 24 (21-32) mmol/L Anion Gap 9 (3-11) BUN 20 (6-23) mg/dl Creatinine 1.20 (0.6-1.2) mg/dl Est Cr Clr Drug Dosing 54.2 ml/min Est GFR ( Amer) 57.7 ml/min Est GFR (Non-Af Amer) 49.8 ml/min BUN/Creatinine Ratio 16.7 (10-20) Glucose 100 H (70-99(Fasting)) mg/dl Lactate 1.6 (0.4-2.0) mmol/L Calcium 8.4 L (8.6-10.3) mg/dl Magnesium 1.9 (1.7-2.4) mg/dl Total Bilirubin 3.1 H (0.2-1.0) mg/dl AST 40 H (13-39) U/L ALT 32 (7-52) U/L Alkaline Phosphatase 97 (34-104) U/L Total Protein 6.5 (6.0-8.3) gm/dl Albumin 3.0 L (3.4-5.0) gm/dl Globulin 3.5 (2.5-4.0) gm/dl Albumin/Globulin Ratio 0.9 (0.9-2) Lipase 7 L (11-82) U/L Urine Color Dark Yellow Urine Appearance Clear (Clear) Urine pH 5.5 (4.5-7.5) Ur Specific [place] 1.018 (1.000-1.030) Urine Protein Negative (Negative) Urine Glucose (UA) Negative (Negative) Urine Ketones Trace H (Negative) Urine Blood Negative (Negative) Urine Nitrite Negative (Negative) Urine Bilirubin Negative (Negative) Urine Urobilinogen Negative (Negative) Ur Leukocyte Esterase 1+ H (Negative) Urine WBC (Auto) >30 H (0-5) /hpf Urine RBC (Auto) 0-4 (0-4) /hpf U Hyaline Cast (Auto) 10-30 H (0-5) /lpf U Epithel Cells (Auto) 10-20 H (0-5) /lpf Urine Bacteria (Auto) 3+ H (Negative) Anaplasma Smear See Comment Lyme Disease IgG Ab Positive A (Negative) Lyme IgG (Western Blot) NEGATIVE (NEGATIVE) Lyme IgG 18 kDa Band NON-REACTIVE Lyme IgG 23 kDa Band REACTIVE A Lyme IgG 28 kDa Band NON-REACTIVE Lyme IgG 30 kDa Band NON-REACTIVE Lyme IgG 39 kDa Band NON-REACTIVE Lyme IgG 41 kDa Band REACTIVE A Lyme IgG 45 kDa Band NON-REACTIVE Lyme IgG 58 kDa Band NON-REACTIVE Lyme IgG 66 kDa Band NON-REACTIVE Lyme IgG 93 kDa Band NON-REACTIVE Lyme IgM Ab (WB) NEGATIVE (NEGATIVE) Lyme Disease IgM Ab Negative (Negative) Lyme IgM 23 kDa Band NON-REACTIVE Lyme IgM 39 kDa Band NON-REACTIVE Lyme IgM 41 kDa Band REACTIVE A Staphylococcus sp PCR (NotDetected) Bld Cult ID Panel PCR (NotDetected) 03/29/23 Range/Units 10:03 WBC (4.8-10.8) K/ul RBC (4.20-5.40) M/uL Hgb (12.0-16.0) g/dl Hct (37.0-47.0) % MCV (80.0-100.0) fL MCH (25.0-34.0) pg MCHC (32.0-36.0) g/dL RDW Std Deviation (36.4-46.3) fL RDW Coeff of Baltazar (11.5-14.5) % Plt Count (130-400) K/uL MPV (9.4-12.4) fL Immature Gran % (Auto) % Neut % (Auto) % Lymph % (Auto) % [place] % (Auto) % Eos % (Auto) % Baso % (Auto) % Neut # (Auto) (1.40-6.50) K/uL Lymph # (Auto) (1.20-3.40) K/uL [place] # (Auto) (0.11-0.59) K/uL Eos # (Auto) (0.00-0.50) K/uL Baso # (Auto) (0.00-0.20) K/uL Immature Gran # (Auto) (0.01-0.20) K/uL PT (9.0-12.0) Seconds INR (0.9-1.1) APTT (21.0-31.0) Seconds PTT Ratio Sodium (136-145) mmol/L Potassium (3.5-5.1) mmol/L Chloride (98-107) mmol/L Carbon Dioxide (21-32) mmol/L Anion Gap (3-11) BUN (6-23) mg/dl Creatinine (0.6-1.2) mg/dl Est Cr Clr Drug Dosing ml/min Est GFR ( Amer) ml/min Est GFR (Non-Af Amer) ml/min BUN/Creatinine Ratio (10-20) Glucose (70-99(Fasting)) mg/dl Lactate (0.4-2.0) mmol/L Calcium (8.6-10.3) mg/dl Magnesium (1.7-2.4) mg/dl Total Bilirubin (0.2-1.0) mg/dl AST (13-39) U/L ALT (7-52) U/L Alkaline Phosphatase (34-104) U/L Total Protein (6.0-8.3) gm/dl Albumin (3.4-5.0) gm/dl Globulin (2.5-4.0) gm/dl Albumin/Globulin Ratio (0.9-2) Lipase (11-82) U/L Urine Color Urine Appearance (Clear) Urine pH (4.5-7.5) Ur Specific [place] (1.000-1.030) Urine Protein (Negative) Urine Glucose (UA) (Negative) Urine Ketones (Negative) Urine Blood (Negative) Urine Nitrite (Negative) Urine Bilirubin (Negative) Urine Urobilinogen (Negative) Ur Leukocyte Esterase (Negative) Urine WBC (Auto) (0-5) /hpf Urine RBC (Auto) (0-4) /hpf U Hyaline Cast (Auto) (0-5) /lpf U Epithel Cells (Auto) (0-5) /lpf Urine Bacteria (Auto) (Negative) Anaplasma Smear Lyme Disease IgG Ab (Negative) Lyme IgG (Western Blot) (NEGATIVE) Lyme IgG 18 kDa Band Lyme IgG 23 kDa Band Lyme IgG 28 kDa Band Lyme IgG 30 kDa Band Lyme IgG 39 kDa Band Lyme IgG 41 kDa Band Lyme IgG 45 kDa Band Lyme IgG 58 kDa Band Lyme IgG 66 kDa Band Lyme IgG 93 kDa Band Lyme IgM Ab (WB) (NEGATIVE) Lyme Disease IgM Ab (Negative) Lyme IgM 23 kDa Band Lyme IgM 39 kDa Band Lyme IgM 41 kDa Band Staphylococcus sp PCR DETECTED A (NotDetected) Bld Cult ID Panel PCR See PCR Comment (NotDetected) Imaging Data Attestation: I personally reviewed and interpreted this imaging study as follows: Radiologist's Impression: Abdomen/Pelvis CT 03/29/23 07:53 CT OF THE ABDOMEN AND PELVIS WITHOUT CONTRAST CLINICAL HISTORY: Abdominal pain, hx cirrhosis. COMPARISON STUDY: MRCP December 01, 2017. CT of the abdomen and pelvis March 05, 2020. TECHNIQUE: Axial images of the abdomen and pelvis were obtained without IV contrast. Images were reviewed in the axial, sagittal, and coronal planes. Automated exposure control was utilized for the study. A dose lowering technique was utilized adhering to the principles of ALARA. FINDINGS: No pneumatosis, free air or portal venous gas is present. There is a punctate calculus within the lower pole of the left kidney. There are no ureteral calculi. There is no hydronephrosis. Evaluation of the remainder of the abdomen and pelvis is suboptimal on this unenhanced exam. The liver is cirrhotic. Although sensitivity is diminished on this unenhanced exam, no hepatic lesions are identified. There is no biliary or pancreatic ductal dilatation. Gallstones within the gallbladder. No evidence for acute cholecystitis. Splenorenal shunt is again noted. Additional varices are present. There is no ascites. The spleen is stable. There is no evidence for a bowel obstruction. There is no evidence for acute appendicitis. Prominent mesenteric lymph nodes remain unchanged. Postoperative findings within the lumbar spine remain unchanged. Loss of height of the superior endplate of L4 is unchanged. Chronic sacral deformity is present. No acute fractures are identified within the visualized skeletal structures. IMPRESSION: 1. Punctate left renal calculus. No ureteral calculi or hydronephrosis. 2. Cirrhosis. Varices, including a splenorenal shunt, indicate portal hypertension. No ascites. 3. No bowel obstruction. 4. Cholelithiasis. No evidence for acute cholecystitis. ACT 112: Negative or not required by law. Electronically signed by: Ketan Liriano M.D. 03/29/2023 9:04 AM Chest X-Ray 03/29/23 10:33 XR chest 1V portable CLINICAL HISTORY: Fever. COMPARISON STUDY: Chest radiograph and right rib series November 06, 2021. FINDINGS: Lung volumes are normal. Lungs are clear. There is no pneumothorax or pleural effusion. Cardiac size is normal. Mediastinal contours are normal. There is no evidence for pulmonary edema. IMPRESSION: No acute cardiopulmonary findings. No change in appearance of the chest. ACT 112: Negative or not required by law. Electronically signed by: Ketan Liriano M.D. 03/29/2023 10:59 AM MDM Narrative Continuous clinical research monitor: Order was placed for continuous clinical research monitor. Patient was placed on the clinical research monitor. Patient was noted to be in sinus bradycardia at an initial rate of 52 bpm. The patient is a 57-year-old female who presents today complaining of abdominal pain. Patient has a history of cirrhosis. Labs revealed a mild leukopenia. Lactate is not elevated. Urinalysis is suggestive of infection with 3+ bacteria and greater than 30 white blood cells with only 10-20 epithelial cells. Lyme IgG was positive. Patient was hypotensive which is not usual for her. She was treated with fluids. Due to the hypotension I did recommend admission for further care. Blood cultures pending. Patient was treated with Rocephin to cover for the UTI. Case was discussed with the [facility] who agreed to evaluate the patient for further care Impression Hypotension, Abdominal pain, UTI (urinary tract infection) Discharge Plan Visit Data Chief Complaint: Abdominal Pain Stated Complaint: ABDOMINAL PAIN ED Provider: [facility] Midlevel Provider: Bethanie Pickett Discharge Problem: Hypotension, Abdominal pain, UTI (urinary tract infection) Patient Disposition: Admitted As Inpatient Discharge Instructions Interventions: ED Discharge Assessment Last Done: 03/29/23 17:04
[2023-03-29 08:41] LABS: Albumin Globulin Ratio 0.9 (0.9-2); BUN Creatinine Ratio 16.7 (10-20); Bilirubin,Total 3.1 mg/dl (0.2-1.0); Calcium 8.4 mg/dl (8.6-10.3); Creatinine Clr Calc Pharmacy 54.2 ml/min; Est GFR (African American) 57.7 ml/min; Est GFR (Non-African American) 49.8 ml/min; Globulin 3.5 gm/dl (2.5-4.0); Potassium 3.2 mmol/L (3.5-5.1); Total Protein 6.5 gm/dl (6.0-8.3)
[2023-03-29 08:45] LABS: Basophils # (auto) 0.04 K/uL (0.00-0.20); Basophils % (auto) 0.9 %; Eosinophils # (auto) 0.25 K/uL (0.00-0.50); Eosinophils % (auto) 5.6 %; Hemoglobin 12.5 g/dl (12.0-16.0); Immature Granulocytes # (auto) 0.01 K/uL (0.01-0.20); Immature Granulocytes % (auto) 0.2 %; Lymphocytes # (auto) 1.42 K/uL (1.20-3.40); Lymphocytes % (auto) 31.6 %; Mean Corpuscular Hemoglobin 31.7 pg (25.0-34.0); Mean Corpuscular Hgb Conc 34.7 g/dL (32.0-36.0); Mean Corpuscular Volume 91.4 fL (80.0-100.0); Mean Platelet Volume 10.7 fL (9.4-12.4); Monocytes # (auto) 0.58 K/uL (0.11-0.59); Monocytes % (auto) 12.9 %; Neutrophils % (auto) 48.8 %; Platelet Count 165 K/uL (130-400); RDW Coefficient of Variation 13.8 % (11.5-14.5); RDW Standard Deviation 46.7 fL (36.4-46.3); Red Blood Count 3.94 M/uL (4.20-5.40)
[2023-03-29 08:52] LABS: INR 1.2 (0.9-1.1); Partial Thromboplastin Ratio 1.1; Partial Thromboplastin Time 29.7 Seconds (21.0-31.0)
--- NOTE | 2023-03-29 09:06 | CT Scan Report ---
CT OF THE ABDOMEN AND PELVIS WITHOUT CONTRAST CLINICAL HISTORY: Abdominal pain, hx cirrhosis. COMPARISON STUDY: MRCP December 01, 2017. CT of the abdomen and pelvis March 05, 2020. TECHNIQUE: Axial images of the abdomen and pelvis were obtained without IV contrast. Images were revi ewed in the axial, sagittal, and coronal planes. Automated exposure control was utilized for the luz maria dy. A dose lowering technique was utilized adhering to the principles of ALARA. FINDINGS: No pneumatosis, free air or portal venous gas is present. There is a punctate calculus with in the lower pole of the left kidney. There are no ureteral calculi. There is no hydronephrosis. Eval uation of the remainder of the abdomen and pelvis is suboptimal on this unenhanced exam. The liver is cirrhotic. Although sensitivity is diminished on this unenhanced exam, no hepatic lesions are identi fied. There is no biliary or pancreatic ductal dilatation. Gallstones within the gallbladder. No evid ence for acute cholecystitis. Splenorenal shunt is again noted. Additional varices are present. There is no ascites. The spleen is stable. There is no evidence for a bowel obstruction. There is no evide nce for acute appendicitis. Prominent mesenteric lymph nodes remain unchanged. Postoperative findings within the lumbar spine remain unchanged. Loss of height of the superior endplate of L4 is unchanged . Chronic sacral deformity is present. No acute fractures are identified within the visualized skelet al structures. IMPRESSION: 1. Punctate left renal calculus. No ureteral calculi or hydronephrosis. 2. Cirrhosis. Varices, including a splenorenal shunt, indicate portal hypertension. No ascites. 3. No bowel obstruction. 4. Cholelithiasis. No evidence for acute cholecystitis. ACT 112: Negative or not required by law. Electronically signed by: Ketan Liriano M.D. 03/29/2023 9:04 AM
[2023-03-29 09:33] LABS: Appearance Urine Clear (Clear); Bacteria Urine Automated 3+ (Negative); Bilirubin Urine Negative (Negative); Blood Urine Negative (Negative); Color Urine Dark Yellow; Glucose Urine UA Negative (Negative); Ketones Urine Trace (Negative); Leukocyte Esterase Urine 1+ (Negative); Nitrite Urine Negative (Negative); Protein Urine Negative (Negative); Specific Gravity Urine 1.018 (1.000-1.030); Urobilinogen Urine Negative (Negative); WBC Urine Automated >30 /hpf (0-5); pH Urine 5.5 (4.5-7.5)
[2023-03-29 09:34] LABS: Lyme Ab IgM w/WB Rflx Negative (Negative)
[2023-03-29 09:40] LABS: Lyme Ab IgG w/WB Rflx Positive (Negative)
[2023-03-29 09:43] LABS: RBC Urine Automated 0-4 /hpf (0-4)
[2023-03-29] MEDS ORDERED: cefTRIAXone SODIUM 2,000 MG/50 ML BAG IV STA (09:56)
[2023-03-29] MEDS: SODIUM CHLORIDE 0.9% 1,000 ML IV SCH ×2 (10:02→12:14)
--- NOTE | 2023-03-29 10:35 | History & Physical Report ---
Date of Service March 29, 2023 Assessment & Plan (1) Dehydration: (2) Abdominal pain: (3) UTI (urinary tract infection): Plan: Patient is a 57-year-old female with PMH liver cirrhosis, JEREZ, portal hypertension, esophageal varices, ascites, celiac, paroxysmal SVT, CKD III, COPD/asthma presented to ER with complaint of abdominal pain, fever x3 days. No further vomiting or diarrhea reported today WBC: 4.5. Lactate WNL UA: 1+ leuk est, >30 WBC, 3+bacteria, 10-[address] Abd/pelvis: Punctate left renal calculus. No ureteral calculi or hydronephrosis. Cirrhosis. Varices, including a splenorenal shunt, indicate portal hypertension. No ascites. No bowel obstruction. Cholelithiasis. No evidence for acute cholecystitis. In ER patient afebrile, BP 95/57, 89/46 and improving to 99/54 after IVF In ER given 2 L NSS, Rocephin Urine culture pending Blood culture pending Clinically appears dehydrated Given additional NSS bolus and continue IVF Rocephin If would develop diarrhea obtain stool studies, C. difficile No ascites, less likely suspect SBP Continue home PPI Hold home diuretics Clear liquid diet for now CBC, CMP in a.m. (4) Tick bite: Plan: Reported tick bite over one month ago with associated bulls eye rash. Treated with 2 week course doxycycline outpatient Lyme IgG Ab positive Western blot pending Anaplasma smear appears negative (5) Hypokalemia: Plan: K: 3.2 Replace and monitor (6) Liver cirrhosis secondary to JEREZ: Plan: History esophageal varices, ascites No ascites noted on CT abdomen and pelvis today Hold home Lasix spironolactone currently Follows with [facility] (7) Paroxysmal SVT (supraventricular tachycardia): Plan: No SVT noted on EKG Continue nadolol with holding parameters EKG in am (8) CKD (chronic kidney disease), stage III: Plan: Cr: 1.2. Baseline Cr: 1.0 Monitor renal functions, avoid nephrotoxic agents when possible (9) Celiac disease: Plan: History celiac disease States does not follow gluten free diet as causes constipation when follows strict gluten free diet (10) Asthma: Plan: History asthma, reactive airway No signs exacerbation Continue home inhalers DVT Prophylaxis Lovenox Full Code as per discussion with pt Follows with Lisseth Sanchez PA-C for routine care Pt was seen and care coordinated with Dr Crisostomo. See addendum History of Present Illness Chief Complaint: Abdominal pain Primary Care Provider: Lisseth Sanchez PA-C Patient is a 57-year-old female with PMH liver cirrhosis, JEREZ, portal hypertension, esophageal varices, ascites, celiac, paroxysmal SVT, CKD III, COPD/asthma presented to ER with complaint of abdominal pain x3 days. History obtained from patient, patient family member, outpatient chart review. Patient states 3 days ago had onset of lower abdominal aching. Also had nausea, vomiting and loose BMs. The vomiting and loose BMs lasted 2 days. Patient states had normal BM last night. States lower abdominal discomfort is aggravated by eating. Admits has not been eating or drinking well past several days. Reports 3 days ago had episode of trouble urinating and states had to sit for an hour prior to being able to urinate. Since that time states has been urinating without difficulty. Denies any noted increased abdominal girth. Patient also reports fevers the past couple days. Has been using Aleve and Tylenol with limited relief. Patient states SBPs usually run in the 90s. Patient states 1 month ago had tick bite to left lower back and had surrounding red bull's-eye-like rash. Treated with doxycycline. Patient states he finished week course but developed some myalgias, MCMAHON and fevers and states was given additional week course and she thinks finished 2-week course. Denies any lab testing. Patient reports chronic nonproductive cough, denies any increased cough. Reports family members had URI symptoms recently. Denies melena, hematochezia, hematemesis. Denies dizziness, syncope, vision changes, neck pain, CP, SOB, orthopnea, palpitations, sore throat, choking, rhinorrhea, extremity weakness, extremity edema, rashes, dysuria, urinary frequency, hematuria. Allergies Allergy/AdvReac Type Severity Reaction Status Date / Time pepper (genus Capsicum) Allergy Severe Diarrhea Verified 03/29/23 14:05 hydromorphone Allergy Intermediate Anaphylaxis Verified 03/29/23 10:25 pamabrom Allergy Intermediate HIVES Verified 03/29/23 10:25 pyrilamine Allergy Intermediate HIVES Verified 03/29/23 10:25 Penicillins Allergy Unknown Unknown Verified 03/29/23 10:25 Iodinated Contrast Media AdvReac Intermediate TACHYCARDIA Verified 03/29/23 10:25 Home Medications Medication Instructions Recorded Confirmed Type cholecalciferol (vitamin D3) 25 1,000 unit PO QAM 01/29/18 03/29/23 History mcg (1,000 unit) tablet ferrous sulfate 325 mg (65 mg 325 mg PO QAM 01/29/18 03/29/23 History iron) tablet furosemide 40 mg tablet 40 mg PO BID 01/29/18 03/29/23 History nadolol 20 mg tablet 20 mg PO HS 01/29/18 03/29/23 History pantoprazole 40 mg tablet,delayed 40 mg PO QAM 01/29/18 03/29/23 History release pyridoxine (vitamin B6) 500 mg 500 mg PO QAM 01/29/18 03/29/23 History tablet spironolactone 50 mg tablet 50 mg PO QAM 01/29/18 03/29/23 History magnesium 250 mg tablet 250 mg PO QAM 04/15/19 03/29/23 History naproxen sodium 220 mg tablet 220 mg PO BID PRN Pain 01/19/20 03/29/23 History (Aleve) fluticasone propionate 50 2 spray intranasal DAILY 03/05/20 03/29/23 History mcg/actuation nasal spray,suspension albuterol sulfate 90 mcg/actuation 2 puff inhalation QID PRN 03/27/22 03/29/23 History aerosol inhaler Shortness Of Breath Or Wheezing carboxymethylcellulose sodium 1 % 1 drp ophthalmic (eye) BID 03/27/22 03/29/23 History eye liquid gel drops fluticasone propionate 230 2 puff inhalation BID 03/27/22 03/29/23 History mcg-salmeterol 21 mcg/actuation HFA inhaler (Advair HFA) prednisolone acetate 1 % eye 1 drp ophthalmic (eye) BID PRN 03/27/22 03/29/23 History drops,suspension flare Past Med/Surg History Medical History (Updated 03/29/23 @ 12:50 by Gbarielle Brandt PA-C) Celiac disease Pt does not follow gluten free diet-Pt states she does not have History of COVID-19 07/2020-sob, cough, no hospitalization, no current issues Asthma well controlled with inhaler Periodic limb movement disorder Reactive airway disease Following with [facility] pulmonology, recently had chest CT showing air trapping, PFTs with good BD response. Chronic kidney disease Stage III per [facility] records Pt denies Bulging disc LUMBAR SPINE Liver cirrhosis secondary to JEREZ (nonalcoholic steatohepatitis) Follows with [facility] for this Esophageal varices H/O BANDING 11/2017 + 2018 [facility] Anemia Spinal stenosis SVT (supraventricular tachycardia) FOLLOWS YEARLY W/ DR. BISHOP. Last seen 03/2021. "Walking several miles per day without exertional symptoms. Weight unchanged. Exercising regularly on her treadmill. Functional capacity as improved. Denies palpitations, lightheadedness, dizziness, syncope, or near syncope. ...Continue beta- carol, nadolol 10 mg twice daily. Furosemide and Aldactone will be continued as directed per Gastroenterology. No further cardiac testing at this time." Surgical History Family history of reaction to anesthesia MOTHER-NAUSEA/VOMITTING [place] teeth removed History of nasal cauterization History of surgery lesion removed from uterus History of dilatation and curettage History of elbow surgery RT/LEFT History of carpal tunnel release RT/LEFT History of esophagogastroduodenoscopy (EGD) 02/02/2018 [facility] History of surgery nasal cauterization Status post lumbar spine surgery for decompression of spinal cord S/P D&C (status post dilation and curettage) "S/P miscarriage " H/O elbow surgery "Antecubital elbow release" Status post carpal tunnel release of both wrists Family History Mother Family history of diabetes mellitus Sister Family history of diabetes mellitus 2 sisters Social History Smoking Status: Never smoker Second Hand Exposure: No; Do You Dip or Chew Tobacco: No; Hx Alcohol Use: Yes Alcohol type: wine and hard liquor Alcohol Intake Frequen cy: 2-4 x/Month Hx Substance Use: No Preferred Language: Filipino Communication Ability: Effective Senior Audit Manager Required: No Beliefs That Will Affect Care: None and Sabianist Current Living Situation: Family Current Living Situation Comment: Lives with daughter and son in law Feels Safe at Home: Yes Diet: low salt and regular Physical Activity Frequency: Daily Gender Identity: Female Assistive Devices: None Review of Systems Review of Systems: All systems reviewed & are unremarkable except as noted in HPI & below Physical Exam Physical Exam: General: no acute distress, chronic ill appearing obese female Head: normocephalic, atraumatic Eyes: conjunctiva non-injected, anicteric ENT: normal inspection external ears, nose, mucous membranes dry Neck: supple, trachea midline Lungs: clear, no respiratory distress, no wheezing/rhonchi/rales CV: RRR, no murmur, no pretibial edema Abd: normal BS, soft, +tender to palpation RLQ, LLQ Ext: no cyanosis, no calf tenderness Neuro: A&O x 3, no focal deficits noted, normal affect Skin: warm, dry Results & Data Results & Data Vital Signs (Past 12 Hours) Vital Signs Temp Pulse Resp BP Pulse Ox O2 Del Method 03/29/23 09:51 52 L 12 99 03/29/23 09:51 81/56 L 03/29/23 09:13 52 L 18 99 03/29/23 09:13 89/46 L 03/29/23 09:10 62 17 03/29/23 08:35 69 03/29/23 08:31 59 L 16 99 03/29/23 07:35 36.8 C 53 L 18 95/57 L 96 Room Air Laboratory Results Short CBC 03/29/23 Range/Units 08:04 WBC 4.50 L (4.8-10.8) K/ul Hgb 12.5 (12.0-16.0) g/dl Hct 36.0 L (37.0-47.0) % Plt Count 165 (130-400) K/uL BMP 03/29/23 08:04 Sodium 134 L Potassium 3.2 L Chloride 101 Carbon Dioxide 24 BUN 20 Creatinine 1.20 Glucose 100 H Calcium 8.4 L Liver Function 03/29/23 Range/Units 08:04 Total Bilirubin 3.1 H (0.2-1.0) mg/dl AST 40 H (13-39) U/L ALT 32 (7-52) U/L Alkaline Phosphatase 97 (34-104) U/L Albumin 3.0 L (3.4-5.0) gm/dl Urine 03/29/23 Range/Units 09:10 Urine Color Dark Yellow Urine Appearance Clear (Clear) Urine pH 5.5 (4.5-7.5) Ur Specific [place] 1.018 (1.000-1.030) Urine Protein Negative (Negative) Urine Glucose (UA) Negative (Negative) Diagnostic Findings Abdomen/Pelvis CT 03/29/23 07:53 CT OF THE ABDOMEN AND PELVIS WITHOUT CONTRAST CLINICAL HISTORY: Abdominal pain, hx cirrhosis. COMPARISON STUDY: MRCP December 01, 2017. CT of the abdomen and pelvis March 05, 2020. TECHNIQUE: Axial images of the abdomen and pelvis were obtained without IV contrast. Images were reviewed in the axial, sagittal, and coronal planes. Automated exposure control was utilized for the study. A dose lowering technique was utilized adhering to the principles of ALARA. FINDINGS: No pneumatosis, free air or portal venous gas is present. There is a punctate calculus within the lower pole of the left kidney. There are no ureteral calculi. There is no hydronephrosis. Evaluation of the remainder of the abdomen and pelvis is suboptimal on this unenhanced exam. The liver is cirrhotic. Although sensitivity is diminished on this unenhanced exam, no hepatic lesions are identified. There is no biliary or pancreatic ductal dilatation. Gallstones within the gallbladder. No evidence for acute cholecystitis. Splenorenal shunt is again noted. Additional varices are present. There is no ascites. The spleen is stable. There is no evidence for a bowel obstruction. There is no evidence for acute appendicitis. Prominent mesenteric lymph nodes remain unchanged. Postoperative findings within the lumbar spine rem ain unchanged. Loss of height of the superior endplate of L4 is unchanged. Chronic sacral deformity is present. No acute fractures are identified within the visualized skeletal structures. IMPRESSION: 1. Punctate left renal calculus. No ureteral calculi or hydronephrosis. 2. Cirrhosis. Varices, including a splenorenal shunt, indicate portal hypertension. No ascites. 3. No bowel obstruction. 4. Cholelithiasis. No evidence for acute cholecystitis. ACT 112: Negative or not required by law. Electronically signed by: Ketan Liriano M.D. 03/29/2023 9:04 AM Chest X-Ray 03/29/23 10:33 XR chest 1V portable CLINICAL HISTORY: Fever. COMPARISON STUDY: Chest radiograph and right rib series November 06, 2021. FINDINGS: Lung volumes are normal. Lungs are clear. There is no pneumothorax or pleural effusion. Cardiac size is normal. Mediastinal contours are normal. There is no evidence for pulmonary edema. IMPRESSION: No acute cardiopulmonary findings. No change in appearance of the chest. ACT 112: Negative or not required by law. Electronically signed by: Ketan Liriano M.D. 03/29/2023 10:59 AM ECG Additional Comments: sinus bradycardia, rate 51. t wave inversions septal anterior leads per my interpretation Supervising Physician Co-Signing Physician Notes Patient is a 57-year-old female with history of [place] cirrhosis, esophageal varices, celiac disease, CKD stage III and other medical problems presents with history of abdominal pain associated with nausea, vomiting, loose bowel movements, since 3 days duration. Abdominal pain increases with food intake. A lso reports myalgia, fever and reports history of noticing bull's-eye-like rash on her back and was treated with doxycycline 2 weeks ago. Please review HPI for complete details of presentation. Admits residual mild hyponatremia, hypokalemia, elevated total bilirubin 3.1, albumin 3.0, normal lipase and lactate levels. Urinalysis suggestive of possible UTI. Lyme screen pending. CT abdomen suggestive left renal calculus, cirrhosis, varices suggestive of portal hypertension and cholelithiasis. Chest x-ray is within normal limits. On exam patient is obese, no apparent distress, chronically appearing, normocephalic atraumatic, EOMI, normal breath sounds, clear to auscultation, S1- S2, no audible murmur, abdomen soft, mild lower quadrant tenderness, no guarding or rigidity, alert, awake, oriented, grossly no focal deficits, 1+ lower extremity edema present. Patient is admitted for management of abdominal pain, dehydration likely secondary to UTI. Possible sepsis. CT abdomen not contr ibutory to present condition. Blood, urine cultures obtained. Started on Rocephin, IV fluids. Stool studies if develops diarrhea. Hold diuretics for now. Lyme serology pending. Replace electrolytes for hypokalemia. Abnormal EKG likely demand ischemia secondary to hypotension. We will repeat EKG in the morning. Currently patient denies any chest pain. If develops chest pain, will consider further evaluation. I personally reviewed the record. Patient is interviewed and examined at bedside. Patient's care is coordinated with Melody Yost PA-C. Please refer to the documentation above for details of patient's presentation and for discussion of other issues.
--- NOTE | 2023-03-29 11:01 | XRay Report ---
XR chest 1V portable CLINICAL HISTORY: Fever. COMPARISON STUDY: Chest radiograph and right rib series November 06, 2021. FINDINGS: Lung volumes are normal. Lungs are clear. There is no pneumothorax or pleural effusion. Car diac size is normal. Mediastinal contours are normal. There is no evidence for pulmonary edema. IMPRESSION: No acute cardiopulmonary findings. No change in appearance of the chest. ACT 112: Negative or not required by law. Electronically signed by: Ketan Liriano M.D. 03/29/2023 10:59 AM
[2023-03-29] MEDS ORDERED: SODIUM CHLORIDE 0.9% 500 ML IV ONE (11:05)
[2023-03-29] MEDS ORDERED: POTASSIUM CHLORIDE CRTAB 20 MEQ TABCR PO STA (11:18)
[2023-03-29 12:25] LABS: Magnesium 1.9 mg/dl (1.7-2.4)
--- NOTE | 2023-03-29 13:27 | Electrocardiogram Report ---
Test Reason : Blood Pressure : / mmHG Vent. Rate : 051 BPM Atrial Rate : 051 BPM P-R Int : 200 ms QRS Dur : 110 ms QT Int : 538 ms P-R-T Axes : 099 -19 028 degrees QTc Int : 495 ms Sinus bradycardia Minimal voltage criteria for LVH, may be normal variant ( ) Prolonged QT Abnormal ECG When compared with ECG of 25-NOV-2020 14:18, Premature ventricular complexes are no longer Present Vent. rate has decreased BY 25 BPM T wave inversion now evident in Anterior leads Confirmed by Bear Perrin ([id number]) on 03/29/2023 1:27:12 PM Referred By: REFERRED SELF Confirmed By:Bear Perrin
[2023-03-29] MEDS ORDERED: ALBUMIN 25% 12.5 GM/50 ML VIAL IV ONE (13:59)
[2023-03-29] MEDS ORDERED: ALBUTEROL HFA 8 GM INHALER INH PRN (14:01)
[2023-03-29] MEDS ORDERED: PROMETHAZINE HCL 12.5 MG in SODIUM CHLORIDE 0.9% 50 ML IV PRN (14:01)
[2023-03-29] MEDS ORDERED: POLYETHYLENE (MIRALAX) 17 GM PACK PO PRN (14:01)
[2023-03-29] MEDS ORDERED: ACETAMINOPHEN 325 MG TAB PO PRN (14:01)
[2023-03-29] MEDS: NSS + 20MEQ KCL 20 MEQ/1,000 ML BAG IV SCH (18:11)
[2023-03-29] MEDS: ENOXAPARIN INJ 40 MG/0.4 ML SYR SQ SCH (18:11)
[2023-03-29] MEDS: nadoloL 40 MG TAB PO SCH (20:57)
[2023-03-29] MEDS: ARTIFICIAL TEARS OP SCH (20:58)
[2023-03-30 04:21] LABS: Basophils # (auto) 0.03 K/uL (0.00-0.20); Basophils % (auto) 0.8 %; Eosinophils # (auto) 0.18 K/uL (0.00-0.50); Eosinophils % (auto) 4.9 %; Hematocrit (blood only) 33.5 % (37.0-47.0); Hemoglobin 11.2 g/dl (12.0-16.0); Immature Granulocytes # (auto) 0.01 K/uL (0.01-0.20); Immature Granulocytes % (auto) 0.3 %; Lymphocytes # (auto) 1.08 K/uL (1.20-3.40); Lymphocytes % (auto) 29.5 %; Mean Corpuscular Hemoglobin 31.3 pg (25.0-34.0); Mean Corpuscular Hgb Conc 33.4 g/dL (32.0-36.0); Mean Corpuscular Volume 93.6 fL (80.0-100.0); Mean Platelet Volume 10.2 fL (9.4-12.4); Monocytes # (auto) 0.44 K/uL (0.11-0.59); Neutrophils # (auto) 1.92 K/uL (1.40-6.50); Neutrophils % (auto) 52.5 %; Platelet Count 129 K/uL (130-400); RDW Coefficient of Variation 14.1 % (11.5-14.5); RDW Standard Deviation 48.8 fL (36.4-46.3); Red Blood Count 3.58 M/uL (4.20-5.40); White Blood Count 3.66 K/ul (4.8-10.8)
[2023-03-30 04:35] LABS: Albumin Globulin Ratio 0.9 (0.9-2); Albumin Level 2.6 gm/dl (3.4-5.0); BUN Creatinine Ratio 19.7 (10-20); Bilirubin,Total 2.1 mg/dl (0.2-1.0); Calcium 7.9 mg/dl (8.6-10.3); Creatinine Clr Calc Pharmacy 100.1 ml/min; Est GFR (African American) 112.9 ml/min; Est GFR (Non-African American) 97.4 ml/min; Globulin 2.9 gm/dl (2.5-4.0); Magnesium 1.8 mg/dl (1.7-2.4); Prealbumin 4.2 mg/dl (20-40); Total Protein 5.5 gm/dl (6.0-8.3)
[2023-03-30] MEDS: NSS + 20MEQ KCL 20 MEQ/1,000 ML BAG IV SCH (06:26)
[2023-03-30 06:47] LABS: Adenovirus F 40/41 PCR Not Detected (NotDetected); Astrovirus PCR Not Detected (NotDetected); Cryptosporidium PCR Not Detected (NotDetected); Cyclospora cayetanensis PCR Not Detected (NotDetected); Entamoeba histolytica PCR Not Detected (NotDetected); Enteroaggregative E.coli(EAEC) Not Detected (NotDetected); Enteropathogenic E.coli (EPEC) Not Detected (NotDetected); Enterotoxigenic E.coli (ETEC) Not Detected (NotDetected); Giardia lamblia PCR Not Detected (NotDetected); Norovirus GI/GII PCR Not Detected (NotDetected); Plesiomonas shigelloides PCR Not Detected (NotDetected); Rotavirus A PCR Not Detected (NotDetected); Salmonella PCR Not Detected (NotDetected); Sapovirus PCR Not Detected (NotDetected); Shiga-like Toxin E.coli (STEC) Not Detected (NotDetected); Shigella/Enteroinvasive E.coli Not Detected (NotDetected); Vibrio cholerae PCR Not Detected (NotDetected); Vibrio species PCR Not Detected (NotDetected); Yersinia enterocolitica PCR Not Detected (NotDetected)
[2023-03-30 06:52] LABS: Campylobacter PCR DETECTED (NotDetected)
--- NOTE | 2023-03-30 07:01 | Communication Note ---
Date of Service: March 30, 2023 Notified by RN of stool CS positive for Campylobacter. AP Campylobacter diarrhea Immunocompromised patient given history of cirrhosis. Azithromycin 3-day course
[2023-03-30] MEDS ORDERED: AZITHROMYCIN 250 MG TAB PO STA (07:09)
[2023-03-30 07:46] LABS: A calco-baum cmplx NotReported Not Detected (NotDetected); Bact fragilis Not Reported Not Detected (NotDetected); Blood Culture Id Panel See PCR Comment (NotDetected); C auris Not Reported Not Detected (NotDetected); Calbicans Not Reported Not Detected (NotDetected); Candida glabrata Not Reported Not Detected (NotDetected); Candida krusei Not Reported Not Detected (NotDetected); Cneoformans/gatti Not Reported Not Detected (NotDetected); Cparapsilosis Not Reported Not Detected (NotDetected); E cloacae compx Not Reported Not Detected (NotDetected); Efaecalis Not Reported Not Detected (NotDetected); Efaecium Not Reported Not Detected (NotDetected); Enterobacterales Not Reported Not Detected (NotDetected); Escherichia coli Not Reported Not Detected (NotDetected); H influenzae Not Reported Not Detected (NotDetected); K aerogenes Not Reported Not Detected (NotDetected); Koxytoca Not Reported Not Detected (NotDetected); Kpneumoniae grp Not Reported Not Detected (NotDetected); Lmonocyt Not Reported Not Detected (NotDetected); N meningitidis Not Reported Not Detected (NotDetected); P aeruginosa Not Reported Not Detected (NotDetected); Proteus spp Not Reported Not Detected (NotDetected); Salmonella spp Not Reported Not Detected (NotDetected); Smarcescens Not Reported Not Detected (NotDetected); Staph lugdunensis Not Reported Not Detected (NotDetected); Staph spp. Not Reported DETECTED (NotDetected); Staphaureus Not Reported Not Detected (NotDetected); Staphepi Not Reported Not Detected (NotDetected); Stenmaltophilia Not Reported Not Detected (NotDetected); Strep agal(GrpB) Not Reported Not Detected (NotDetected); Strep pneum Not Reported Not Detected (NotDetected); Strep pyog (GrpA) Not Reported Not Detected (NotDetected); Strep spp Not Reported Not Detected (NotDetected)
[2023-03-30 07:52] LABS: Staphylococcus spp. DETECTED (NotDetected)
[2023-03-30] MEDS: cefTRIAXone SODIUM 2,000 MG in DEXTROSE 5 % MINI-B 50 ML IV SCH (08:55)
[2023-03-30] MEDS: FERROUS SULFATE 325 MG TAB PO SCH (08:56)
[2023-03-30] MEDS: PANTOprazole 40 MG TAB PO SCH (08:56)
[2023-03-30] MEDS: FLUTICASONE PROPIONATE NA SPR 16 GM BTL SCH (08:56)
[2023-03-30] MEDS: ADVANCED PROBIOTIC 1250 MG CAPSULE PO SCH (08:56)
[2023-03-30] MEDS: PYRIDOXINE HCL 50 MG TAB PO SCH (08:56)
[2023-03-30] MEDS: FLUTICASONE/VILANTEROL 200/25MCG 14 PUFFS/INHALER INH SCH (09:00)
[2023-03-30] MEDS: ARTIFICIAL TEARS OP SCH ×2 (09:26→19:44)
[2023-03-30] MEDS ORDERED: Nursing to Pharmacy Communication SCH (10:45)
--- NOTE | 2023-03-30 12:46 | Electrocardiogram Report ---
Test Reason : Blood Pressure : / mmHG Vent. Rate : 068 BPM Atrial Rate : 068 BPM P-R Int : 194 ms QRS Dur : 104 ms QT Int : 462 ms P-R-T Axes : 005 -10 044 degrees QTc Int : 491 ms Normal sinus rhythm Prolonged QT Abnormal ECG When compared with ECG of 29-MAR-2023 08:01, T wave inversion no longer evident in Anterior leads Confirmed by Bear Perrin ([id number]) on 03/30/2023 12:46:01 PM Referred By: REFERRED SELF Confirmed By:Bear Perrin
--- NOTE | 2023-03-30 15:27 | Hospitalist Progress Note ---
Date of Service March 30, 2023 Assessment & Plan (1) Abdominal pain: Plan 57-year-old female with PMH of liver cirrhosis, CHRIS, portal hypertension, esophageal varices, ascites, celiac, paroxysmal SVT, CKD III, COPD/asthma presented to ER 03/29 with complaint of abdominal pain, fever x3 days a/w N,V, D. She is being managed for the following: Campylobacter gastroenteritis Dehydration, abdominal pain Patient presented with abdominal pain associated with fever/nausea/vomiting/loose stools. No sepsis POA. Lactate WNL. Stool PCR positive for Campylobacter. Dehydrated at presentation. Status post IV fluid resuscitation in the ED. Patient is started on azithromycin for 3 days Patient reports improvement in her nausea, vomiting, still with loose stool. Tolerating clear liquid diet, advance diet as tolerated. Continue to follow clinically. Monitor and replete electrolytes. Acute UTI: Admitting UA suggestive of UTI, follow admitting urine culture. Admitting CTAP with punctate left renal calculus, no ureteral calculi or hydronephrosis. Patient started on Rocephin 03/29, follow admitting urine and blood culture. Blood Culture positive: 2 of 4 bottles 03/29 positive w/ GPC, pt already on rocephin from 03/29. Will repeat Bl Cx 03/30. Pt has been afebrile, if deemed suspicious or true infection, will consult ID and do ECHO. will follow blood culture results closely. Tick bite: Reported tick bite over a month ago [employer] with associated bull's-eye rash, status post 2-week course of doxycycline. Western blot pending, Lyme IgG antibody positive. Anaplasma smear negative. We will follow Western blot. Patient already on Rocephin for different purpose. Liver cirrhosis secondary to CHRIS: History esophageal varices, ascites No ascites noted on CT abdomen and pelvis this admission Hold home Lasix spironolactone currently due to dehydration from AGE. Follows with [facility] Paroxysmal SVT (supraventricular tachycardia): No SVT noted on EKG. Continue nadolol with holding parameters. CKD (chronic kidney disease), stage III: Cr: 1.2. Baseline Cr: 1.0. Monitor renal functions, avoid nephrotoxic agents when possible. Celiac disease: History celiac disease. States does not follow gluten free diet as causes constipation when follows strict gluten free diet. Asthma: stable, c/w home inhalers. DVT Prophylaxis: Lovenox Full Code Follows with Lisseth Sanchez PA-C for routine care Admission and Anticipated Discharge Date Admission Date: March 29, 2023 Subjective Patient was seen and examined at bedside. Patient was sitting up in chair, on room air, NAD, resting comfortably. Patient reports having 2 loose stool while in the hospital, last 1 was more liquidy. Patient reports abdominal pain, denies nausea or vomiting. Has been tolerating clear liquid diet, advance diet as tolerated. Patient's daughter was also updated at bedside over the phone that patient was in connection with. Physical Exam Physical Exam: GENERAL: Alert and oriented x3. NAD, on RA. HEENT: No pallor, no icterus. Pupils equal, round and reactive to light. Oral mucosa moist. NECK: No JVD, no neck masses. HEART: S1 and S2 heard. Regular rate and rhythm. No murmur, no gallop. RESPIRATORY SYSTEM: Normal AP diameter. No accessory muscle use. No wheezing, no crackles. ABDOMEN: Soft, bowel sounds present, generalized abd tender - mild, no distention. CENTRAL NERVOUS SYSTEM: No facial droop. Speech is clear. Obeys simple commands. Moves extremities. EXTREMITIES: No edema, no erythema seen. Results & Data Results & Data Vital Signs (Past 12 Hours) Vital Signs Temp Pulse Resp BP Pulse Ox O2 Del Method 03/30/23 15:08 36.6 C 74 18 113/70 96 Room Air 03/30/23 10:56 36.5 C 68 18 96/59 L 97 Room Air 03/30/23 07:05 36.7 C 63 18 97/58 L 93 Room Air 03/30/23 07:00 Room Air 03/30/23 03:53 37 C 62 16 99/49 L 94 Room Air
[2023-03-30] MEDS: ENOXAPARIN INJ 40 MG/0.4 ML SYR SQ SCH (18:05)
[2023-03-30] MEDS: nadoloL 40 MG TAB PO SCH (21:15)
[2023-03-31 06:36] LABS: Hematocrit (blood only) 33.7 % (37.0-47.0); Hemoglobin 11.2 g/dl (12.0-16.0); Mean Corpuscular Hemoglobin 31.8 pg (25.0-34.0); Mean Corpuscular Hgb Conc 33.2 g/dL (32.0-36.0); Mean Corpuscular Volume 95.7 fL (80.0-100.0); Mean Platelet Volume 10.4 fL (9.4-12.4); Platelet Count 132 K/uL (130-400); RDW Coefficient of Variation 14.3 % (11.5-14.5); RDW Standard Deviation 49.8 fL (36.4-46.3); Red Blood Count 3.52 M/uL (4.20-5.40); White Blood Count 3.25 K/ul (4.8-10.8)
[2023-03-31 07:09] LABS: BUN Creatinine Ratio 13.4 (10-20); Calcium 8.2 mg/dl (8.6-10.3); Creatinine Clr Calc Pharmacy 81.7 ml/min; Est GFR (African American) 91.4 ml/min; Est GFR (Non-African American) 78.9 ml/min; Magnesium 1.8 mg/dl (1.7-2.4); Phosphorus 3.6 mg/dl (2.5-4.9); Potassium 3.7 mmol/L (3.5-5.1)
[2023-03-31] MEDS: ARTIFICIAL TEARS OP SCH ×2 (08:41→21:09)
[2023-03-31] MEDS: cefTRIAXone SODIUM 2,000 MG in DEXTROSE 5 % MINI-B 50 ML IV SCH (08:41)
[2023-03-31] MEDS: FLUTICASONE/VILANTEROL 200/25MCG 14 PUFFS/INHALER INH SCH (08:43)
[2023-03-31] MEDS: FLUTICASONE PROPIONATE NA SPR 16 GM BTL SCH (08:43)
[2023-03-31] MEDS: ADVANCED PROBIOTIC 1250 MG CAPSULE PO SCH (08:44)
[2023-03-31] MEDS: PANTOprazole 40 MG TAB PO SCH (08:44)
[2023-03-31] MEDS: PYRIDOXINE HCL 50 MG TAB PO SCH (08:45)
[2023-03-31] MEDS ORDERED: AZITHROMYCIN 250 MG TAB PO SCH (09:00)
[2023-03-31] MEDS: FERROUS SULFATE 325 MG TAB PO SCH (11:05)
--- NOTE | 2023-03-31 17:11 | Hospitalist Progress Note ---
Date of Service March 31, 2023 Assessment & Plan (1) Abdominal pain: Plan 57-year-old female with PMH of liver cirrhosis, CHRIS, portal hypertension, esophageal varices, ascites, celiac, paroxysmal SVT, CKD III, COPD/asthma presented to ER 03/29 with complaint of abdominal pain, fever x3 days a/w N,V, D. She is being managed for the following: Campylobacter gastroenteritis Dehydration, abdominal pain Patient presented with abdominal pain associated with fever/nausea/vomiting/loose stools. No sepsis POA. Lactate WNL. Stool PCR positive for Campylobacter. Dehydrated at presentation. Status post IV fluid resuscitation in the ED. Patient is started on azithromycin for 3 days Patient reports improvement in her nausea, vomiting, still with loose stool but decreasing freq Tolerating soft diet. Continue to follow clinically. Monitor and replete electrolytes. WBC suppressed, low BP, will c/w iv atb for UTI and will use ivf for low bp. Acute UTI: Admitting UA suggestive of UTI, follow admitting urine culture - ecoli Admitting CTAP with punctate left renal calculus, no ureteral calculi or hydronephrosis. Patient started on Rocephin 03/29, continue. Blood Culture positive: 2 of 4 bottles 03/29 positive w/ GPC, pt already on rocephin from 03/29. Repeated Bl Cx 03/30. Pt has been afebrile, if deemed suspicious or true infection, will consult ID and do ECHO. will follow repeat blood culture for 48 hours. 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 Western blot pending, Lyme IgG antibody positive. Anaplasma smear negative. We will follow Western blot. Patient already on Rocephin for different purpose. Liver cirrhosis secondary to CHRIS: History esophageal varices, ascites No ascites noted on CT abdomen and pelvis this admission Hold home Lasix spironolactone currently due to dehydration from AGE. Follows with [facility] Paroxysmal SVT (supraventricular tachycardia): No SVT noted on EKG. Continue nadolol with holding parameters. CKD (chronic kidney disease), stage III: Cr: 1.2. Baseline Cr: 1.0. Monitor renal functions, avoid nephrotoxic agents when possible. Celiac disease: History celiac disease. States does not follow gluten free diet as causes constipation when follows strict gluten free diet. Asthma: stable, c/w home inhalers. DVT Prophylaxis: Lovenox Full Code Follows with Lisseth Sanchez PA-C for routine care Admission and Anticipated Discharge Date Admission Date: March 29, 2023 Subjective Patient was seen and examined at bedside. Patient was sitting up in bed, on room air, NAD, resting comfortably. Patient reports having 1 loose stool last evening, liquidy per her. Feels weak, has soft BP, will use IVF today. Reports improving abdominal pain. Denies nausea and vomiting. Advance diet as tolerated. Patient's daughter was also updated at bedside over the phone that patient was in connection with. Physical Exam Physical Exam: GENERAL: Alert and oriented x3. NAD, on RA. HEENT: No pallor, no icterus. Pupils equal, round and reactive to light. Oral mucosa moist. NECK: No JVD, no neck masses. HEART: S1 and S2 heard. Regular rate and rhythm. No murmur, no gallop. RESPIRATORY SYSTEM: Normal AP diameter. No accessory muscle use. No wheezing, no crackles. ABDOMEN: Soft, bowel sounds present, generalized abd tender - improved, no distention. CENTRAL NERVOUS SYSTEM: No facial droop. Speech is clear. Obeys simple commands. Moves extremities. EXTREMITIES: No edema, no erythema seen. Results & Data Results & Data Vital Signs (Past 12 Hours) Vital Signs Temp Pulse Resp BP Pulse Ox O2 Del Method 03/31/23 15:08 36.5 C 68 18 92/54 L 98 Room Air 03/31/23 11:12 36.4 C L 64 17 95/61 L 99 Room Air 03/31/23 07:04 36.7 C 65 19 100/63 95 Room Air 03/31/23 07:00 Room Air
[2023-03-31] MEDS: SODIUM CHLORIDE 0.45 % 1,000 ML IV SCH (17:19)
[2023-03-31] MEDS: ENOXAPARIN INJ 40 MG/0.4 ML SYR SQ SCH (17:22)
[2023-03-31] MEDS: nadoloL 40 MG TAB PO SCH (21:09)
[2023-03-31] MEDS ORDERED: oxyCODONE HCL IR 5 MG TAB (IMMEDIATE RELEASE) PO PRN (21:56)
--- NOTE | 2023-03-31 21:58 | Communication Note ---
Date of Service: March 31, 2023 Notified by RN of epigastric pain going to the chest. Similar to gallbladder attack as per patient. No fever, no chills. Diarrhea resolved. Lipase noted to be 600s AP Acute pancreatitis History cholelithiasis Rule out cholecystitis N.p.o. Continue IVF Gallbladder ultrasound GI consult Re: Pancreatitis
[2023-03-31] MEDS ORDERED: MoRPHine SULFATE 4 MG/ML 1 ML CARP\\VIAL IV PRN (21:59)
[2023-03-31] MEDS ORDERED: oxyCODONE HCL IR 5 MG TAB (IMMEDIATE RELEASE) ONE (22:07)
[2023-03-31 23:22] LABS: BUN Creatinine Ratio 9.2 (10-20); Calcium 8.2 mg/dl (8.6-10.3); Creatinine Clr Calc Pharmacy 55.8 ml/min; Est GFR (African American) 57.7 ml/min; Est GFR (Non-African American) 49.8 ml/min; Potassium 3.8 mmol/L (3.5-5.1)
[2023-03-31 23:40] LABS: Albumin Globulin Ratio 0.9 (0.9-2); Albumin Level 2.8 gm/dl (3.4-5.0); Bilirubin,Total 1.5 mg/dl (0.2-1.0); Globulin 3.1 gm/dl (2.5-4.0); Total Protein 5.9 gm/dl (6.0-8.3)
--- NOTE | 2023-04-01 04:30 | Ultrasound Report ---
Exam(s): US GALLBLADDER EXAM: US Abdomen Limited, Gallbladder CLINICAL HISTORY: Abdominal pain. TECHNIQUE: Real-time ultrasound of the right upper quadrant with image documentation. COMPARISON: No relevant prior studies available. FINDINGS: Liver: Cirrhosis. The liver measures 16.6 cm. Gallbladder: Cholelithiasis. Common bile duct: The common bile duct is normal measuring 0.3 cm. No stones. No dilation. Pancreas: The pancreatic head and body are within normal limits. The tail is not visualized due to overlying bowel gas. Right kidney: The right kidney is not visualized. IMPRESSION: 1. Cirrhosis. 2. Cholelithiasis. No ultrasound evidence of acute cholecystitis. Electronically signed by: Mendy Neri MD 04/01/23 04:29 AM
[2023-04-01] MEDS: SODIUM CHLORIDE 0.45 % 1,000 ML IV SCH (05:49)
[2023-04-01 06:00] LABS: Hematocrit (blood only) 31.9 % (37.0-47.0); Hemoglobin 10.9 g/dl (12.0-16.0); Mean Corpuscular Hemoglobin 31.8 pg (25.0-34.0); Mean Corpuscular Hgb Conc 34.2 g/dL (32.0-36.0); Mean Platelet Volume 10.4 fL (9.4-12.4); Platelet Count 141 K/uL (130-400); RDW Standard Deviation 47.7 fL (36.4-46.3); Red Blood Count 3.43 M/uL (4.20-5.40); White Blood Count 4.53 K/ul (4.8-10.8)
[2023-04-01 06:09] LABS: BUN Creatinine Ratio 11.3 (10-20); Calcium 8.1 mg/dl (8.6-10.3); Creatinine Clr Calc Pharmacy 69.1 ml/min; Est GFR (African American) 74.6 ml/min; Est GFR (Non-African American) 64.4 ml/min; Magnesium 1.8 mg/dl (1.7-2.4); Phosphorus 3.5 mg/dl (2.5-4.9); Potassium 3.8 mmol/L (3.5-5.1)
[2023-04-01] MEDS: FLUTICASONE PROPIONATE NA SPR 16 GM BTL SCH (08:38)
[2023-04-01] MEDS: cefTRIAXone SODIUM 2,000 MG in DEXTROSE 5 % MINI-B 50 ML IV SCH (08:39)
[2023-04-01] MEDS: FLUTICASONE/VILANTEROL 200/25MCG 14 PUFFS/INHALER INH SCH (08:39)
[2023-04-01] MEDS: PYRIDOXINE HCL 50 MG TAB PO SCH (08:39)
[2023-04-01] MEDS: ADVANCED PROBIOTIC 1250 MG CAPSULE PO SCH (08:39)
[2023-04-01] MEDS: PANTOprazole 40 MG TAB PO SCH (08:39)
[2023-04-01] MEDS: ARTIFICIAL TEARS OP SCH ×2 (08:40→20:02)
[2023-04-01 09:02] LABS: 18KDIGG Band NON-REACTIVE; 23KDIGG Band REACTIVE; 23KDIGM Band NON-REACTIVE; 28KDIGG Band NON-REACTIVE; 30KDIGG Band NON-REACTIVE; 39KDIGG Band NON-REACTIVE; 39KDIGM Band NON-REACTIVE; 41KDIGG Band REACTIVE; 41KDIGM Band REACTIVE; 45KDIGG Band NON-REACTIVE; 58KDIGG Band NON-REACTIVE; 66KDIGG Band NON-REACTIVE; 93KDIGG Band NON-REACTIVE; Lyme Antibodies, WB IgG NEGATIVE (NEGATIVE); Lyme Antibodies, WB IgM NEGATIVE (NEGATIVE)
[2023-04-01] MEDS: FERROUS SULFATE 325 MG TAB PO SCH (10:14)
--- NOTE | 2023-04-01 10:17 | Gastrointestinal Consultation ---
Date of Consultation April 01, 2023 Assessment & Plan (1) Pancreatitis: (2) Tick bite: (3) UTI (urinary tract infection): (4) Campylobacter gastroenteritis: Plan This is a 57 y/o female with h/o JEREZ cirrhosis c/b EV and ascites, recent tick bite, admitted w/ abd pain, diarrhea, fever, found to have Campylobacter in her stool, UTI, and ? active Lyme. Last night developed upper abd pain and lipase elevated > 600, clinically suspicious for pancreatitis. Etiology not clear; she has gallstones but no césar dil and no acute change in her LFTs/bilirubin; no acute cholecystitis, she doesn't drink ETOH. She appears stable from a liver disease standpoint. She's been on multiple different ABX so consider med induced. Will check TG level. - TG level - Will d/w attending whether she would need repeat imaging at this point, also whether to finish 3 days of azithromycin for her Campylobacter now that her diarrhea is resolved - ABX per PCP otherwise for her other issues - NPO for now for the pancreatitis - IVF - Monitor stool and urine output; renal function - Trend daily CBC, LFTs - Analgesia PRN - Discussed possible eventual OP EUS Thank you for allowing us to participate in the care of this patient. Please call with any acute changes, questions or concerns. Please see addendum below with additional recommendation from my supervising physician. Supervising Physician Co-Signing Physician Notes Agree with pe as documented Benign abd exam Admitted with abdominal pain and diarrhea in the setting of a known being treated campylobacter infection and then with abd pain with findings of pancreatitis (elevated lipase), underlying history of jerez cirrhosis Etiology of pancreatitis- ? meds, agree with conservative mgmt for now, op eus in 6-8 weeks Complete course of treatment for campylobacter infection Jerez cirrhosis- labs are stable at this time, no significant change from her baseline History of Present Illness Reason for Consultation: pancreatitis Requesting Physician: Dr. Leblanc Attending Physician: Ana Griffith MD History of Present Illness This is a 57 y/o female with PMhx T2DM, obesity, DLD, PSVT, CKD, COPD/Asthma, Celiac, JEREZ cirrhosis c/b EV and ascites and others, who we are consulted on for pancreatitis. She had a history of a recent tick bite a month ago and was given a dose of doxycycline for PPX and then a 7 day course after that. Pt began feeling sick 1 week ago with an episode of vomiting/diarrhea/shakes/fever/chills/crampy lower abd discomfort at home. Had a few more episodes of nonbloody diarrhea. She had used some motrin, Excedrin and Tylenol last week. Then came to the ER 03/29/23 w/ abd pain, diarrhea. Labs w/ normal WBC, Lacate. Urine suspicious for UTI. CTAP w/ cholelithiasis, no ascites, no bowel obstruction. Lyme testing shows 1 band of IgM and 3 bands of IgG. Pt had E. coli in her urine, and stool was tested, positive for Campylobacter, blood cultures positive for GPC. She was placed on ABX (has been on azithromycin, Rocephin); azithromycin was stopped after 1 dose. Diarrhea has resolved. Had a formed stool yesterday. Appetite had been good. Still has some mild crampy lower abd pain. Having some issues with hyponatremia. Then last evening developed epigastric/chest pain. Lipase was > 600. LFTs are at baseline. US ABD showed cholelithiasis, no evidence for cholelithiasis, no césar dil. Pt NPO today. She's urinating "very well"- denies hematuria. Still has some mild epigastric discomfort and lower crampy discomfort that she's had. No nausea, vomiting, melena, hematochezia, jaundice, fever, chills, hematemesis, leg edema. Never had a h/o pancreatitis. No family h/o pancreatitis or pancreatic cancer. No other new meds other than the ones mentioned above. No ETOH use. No tobacco use. No h/o abd surgeries. Current MELD is 18. Current GI Meds: Nadolol 20mg QD - only takes at night because causes dizziness. Pantoprazole 40mg daily Furosemide 40mg BID Spironolactone 50mg daily Most recent EGD March 2022: No esophageal varices. Normal stomach and duodenum Ascites: stable, maintained on furosemide 40mg BID/spironolactone 50mg daily Allergies Allergy/AdvReac Type Severity Reaction Status Date / Time pepper (genus Capsicum) Allergy Severe Diarrhea Verified 03/29/23 14:05 hydromorphone Allergy Intermediate Anaphylaxis Verified 03/29/23 10:25 pamabrom Allergy Intermediate HIVES Verified 03/29/23 10:25 pyrilamine Allergy Intermediate HIVES Verified 03/29/23 10:25 Penicillins Allergy Unknown Unknown Verified 03/29/23 10:25 Iodinated Contrast Media AdvReac Intermediate TACHYCARDIA Verified 03/29/23 10:2 5 Home Medications Medication Instructions Recorded Confirmed Type cholecalciferol (vitamin D3) 25 1,000 unit PO QAM 01/29/18 03/29/23 History mcg (1,000 unit) tablet ferrous sulfate 325 mg (65 mg 325 mg PO QAM 01/29/18 03/29/23 History iron) tablet furosemide 40 mg tablet 40 mg PO BID 01/29/18 03/29/23 History nadolol 20 mg tablet 20 mg PO HS 01/29/18 03/29/23 History pantoprazole 40 mg tablet,delayed 40 mg PO QAM 01/29/18 03/29/23 History release pyridoxine (vitamin B6) 500 mg 500 mg PO QAM 01/29/18 03/29/23 History tablet spironolactone 50 mg tablet 50 mg PO QAM 01/29/18 03/29/23 History magnesium 250 mg tablet 250 mg PO QAM 04/15/19 03/29/23 History naproxen sodium 220 mg tablet 220 mg PO BID PRN Pain 01/19/20 03/29/23 History (Aleve) fluticasone propionate 50 2 spray intranasal DAILY 03/05/20 03/29/23 History mcg/actuation nasal spray,suspension albuterol sulfate 90 mcg/actuation 2 puff inhalation QID PRN 03/27/22 03/29/23 History aerosol inhaler Shortness Of Breath Or Wheezing carboxymethylcellulose sodium 1 % 1 drp ophthalmic (eye) BID 03/27/22 03/29/23 History eye liquid gel drops fluticasone propionate 230 2 puff inhalation BID 03/27/22 03/29/23 History mcg-salmeterol 21 mcg/actuation HFA inhaler (Advair HFA) prednisolone acetate 1 % eye 1 drp ophthalmic (eye) BID PRN 03/27/22 03/29/23 History drops,suspension flare Patient History Medical History (Updated 04/01/23 @ 10:47 by Gail Eller PA-C) Celiac disease Pt does not follow gluten free diet-Pt states she does not have History of COVID-19 07/2020-sob, cough, no hospitalization, no current issues Asthma well controlled with inhaler Periodic limb movement disorder Reactive airway disease Following with [facility] pulmonology, recently had chest CT showing air trapping, PFTs with good BD response. Chronic kidney disease Stage III per [facility] records Pt denies Bulging disc LUMBAR SPINE Liver cirrhosis secondary to JEREZ (nonalcoholic steatohepatitis) Follows with [facility] for this Esophageal varices H/O BANDING 11/2017 + 2018 [facility] Anemia Spinal stenosis SVT (supraventricular tachycardia) FOLLOWS YEARLY W/ DR. BISHOP. Last seen 03/2021. "Walking several miles per day without exertional symptoms. Weight unchanged. Exercising regularly on her treadmill. Functional capacity as improved. Denies palpitations, lightheadedness, dizziness, syncope, or near syncope. ...Continue beta- carol, nadolol 10 mg twice daily. Furosemide and Aldactone will be continued as directed per Gastroenterology. No further cardiac testing at this time." Surgical History Family history of reaction to anesthesia MOTHER-NAUSEA/VOMITTING Echo teeth removed History of nasal cauterization History of surgery lesion removed from uterus History of dilatation and curettage History of elbow surgery RT/LEFT History of carpal tunnel release RT/LEFT History of esophagogastroduodenoscopy (EGD) 02/02/2018 [facility] History of surgery nasal cauterization Status post lumbar spine surgery for decompression of spinal cord S/P D&C (status post dilation and curettage) "S/P miscarriage " H/O elbow surgery "Antecubital elbow release" Status post carpal tunnel release of both wrists Family History Mother Family history of diabetes mellitus Sister Family history of diabetes mellitus 2 sisters Social History Smoking Status: Never smoker Second Hand Exposure: No; Do You Dip or Chew Tobacco: No; Hx Alcohol Use: Yes Alcohol type: wine and hard liquor Alcohol Intake Frequency: 2-4 x/Month Hx Substance Use: No Preferred Language: Russian Communication Ability: Effective Spice Mixer Required: No Beliefs That Will Affect Care: None Current Living Situation: Family Current Living Situation Comment: Lives with daughter and son in law Other Information That Helps Us Care for You: No Feels Safe at Home: Yes Safety Concerns: Feels Safe At This Time Diet: low salt and regular Physical Activity Frequency: Daily Gender Identity: Female Assistive Devices: None Review of Systems Review of Systems: All systems reviewed & are unremarkable except as noted in HPI & below Physical Exam Constitutional: well developed, well nourished and comfortable; no acute distress chronically ill Eyes: Sclera anicteric, no conjunctival injection ENMT: moist mucous membranes, no pallor Neck: trachea midline supple Respiratory: normal respiratory effort, lungs clear to auscultation Cardiovascular: RRR, no murmur, no edema Gastrointestinal (Abdomen): mildly distended, mild TTP to the epigastrium and b/l lower quadrants, no rebound, guarding. BS normal. Skin: no rashes, warm and dry Neurologic: alert and oriented x 3, no obvious focal neuro deficit Psychiatric: normal mood and affect Results & Data Vital Signs (Past 12 Hours) Vital Signs Temp Pulse Resp BP BP Pulse Ox O2 Del Method 04/01/23 07:10 36.3 C L 59 L 17 95/60 L 95 Room Air 04/01/23 02:00 36.5 C 64 18 91/53 L 91 Room Air Laboratory Results 04/01/23 03/31/23 03/29/23 Range/Units 04:58 22:29 08:04 WBC 4.53 L (4.8-10.8) K/ul RBC 3.43 L (4.20-5.40) M/uL Hgb 10.9 L (12.0-16.0) g/dl Hct 31.9 L (37.0-47.0) % MCV 93.0 (80.0-100.0) fL MCH 31.8 (25.0-34.0) pg MCHC 34.2 (32.0-36.0) g/dL RDW Std Deviation 47.7 H (36.4-46.3) fL RDW Coeff of Baltazar 14.0 (11.5-14.5) % Plt Count 141 (130-400) K/uL MPV 10.4 (9.4-12.4) fL Sodium 131 L 131 L (136-145) mmol/L Potassium 3.8 3.8 (3.5-5.1) mmol/L Chloride 105 104 (98-107) mmol/L Carbon Dioxide 21 20 L (21-32) mmol/L Anion Gap 5 7 (3-11) BUN 11 11 (6-23) mg/dl Creatinine 0.97 1.20 D (0.6-1.2) mg/dl Est Cr Clr Drug Dosing 69.1 55.8 ml/min Est GFR ( Amer) 74.6 57.7 ml/min Est GFR (Non-Af Amer) 64.4 49.8 ml/min BUN/Creatinine Ratio 11.3 9.2 L (10-20) Glucose 91 86 (70-99(Fasting)) mg/dl Calcium 8.1 L 8.2 L (8.6-10.3) mg/dl Phosphorus 3.5 (2.5-4.9) mg/dl Magnesium 1.8 (1.7-2.4) mg/dl Total Bilirubin 1.5 H (0.2-1.0) mg/dl AST 47 H (13-39) U/L ALT 27 (7-52) U/L Alkaline Phosphatase 87 (34-104) U/L Total Protein 5.9 L (6.0-8.3) gm/dl Albumin 2.8 L (3.4-5.0) gm/dl Globulin 3.1 (2.5-4.0) gm/dl Albumin/Globulin Ratio 0.9 (0.9-2) Lipase 670 H (11-82) U/L Lyme IgG (Western Blot) NEGATIVE (NEGATIVE) Lyme IgG 18 kDa Band NON-REACTIVE Lyme IgG 23 kDa Band REACTIVE A Lyme IgG 28 kDa Band NON-REACTIVE Lyme IgG 30 kDa Band NON-REACTIVE Lyme IgG 39 kDa Band NON-REACTIVE Lyme IgG 41 kDa Band REACTIVE A Lyme IgG 45 kDa Band NON-REACTIVE Lyme IgG 58 kDa Band NON-REACTIVE Lyme IgG 66 kDa Band NON-REACTIVE Lyme IgG 93 kDa Band NON-REACTIVE Lyme IgM Ab (WB) NEGATIVE (NEGATIVE) Lyme IgM 23 kDa Band NON-REACTIVE Lyme IgM 39 kDa Band NON-REACTIVE Lyme IgM 41 kDa Band REACTIVE A Diagnostic Findings CTAP: FINDINGS: No pneumatosis, free air or portal venous gas is present. There is a punctate calculus within the lower pole of the left kidney. There are no ureteral calculi. There is no hydronephrosis. Evaluation of the remainder of the abdomen and pelvis is suboptimal on this unenhanced exam. The liver is cirrhotic. Although sensitivity is diminished on this unenhanced exam, no hepatic lesions are identified. There is no biliary or pancreatic ductal dilatation. Gallstones within the gallbladder. No evidence for acute cholecystitis. Splenorenal shunt is again noted. Additional varices are present. There is no ascites. The spleen is stable. There is no evidence for a bowel obstruction. There is no evidence for acute appendicitis. Prominent mesenteric lymph nodes remain unchanged. Postoperative findings within the lumbar spine remain unchanged. Loss of height of the superior endplate of L4 is unchanged. Chronic sacral deformity is present. No acute fractures are identified within the visualized skeletal structures. IMPRESSION: 1. Punctate left renal calculus. No ureteral calculi or hydronephrosis. 2. Cirrhosis. Varices, including a splenorenal shunt, indicate portal hypertension. No ascites. 3. No bowel obstruction. 4. Cholelithiasis. No evidence for acute cholecystitis. US ABD: FINDINGS: Liver: Cirrhosis. The liver measures 16.6 cm. Gallbladder: Cholelithiasis. Common bile duct: The common bile duct is normal measuring 0.3 cm. No stones. No dilation. Pancreas: The pancreatic head and body are within normal limits. The tail is not visualized due to overlying bowel gas. Right kidney: The right kidney is not visualized. IMPRESSION: 1. Cirrhosis. 2. Cholelithiasis. No ultrasound evidence of acute cholecystitis. CXR: FINDINGS: Lung volumes are normal. Lungs are clear. There is no pneumothorax or pleural effusion. Cardiac size is normal. Mediastinal contours are normal. There is no evidence for pulmonary edema. IMPRESSION: No acute cardiopulmonary findings. No change in appearance of the chest. (1) Pancreatitis Acute pancreatitis complication: unspecified Chronicity: acute Pancreatitis type: unspecified pancreatitis type Qualified Code(s): K85.90 - Acute pancreatitis without necrosis or infection, unspecified
[2023-04-01 11:16] LABS: Chol HDL Ratio 3.8 (0-5)
[2023-04-01] MEDS: AZITHROMYCIN 250 MG TAB PO SCH (12:39)
--- NOTE | 2023-04-01 15:47 | Electrocardiogram Report ---
Test Reason : Blood Pressure : / mmHG Vent. Rate : 061 BPM Atrial Rate : 061 BPM P-R Int : 208 ms QRS Dur : 110 ms QT Int : 476 ms P-R-T Axes : 059 -24 048 degrees QTc Int : 479 ms Normal sinus rhythm Normal ECG When compared with ECG of 30-MAR-2023 04:27, No significant change was found Confirmed by Bear Perrin ([id number]) on 04/01/2023 3:47:25 PM Referred By: REFERRED SELF Confirmed By:Bear Perrin
--- NOTE | 2023-04-01 15:52 | Hospitalist Progress Note ---
Date of Service April 01, 2023 Assessment & Plan (1) Abdominal pain: Plan Ms. Belle is a 57-year-old female with PMH of liver cirrhosis, CHRIS, portal hypertension, esophageal varices, ascites, celiac, paroxysmal SVT, CKD III, COPD/asthma presented to ER 03/29 with complaint of abdominal pain, fever x3 days a/w N,V, D. She is being managed for the following: #Acute pancreatitis -Acute abdominal pain overnight 04/01 with lipase up to 670 from 7 on admission -TG 54, no obstructive LFTs, imaging with gall stones, but no obstruction; declines ETOH history, ?medication induced secondary to IV abx -Trend lipase -GI following, reviewed notes and discussed plan over Tigertext: plan for conservative management, eventual EUS as OP -IVF for now, NPO #Campylobacter gastroenteritis #Dehydration, abdominal pain Patient presented with abdominal pain associated with fever/nausea/vomiting/loose stools. No sepsis POA. Lactate WNL. Stool PCR positive for Campylobacter. Dehydrated at presentation. Status post IV fluid resuscitation in the ED. Monitor and replete electrolytes. WBC suppressed, low BP, will c/w iv atb for UTI and will use ivf for low bp. Complete course of azithromycin #Acute UTI, e coli Admitting UA suggestive of UTI, follow admitting urine culture - ecoli Admitting CTAP with punctate left renal calculus, no ureteral calculi or hydronephrosis. Patient started on Rocephin 03/29-->transition to PO cefdinir #Contaminant, Blood Culture positive: 1 of 4 bottles 03/29 positive w/ GPC, pt already on rocephin from 03/29. Repeated Bl Cx 03/30. Pt has been afebrile, if deemed suspicious or true infection, will consult ID and do ECHO. will follow repeat blood culture for 48 hours. #Tick bite: Reported tick bite over a month ago [employer] with associated bull's-eye rash, status post 2-week course of doxycycline. Western blot negative Lyme IgG antibody positive. Anaplasma smear negative. #Liver cirrhosis secondary to CHRIS: History esophageal varices, ascites No ascites noted on CT abdomen and pelvis this admission Hold home Lasix spironolactone currently due to dehydration Follows with [facility] #Paroxysmal SVT (supraventricular tachycardia): No SVT noted on EKG. Continue nadolol with holding parameters. #CKD (chronic kidney disease), stage III: Cr: 1.2. Baseline Cr: 1.0. Monitor renal functions, avoid nephrotoxic agents when possible. #Celiac disease: History celiac disease. States does not follow gluten free diet as causes constipation when follows strict gluten free diet. #Asthma: stable, c/w home inhalers. DVT Prophylaxis: Lovenox Full Code Follows with Lisseth Sanchez PA-C for routine care Admission and Anticipated Discharge Date Admission Date: March 29, 2023 Subjective Patient reports acute onset epigastric pain overnight with nausea Denies having any appetite at this time Reports feeling weak but notes near resolution of diarrhea Denies fevers, states pain this morning is still slightly present, but much improved since the evening Physical Exam Constitutional: WD/WN, vitals as above Respiratory: normal respiratory effort, lungs clear to auscultation Cardiovascular: RRR, no murmur, no edema Gastrointestinal (Abdomen): normal bowel sounds, soft, nontender, no hepatosplenomegaly Results & Data Results & Data Vital Signs (Past 12 Hours) Vital Signs Temp Pulse Pulse Resp BP Pulse Ox O2 Del Method 04/01/23 11:25 36.5 C 53 L 18 101/64 95 Room Air 04/01/23 10:20 61 04/01/23 07:10 36.3 C L 59 L 17 95/60 L 95 Room Air Laboratory Results Short CBC 04/01/23 Range/Units 04:58 WBC 4.53 L (4.8-10.8) K/ul Hgb 10.9 L (12.0-16.0) g/dl Hct 31.9 L (37.0-47.0) % Plt Count 141 (130-400) K/uL BMP 03/31/23 04/01/23 22:29 04:58 Sodium 131 L 131 L Potassium 3.8 3.8 Chloride 104 105 Carbon Dioxide 20 L 21 BUN 11 11 Creatinine 1.20 D 0.97 Glucose 86 91 Calcium 8.2 L 8.1 L Liver Function 03/31/23 Range/Units 22:29 Total Bilirubin 1.5 H (0.2-1.0) mg/dl AST 47 H (13-39) U/L ALT 27 (7-52) U/L Alkaline Phosphatase 87 (34-104) U/L Albumin 2.8 L (3.4-5.0) gm/dl Medications Administered Home Medications Medication Instructions Recorded Confirmed Last Taken cholecalciferol (vitamin D3) 25 1,000 unit PO QAM 01/29/18 03/29/23 03/28/23 mcg (1,000 unit) tablet ferrous sulfate 325 mg (65 mg 325 mg PO QAM 01/29/18 03/29/23 03/28/23 iron) tablet furosemide 40 mg tablet 40 mg PO BID 01/29/18 03/29/23 03/28/23 nadolol 20 mg tablet 20 mg PO HS 01/29/18 03/29/23 03/28/23 pantoprazole 40 mg tablet,delayed 40 mg PO QAM 01/29/18 03/29/23 03/28/23 release pyridoxine (vitamin B6) 500 mg 500 mg PO QAM 01/29/18 03/29/23 03/28/23 tablet spironolactone 50 mg tablet 50 mg PO QAM 01/29/18 03/29/23 03/28/23 magnesium 250 mg tablet 250 mg PO QAM 04/15/19 03/29/23 03/28/23 naproxen sodium 220 mg tablet 220 mg PO BID PRN Pain 01/19/20 03/29/23 03/28/23 (Aleve) fluticasone propionate 50 2 spray intranasal DAILY 03/05/20 03/29/23 03/28/23 mcg/actuation nasal spray,suspension albuterol sulfate 90 mcg/actuation 2 puff inhalation QID PRN 03/27/22 03/29/23 03/28/23 aerosol inhaler Shortness Of Breath Or Wheezing carboxymethylcellulose sodium 1 % 1 drp ophthalmic (eye) BID 03/27/22 03/29/23 03/28/23 eye liquid gel drops fluticasone propionate 230 2 puff inhalation BID 03/27/22 03/29/23 03/28/23 mcg-salmeterol 21 mcg/actuation HFA inhaler (Advair HFA) prednisolone acetate 1 % eye 1 drp ophthalmic (eye) BID PRN 03/27/22 03/29/23 03/28/23 drops,suspension flare Active Medications Generic Name Dose Route Start Last Admin Trade Name Freq PRN Reason Stop Dose Admin Acetaminophen 650 mg 03/29/23 14:01 03/30/23 12:24 Acetaminophen 325 Mg Tab PO 04/28/23 14:00 650 mg Q4H PRN Administration Pain or Fever Artificial Tears 1 drops 03/29/23 21:00 04/01/23 08:40 Artificial Tears OP 04/28/23 20:59 1 drops BID CHRISTIN Administration Azithromycin 500 mg 04/01/23 12:15 04/01/23 12:39 Azithromycin 250 Mg Tab PO 04/02/23 09:01 500 mg QAM CHRISTIN Administration Enoxaparin Sodium 40 mg 03/29/23 14:30 03/31/23 17:22 Enoxaparin Inj 40 Mg/0.4 Ml Syr SQ 04/28/23 14:29 40 mg Q24H CHRISTIN Administration Ferrous Sulfate 325 mg 03/30/23 09:00 04/01/23 10:14 Ferrous Sulfate 325 Mg Tab PO 04/29/23 08:59 325 mg QAM CHRISTIN Administration Fluticasone Propionate 2 sprays 03/30/23 09:00 04/01/23 08:38 Fluticasone Propionate Na Spr 16 Gm Btl NA 04/29/23 08:59 2 sprays DAILY CHRISTIN Administration Fluticasone/Vilanterol 1 puffs 03/30/23 09:00 04/01/23 08:39 Fluticasone/Vilanterol 200/25mcg 14 Puffs/Inhaler INH 04/29/23 08:59 1 puffs DAILY CHRISTIN Administration Sodium Chloride 1,000 mls @ 80 mls/hr 03/31/23 17:15 04/01/23 05:49 1/2 Nss IV 04/01/23 18:14 80 mls/hr .[id number] CHRISTIN Administration Lactobacillus Acidophilus 2 cap 03/30/23 09:00 04/01/23 08:39 Advanced Probiotic 1250 Mg Capsule PO 04/29/23 08:59 2 cap DAILY CHRISTIN Administration Nadolol 20 mg 03/29/23 21:00 03/31/23 21:09 Nadolol 40 Mg Tab PO 04/28/23 20:59 20 mg HS CHRISTIN Administration Pantoprazole Sodium 40 mg 03/30/23 09:00 04/01/23 08:39 Pantoprazole 40 Mg Tab PO 04/29/23 08:59 40 mg QAM CHRISTIN Administration Pyridoxine HCl 500 mg 03/30/23 09:00 04/01/23 08:39 Pyridoxine Hcl 50 Mg Tab PO 04/29/23 08:59 500 mg QAM CHRISTIN Administration
[2023-04-01] MEDS: ENOXAPARIN INJ 40 MG/0.4 ML SYR SQ SCH (18:24)
[2023-04-01] MEDS: nadoloL 40 MG TAB PO SCH (20:02)
[2023-04-02] MEDS: cephALEXin 500 MG CAP PO SCH ×4 (05:40→23:44)
[2023-04-02 06:31] LABS: Hematocrit (blood only) 32.4 % (37.0-47.0); Hemoglobin 10.9 g/dl (12.0-16.0); Mean Corpuscular Hemoglobin 31.6 pg (25.0-34.0); Mean Corpuscular Hgb Conc 33.6 g/dL (32.0-36.0); Mean Corpuscular Volume 93.9 fL (80.0-100.0); Mean Platelet Volume 10.2 fL (9.4-12.4); Platelet Count 154 K/uL (130-400); RDW Standard Deviation 47.8 fL (36.4-46.3); Red Blood Count 3.45 M/uL (4.20-5.40); White Blood Count 3.64 K/ul (4.8-10.8)
[2023-04-02 06:45] LABS: Albumin Globulin Ratio 0.9 (0.9-2); Albumin Level 2.8 gm/dl (3.4-5.0); BUN Creatinine Ratio 15.9 (10-20); Bilirubin,Total 1.4 mg/dl (0.2-1.0); Calcium 8.6 mg/dl (8.6-10.3); Creatinine Clr Calc Pharmacy 107.1 ml/min; Est GFR (African American) 114.6 ml/min; Est GFR (Non-African American) 98.9 ml/min; Magnesium 1.8 mg/dl (1.7-2.4); Phosphorus 3.4 mg/dl (2.5-4.9); Total Protein 5.8 gm/dl (6.0-8.3)
[2023-04-02] MEDS: PYRIDOXINE HCL 50 MG TAB PO SCH (08:44)
[2023-04-02] MEDS: FLUTICASONE PROPIONATE NA SPR 16 GM BTL SCH (08:44)
[2023-04-02] MEDS: PANTOprazole 40 MG TAB PO SCH (08:45)
[2023-04-02] MEDS: AZITHROMYCIN 250 MG TAB PO SCH (08:45)
[2023-04-02] MEDS: ADVANCED PROBIOTIC 1250 MG CAPSULE PO SCH (08:45)
[2023-04-02] MEDS: ARTIFICIAL TEARS OP SCH ×2 (08:46→20:25)
[2023-04-02] MEDS: FLUTICASONE/VILANTEROL 200/25MCG 14 PUFFS/INHALER INH SCH (08:48)
[2023-04-02] MEDS: FERROUS SULFATE 325 MG TAB PO SCH (09:47)
--- NOTE | 2023-04-02 12:10 | Hospitalist Progress Note ---
Date of Service April 02, 2023 Assessment & Plan (1) Abdominal pain: Plan Ms. Belle is a 57-year-old female with PMH of liver cirrhosis, CHRIS, portal hypertension, esophageal varices, ascites, celiac, paroxysmal SVT, CKD III, COPD/asthma presented to ER 03/29 with complaint of abdominal pain, fever x3 days a/w N,V, D. She is being managed for the following: #Acute pancreatitis *improving -Acute abdominal pain overnight 04/01 with lipase up to 670 from 7 on admission -TG 54, no obstructive LFTs, imaging with gall stones, but no obstruction; declines ETOH history, ?medication induced secondary to IV abx -Lipase from 670 to 9 this am -GI following, reviewed notes and discussed plan over Tigertext: plan for conservative management, eventual EUS as OP -CLD this am, advance as able #Campylobacter gastroenteritis #Dehydration, abdominal pain Patient presented with abdominal pain associated with fever/nausea/vomiting/loose stools. No sepsis POA. Lactate WNL. Stool PCR positive for Campylobacter. Dehydrated at presentation. Status post IV fluid resuscitation in the ED. Monitor and replete electrolytes. WBC suppressed, low BP, will c/w iv atb for UTI and will use ivf for low bp. Complete course of azithromycin #Acute UTI, e coli Admitting UA suggestive of UTI, follow admitting urine culture - ecoli Admitting CTAP with punctate left renal calculus, no ureteral calculi or hy dronephrosis. Patient started on Rocephin 03/29-->transition to PO cefdinir #Contaminant, Blood Culture positive: 1 of 4 bottles 03/29 positive w/ GPC, pt already on rocephin from 03/29. Repeated Bl Cx 03/30. Likely contaminant #Tick bite: Reported tick bite over a month ago [employer] with associated bull's-eye rash, status post 2-week course of doxycycline. Western blot negative Lyme IgG antibody positive. Anaplasma smear negative. #Liver cirrhosis secondary to CHRIS: History esophageal varices, ascites No ascites noted on CT abdomen and pelvis this admission Hold home Lasix spironolactone currently due to dehydration Follows with [facility] #Paroxysmal SVT (supraventricular tachycardia): No SVT noted on EKG. Continue nadolol with holding parameters. #CKD (chronic kidney disease), stage III: Cr: 1.2. Baseline Cr: 1.0. Monitor renal functions, avoid nephrotoxic agents when possible. #Celiac disease: History celiac disease. States does not follow gluten free diet as causes constipation when follows strict gluten free diet. #Asthma: stable, c/w home inhalers. DVT Prophylaxis: Lovenox Full Code Follows with Lisseth Sanchez PA-C for routine care Admission and Anticipated Discharge Date Admission Date: March 29, 2023 Subjective Notes marked improvement overnight, no longer tender to touch on abdomen endorses appetite present Denies nausea, vomiting, or other acute concerns Review of Systems Review of Systems: All systems reviewed & are unremarkable except as noted in Subjective Physical Exam Constitutional: WD/WN, vitals as above Respiratory: normal respiratory effort, lungs clear to auscultation Cardiovascular: RRR, no murmur, no edema Gastrointestinal (Abdomen): sligh epigastric tenderness to deep palpation, but otherwise improved from day prior Results & Data Results & Data Vital Signs (Past 12 Hours) Vital Signs Temp Pulse Pulse Resp BP Pulse Ox O2 Del Method 04/02/23 07:31 57 L 04/02/23 07:04 36.7 C 58 L 17 98/63 L 95 Room Air 04/02/23 03:20 63 04/02/23 03:05 36.5 C 63 20 101/60 94 Room Air Laboratory Results Short CBC 04/02/23 Range/Units 05:25 WBC 3.64 L (4.8-10.8) K/ul Hgb 10.9 L (12.0-16.0) g/dl Hct 32.4 L (37.0-47.0) % Plt Count 154 (130-400) K/uL BMP 04/02/23 05:25 Sodium 134 L Potassium 4.0 Chloride 107 Carbon Dioxide 20 L BUN 10 Creatinine 0.63 D Glucose 80 Calcium 8.6 Liver Function 04/02/23 Range/Units 05:25 Total Bilirubin 1.4 H (0.2-1.0) mg/dl AST 40 H (13-39) U/L ALT 25 (7-52) U/L Alkaline Phosphatase 69 (34-104) U/L Albumin 2.8 L (3.4-5.0) gm/dl Medications Administered Home Medications Medication Instructions Recorded Confirmed Last Taken cholecalciferol (vitamin D3) 25 1,000 unit PO QAM 01/29/18 03/29/2323 mcg (1,000 unit) tablet ferrous sulfate 325 mg (65 mg 325 mg PO QAM 01/29/18 03/29/23 03/28/23 iron) tablet furosemide 40 mg tablet 40 mg PO BID 01/29/18 03/29/23 03/28/23 nadolol 20 mg tablet 20 mg PO HS 01/29/18 03/29/23 03/28/23 pantoprazole 40 mg tablet,delayed 40 mg PO QAM 01/29/18 03/29/23 03/28/23 release pyridoxine (vitamin B6) 500 mg 500 mg PO QAM 01/29/18 03/29/23 03/28/23 tablet spironolactone 50 mg tablet 50 mg PO QAM 01/29/18 03/29/23 03/28/23 magnesium 250 mg tablet 250 mg PO QAM 04/15/19 03/29/23 03/28/23 naproxen sodium 220 mg tablet 220 mg PO BID PRN Pain 01/19/20 03/29/23 03/28/23 (Aleve) fluticasone propionate 50 2 spray intranasal DAILY 03/05/20 03/29/23 03/28/23 mcg/actuation nasal spray,suspension albuterol sulfate 90 mcg/actuation 2 puff inhalation QID PRN 03/27/22 03/29/23 03/28/23 aerosol inhaler Shortness Of Breath Or Wheezing carboxymethylcellulose sodium 1 % 1 drp ophthalmic (eye) BID 03/27/22 03/29/23 03/28/23 eye liquid gel drops fluticasone propionate 230 2 puff inhalation BID 03/27/22 03/29/23 03/28/23 mcg-salmeterol 21 mcg/actuation HFA inhaler (Advair HFA) prednisolone acetate 1 % eye 1 drp ophthalmic (eye) BID PRN 03/27/22 03/29/23 03/28/23 drops,suspension flare Active Medications Generic Name Dose Route Start Last Admin Trade Name Freq PRN Reason Stop Dose Admin Acetaminophen 650 mg 03/29/23 14:01 03/30/23 12:24 Acetaminophen 325 Mg Tab PO 04/28/23 14:00 650 mg Q4H PRN Administration Pain or Fever Artificial Tears 1 drops 03/29/23 21:00 04/02/23 08:46 Artificial Tears OP 04/28/23 20:59 1 drops BID CHRISTIN Administration Cephalexin HCl 500 mg 04/02/23 06:00 04/02/23 11:13 Cephalexin 500 Mg Cap PO 04/04/23 00:01 500 mg Q6 CHRISTIN Administration Enoxaparin Sodium 40 mg 03/29/23 14:30 04/01/23 18:24 Enoxaparin Inj 40 Mg/0.4 Ml Syr SQ 04/28/23 14:29 40 mg Q24H CHRISTIN Administration Ferrous Sulfate 325 mg 03/30/23 09:00 04/02/23 09:47 Ferrous Sulfate 325 Mg Tab PO 04/29/23 08:59 325 mg QAM CHRISTIN Administration Fluticasone Propionate 2 sprays 03/30/23 09:00 04/02/23 08:44 Fluticasone Propionate Na Spr 16 Gm Btl NA 04/29/23 08:59 2 sprays DAILY CHRISTIN Administration Fluticasone/Vilanterol 1 puffs 03/30/23 09:00 04/02/23 08:48 Fluticasone/Vilanterol 200/25mcg 14 Puffs/Inhaler INH 04/29/23 08:59 1 puffs DAILY CHRISTIN Administration Lactobacillus Acidophilus 2 cap 03/30/23 09:00 04/02/23 08:45 Advanced Probiotic 1250 Mg Capsule PO 04/29/23 08:59 2 cap DAILY CHRISTIN Administration Nadolol 20 mg 03/29/23 21:00 04/01/23 20:02 Nadolol 40 Mg Tab PO 04/28/23 20:59 Not Given HS CHRISTIN Pantoprazole Sodium 40 mg 03/30/23 09:00 04/02/23 08:45 Pantoprazole 40 Mg Tab PO 04/29/23 08:59 40 mg QAM CHRISTIN Administration Pyridoxine HCl 500 mg 03/30/23 09:00 04/02/23 08:44 Pyridoxine Hcl 50 Mg Tab PO 04/29/23 08:59 500 mg QAM CHRISTIN Administration
--- NOTE | 2023-04-02 13:09 | Gastroenterology Progress Note ---
Date of Service April 02, 2023 Assessment & Plan (1) Pancreatitis: (2) Tick bite: (3) UTI (urinary tract infection): (4) Campylobacter gastroenteritis: Plan This is a 57 y/o female with h/o CHRIS cirrhosis c/b EV and ascites, recent tick bite, admitted w/ abd pain, diarrhea, fever, found to have Campylobacter in her stool, UTI, and ? active Lyme. Last night developed upper abd pain and lipase elevated > 600, clinically suspicious for pancreatitis. Etiology not clear; she has gallstones but no césar dil and no acute change in her LFTs/bilirubin; no acute cholecystitis, she doesn't drink ETOH. She appears stable from a liver disease standpoint. She's been on multiple different ABX so consider med induced. Overnight pt feels much better. - TG was normal - lipase is WNL; LFTs unchanged - Diarrhea resolved - Abd pain resolved - ABX per PCP otherwise for her other issues - Advance diet as tolerated to low-fat - IVF - Trend daily CBC, LFTs - Analgesia PRN - Discussed possible eventual OP EUS - would plan on this and we will arrange in 6-8 weeks - If she is tolerating a diet then no GI contraindications to DC - GI will sign off, please call with questions or concerns Thank you for allowing us to participate in the care of this patient. Please call with any acute changes, questions or concerns. Please see addendum below with additional recommendation from my supervising physician. Admission and Anticipated Discharge Date Admission Date: March 29, 2023 Supervising Physician Co-Signing Physician Notes Agree with pe and plan as documented. Pancreatitis has improved clinically - tolerating clears, advance diet as tolerated. Etiology ? meds, outpt eus will be arranged in 6-8 weeks for further evaluation. Agree with further plan of care as documented. Subjective Patient seen and examined, chart reviewed. Overnight has improved a lot. No f urther abd pain. Tolerating clear liquids for a diet. Lipase and renal fxn is WNL. LFTs stable. No further diarrhea. No melena, hematochezia, hematemesis, nausea, vomiting, fever. Review of Systems Review of Systems: All systems reviewed & are unremarkable except as noted in HPI & below Physical Exam Constitutional: well developed, well nourished and comfortable; no acute distress Neck: trachea midline Respiratory: normal respiratory effort, lungs clear to auscultation Cardiovascular: RRR, no murmur, no edema Gastrointestinal (Abdomen): soft, nontender, nondistended Skin: no rashes, warm and dry Psychiatric: A+Ox3, euthymic affect Results & Data Vital Signs (Past 12 Hours) Vital Signs Temp Pulse Pulse Resp BP Pulse Ox O2 Del Method 04/02/23 10:55 36.6 C 61 17 94/59 L 98 Room Air 04/02/23 07:31 57 L 04/02/23 07:04 36.7 C 58 L 17 98/63 L 95 Room Air 04/02/23 03:20 63 04/02/23 03:05 36.5 C 63 20 101/60 94 Room Air Laboratory Results 04/02/23 Range/Units 05:25 WBC 3.64 L (4.8-10.8) K/ul RBC 3.45 L (4.20-5.40) M/uL Hgb 10.9 L (12.0-16.0) g/dl Hct 32.4 L (37.0-47.0) % MCV 93.9 (80.0-100.0) fL MCH 31.6 (25.0-34.0) pg MCHC 33.6 (32.0-36.0) g/dL RDW Std Deviation 47.8 H (36.4-46.3) fL RDW Coeff of Baltazar 14.0 (11.5-14.5) % Plt Count 154 (130-400) K/uL MPV 10.2 (9.4-12.4) fL Sodium 134 L (136-145) mmol/L Potassium 4.0 (3.5-5.1) mmol/L Chloride 107 (98-107) mmol/L Carbon Dioxide 20 L (21-32) mmol/L Anion Gap 7 (3-11) BUN 10 (6-23) mg/dl Creatinine 0.63 D (0.6-1.2) mg/dl Est Cr Clr Drug Dosing 107.1 ml/min Est GFR ( Amer) 114.6 ml/min Est GFR (Non-Af Amer) 98.9 ml/min BUN/Creatinine Ratio 15.9 (10-20) Glucose 80 (70-99(Fasting)) mg/dl Calcium 8.6 (8.6-10.3) mg/dl Phosphorus 3.4 (2.5-4.9) mg/dl Magnesium 1.8 (1.7-2.4) mg/dl Total Bilirubin 1.4 H (0.2-1.0) mg/dl AST 40 H (13-39) U/L ALT 25 (7-52) U/L Alkaline Phosphatase 69 (34-104) U/L Total Protein 5.8 L (6.0-8.3) gm/dl Albumin 2.8 L (3.4-5.0) gm/dl Globulin 3.0 (2.5-4.0) gm/dl Albumin/Globulin Ratio 0.9 (0.9-2) Lipase 9 L (11-82) U/L (1) Pancreatitis Acute pancreatitis complication: unspecified Chronicity: acute Pancreatitis type: unspecified pancreatitis type Qualified Code(s): K85.90 - Acute pancreatitis without necrosis or infection, unspecified
[2023-04-02] MEDS: ENOXAPARIN INJ 40 MG/0.4 ML SYR SQ SCH (17:32)
[2023-04-02] MEDS: nadoloL 40 MG TAB PO SCH (20:26)
[2023-04-03] MEDS: cephALEXin 500 MG CAP PO SCH (05:56)
[2023-04-03 06:20] LABS: Hematocrit (blood only) 32.1 % (37.0-47.0); Hemoglobin 10.9 g/dl (12.0-16.0); Mean Corpuscular Hemoglobin 31.9 pg (25.0-34.0); Mean Corpuscular Volume 93.9 fL (80.0-100.0); Mean Platelet Volume 9.9 fL (9.4-12.4); Platelet Count 148 K/uL (130-400); RDW Coefficient of Variation 14.3 % (11.5-14.5); RDW Standard Deviation 48.8 fL (36.4-46.3); Red Blood Count 3.42 M/uL (4.20-5.40); White Blood Count 4.51 K/ul (4.8-10.8)
[2023-04-03 06:25] LABS: BUN Creatinine Ratio 12.7 (10-20); Calcium 8.8 mg/dl (8.6-10.3); Creatinine Clr Calc Pharmacy 95.5 ml/min; Est GFR (African American) 108.8 ml/min; Est GFR (Non-African American) 93.9 ml/min; Magnesium 1.9 mg/dl (1.7-2.4); Phosphorus 3.4 mg/dl (2.5-4.9); Potassium 4.3 mmol/L (3.5-5.1)
[2023-04-03] MEDS: FERROUS SULFATE 325 MG TAB PO SCH (08:33)
[2023-04-03] MEDS: PYRIDOXINE HCL 50 MG TAB PO SCH (08:33)
[2023-04-03] MEDS: ARTIFICIAL TEARS OP SCH (08:34)
[2023-04-03] MEDS: FLUTICASONE/VILANTEROL 200/25MCG 14 PUFFS/INHALER INH SCH (08:34)
[2023-04-03] MEDS: FLUTICASONE PROPIONATE NA SPR 16 GM BTL SCH (08:34)
[2023-04-03] MEDS: ADVANCED PROBIOTIC 1250 MG CAPSULE PO SCH (08:34)
[2023-04-03] MEDS: PANTOprazole 40 MG TAB PO SCH (08:35)
--- NOTE | 2023-04-03 12:46 | Discharge Summary ---
Discharge Summary Date of Service April 03, 2023 Notes For Next Care Provider Medication Changes From Visit -Complete Cefdinir course -Resume home lasix -Held Spironolactone, resume if BP is greater than 110 at home v wait till follow up with PCP/GI Admission HPI Per Admitting Provider Patient is a 57-year-old female with PMH liver cirrhosis, CHRIS, portal hypertension, esophageal varices, ascites, celiac, paroxysmal SVT, CKD III, COPD/asthma presented to ER with complaint of abdominal pain x3 days. History obtained from patient, patient family member, outpatient chart review. Patient states 3 days ago had onset of lower abdominal aching. Also had nausea, vomiting and loose BMs. The vomiting and loose BMs lasted 2 days. Patient states had normal BM last night. States lower abdominal discomfort is aggravated by eating. Admits has not been eating or drinking well past several days. Reports 3 days ago had episode of trouble urinating and states had to sit for an hour prior to being able to urinate. Since that time states has been urinating without difficulty. Denies any noted increased abdominal girth. Patient also reports fevers the past couple days. Has been using Aleve and Tylenol with limited relief. Patient states SBPs usually run in the 90s. Patient states 1 month ago had tick bite to left lower back and had surrounding red bull's-eye-like rash. Treated with doxycycline. Patient states he finished week course but developed some myalgias, MCMAHON and fevers and states was given additional week course and she thinks finished 2-week course. Denies any lab testing. Patient reports chronic nonproductive cough, denies any increased cough. Reports family members had URI symptoms recently. Denies melena, hematochezia, hematemesis. Denies dizziness, syncope, vision changes, neck pain, CP, SOB, orthopnea, palpitations, sore throat, choking, rhinorrhea, extremity weakness, extremity edema, rashes, dysuria, urinary frequency, hematuria. Admission Exam Per Admitting Provider General: no acute distress, chronic ill appearing obese female Head: normocephalic, atraumatic Eyes: conjunctiva non-injected, anicteric ENT: normal inspection external ears, nose, mucous membranes dry Neck: supple, trachea midline Lungs: clear, no respiratory distress, no wheezing/rhonchi/rales CV: RRR, no murmur, no pretibial edema Abd: normal BS, soft, +tender to palpation RLQ, LLQ Ext: no cyanosis, no calf tenderness Neuro: A&O x 3, no focal deficits noted, normal affect Skin: warm, dry Principal Dx & Hospital Course #1 = Principal Diagnosis (1) Abdominal pain: Plan Ms. Belle is a 57-year-old female with PMH of liver cirrhosis, CHRIS, portal hypertension, esophageal varices, ascites, celiac, paroxysmal SVT, CKD III, COPD/asthma presented to ER 03/29 with complaint of abdominal pain, fever x3 days a/w N,V, D. She was admitted for management of Campylobacter gastroenteritis, as well as dehydration. Patient's course was complicated by pancreatitis. Etiology suspected to be drug induced v gallstones. GI evaluated patient and is planning OP EUS in 6-8 weeks post-discharge. #Acute pancreatitis *improving -Acute abdominal pain overnight / with lipase up to 670 from 7 on admission -TG 54, no obstructive LFTs, imaging with gall stones, but no obstruction; declines ETOH history, ?medication induced secondary to IV abx -Lipase from 670 to 9 this am -GI following, reviewed notes and discussed plan over [employer]: plan for conservative management, eventual EUS as OP -CLD this am, advance as able #Campylobacter gastroenteritis *improved #Dehydration, abdominal pain *resolved Patient presented with abdominal pain associated with fever/nausea/vomiting/loose stools. No sepsis POA. Lactate WNL. Stool PCR positive for Campylobacter. Dehydrated at presentation. Status post IV fluid resuscitation in the ED. Monitor and replete electrolytes. Completed course of azithromycin #Acute UTI, e coli Admitting UA suggestive of UTI, follow admitting urine culture - ecoli Admitting CTAP with punctate left renal calculus, no ureteral calculi or hydronephrosis. Continue PO cefdinir total 5 day course #Contaminant, Blood Culture positive: 1 of 4 bottles 03/29 positive w/ GPC, pt already on rocephin from 03/29. Repeated Bl Cx 03/30. Likely contaminant #Tick bite: Reported tick bite over a month ago [employer] with associated bull's-eye rash, status post 2-week course of doxycycline. Western blot negative Lyme IgG antibody positive. Anaplasma smear negative. #Liver cirrhosis secondary to CHRIS: History esophageal varices, ascites No ascites noted on CT abdomen and pelvis this admission Hold home Lasix spironolactone currently due to dehydration Follows with [facility] Resume home lasix upon returing home Add Spironolactone once BP is stable at home or wait for PCP/GI follow up #Paroxysmal SVT (supraventricular tachycardia): No SVT noted on EKG. Continue nadolol with holding parameters. #CKD (chronic kidney disease), stage III: Cr: 1.2. Baseline Cr: 1.0. Monitor renal functions, avoid nephrotoxic agents when possible. #Celiac disease: History celiac disease. States does not follow gluten free diet as causes constipation when follows strict gluten free diet. #Asthma: stable, c/w home inhalers. On day of discharge, patient was eating a full, low fiber diet. She denied nausea vomiting or persistent abdominal pain.She ambulated without difficulty. Discharge Exam Constitutional WD/WN, vitals as above Respiratory normal respiratory effort, lungs clear to auscultation Cardiovascular regular rate, trace bilateral edema Gastrointestinal (Abdomen) normal bowel sounds, soft, nontender, no hepatosplenomegaly Musculoskeletal no cyanosis or clubbing, extremities motor strength 5/5 Updated Medication List Medication Instructions Recorded Confirmed Type cholecalciferol (vitamin D3) 25 1,000 unit PO QAM 01/29/18 03/29/23 History mcg (1,000 unit) tablet ferrous sulfate 325 mg (65 mg 325 mg PO QAM 01/29/18 03/29/23 History iron) tablet furosemide 40 mg tablet 40 mg PO BID 01/29/18 03/29/23 History nadolol 20 mg tablet 20 mg PO HS 01/29/18 03/29/23 History pantoprazole 40 mg tablet,delayed 40 mg PO QAM 01/29/18 03/29/23 History release pyridoxine (vitamin B6) 500 mg 500 mg PO QAM 01/29/18 03/29/23 History tablet spironolactone 50 mg tablet 50 mg PO QAM 01/29/18 03/29/23 History magnesium 250 mg tablet 250 mg PO QAM 04/15/19 03/29/23 History fluticasone propionate 50 2 spray intranasal DAILY 03/05/20 03/29/23 History mcg/actuation nasal spray,suspension albuterol sulfate 90 mcg/actuation 2 puff inhalation QID PRN 03/27/22 03/29/23 History aerosol inhaler Shortness Of Breath Or Wheezing carboxymethylcellulose sodium 1 % 1 drp ophthalmic (eye) BID 03/27/22 03/29/23 History eye liquid gel drops fluticasone propionate 230 2 puff inhalation BID 03/27/22 03/29/23 History mcg-salmeterol 21 mcg/actuation HFA inhaler (Advair HFA) prednisolone acetate 1 % eye 1 drp ophthalmic (eye) BID PRN 03/27/22 03/29/23 History drops,suspension flare cephalexin 500 mg capsule 500 mg PO Q6 #2 caps 04/03/23 Rx Hospital Stay Data Consultations 03/29/23 10:21 ED Decision to Admit Stat 04/01/23 01:40 Consult Gastroenterology Routine Diagnostic Imagining Performed 03/29/23 07:53 CT abd pelvis wo con Stat 03/31/23 21:58 US gallbladder Stat Pending Results Patient Have Any Pending Studies at Discharge: No Discharge Instructions Given to Patient (Per Discharging Provider) You were admitted for weakness and abdominal pain, and found to have a bacteria- induced diarrhea. Your course was complicated by pancreatitis. Imaging revealed signs of gallstones. You will follow up with GI (the stomach doctors) as directed in 6-8 weeks for further evaluation of gallstones and if they were the likely culprit for your symptoms. Given you recent issues with poor intake, your furosemide and spironolactone were held. You can introduce your Furosemide (lasix) in today upon returning home. If you find you are eating and drinking at your usual and your blood pressure (the top number) is greater than 110, you can resume your home medications as prescribed. If you continue to feel weak and your blood pressure is less than 110, please speak with your PCP and Liver doctor about the appropriate time to resume Spironolactone. Additionally, you will have a PCP follow up in 1-2 weeks to ensure you are doing well and there are no concerns with your pressures. Total Time Total Time Spent Total Time Spent (In Minutes): 45
== END 2023-04-03 12:28 | disposition home or self-care (01) | DRG 371 ==
LOC: ED 07:32 → SUATTDRO 11:12 → EDINP 11:12 → 4W 17:04

== ENCOUNTER 2024-01-27 19:38 | Inpatient (IN) ==
[2024-01-27 20:26] LABS: Basophils # (auto) 0.05 K/uL (0.00-0.20); Basophils % (auto) 0.7 %; Eosinophils # (auto) 0.22 K/uL (0.00-0.50); Eosinophils % (auto) 3.1 %; Hematocrit (blood only) 22.5 % (37.0-47.0); Hemoglobin 7.6 g/dl (12.0-16.0); Immature Granulocytes # (auto) 0.02 K/uL (0.01-0.20); Immature Granulocytes % (auto) 0.3 %; Lymphocytes # (auto) 1.08 K/uL (1.20-3.40); Lymphocytes % (auto) 15.1 %; Mean Corpuscular Hemoglobin 31.4 pg (25.0-34.0); Mean Corpuscular Hgb Conc 33.8 g/dL (32.0-36.0); Mean Platelet Volume 9.6 fL (9.4-12.4); Monocytes # (auto) 0.77 K/uL (0.11-0.59); Monocytes % (auto) 10.8 %; Neutrophils # (auto) 5.02 K/uL (1.40-6.50); Platelet Count 223 K/uL (130-400); RDW Coefficient of Variation 15.1 % (11.5-14.5); RDW Standard Deviation 50.4 fL (36.4-46.3); Red Blood Count 2.42 M/uL (4.20-5.40); White Blood Count 7.16 K/ul (4.8-10.8)
[2024-01-27] MEDS: FUROSEMIDE 40 MG/4 ML VIAL IV ONE (20:27)
[2024-01-27] MEDS: ONDANSETRON INJ 2 MG/ML 2 ML VIAL IV STA (20:28)
[2024-01-27] MEDS: fentaNYL citrate PF 100 MCG/2 ML VIAL IV STA (20:28)
--- NOTE | 2024-01-27 20:29 | Emergency Department Note ---
Impression & Plan Hyperammonemia, Liver cirrhosis secondary to CHRIS (nonalcoholic steatohepatitis), Bilateral edema of lower extremity, Acute hyponatremia ED Provider Note NAME: CHRISTINA JEREZ AGE: 58 SEX: Female INFORMANT: Patient and daughter ED PROVIDER(S): Len Conde MD CHIEF COMPLAINT: Abnormal labs PLAN: Disposition: Admitted Outpatient prescription management: none Referral: None MEDICAL DECISION MAKING: Patient presented because of abnormal labs. She had hyperammonemia. Patient was answering questions. She had pain in the chest and back that was persisting since her fall. She was not taking her lactulose as previously prescribed. IV was established. Blood work was obtained. Patient had peripheral edema on examination. Daughter notes she was not taking her Lasix either. Patient was given oral dose of lactulose. She was given fentanyl and Zofran for pain and to prevent nausea. Patient was given a dose of IV Lasix as she was due for her evening dose. Patient will need further evaluation and management in the hospital. Consultation was made with Dr. Oscar Leblanc [facility] service Care/management discussed with: oracle manager Level of care consideration(s): After review of the information above and other included data, I feel the patient requires escalation of care to admission Triage Nursing notes: reviewed and agree them. Vital Signs: reviewed and remarkable for no significant abnormalities Additional History obtained from: Patient's daughter. She outlines the issues with patient not taking her medication and recent hospitalizations Chronic Medical/Social Conditions affecting care: CHRIS Prior/ Outside/ External records reviewed: none Differential Diagnosis: Hyperammonemia, infection, dehydration, metabolic abnormality, hypo/hyperglycemia, electrolyte disturbance, anemia, hypoxia, cardiac sources, intracerebral event, toxicologic, neurologic, as well as other pathologies. Diagnostics, independently interpreted by me: ECG: Twelve-lead ECG reveals a normal sinus rhythm at 86 bpm. Prolonged QT. No [address] elevation or depression. Cardiac Monitoring: Cardiac monitoring ordered by me: The patient was placed on continuous cardiac monitoring and observed. It revealed a normal sinus rhythm at 81 beats per minute without ectopy or evidence of dysrhythmia. Medical decision rules: none Imaging studies: Deferred HPI: 58 year old Female arrives for evaluation of abnormal outpatient labs. This was found today and related to the patient's ammonia level being over 100. Patient has history of CHRIS. She is supposed to take lactulose but recently had a fall and was suffering with back and chest pain from the fall. She was not taking her medications and had some difficulty getting up and moving around. She also skipped her Lasix. Daughter notes she did give her 1 dose of lactulose today and 1 dose of Lasix. Patient was directed to the ER for admission. Patient suffered compression fracture secondary to fall. The patient also notes the following associated symptoms, mild confusion. Patient and family deny any new trauma. Pt denies LOC, headache, fevers, chills, diaphoresis, visual changes, neck pain, breathing difficulties, nausea, vomiting, abdominal pain, melena, hematochezia, urinary symptoms, numbness, focal weakness, lymphadenopathy, rash, or other complaints.. PAST MEDICAL HISTORY: See Below, DOT PAST SURGICAL HISTORY: See Below, SOCIAL HISTORY: See Below, non-smoker HOME MEDICATIONS: See Below ALLERGIES: See Below VITALS: See Below PHYSICAL EXAMINATION: GENERAL: Awake, alert, uncomfortable-appearing, in no distress HENT: Normocephalic, atraumatic. Oropharynx unremarkable. EYES: Normal conjunctiva. Sclera non-icteric. NECK: Inspection normal. Non-tender. Supple. No nuchal rigidity. FROM. No masses. RESPIRATORY: Clear to auscultation. No wheezes. No rales. Normal respiratory effort. CARDIAC: Normal rate. Normal rhythm. No murmurs. No rubs. Extremities warm and well perfused. Pulses equal. No JVD. GI: Soft, non-distended. No tenderness to palpation. No rebound or guarding. No masses. RECTAL: Deferred. MUSCULOSKELETAL: Atraumatic. Chest examination reveals right breast ecchymosis and associated sternal tenderness. The back is symmetrical on inspection without obvious abnormality. There is no CVA tenderness to palpation. No joint edema. LOWER EXTREMITIES: Calves are equal size bilaterally and non-tender. 2-3+ pitting edema. No discoloration. NEURO: Normal sensorium. No sensory or motor deficits noted. SKIN: No rash or jaundice noted. PROCEDURES: none CRITICAL CARE: none OBSERVATION NOTE: none Past Med/Surg History Problem List (Updated 01/28/24 @ 03:11 by Len Conde MD) Acute hyponatremia (Acute) Bilateral edema of lower extremity (Acute) Hyperammonemia (Acute) Compression fracture (Acute) Chest wall contusion (Acute) UTI (urinary tract infection) (Acute) Hypotension (Acute) Campylobacter gastroenteritis Celiac disease (Chronic) Pt does not follow gluten free diet-Pt states she does not have Asthma well controlled with inhaler Encounter for pre-operative examination Paroxysmal SVT (supraventricular tachycardia) (Chronic) CKD (chronic kidney disease), stage III (Chronic) Varices, esophageal (Chronic) "grade II on EGD 2014" Bronchitis (Chronic) reason for inhaler GERD (gastroesophageal reflux disease) (Chronic) Liver cirrhosis secondary to CHRIS (Acute) Traumatic event Elevated troponin (Acute) Venous stasis ulcer (Acute) Lower extremity edema (Acute) Periodic limb movement disorder Spinal stenosis (Chronic) Anemia (Chronic) Esophageal varices (Chronic) H/O BANDING 11/2017 + 2018 [facility] Liver cirrhosis secondary to CHRIS (nonalcoholic steatohepatitis) (Chronic) Follows with [facility] for this Bulging disc (Chronic) LUMBAR SPINE Chronic kidney disease (Chronic) Stage III per [facility] records Pt denies Medical History (Updated 01/28/24 @ 03:11 by Len Conde MD) Abdominal pain Pancreatitis Dehydration Hypokalemia Tick bite UTI (urinary tract infection) Abdominal pain History of COVID-19 07/2020-sob, cough, no hospitalization, no current issues Reactive airway disease Following with [facility] pulmonology, recently had chest CT showing air trapping, PFTs with good BD response. Surgical History (Updated 05/04/23 @ 00:07 by Arabella Amador) Family history of reaction to anesthesia MOTHER-NAUSEA/VOMITTING [place] teeth removed History of nasal cauterization History of surgery nasal cauterization S/P D&C (status post dilation and curettage) "S/P miscarriage " H/O elbow surgery "Antecubital elbow release" Status post carpal tunnel release of both wrists Family History Mother Family history of diabetes mellitus Sister Family history of diabetes mellitus 2 sisters Social History Smoking Status: Never smoker Second Hand Exposure: No; Do You Dip or Chew Tobacco: No; Hx Alcohol Use: Yes Alcohol type: wine and hard liquor Alcohol Intake Frequency: 2-4 x/Month Hx Substance Use: No Preferred Language: Upper Sorbian Communication Ability: Effective Pyridine Operator Required: No Beliefs That Will Affect Care: None Current Living Situation: Family Current Living Situation Comment: Lives with daughter and son in law Feels Safe at Home: Yes Diet: low salt and regular Physical Activity Frequency: Daily Gender Identity: Female Assistive Devices: None Allergies Allergies Allergy/AdvReac Type Severity Reaction Status Date / Time pepper (genus Capsicum) Allergy Severe Diarrhea Verified 01/27/24 20:17 hydromorphone Allergy Intermediate Anaphylaxis Verified 01/27/24 20:17 pamabrom Allergy Intermediate HIVES Verified 01/27/24 20:17 pyrilamine Allergy Intermediate HIVES Verified 01/27/24 20:17 Penicillins Allergy Unknown Unknown Verified 01/27/24 20:17 Iodinated Contrast Media AdvReac Intermediate TACHYCARDIA Verified 01/27/24 20:17 Home Meds Home Medications Medication Instructions Recorded Confirmed ferrous sulfate 325 mg (65 mg 325 mg PO QAM 01/29/18 01/27/24 iron) tablet pantoprazole 40 mg tablet,delayed 40 mg PO QAM 01/29/18 01/27/24 release fluticasone propionate 50 2 spray intranasal DAILY PRN 03/05/20 01/27/24 mcg/actuation nasal Allergy Symptoms spray,suspension albuterol sulfate 90 mcg/actuation 2 puff inhalation Q4 PRN Wheezing 01/23/24 01/27/24 aerosol inhaler fluticasone fur. 100 mcg-umeclid 1 inh inhalation QAM 01/23/24 01/27/24 62.5 mcg-vilant 25 mcg inhalat.powder (Trelegy Ellipta) ipratropium 0.5 mg-albuterol 3 mg 3 ml inhalation QID PRN Wheezing 01/23/24 01/27/24 (2.5 mg base)/3 mL nebulization soln lactulose 10 gram/15 mL oral 30 ml PO TID 01/23/24 01/27/24 solution rifaximin 550 mg tablet (Xifaxan) 550 mg PO AMHS 01/23/24 01/27/24 baclofen 10 mg tablet 10 mg PO PRN muscle relaxer 01/27/24 furosemide 40 mg tablet 40 mg PO BID 01/27/24 01/27/24 oxycodone 5 mg tablet 5 mg PO PRN Pain 01/27/24 Results & Data (ED) Vital Signs Vital Signs - 24 hr 01/27/24 19:46 01/27/24 20:12 01/27/24 20:30 Temperature 36.3 C L Temperature Source Temporal Artery Scan Pulse Rate 83 81 Pulse Rate [Apical] 79 Pulse Rhythm [Apical] Regular Respiratory Rate 20 18 Respiratory Effort / Characteristics Non-Labored Accessory Muscle Use Non-Labored Respiratory Depth Normal Respiratory Pattern Regular Blood Pressure 130/82 Blood Pressure [Left Arm] 100/57 L Blood Pressure Mean 98 Blood Pressure Mean [Left Arm] 71 Blood Pressure Position [Left Arm] Lying Pulse Oximetry 95 92 Oxygen Delivery Method Room Air Room Air Sepsis Recent Fever Within 48 Hours No Sepsis New/Unexplained Change in Mental Status N/A Sepsis Action Taken by Nursing No Action Required Laboratory Data 01/28/24 00:18 01/28/24 00:18 Lab Results 01/27/24 01/27/24 01/27/24 Range/Units 20:08 20:46 21:00 WBC 7.16 (4.8-10.8) K/ul RBC 2.42 L (4.20-5.40) M/uL Hgb 7.6 L (12.0-16.0) g/dl Hct 22.5 L (37.0-47.0) % MCV 93.0 (80.0-100.0) fL MCH 31.4 (25.0-34.0) pg MCHC 33.8 (32.0-36.0) g/dL RDW Std Deviation 50.4 H (36.4-46.3) fL RDW Coeff of Baltazar 15.1 H (11.5-14.5) % Plt Count 223 (130-400) K/uL MPV 9.6 (9.4-12.4) fL Immature Gran % (Auto) 0.3 % Neut % (Auto) 70.0 % Lymph % (Auto) 15.1 % [place] % (Auto) 10.8 % Eos % (Auto) 3.1 % Baso % (Auto) 0.7 % Neut # (Auto) 5.02 (1.40-6.50) K/uL Lymph # (Auto) 1.08 L (1.20-3.40) K/uL [place] # (Auto) 0.77 H (0.11-0.59) K/uL Eos # (Auto) 0.22 (0.00-0.50) K/uL Baso # (Auto) 0.05 (0.00-0.20) K/uL Immature Gran # (Auto) 0.02 (0.01-0.20) K/uL RBC Morphology Unremarkable PT 13.2 H (9.0-12.0) Seconds INR 1.2 H (0.9-1.1) APTT 25 (21-31) Seconds PTT Ratio 0.9 Sodium TNP 127 L Potassium TNP 4.3 Chloride 98 (98-107) mmol/L Carbon Dioxide 22 (21-32) mmol/L Anion Gap TNP BUN 38 H (6-23) mg/dl Creatinine 1.17 (0.6-1.2) mg/dl Est Cr Clr Drug Dosing 57.3 ml/min eGFR 53.75 BUN/Creatinine Ratio 32.5 H (10-20) Glucose 96 (70-99(Fasting)) mg/dl Osmolality (280-300) mOsm/kg Calcium 7.9 L (8.6-10.3) mg/dl Magnesium 2.0 (1.7-2.4) mg/dl Total Bilirubin 2.1 H (0.2-1.0) mg/dl AST TNP 50 H ALT 28 (7-52) U/L Alkaline Phosphatase 110 H (34-104) U/L Ammonia TNP Total Protein 5.4 L (6.0-8.3) gm/dl Albumin 2.6 L (3.4-5.0) gm/dl Globulin 2.8 (2.5-4.0) gm/dl Albumin/Globulin Ratio 0.9 (0.9-2) Urine Color Yellow Urine Appearance Clear (Clear) Urine pH 5.5 (4.5-7.5) Ur Specific [place] 1.013 (1.000-1.030) Urine Protein Negative (Negative) Urine Glucose (UA) Negative (Negative) Urine Ketones Negative (Negative) Urine Blood 2+ H (Negative) Urine Nitrite Negative (Negative) Urine Bilirubin Negative (Negative) Urine Urobilinogen Negative (Negative) Ur Leukocyte Esterase 2+ H (Negative) Urine WBC (Auto) 11-20 H (0-5) /hpf Urine RBC (Auto) 11-20 H (0-2) /hpf U Hyaline Cast (Auto) 11-20 H (0-2) /lpf U Epithel Cells (Auto) 6-10 H (0-2) /hpf Urine Bacteria (Auto) None Seen (None Seen) Urine Osmolality 339 L (500-800) mOsm/kg Ur Random Sodium 31 mmol/L Blood Type O Positive Antibody Screen NEGATIVE Crossmatch See Detail 01/27/24 Range/Units 21:17 WBC (4.8-10.8) K/ul RBC (4.20-5.40) M/uL Hgb (12.0-16.0) g/dl Hct (37.0-47.0) % MCV (80.0-100.0) fL MCH (25.0-34.0) pg MCHC (32.0-36.0) g/dL RDW Std Deviation (36.4-46.3) fL RDW Coeff of Baltazar (11.5-14.5) % Plt Count (130-400) K/uL MPV (9.4-12.4) fL Immature Gran % (Auto) % Neut % (Auto) % Lymph % (Auto) % [place] % (Auto) % Eos % (Auto) % Baso % (Auto) % Neut # (Auto) (1.40-6.50) K/uL Lymph # (Auto) (1.20-3.40) K/uL [place] # (Auto) (0.11-0.59) K/uL Eos # (Auto) (0.00-0.50) K/uL Baso # (Auto) (0.00-0.20) K/uL Immature Gran # (Auto) (0.01-0.20) K/uL RBC Morphology PT (9.0-12.0) Seconds INR (0.9-1.1) APTT (21-31) Seconds PTT Ratio Sodium Potassium Chloride (98-107) mmol/L Carbon Dioxide (21-32) mmol/L Anion Gap BUN (6-23) mg/dl Creatinine (0.6-1.2) mg/dl Est Cr Clr Drug Dosing ml/min eGFR BUN/Creatinine Ratio (10-20) Glucose (70-99(Fasting)) mg/dl Osmolality 275 L (280-300) mOsm/kg Calcium (8.6-10.3) mg/dl Magnesium (1.7-2.4) mg/dl Total Bilirubin (0.2-1.0) mg/dl AST ALT (7-52) U/L Alkaline Phosphatase (34-104) U/L Ammonia 111.0 H Total Protein (6.0-8.3) gm/dl Albumin (3.4-5.0) gm/dl Globulin (2.5-4.0) gm/dl Albumin/Globulin Ratio (0.9-2) Urine Color Urine Appearance (Clear) Urine pH (4.5-7.5) Ur Specific [place] (1.000-1.030) Urine Protein (Negative) Urine Glucose (UA) (Negative) Urine Ketones (Negative) Urine Blood (Negative) Urine Nitrite (Negative) Urine Bilirubin (Negative) Urine Urobilinogen (Negative) Ur Leukocyte Esterase (Negative) Urine WBC (Auto) (0-5) /hpf Urine RBC (Auto) (0-2) /hpf U Hyaline Cast (Auto) (0-2) /lpf U Epithel Cells (Auto) (0-2) /hpf Urine Bacteria (Auto) (None Seen) Urine Osmolality (500-800) mOsm/kg Ur Random Sodium mmol/L Blood Type Antibody Screen Crossmatch Administered Medications Pantoprazole Sodium 40 mg/ (Dextrose) 100 mls @ 20 mls/hr IV Q5H [facility] Stop: 02/26/24 22:14 Last Admin: 01/27/24 23:58 Dose: 8 mg/hr, 20 mls/hr Documented By: BRAND MARKETING SPECIALIST Discontinued Medications Fentanyl Citrate (Fentanyl Citrate Pf 100 Mcg/2 Ml Vial) 50 mcg IV NOW STA Stop: 01/27/24 20:21 Last Admin: 01/27/24 20:28 Dose: 50 mcg Documented By: CONI Furosemide (Furosemide 40 Mg/4 Ml Vial) 40 mg IV ONE ONE Stop: 01/27/24 20:19 Last Admin: 01/27/24 20:27 Dose: 40 mg Documented By: CONI Ceftriaxone Sodium (Rocephin) 2,000 mg in 50 mls @ 100 mls/hr IV NOW STA Stop: 01/27/24 22:25 Last Infusion: 01/27/24 23:43 Dose: Infused Documented By: Admin: 01/27/24 22:54 Dose: 100 mls/hr Documented By: CONI Albumin Human (Albumin 25%) 25 gm in 100 mls @ 50 mls/hr IV ONE ONE Stop: 01/27/24 23:55 Last Infusion: 01/28/24 02:00 Dose: Infused Documented By: Admin: 01/27/24 23:59 Dose: 50 mls/hr Documented By: ZAYDA Pantoprazole Sodium 80 mg/ (Dextrose) 120 mls @ 480 mls/hr IV NOW ONE Stop: 01/27/24 22:14 Last Infusion: 01/27/24 23:21 Dose: Infused Documented By: Admin: 01/27/24 22:57 Dose: 480 mls/hr Documented By: CONI Acetaminophen (Ofirmev) 1,000 mg in 100 mls @ 400 mls/hr IV NOW STA Stop: 01/27/24 22:11 Last Infusion: 01/27/24 22:58 Dose: Infused Documented By: Admin: 01/27/24 22:43 Dose: 400 mls/hr Documented By: CONI Lactulose (Lactulose Syrup 30 Gm/45 Ml Udp) 30 gm PO NOW STA Stop: 01/27/24 20:19 Last Admin: 01/27/24 20:38 Dose: 30 gm Documented By: CONI Ondansetron HCl (Ondansetron Inj 2 Mg/Ml 2 Ml Vial) 4 mg IV NOW STA Stop: 01/27/24 20:19 Last Admin: 01/27/24 20:28 Dose: 4 mg Documented By: CONI Discharge Plan Visit Data Chief Complaint: Abnormal Labs/Diagnostic Testing Stated Complaint: DOCTOR REF, ADMIT REQUEST, ABNORMAL LABS ED Provider: Len Conde Discharge Problem: Hyperammonemia, Liver cirrhosis secondary to CHRIS (nonalcoholic steatohepatitis), Bilateral edema of lower extremity, Acute hyponatremia Patient Disposition: Admitted As Inpatient Discharge Instructions Interventions: ED Discharge Assessment Last Done: 01/28/24 01:56
[2024-01-27] MEDS: LACTULOSE SYRUP 30 GM/45 ML UDP PO STA (20:38)
[2024-01-27 20:47] LABS: RBC Morphology Unremarkable
[2024-01-27 20:53] LABS: Alanine Aminotransferase 28 U/L (7-52); Albumin Globulin Ratio 0.9 (0.9-2); Albumin Level 2.6 gm/dl (3.4-5.0); Alkaline Phosphatase 110 U/L (34-104); BUN Creatinine Ratio 32.5 (10-20); Bilirubin,Total 2.1 mg/dl (0.2-1.0); Blood Urea Nitrogen 38 mg/dl (6-23); Calcium 7.9 mg/dl (8.6-10.3); Carbon Dioxide 22 mmol/L (21-32); Chloride 98 mmol/L (98-107); Creatinine Clr Calc Pharmacy 57.3 ml/min; Globulin 2.8 gm/dl (2.5-4.0); Glucose 96 mg/dl (70-99(Fasting)); INR 1.2 (0.9-1.1); Partial Thromboplastin Ratio 0.9; Partial Thromboplastin Time 25 Seconds (21-31); Prothrombin Time 13.2 Seconds (9.0-12.0); Total Protein 5.4 gm/dl (6.0-8.3)
--- NOTE | 2024-01-27 21:02 | History & Physical Report ---
Date of Service January 27, 2024 Assessment & Plan (1) Hepatic encephalopathy: Plan: History NAFLD cirrhosis Multifactorial: Missed lactulose doses from decreased mobility secondary to recent thoracic compression fracture UGIB, history of esophageal varices as per records, progressive anemia from normal outpatient baseline hemoglobin last November 2023, heme positive melanotic stool documented at the ER. Complicated UTI, no sepsis for now Decompensated cirrhosis secondary to above with associated fluid retention Acute on chronic hyponatremia secondary to above LE swelling secondary to cirrhosis with secondary cellulitis, no sepsis for now hypertension, BP on the lower side hx PSVT COPD, not in acute exacerbation anxiety/mood disorder Admit to medical telemetry Facilitate lactulose and rifaximin IV PPI for UGIB, add octreotide if with significant subsequent H&H drop Follow H&H, transfuse PRBC to maintain hemoglobin of at least 7 Follow urine CS, IV ceftriaxone for SBP prophylaxis and complicated UTI and LE cellulitis GI consult re: UGIB N.p.o. in anticipation of endoscopic procedure Hyponatremia workup, recheck serum sodium after Lasix administered at the ER. LE venous Dopplers rule out DVT DVT prophylaxis. SCDs if no blood clot on venous Dopplers Full code Patient daughter requesting updates providers. Kamini Joseph, contact #[phone]. Text document was generated using [email or web address] voice recognition software. It may contain grammatical or spelling errors. Kindly contact undersigned for clarification of any documentation item in question. History of Present Illness Chief Complaint: Confusion, weakness Primary Care Provider: Lisseth Sanchez PA-C History obtained from patient, family, and records. Limited history from patient secondary to lethargic state. Medical history significant for hypertension, PSVT, COPD, NAFLD cirrhosis, history of esophageal varices as per records, portal hypertension, celiac disease, chronic hyponatremia, leukocytoclastic vasculitis as per records, cervical dysplasia, anxiety/mood disorder. Last confinement March 2023 for pancreatitis and Campylobacter gastroenteritis. Patient fell forward at work 4 days ago. Sustained head trauma and achy chest and abdominal pain following fall. No LOC. Chest, forehead,LE bruising noted after fall. Patient evaluated at the ER. CT chest showed T8 compression fracture, indeterminate age. Patient discharged home. Patient unable to move as much at home from pain after fall. She stopped taking her home lactulose because she would have trouble going to the bathroom once medication work. No unusual headache symptoms. Patient noted to be more sleepy the last couple of days as per daughter. Patient complaining of worsening chest/back pain, abdominal pain. Patient looking more yellow as per family. Dark stools noted. No hematemesis. Increased bilateral leg swelling and redness. No fever, no chills. Daughter unaware of OTC NSAID intake. Patient seen at PCPs office today. Weight gain of 14 kg from October 2023 as per daughter. Outpatient ammonia level noted to be 100s. Patient directed to ER for evaluation. Lasix and lactulose administered at the ER. 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 Allergies Allergy/AdvReac Type Severity Reaction Status Date / Time pepper (genus Capsicum) Allergy Severe Diarrhea Verified 01/27/24 20:17 hydromorphone Allergy Intermediate Anaphylaxis Verified 01/27/24 20:17 pamabrom Allergy Intermediate HIVES Verified 01/27/24 20:17 pyrilamine Allergy Intermediate HIVES Verified 01/27/24 20:17 Penicillins Allergy Unknown Unknown Verified 01/27/24 20:17 Iodinated Contrast Media AdvReac Intermediate TACHYCARDIA Verified 01/27/24 20:17 Home Medications Medication Instructions Recorded Confirmed Type ferrous sulfate 325 mg (65 mg 325 mg PO QAM 01/29/18 01/27/24 History iron) tablet pantoprazole 40 mg tablet,delayed 40 mg PO QAM 01/29/18 01/27/24 History release fluticasone propionate 50 2 spray intranasal DAILY PRN 03/05/20 01/27/24 History mcg/actuation nasal Allergy Symptoms spray,suspension albuterol sulfate 90 mcg/actuation 2 puff inhalation Q4 PRN Wheezing 01/23/24 01/27/24 History aerosol inhaler fluticasone fur. 100 mcg-umeclid 1 inh inhalation QAM 01/23/24 01/27/24 History 62.5 mcg-vilant 25 mcg inhalat.powder (Trelegy Ellipta) ipratropium 0.5 mg-albuterol 3 mg 3 ml inhalation QID PRN Wheezing 01/23/24 01/27/24 History (2.5 mg base)/3 mL nebulization soln lactulose 10 gram/15 mL oral 30 ml PO TID 01/23/24 01/27/24 History solution rifaximin 550 mg tablet (Xifaxan) 550 mg PO AMHS 01/23/24 01/27/24 History baclofen 10 mg tablet 10 mg PO PRN muscle relaxer 01/27/24 History furosemide 40 mg tablet 40 mg PO BID 01/27/24 01/27/24 History oxycodone 5 mg tablet 5 mg PO PRN Pain 01/27/24 History Past Med/Surg History Problem List (Updated 01/28/24 @ 04:45 by Oscar Leblanc MD) Hepatic encephalopathy Decompensated cirrhosis Acute hyponatremia (Acute) Bilateral edema of lower extremity (Acute) Hyperammonemia (Acute) Compression fracture (Acute) Chest wall contusion (Acute) UTI (urinary tract infection) (Acute) Hypotension (Acute) Campylobacter gastroenteritis Celiac disease (Chronic) Pt does not follow gluten free diet-Pt states she does not have Asthma well controlled with inhaler Encounter for pre-operative examination Paroxysmal SVT (supraventricular tachycardia) (Chronic) CKD (chronic kidney disease), stage III (Chronic) Varices, esophageal (Chronic) "grade II on EGD 2014" Bronchitis (Chronic) reason for inhaler GERD (gastroesophageal reflux disease) (Chronic) Liver cirrhosis secondary to CHRIS (Acute) Traumatic event Elevated troponin (Acute) Venous stasis ulcer (Acute) Lower extremity edema (Acute) Periodic limb movement disorder Spinal stenosis (Chronic) Anemia (Chronic) Esophageal varices (Chronic) H/O BANDING 11/2017 + 2018 [facility] Liver cirrhosis secondary to CHRIS (nonalcoholic steatohepatitis) (Chronic) Follows with [facility] for this Bulging disc (Chronic) LUMBAR SPINE Chronic kidney disease (Chronic) Stage III per [facility] records Pt denies Medical History (Updated 01/28/24 @ 04:45 by Oscar Leblanc MD) Abdominal pain Pancreatitis Dehydration Hypokalemia Tick bite UTI (urinary tract infection) Abdominal pain History of COVID-19 07/2020-sob, cough, no hospitalization, no current issues Reactive airway disease Following with [facility] pulmonology, recently had chest CT showing air trapping, PFTs with good BD response. Surgical History (Updated 05/04/23 @ 00:07 by Arabella Amador) Family history of reaction to anesthesia MOTHER-NAUSEA/VOMITTING [place] teeth removed History of nasal cauterization History of surgery nasal cauterization S/P D&C (status post dilation and curettage) "S/P miscarriage " H/O elbow surgery "Antecubital elbow release" Status post carpal tunnel release of both wrists Family History Mother Family history of diabetes mellitus Sister Family history of diabetes mellitus 2 sisters Social History Smoking Status: Never smoker Second Hand Exposure: No; Do You Dip or Chew Tobacco: No; Hx Alcohol Use: Yes Alcohol type: wine and hard liquor Alcohol Intake Frequency: 2-4 x/Month Hx Substance Use: No Preferred Language: Belarusian Communication Ability: Effective Steel Cutter Required: No Beliefs That Will Affect Care: None Current Living Situation: Family Current Living Situation Comment: Lives with daughter and son in law Feels Safe at Home: Yes Diet: low salt and regular Physical Activity Frequency: Daily Gender Identity: Female Assistive Devices: None Review of Systems Review of Systems: Could not be reliably obtained secondary to lethargy Physical Exam Physical Exam: GENERAL: Lethargic, obese, no respiratory distress SKIN: Pallor, warm HEENT: Ecchymosis right frontal area, pale palpebral conjunctivae, no ptosis, dry buccal mucosa NECK : Supple, no tenderness CHEST : Decreased breath sounds, contusion right chest, right chest tenderness HEART : RRR, no obvious murmurs ABDOMEN: Some distention, nontender RECTAL : Intact sphincter, melanotic stool (FOBT positive) EXTREMITIES : Bilateral LE swelling with erythema, right knee ecchymosis, no LE tenderness, no other conspicuous deformities noted NEUROLOGIC : Lethargic, no facial asymmetry, gait and stance not assessed Results & Data Results & Data Vital Signs (Past 12 Hours) Vital Signs Temp Pulse Pulse Resp BP BP Pulse Ox 01/27/24 20:30 79 18 100/57 L 92 01/27/24 20:12 81 01/27/24 19:46 36.3 C L 83 20 130/82 95 O2 Del Method 01/27/24 20:30 Room Air 01/27/24 20:12 01/27/24 19:46 Room Air Laboratory Results Laboratory Results WBC 7.16 K/ul (4.8-10.8) 01/27/24 20:08 RBC 2.42 M/uL (4.20-5.40) L 01/27/24 20:08 Hgb 7.6 g/dl (12.0-16.0) L 01/27/24 20:08 Hct 22.5 % (37.0-47.0) L 01/27/24 20:08 MCV 93.0 fL (80.0-100.0) 01/27/24 20:08 MCH 31.4 pg (25.0-34.0) 01/27/24 20:08 MCHC 33.8 g/dL (32.0-36.0) 01/27/24 20:08 RDW Std Deviation 50.4 fL (36.4-46.3) H 01/27/24 20:08 RDW Coeff of Baltazar 15.1 % (11.5-14.5) H 01/27/24 20:08 Plt Count 223 K/uL (130-400) 01/27/24 20:08 MPV 9.6 fL (9.4-12.4) 01/27/24 20:08 Immature Gran % (Auto) 0.3 % 01/27/24 20:08 Neut % (Auto) 70.0 % 01/27/24 20:08 Lymph % (Auto) 15.1 % 01/27/24 20:08 [place] % (Auto) 10.8 % 01/27/24 20:08 Eos % (Auto) 3.1 % 01/27/24 20:08 Baso % (Auto) 0.7 % 01/27/24 20:08 Neut # (Auto) 5.02 K/uL (1.40-6.50) 01/27/24 20:08 Lymph # (Auto) 1.08 K/uL (1.20-3.40) L 01/27/24 20:08 [place] # (Auto) 0.77 K/uL (0.11-0.59) H 01/27/24 20:08 Eos # (Auto) 0.22 K/uL (0.00-0.50) 01/27/24 20:08 Baso # (Auto) 0.05 K/uL (0.00-0.20) 01/27/24 20:08 Immature Gran # (Auto) 0.02 K/uL (0.01-0.20) 01/27/24 20:08 RBC Morphology Unremarkable 01/27/24 20:08 PT 13.2 Seconds (9.0-12.0) H 01/27/24 20:08 INR 1.2 (0.9-1.1) H 01/27/24 20:08 APTT 25 Seconds (21-31) 01/27/24 20:08 PTT Ratio 0.9 01/27/24 20:08 Sodium TNP 01/27/24 20:08 Potassium TNP 01/27/24 20:08 Chloride 98 mmol/L (98-107) 01/27/24 20:08 Carbon Dioxide 22 mmol/L (21-32) 01/27/24 20:08 Anion Gap TNP 01/27/24 20:08 BUN 38 mg/dl (6-23) H 01/27/24 20:08 Creatinine 1.17 mg/dl (0.6-1.2) 01/27/24 20:08 Est Cr Clr Drug Dosing 57.3 ml/min 01/27/24 20:08 eGFR 53.75 01/27/24 20:08 BUN/Creatinine Ratio 32.5 (10-20) H 01/27/24 20:08 Glucose 96 mg/dl (70-99(Fasting)) 01/27/24 20:08 Calcium 7.9 mg/dl (8.6-10.3) L 01/27/24 20:08 Total Bilirubin 2.1 mg/dl (0.2-1.0) H 01/27/24 20:08 AST TNP 01/27/24 20:08 ALT 28 U/L (7-52) 01/27/24 20:08 Alkaline Phosphatase 110 U/L (34-104) H 01/27/24 20:08 Ammonia TNP 01/27/24 20:08 Total Protein 5.4 gm/dl (6.0-8.3) L 01/27/24 20:08 Albumin 2.6 gm/dl (3.4-5.0) L 01/27/24 20:08 Globulin 2.8 gm/dl (2.5-4.0) 01/27/24 20:08 Albumin/Globulin Ratio 0.9 (0.9-2) 01/27/24 20:08 CT chest: Small bilateral pleural effusions. CT abdomen pelvis: 1. No hydronephrosis, nephrolithiasis, or obstructive uropathy. 2. Trace bilateral pleural effusions. Right knee CT: No acute fracture or subluxation. Diagnostic Findings EKG as per my interpretation :Rate 85, NSR, LAD, LAFB, no ischemia
[2024-01-27 21:22] LABS: Potassium 4.3 mmol/L (3.5-5.1)
[2024-01-27] MEDS ORDERED: PANTOPRAZOLE BOLUS/DRIP IV STA (21:56)
[2024-01-27 21:57] LABS: Appearance Urine Clear (Clear); Bacteria Urine Automated None Seen (None Seen); Bilirubin Urine Negative (Negative); Blood Urine 2+ (Negative); Color Urine Yellow; Glucose Urine UA Negative (Negative); Ketones Urine Negative (Negative); Leukocyte Esterase Urine 2+ (Negative); Nitrite Urine Negative (Negative); Protein Urine Negative (Negative); Specific Gravity Urine 1.013 (1.000-1.030); Urobilinogen Urine Negative (Negative); pH Urine 5.5 (4.5-7.5)
[2024-01-27] MEDS ORDERED: PROMETHAZINE 6.25 MG/50.25 ML BAG IV PRN (22:06)
[2024-01-27] MEDS: ACETAMINOPHEN 1,000 MG/100 ML VIAL IV STA (22:43)
[2024-01-27] MEDS: cefTRIAXone SODIUM 2,000 MG/50 ML BAG IV STA (22:54)
[2024-01-27] MEDS: PANTOprazole 80 MG in DEXTROSE 5% 100 ML IV ONE (22:57)
[2024-01-27] MEDS: PANTOprazole 40 MG in DEXTROSE 5% MINI-B 100 ML IV SCH (23:58)
[2024-01-27] MEDS: ALBUMIN 25% 25 GM/100 ML VIAL IV ONE (23:59)
--- NOTE | 2024-01-28 00:40 | CT Scan Report ---
Exam(s): CT CHEST Without Contrast EXAM: CT Chest Without Intravenous Contrast CLINICAL HISTORY: Reason for exam: worsening pain, trauma. TECHNIQUE: Axial computed tomography images of the chest without intravenous contrast. CTDI is 28.14 mGy and DLP is 2235.54 mGy-cm. Automated exposure control was utilized for the study. A dose lowering technique was utilized adhering to the principles of ALARA. COMPARISON: CTA chest January 23, 2024. FINDINGS: Lungs: Unremarkable. No mass. No consolidation. Pleural space: Small bilateral pleural effusions. No pneumothorax. Heart: Unremarkable. No cardiomegaly. No significant pericardial effusion. No significant coronary artery calcifications. Bones/joints: Unremarkable. No acute fracture. No dislocation. Vertebral plana at T7. Soft tissues: Anasarca. Vasculature: Unremarkable. No thoracic aortic aneurysm. Lymph nodes: Unremarkable. No enlarged lymph nodes. Intraperitoneal space: Ascites. IMPRESSION: Small bilateral pleural effusions. Electronically signed by: Xavier Miguel MD 01/28/24 00:38 AM
[2024-01-28 01:09] LABS: Hematocrit (blood only) 19.9 % (37.0-47.0); Hemoglobin 6.7 g/dl (12.0-16.0)
--- NOTE | 2024-01-28 01:13 | CT Scan Report ---
Exam(s): CT RIGHT KNEE Without Contrast EXAM: CT Right Lower Extremity Without Intravenous Contrast, Knee CLINICAL HISTORY: Reason for exam: pain. TECHNIQUE: Axial computed tomography images of the right knee without intravenous contrast. CTDI is 28.14 mGy and DLP is 2235.54 mGy-cm. Automated exposure control was utilized for the study. A dose lowering technique was utilized adhering to the principles of ALARA. COMPARISON: No relevant prior studies available. FINDINGS: Bones/joints: Diffuse osseous demineralization. Mildly joint effusion. No acute fracture or subluxation. Soft tissues: Circumferential subcutaneous edema. IMPRESSION: No acute fracture or subluxation. Electronically signed by: Xavier Miguel MD 01/28/24 01:12 AM
--- NOTE | 2024-01-28 01:18 | CT Scan Report ---
Exam(s): CT ABDOMEN + PELVIS Without Contrast EXAM: CT Abdomen and Pelvis Without Intravenous Contrast CLINICAL HISTORY: Reason for exam: pain, gi bleed. TECHNIQUE: Axial computed tomography images of the abdomen and pelvis without intravenous contrast. CTDI is 28.14 mGy and DLP is 2235.54 mGy-cm. Automated exposure control was utilized for the study. A dose lowering technique was utilized adhering to the principles of ALARA. COMPARISON: CT abdomen and pelvis January 23, 2024. FINDINGS: Lung bases: Unremarkable. No mass. No consolidation. Pleural space: Trace bilateral pleural effusions. ABDOMEN: Liver: Unremarkable. Gallbladder and bile ducts: Unremarkable. No calcified stones. No ductal dilation. Pancreas: Unremarkable. No ductal dilation. Spleen: Unremarkable. No splenomegaly. Adrenals: Unremarkable. No mass. Kidneys and ureters: Unremarkable. No hydronephrosis, nephrolithiasis, or obstructive uropathy. Stomach and bowel: Unremarkable. No obstruction. No mucosal thickening. PELVIS: Appendix: No findings to suggest acute appendicitis. Bladder: Danielson catheter terminates in the urinary bladder. No stones. Reproductive: Unremarkable as visualized. ABDOMEN and PELVIS: Intraperitoneal space: Unremarkable. No free air. No significant fluid collection. Bones/joints: Posterior fusion at L4-5. No acute fracture. No dislocation. Soft tissues: Anasarca. Vasculature: Unremarkable. No abdominal aortic aneurysm. Lymph nodes: Unremarkable. No enlarged lymph nodes. IMPRESSION: 1. No hydronephrosis, nephrolithiasis, or obstructive uropathy. 2. Trace bilateral pleural effusions. Evaluation for GI bleed is limited on a noncontrast exam. Electronically signed by: Xavier Miguel MD 01/28/24 01:17 AM
[2024-01-28] MEDS ORDERED: SODIUM CHLORIDE 0.9% 250 ML IV PRN (01:25)
[2024-01-28] MEDS: LACTULOSE 200GM/700ML WTR ENEMA PR STA (03:57)
--- NOTE | 2024-01-28 04:10 | Ultrasound Report ---
Exam(s): US VENOUS BILATERAL LOWER EXTREMITIES EXAM: US Duplex Bilateral Lower Extremities Veins CLINICAL HISTORY: Reason for exam: swelling. TECHNIQUE: Real-time duplex ultrasound scan of the bilateral lower extremity veins integrating B-mode two-dimensional vascular structure, Doppler spectral analysis, color flow Doppler imaging and compression. COMPARISON: No relevant prior studies available. FINDINGS: Right deep veins: Unremarkable. No DVT in the right common femoral, femoral, proximal deep femoral or popliteal veins. The veins demonstrate normal color flow, are normally compressible, with normal phasic flow and/or augmentation response. Right superficial veins: Unremarkable. No thrombus in the visualized right great saphenous vein. Left deep veins: Unremarkable. No DVT in the left common femoral, femoral, proximal deep femoral or popliteal veins. The veins demonstrate normal color flow, are normally compressible, with normal phasic flow and/or augmentation response. Left superficial veins: Unremarkable. No thrombus in the visualized left great saphenous vein. Soft tissues: Exam limited secondary to patient body habitus and extensive soft tissue edema. No popliteal cyst. IMPRESSION: No acute DVT in the bilateral lower extremity veins. Electronically signed by: Lake Reed MD 01/28/24 04:09 AM
[2024-01-28] MEDS: rifAXIMin 550 MG TABLET PO SCH (04:23)
[2024-01-28] MEDS: LIDOCAINE 5% 1 PATCH TD SCH (04:49)
[2024-01-28] MEDS: ALBUMIN 25% 25 GM/100 ML VIAL IV ONE ×2 (05:57→08:05)
[2024-01-28 06:17] LABS: Base Excess VBG -2.3 mEq/L; HCO3 VBG 21 mmol/L; Oxygen Saturation VBG 83.2 %; PCO2 VBG 33 mmHg (38-50); PO2 VBG 50 mmHg; pH VBG 7.42 (7.36-7.41)
[2024-01-28 06:21] LABS: Basophils # (auto) 0.06 K/uL (0.00-0.20); Eosinophils # (auto) 0.13 K/uL (0.00-0.50); Eosinophils % (auto) 2.2 %; Hematocrit (blood only) 22.6 % (37.0-47.0); Hemoglobin 7.9 g/dl (12.0-16.0); Immature Granulocytes # (auto) 0.03 K/uL (0.01-0.20); Immature Granulocytes % (auto) 0.5 %; Lymphocytes # (auto) 0.55 K/uL (1.20-3.40); Lymphocytes % (auto) 9.3 %; Mean Corpuscular Hemoglobin 31.5 pg (25.0-34.0); Mean Platelet Volume 9.7 fL (9.4-12.4); Monocytes # (auto) 0.62 K/uL (0.11-0.59); Monocytes % (auto) 10.4 %; Neutrophils # (auto) 4.55 K/uL (1.40-6.50); Neutrophils % (auto) 76.6 %; Platelet Count 180 K/uL (130-400); RDW Coefficient of Variation 15.4 % (11.5-14.5); RDW Standard Deviation 49.6 fL (36.4-46.3); Red Blood Count 2.51 M/uL (4.20-5.40); White Blood Count 5.94 K/ul (4.8-10.8)
--- NOTE | 2024-01-28 06:27 | Communication Note ---
Date of Service: January 28, 2024 Patient still lethargic despite normal ammonia level this a.m. Repeat CT head given recent head trauma.
[2024-01-28 06:38] LABS: Albumin Globulin Ratio 1.1 (0.9-2); Albumin Level 2.7 gm/dl (3.4-5.0); BUN Creatinine Ratio 31.9 (10-20); Bilirubin,Total 2.2 mg/dl (0.2-1.0); Calcium 8.3 mg/dl (8.6-10.3); Creatinine Clr Calc Pharmacy 55.7 ml/min; Globulin 2.4 gm/dl (2.5-4.0); Potassium 4.2 mmol/L (3.5-5.1); Total Protein 5.1 gm/dl (6.0-8.3)
--- NOTE | 2024-01-28 06:47 | XRay Report ---
XR chest 1V portable HISTORY: 58 years-old Female chest pain COMPARISON: Chest CT of same day TECHNIQUE: AP view of the chest FINDINGS: Cardiac silhouette is enlarged. Pulmonary vascular congestion. Trace pleural effusions with mild biba silar atelectasis. No pneumothorax or lobar airspace consolidation. The bones of the chest appear panchito ssly intact. IMPRESSION: Cardiomegaly with pulmonary vascular congestion and trace pleural effusions. ACT 112: Negative or not required by law. The above report was generated using voice recognition software. It may contain grammatical, syntax o r spelling errors. Electronically signed by: Tim Galo M.D. 01/28/2024 6:46 AM
[2024-01-28 06:53] LABS: Thyroid Stimulating Hormone 4.816 uIu/ml (0.300-4.500)
[2024-01-28 06:54] LABS: RBC Morphology Unremarkable
[2024-01-28] MEDS: NALOXONE HCL 0.4 MG/1 ML VIAL/CARP IV STA (07:05)
--- NOTE | 2024-01-28 07:19 | Electrocardiogram Report ---
Test Reason : Blood Pressure : */* mmHG Vent. Rate : 86 BPM Atrial Rate : 86 BPM P-R Int : 178 ms QRS Dur : 108 ms QT Int : 408 ms P-R-T Axes : 55 -23 72 degrees QTcB Int : 488 ms Normal sinus rhythm Prolonged QT Abnormal ECG When compared with ECG of 23-Jan-2024 22:08, No significant change was found Confirmed by Sanjay Henry ([id number]) on 01/28/2024 7:18:39 AM Referred By: Confirmed By: Sanjay Henry
--- NOTE | 2024-01-28 07:47 | CT Scan Report ---
CT head/brain wo con CLINICAL HISTORY: 58 years-old Female with ams. head trauma. Acutely altered mental status with head trauma TECHNIQUE: Multiple axial CT images of the head were obtained without contrast. A dose lowering tech nique was utilized adhering to the principles of ALARA. CT DOSE: 625.8 mGy.cm COMPARISON: 01/23/2024 FINDINGS: No acute intracranial hemorrhage, midline shift, intracranial mass, hydrocephalus, territorial ischem ia or abnormal extra-axial collection. Mildly degraded exam. The calvarium is intact. Moderate mucosal thickening of the paranasal sinuses with maxillary air-flu id levels. Mastoid air cells are clear. IMPRESSION: No acute intracranial abnormality. ACT 112: Negative or not required by law. The above report was generated using voice recognition software. It may contain grammatical, syntax o r spelling errors. Electronically signed by: Tim Galo M.D. 01/28/2024 7:46 AM
[2024-01-28] MEDS: LACTULOSE SYRUP 20 GM/30 ML UDC PO SCH (08:04)
[2024-01-28] MEDS: FLUTICASONE FUROATE 100MCG 14 PUFFS/INHALER INH SCH (08:05)
[2024-01-28] MEDS: UMECLIDINIUM/VILANTEROL 62.5/25MCG 7 PUFFS/INHALER INH SCH (08:05)
[2024-01-28] MEDS ORDERED: NON-FORMULARY MEDICATION (Fluticasone-Umeclidin-Vilanter [Trelegy Ellipta] 100-62.5-25 mcg INH SCH (09:00)
--- NOTE | 2024-01-28 09:17 | Gastrointestinal Consultation ---
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 GI asked to evaluate for UGI bleeding w/ report of "heme positive melanotic stool documented at the ER" and acute on chronic anemia requiring transfusion. - NPO - EGD evaluation - Trend H&H - Monitor and document GI output - Agree w/ IV PPI bolus/drip - AMS - Ammonia this AM 61 - Head CT, Chest CT and UA - Treat the UTI - TID Lactulose, titrate for goal 3-5 BMs daily - Xifaxan 550mg twice daily - Cirrhosis management - Continue OP diuretics once medically appropriate to resume - Nadolol 20mg daily once medically appropriate to resume - Continue OP follow up with [facility] - MELD labs every 6 months - ABD imaging w/ AFP every 6 months - EGD every 1-2 years - No ETOH - No NSAIDs - Avoid hepatotoxin - Low NA diet, less than 2G daily - Less than 2G acetaminophen containing products daily I spent a total of 60 minutes on the date of service in review of patient's record, and previously obtained information in person and appropriate medical visit, discussion and education of plan, with patient and/or caregiver, placing orders for tests/referral/procedures as medically necessary and documentation of pertinent clinical information in patient's medical records for their visit today. Supervising Physician Co-Signing Physician Notes I examined the patient and reviewed patient's chart , laboratory data and imaging studies. I agree with with assessment and plan of care as suggested by advanced practice provider. Melena and worsening anemia in a patient with cirrhosis. Clinical presentation complicated by hepatic encephalopathy. History of celiac disease. Upper endoscopy today. Discussed with the patient and her family. Consent was obtained from patient's daughter due to patient's confusion. History of Present Illness Reason for Consultation: decompensated cirrhosis, UGIB Requesting Physician: Lainey Lanza MD Attending Physician: Lainey Lanza MD History of Present Illness 58 year old female with history of T2DM, obesity, DLD, PSVT, CKD, COPD/Asthma, Celiac, CHRIS cirrhosis c/b EV and ascites and others below admitted through the ED w/ reports of confusion, recent falls and elevated ammonia levels. GI was asked to evaluate for UGI bleeding. Pt was seen and evaluated, chart reviewed. Hannah was awake, alert only to person. She does not provide much recall in her history. She tells me she is tired. Denies abd pain. No nausea,vomiting. Is not able to confirm any reports of black or bloody stools. H&P from the primary service notes "heme positive melanotic stool documented at the ER". MELD 19 HGB 8.4 --> 7.6 --> 6.7 --> 1 unit --> 7.9 BUN 38 Ammonia 111 --> [address] 2023: No acute intracranial abnormality. Venous Duplex 2023: No acute DVT in the bilateral lower extremity veins. Chest CT 2023: Small bilateral pleural effusions. CTAP 2023: No hydronephrosis, nephrolithiasis, or obstructive uropathy. Trace bilateral pleural effusions. EGD 2021: - No esophageal varices. - Normal stomach. - Normal duodenal bulb and second portion of the duodenum. - No specimens collected. EGD 2018: - Post banding scar in the lower third of the esophagus. No residual varices. - Z-line regular, 37 cm from the incisors. - Normal stomach. No IGV, OGV. - Normal duodenal bulb and second portion of the duodenum. - No specimens collected. EGD 2017: - Scar in the lower third of the esophagus. No residual varices seen. - Portal hypertensive gastropathy. - Normal duodenal bulb and second portion of the duodenum. - No specimens collected. Allergies Allergy/AdvReac Type Severity Reaction Status Date / Time pepper (genus Capsicum) Allergy Severe Diarrhea Verified 01/27/24 20:17 hydromorphone Allergy Intermediate Anaphylaxis Verified 01/27/24 20:17 pamabrom Allergy Intermediate HIVES Verified 01/27/24 20:17 pyrilamine Allergy Intermediate HIVES Verified 01/27/24 20:17 Penicillins Allergy Unknown Unknown Verified 01/27/24 20:17 Iodinated Contrast Media AdvReac Intermediate TACHYCARDIA Verified 01/27/24 20:17 Home Medications Medication Instructions Recorded Confirmed Type ferrous sulfate 325 mg (65 mg 325 mg PO QAM 01/29/18 01/27/24 History iron) tablet pantoprazole 40 mg tablet,delayed 40 mg PO QAM 01/29/18 01/27/24 History release fluticasone propionate 50 2 spray intranasal DAILY PRN 03/05/20 01/27/24 History mcg/actuation nasal Allergy Symptoms spray,suspension albuterol sulfate 90 mcg/actuation 2 puff inhalation Q4 PRN Wheezing 01/23/24 01/27/24 History aerosol inhaler fluticasone fur. 100 mcg-umeclid 1 inh inhalation QAM 01/23/24 01/27/24 History 62.5 mcg-vilant 25 mcg inhalat.powder (Trelegy Ellipta) ipratropium 0.5 mg-albuterol 3 mg 3 ml inhalation QID PRN Wheezing 01/23/24 01/27/24 History (2.5 mg base)/3 mL nebulization soln lactulose 10 gram/15 mL oral 30 ml PO TID 01/23/24 01/27/24 History solution rifaximin 550 mg tablet (Xifaxan) 550 mg PO AMHS 01/23/24 01/27/24 History baclofen 10 mg tablet 10 mg PO PRN muscle relaxer 01/27/24 History furosemide 40 mg tablet 40 mg PO BID 01/27/24 01/27/24 History oxycodone 5 mg tablet 5 mg PO PRN Pain 01/27/24 History Patient History Medical History (Updated 01/28/24 @ 10:09 by Mir Cloud MD) Hepatic encephalopathy Decompensated cirrhosis Celiac disease Pt does not follow gluten free diet-Pt states she does not have Esophageal varices H/O BANDING 11/2017 + 2018 [facility] SVT (supraventricular tachycardia) FOLLOWS YEARLY W/ DR. BISHOP. Last seen 03/2021. "Walking several miles per day without exertional symptoms. Weight unchanged. Exercising regularly on her treadmill. Functional capacity as improved. Denies palpitations, lightheadedness, dizziness, syncope, or near syncope. ...Continue beta- carol, nadolol 10 mg twice daily. Furosemide and Aldactone will be continued as directed per Gastroenterology. No further cardiac testing at this time." CKD (chronic kidney disease), stage III Abdominal pain Pancreatitis Dehydration Hypokalemia Tick bite UTI (urinary tract infection) Abdominal pain History of COVID-19 07/2020-sob, cough, no hospitalization, no current issues Reactive airway disease Following with [facility] pulmonology, recently had chest CT showing air trapping, PFTs with good BD response. Surgical History Family history of reaction to anesthesia MOTHER-NAUSEA/VOMITTING [place] teeth removed History of nasal cauterization History of surgery nasal cauterization S/P D&C (status post dilation and curettage) "S/P miscarriage " H/O elbow surgery "Antecubital elbow release" Status post carpal tunnel release of both wrists Family History Mother Family history of diabetes mellitus Sister Family history of diabetes mellitus 2 sisters Social History Smoking Status: Never smoker Second Hand Exposure: No; Do You Dip or Chew Tobacco: No; Hx Alcohol Use: Yes Alcohol type: wine and hard liquor Alcohol Intake Frequency: 2-4 x/Month Hx Substance Use: No Preferred Language: Martiniquais Communication Ability: Effective Information Assurance Officer Required: No Beliefs That Will Affect Care: None Current Living Situation: Family Current Living Situation Comment: Lives with daughter and son in law Feels Safe at Home: Yes Diet: low salt and regular Physical Activity Frequency: Daily Gender Identity: Female Assistive Devices: None Review of Systems Review of Systems: Unobtainable due to cognitive status Physical Exam Constitutional: WD/WN, vitals as above Respiratory: normal respiratory effort Cardiovascular: Rate/Rhythm: regular rate and regular rhythm Gastrointestinal (Abdomen): normal bowel sounds, soft, nontender, no hepatosplenomegaly Skin: no rashes, warm and dry Results & Data Vital Signs (Past 12 Hours) Vital Signs Temp Pulse Pulse Pulse Resp BP BP 01/28/24 08:33 82 01/28/24 08:33 01/28/24 07:50 36.4 C L 84 17 01/28/24 07:34 35.6 C L 01/28/24 06:53 35.5 C L 01/28/24 06:15 35.4 C L 01/28/24 05:41 35.2 C L 01/28/24 05:41 16 100/64 01/28/24 04:41 35.8 C L 81 16 106/69 01/28/24 03:41 36.1 C L 76 16 119/66 01/28/24 03:11 36.3 C L 76 16 116/70 01/28/24 03:10 36.3 C L 76 16 116/70 01/28/24 02:56 36.3 C L 83 16 108/59 L 01/28/24 02:40 36.3 C L 77 16 113/71 01/28/24 02:21 36.3 C L 79 16 113/71 01/28/24 00:12 01/28/24 00:12 36.4 C L 83 16 112/74 BP Pulse Ox O2 Del Method 01/28/24 08:33 01/28/24 08:33 Room Air 01/28/24 07:50 85/51 L 92 Room Air 01/28/24 07:34 01/28/24 06:53 01/28/24 06:15 01/28/24 05:41 01/28/24 05:41 93 01/28/24 04:41 94 01/28/24 03:41 95 01/28/24 03:11 95 01/28/24 03:10 95 01/28/24 02:56 94 01/28/24 02:40 94 01/28/24 02:21 95 01/28/24 00:12 Room Air 01/28/24 00:12 92 Room Air PG Care Time/CCT Total # of Minutes Spent Total Time Spent with Patient: Total time spent is greater than 50% in coordination of care (as documented) at patient's floor/unit and/or counseling patient: Coding Level of Care Code 23163 INT INP/OBS CARE 2/55MIN Diagnoses 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
--- NOTE | 2024-01-28 10:09 | Anesthesiology Consultation ---
Date of Service January 28, 2024 Assessment & Plan (1) Encounter for pre-operative examination: Chart Review Chart Review: Acceptable Risk for Surgery and Patient NOT seen in Pre Admission Testing Consults Requested none History Surgery Operation Date: 01/28/24 17:35 Proposed Procedures p Esophagogastroduodenoscopy Wayne Black MD Height/Weight Height: 5 ft 3 in Weight: 94.801 kg Allergies Allergy/AdvReac Type Severity Reaction Status Date / Time pepper (genus Capsicum) Allergy Severe Diarrhea Verified 01/27/24 20:17 hydromorphone Allergy Intermediate Anaphylaxis Verified 01/27/24 20:17 pamabrom Allergy Intermediate HIVES Verified 01/27/24 20:17 pyrilamine Allergy Intermediate HIVES Verified 01/27/24 20:17 Penicillins Allergy Unknown Unknown Verified 01/27/24 20:17 Iodinated Contrast Media AdvReac Intermediate TACHYCARDIA Verified 01/27/24 20:17 Medications Home Medications Medication Instructions Recorded Confirmed Last Taken ferrous sulfate 325 mg (65 mg 325 mg PO QAM 01/29/18 01/27/24 03/28/23 iron) tablet pantoprazole 40 mg tablet,delayed 40 mg PO QAM 01/29/18 01/27/24 03/28/23 release fluticasone propionate 50 2 spray intranasal DAILY PRN 03/05/20 01/27/24 03/28/23 mcg/actuation nasal Allergy Symptoms spray,suspension albuterol sulfate 90 mcg/actuation 2 puff inhalation Q4 PRN Wheezing 01/23/24 01/27/24 Unknown aerosol inhaler fluticasone fur. 100 mcg-umeclid 1 inh inhalation QAM 01/23/24 01/27/24 Unknown 62.5 mcg-vilant 25 mcg inhalat.powder (Trelegy Ellipta) ipratropium 0.5 mg-albuterol 3 mg 3 ml inhalation QID PRN Wheezing 01/23/24 01/27/24 Unknown (2.5 mg base)/3 mL nebulization soln lactulose 10 gram/15 mL oral 30 ml PO TID 01/23/24 01/27/24 Unknown solution rifaximin 550 mg tablet (Xifaxan) 550 mg PO AMHS 01/23/24 01/27/24 Unknown baclofen 10 mg tablet 10 mg PO PRN muscle relaxer 01/27/24 Unknown furosemide 40 mg tablet 40 mg PO BID 01/27/24 01/27/24 Unknown oxycodone 5 mg tablet 5 mg PO PRN Pain 01/27/24 Unknown Active Medications Generic Name Dose Route Start Last Admin Trade Name Ernestine PRN Reason Stop Dose Admin Fluticasone Furoate 1 puffs 01/28/24 09:00 01/28/24 08:05 Fluticasone Furoate 100mcg 14 Puffs/Inhaler INH 02/27/24 08:59 1 puffs DAILY CHRISTIN Administration Pantoprazole Sodium 40 mg/ 100 mls @ 20 mls/hr 01/27/24 22:15 01/28/24 08:07 Dextrose IV 02/26/24 22:14 8 mg/hr Q5H CHRISTIN 20 mls/hr Administration 8 MG/HR Lactulose 20 gm 01/28/24 09:00 01/28/24 08:04 Lactulose Syrup 20 Gm/30 Ml Udc PO 02/27/24 08:59 20 gm TID CHRISTIN Administration Lidocaine 1 patch 01/28/24 04:30 01/28/24 04:49 Lidocaine 5% 1 Patch TD 02/27/24 04:29 Not Given QAM CHRISTIN Rifaximin 550 mg 01/28/24 01:30 01/28/24 08:04 Rifaximin 550 Mg Tablet PO 02/27/24 01:29 Not Given AMHS CHRISTIN Umeclidinium/Vilanterol 1 puffs 01/28/24 09:00 01/28/24 08:05 Umeclidinium/Vilanterol 62.5/25mcg 7 Puffs/Inhaler INH 02/27/24 08:59 1 puffs DAILY CHRISTIN Administration Past Medical History Medical History (Updated 01/28/24 @ 10:09 by Mir Cloud MD) Hepatic encephalopathy Decompensated cirrhosis Celiac disease Pt does not follow gluten free diet-Pt states she does not have Esophageal varices H/O BANDING 11/2017 + 2018 [facility] SVT (supraventricular tachycardia) FOLLOWS YEARLY W/ DR. BISHOP. Last seen 03/2021. "Walking several miles per day without exertional symptoms. Weight unchanged. Exercising regularly on her treadmill. Functional capacity as improved. Denies palpitations, lightheadedness, dizziness, syncope, or near syncope. ...Continue beta- carol, nadolol 10 mg twice daily. Furosemide and Aldactone will be continued as directed per Gastroenterology. No further cardiac testing at this time." CKD (chronic kidney disease), stage III Abdominal pain Pancreatitis Dehydration Hypokalemia Tick bite UTI (urinary tract infection) Abdominal pain History of COVID-19 07/2020-sob, cough, no hospitalization, no current issues Reactive airway disease Following with [facility] pulmonology, recently had chest CT showing air trapping, PFTs with good BD response. Past Family History Family History Mother Family history of diabetes mellitus Sister Family history of diabetes mellitus 2 sisters Past Surgical History Surgical History Family history of reaction to anesthesia MOTHER-NAUSEA/VOMITTING [place] teeth removed History of nasal cauterization History of surgery nasal cauterization S/P D&C (status post dilation and curettage) "S/P miscarriage " H/O elbow surgery "Antecubital elbow release" Status post carpal tunnel release of both wrists Social History Smoking Status: Never smoker Do You Dip or Chew Tobacco: No Hx Alcohol Use: Yes Alcohol type: wine and hard liquor alcohol intake frequency: a few times a month Hx Substance Use: No substance use type: does not use Physical Exam Vital Signs Last Vital Signs Temp 37.4 C 01/28/24 10:45 Pulse 92 H 01/28/24 10:45 Resp 20 01/28/24 10:45 BP 108/57 L 01/28/24 10:45 Pulse Ox 93 01/28/24 09:59 O2 Del Method Nasal Cannula 01/28/24 10:45 O2 Flow Rate 2 01/28/24 10:45 Testing Laboratory Results 01/28/24 06:03 01/28/24 06:04 PT 13.2 Seconds (9.0-12.0) H 01/27/24 20:08 INR 1.2 (0.9-1.1) H 01/27/24 20:08 APTT 25 Seconds (21-31) 01/27/24 20:08 Urine Color Yellow 01/27/24 21:00 Urine Appearance Clear (Clear) 01/27/24 21:00 Urine pH 5.5 (4.5-7.5) 01/27/24 21:00 Ur Specific [place] 1.013 (1.000-1.030) 01/27/24 21:00 Urine Protein Negative (Negative) 01/27/24 21:00 Urine Glucose (UA) Negative (Negative) 01/27/24 21:00 Urine Ketones Negative (Negative) 01/27/24 21:00 Urine Nitrite Negative (Negative) 01/27/24 21:00 Ur Leukocyte Esterase 2+ (Negative) H 01/27/24 21:00 Urine WBC (Auto) 11-20 /hpf (0-5) H 01/27/24 21:00 Urine RBC (Auto) 11-20 /hpf (0-2) H 01/27/24 21:00 U Hyaline Cast (Auto) 11-20 /lpf (0-2) H 01/27/24 21:00 U Epithel Cells (Auto) 6-10 /hpf (0-2) H 01/27/24 21:00 Urine Bacteria (Auto) None Seen (None Seen) 01/27/24 21:00 Blood Type O Positive 01/27/24 20:46 Antibody Screen NEGATIVE 01/27/24 20:46 01/28/24 05:09 POC Glucose 105 H Electrocardiogram Date: 01/27/24 DICTATED BY: Sanjay Henry MD Test Reason : Blood Pressure : */* mmHG Vent. Rate : 86 BPM Atrial Rate : 86 BPM P-R Int : 178 ms QRS Dur : 108 ms QT Int : 408 ms P-R-T Axes : 55 -23 72 degrees QTcB Int : 488 ms Normal sinus rhythm Prolonged QT Abnormal ECG When compared with ECG of 23-Jan-2024 22:08, No significant change was found Confirmed by Sanjay Henry ([id number]) on 01/28/2024 7:18:[address] scan 01/28/24: CT head/brain wo con CLINICAL HISTORY: 58 years-old Female with ams. head trauma. Acutely altered mental status with head trauma TECHNIQUE: Multiple axial CT images of the head were obtained without contrast. A dose lowering technique was utilized adhering to the principles of ALARA. CT DOSE: 625.8 mGy.cm COMPARISON: 01/23/2024 FINDINGS: No acute intracranial hemorrhage, midline shift, intracranial mass, hydrocephalus, territorial ischemia or abnormal extra-axial collection. Mildly degraded exam. The calvarium is intact. Moderate mucosal thickening of the paranasal sinuses with maxillary air-fluid levels. Mastoid air cells are clear. IMPRESSION: No acute intracranial abnormality. 01/27/24: Exam(s): CT CHEST Without Contrast EXAM: CT Chest Without Intravenous Contrast CLINICAL HISTORY: Reason for exam: worsening pain, trauma. TECHNIQUE: Axial computed tomography images of the chest without intravenous contrast. CTDI is 28.14 mGy and DLP is 2235.54 mGy-cm. Automated exposure control was utilized for the study. A dose lowering technique was utilized adhering to the principles of ALARA. COMPARISON: CTA chest January 23, 2024. FINDINGS: Lungs: Unremarkable. No mass. No consolidation. Pleural space: Small bilateral pleural effusions. No pneumothorax. Heart: Unremarkable. No cardiomegaly. No significant pericardial effusion. No significant coronary artery calcifications. Bones/joints: Unremarkable. No acute fracture. No dislocation. Vertebral plana at T7. Soft tissues: Anasarca. Vasculature: Unremarkable. No thoracic aortic aneurysm. Lymph nodes: Unremarkable. No enlarged lymph nodes. Intraperitoneal space: Ascites. IMPRESSION: Small bilateral pleural effusions.
--- OUTSIDE RECORDS SUMMARY | 2024-01-28 10:13 | External Medical Summary ---
Author Name Unknown Address Unknown Organization [id number]:[facility] [id number] [place] [address] Laboratory Report Ordering Provider Test Date Status 01/27/2024 11:03:33 Final Observation Date Value Abnormality Reference (Units ) Status BUN 01/27/2024 11:03:33 36 Above high normal 6-20 (mg/dL) Final Creatinine 01/27/2024 11:03:33 1.3 Above high normal 0.5-1.0 (mg/dL) Final Glomerular filtration rate/1.73 sq M.predicted [Volume Rate/Area] in Serum, Plasma or Blood by Creatinine-based formula (CKD-EPI) 01/27/2024 11:03:33 50 Below low normal >=60 (mL/min) Final eGFR is calculated based on the CKD-EPI 2020 equation. Sodium 01/27/2024 11:03:33 129 Below low normal 135 -146 (mmol/L) Final Potassium 01/27/2024 11:03:33 4.6 3.5-5.1 (m mol/L) Final Cl 01/27/2024 11:03:33 96 Below low normal 98- 107 (mmol/L) Final CO2 01/27/2024 11:03:33 19 Below low normal 22- 32 (mmol/L) Final Anion gap 01/27/2024 11:03:33 14 7-15 (mmol /L) Final Glucose 01/27/2024 11:03:33 94 70-120 (mg /dL) Final Albumin 01/27/2024 11:03:33 2.6 Below low normal 3.8 -5.0 (g/dL) Final AST (Aspartate aminotransferase) 01/27/2024 11:03:33 63 Above high normal 10-35 (U/L) Final Alk Phos 01/27/2024 11:03:33 142 Above high normal 35 -130 (U/L) Final Bilirubin, Total 01/27/2024 11:03:33 2.1 Above high no rmal <=1.2 (mg/dL) Final Calcium 01/27/2024 11:03:33 8.2 Below low normal 8.4 -10.2 (mg/dL) Final Protein 01/27/2024 11:03:33 5.2 Below low normal 6.0 -8.3 (g/dL) Final ALT (Alanine aminotransferase) 01/27/2024 11:03:33 32 10-35 (U/L) Vickey mendiola Performing Location [facility] [place] [address]
--- OUTSIDE RECORDS SUMMARY | 2024-01-28 10:13 | External Medical Summary | Summary of Care ---
Author Name Unknown Organization [facility] Address [address] [address] Phone [phone] Care Team Providers Care Airdrop Systems Technician Name Role Phone Laura Lisseth Ag PA-C Primary Care Provider [phone] Encounter Details Date Type Department Care Team (Late st Contact Info) Description 01/22/2024 Result Scan Unspecified Department Karlie Delacruz CRNP [address] [place] [address] <No scans attached> Allergies Active Allergy Reactions Criticality Noted Date Comments Perflutren Lipid Microsphere Medium 020 Back pain Hydromorphone Hcl High 12/05/2017 Chest pain, SOB, trouble breathing Iodinated Contrast Media 02/19/2012 Sob, pain Ynhn-Pmoqsmhg-Eidxmhlgav Hives High 01/16/2012 documented as of this encounter (statuses as of 01/25/2024) Medications Medication Sig Dispensed Refills Start Date End Date Status Pantoprazole Sodium 40 MG Oral Tablet Delayed Release (Protonix) TAKE 1 TABLET BY MOUTH EVERY DAY 90 Tablet 1 08/26/2023 Active Albuterol Sulfate HFA 108 (90 Base) MCG/ACT Inhalation Aerosol Solution Inhale 2 Puffs by mouth every 4 hours as needed for Wheezing. 18 g 5 10/12/2023 Active Ipratropium-Albut alex 0.5-2.5 (3) MG/3ML Inhalation Solution (Duoneb)Indicatio ns:Cough, unspecified type,Bronchitis, complicated,Exace rbation of asthma, unspecified asthma severity, unspecified whether persistent Inhale 3 mL via nebulizer 4 times a day as needed for Wheezing or Dyspnea. 360 mL 3 11/04/2023 Active Trelegy Ellipta 100-62.5-25 MCG/ACT Aerosol Powder Breath Activated (Fluticasone-Umec lidinium-Vilanter ol)Indications:Ex acerbation of persistent asthma, unspecified asthma severity Inhale 1 Puff by mouth in the morning. 60 Blister Dosing Unit 5 11/30/2023 Active rifAXIMin 550 MG Oral Tablet (Xifaxan) Take 1 Tablet by mouth in the morning and 1 Tablet before bedtime. 60 Tablet 3 01/12/2024 Active Lactulose 10 GM/15ML Oral Solution (Constulose) Take 30 mL by mouth in the morning and 30 mL at noon and 30 mL before bedtime. 2700 mL 3 01/12/2024 Active Furosemide 20 MG Oral Tablet (Lasix) Take 1 Tablet by mouth in the morning and 1 Tablet before bedtime. 60 Tablet 3 01/12/2024 Active Albumin Human 25 % Intravenous Solution Administer 25g IV before and 25g IV after paracentesis 50 mL 01/21/2024 Active Naproxen 250 MG Oral Tablet (Naprosyn) Take 1 Tablet by mouth 2 times a day with morning and evening meals for 14 days. With food 28 Tablet 01/22/2024 Active documented as of this encounter (statuses as of 01/25/2024) Active Problems Problem Noted Date Diagnosed Date Hepatic encephalopathy 01/03/2024 Acute cystitis without hematuria 01/03/2024 Multifocal pneumonia 10/14/2023 Hypertensive kidney disease with stage 3a chronic kidney disease 07/27/2023 Celiac disease 06/11/2023 Transient alteration of awareness 06/04/2023 Stage 3a chronic kidney disease 03/05/2020 Overview: Per CKD protocol Asthma, mild persistent 10/26/2019 Periodic limb movement disorder (PLMD) 0 Spinal stenosis of lumbar re gion with neurogenic claudication 02/10/2019 Liver cirrhosis secondary to CHRIS (nonalcoholic steatohepatitis) 03/31/2016 Vitamin D deficiency 06/04/2015 documented as of this encounter (statuses as of 01/25/2024) Resolved Problems Problem Noted Date Diagnosed Date Resolved Date Hypokalemia 10/14/2023 10/17/2023 Rhinovirus infection 10/14/2023 024 Overview: history Depression, unspecified 03/05/202303/27 Morbid obesity 01/05/2023 06/11/2023 Generalized anxiety disorder 02/03/2022 01/05/2023 Chronic obstructive pulmonary disease 11/05/2021 06/11/2023 Vasculitis 12/27/2020 01/29/2021 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 01/29/2021 Asthma with severity to be determined 11/09/2019 06/09/2023 EMERY (dyspnea on exertion) 09/28/2019 Secondary esophageal varices without bleeding 09/14/1904/08/2023 Sacroiliitis, not elsewhere classified 09/14/2019 11/30/2020 BMI 45.0-49.9, adult 09/14/2019 020 Body mass index (BMI) of 40. 0 to 44.9 in adult 07/04/2019 04/08/2023 Overview: Per Obesity protocol - Per Obesity protocol Body mass index (BMI) of 45. 0 to 49.9 in adult 10/04/2018 07/07/2019 Overview: Per Obesity protocol Portal hypertension 01/08/2017 06/11/19 24 Body mass index (BMI) of 40. 0 to 44.9 in adult 01/08/2017 10/06/2018 Overview: Per Obesity protocol ICD-10 update of inactive term Kidney disease, chronic, sta ge III (GFR 30-59 ml/min) 09/01/2016 03/08/2020 Overview: Per CKD protocol #1 Edema 01/27/2014 11/30/2020 Paroxysmal SVT (supraventricular tachycardia) 01/16/20 12 04/08/2023 documented as of this encounter (statuses as of 01/25/2024) Immunizations Name Administration Dates Next Due COVID-19 mRNA, LNP-s, No Pre serve, 2-Dose Series (Pfizer) 08/10/2020,07/20/2020 COVID-19, LNP-s, No Preserve , Lupillo-sucrose, Ages 12+ (Pfizer) 07/16/2021 Pneumococcal Conjugate Vacci ne, 20-valent ([id number]) 01/05/2024(Deferred: Patient Refused) Seasonal Influenza, Trivalen t, (IIV3), PF, (Fluzone) 01/05/2024(Deferred: Patient Refused) TDAP (age 10 and older)(Boostrix) 07/29/2013 Zoster [...] Not asked 01/29/2021 PHQ-2 Answer Date Recorded PHQ Adult Total Score 1 10/19/2023 Hunger Vital Sign Answer Date Recorded Within the past 12 months, y ou worried that your food would run out before you got the money to buy more. Never true 10/19/19 24 Within the past 12 months, t he food you bought just didn't last and you didn't have money to get more. Never true 10/19/2023 Childcare Answer Date Recorded Do you feel overwhelmed with taking care of a child, family member or friend? No 10/19/2023 Does your family need help f inding childcare? (Household - for ages 0-17 years) Not on file 10/19/2023 Clothing Answer Date Recorded Have you been unable to get clothing when it was really needed? No 10/19/2023 Is your family able to get c lothes or diapers when needed? (Household - for ages 0-17 years) Not on file 10/19/2023 Personal Safety Answer Date Recorded Do you feel unsafe or have concerns for your saf ety? No 01/03/2024 Do you have concerns for you r family's safety? (Household - for ages 0-17 years) Not on file 01/03/2024 Utilities Answer Date Recorded Do you have trouble paying y our heating, water, or electric bill? No 01/03/2024 Is your family able to pay t he heat, water, or electric bill? (Household - for ages 0-17 years) Not on file 01/03/2024 Does your family have access to good internet? (Household - for ages 0-17 years) Not on file 01/03/2024 Employment Status Answer Date Recorded Are you unemployed or without regular income? No 10/19/2023 Does the household have a re lar source of income? (Household - for ages 0-17 years) Not on file 10/19/2023 Social Connections Answer Date Recorded How often do you feel lonely or isolated from th ose around you? Never 10/19/2023 Financial Resource Strain Answer Date R ecorded Do you have any trouble payi ng for your medications, or do you think you might in the future? No 10/19/2023 Does your family have troubl e paying for medicine? (Household - for ages 0-17 years) Not on file 10/19/2023 Transportation Needs Answer Date Record ed READ ONLY Do you have troubl e getting a ride to medical visits or work? Never True 01/03/2024 Does your family have a hard time getting a ride to doctors visits? (Household - for ages 0-17 years) Not on file 01/03/2024 Has lack of transportation k ept you from medical appointments, meetings, work, or from getting things needed for daily living? Check all that apply. No 01/03/2024 Do you (or your family) have trouble finding or paying for a ride (transportation)? (Household - for ages 0-17 years) Not on file 01/03/2024 Housing Stability Answer Date Recorded Do you currently live in a s helter or have no steady place to sleep at night? No 01/03/2024 READ ONLY Do you think you a re at risk of becoming homeless? No 01/03/2024 Does your family worry about paying for your home or becoming homeless? (Household - for ages 0-17 years) Not on file 0 01/03/2024 Are you homeless or worried that you might be in the future? No 01/03/2024 Are you (or your family) addison eless or worried that you might be in the future? (Household - for ages 0-17 years) Not on file Food Insecurity Answer Date Recorded Do you need food for this week? No 01/03/2024 Are you able to get enough f ood for your family? (Household - for ages 0-17 years) Not on file 01/03/2024 Does your family need food t his week? (Household - for ages 0-17 years) Not on file 01/03/2024 Do you always have enough fo od for your family? (Household - for ages 0-17 years) Not on file 01/03/2024 Sex and Gender Information Value Date Recorded Sex Assigned at Not on file Gender Identity Not on file Sexual Orientation Not on file Job Start Date Occupation Industry Not on file Not on file Not on file documented as of this encounter Functional Status Functional Status Response Date of Assess ment Are you deaf or do you have serious difficulty h earing? No 01/03/2024 Are you blind or do you have serious difficulty seeing, even when wearing glasses? No 01/03/2024 Do you have serious difficul ty walking or climbing stairs? (5 years old or older) No 01/03/2024 Do you have difficulty dress ing or bathing? (5 years old or older) No 01/03/2024 Because of a physical, menta l, or emotional condition, do you have difficulty doing errands alone such as visiting a doctor s office or shopping? (15 years old or older) No 01/03/20 Cognitive Status Response Date of Assessm ent Because of a physical, menta l, or emotional condition, do you have serious difficulty concentrating, remembering, or making decisions? (5 years old or older) No 01/03/2024 documented as of this encounter Plan of Treatment Upcoming Encounters Date Type Department Care Team (Latest Contact Info) Description 01/27/2024 9:40 AM EDT Office Visit Family Practice [facility]y Bach [address] [place] [address] Lisseth Sanchez PA-C [address] [facility] [place] [address] 03/23/2024 1:30 PM EST Office Visit MOHS Surgery [facility] [address] [place] [address] [facility]ikis Jones MD [address] [facility] [address] 03/30/2024 9:30 AM EST Office Visit Gastroenterology, [facility] [address] [place] [address] Maylin Swartz CRNP [address] [place] [address] 04/14/2024 2:00 PM EST Office Visit Family Practice [facility] [address] [facility], [place] [address] Lisseth Sanchez PA-C [address] [facility] [place] [address] 05/11/2024 10:00 AM EST Office Visit Pulmonary Medicine, [facility] [address] [place] [address] [facility] [address] [facility] [address] 06/10/2024 11:15 AM EST Hospital Encounter ENDO [facility], Endoscopy Room [facility] [address] [place] [id number] Tamica Ewing MD [address] [place] [address] 06/10/2024 11:15 AM EST - 06/10/2024 11:45 AM EST Surgery ENDO [facility], Endoscopy Room [facility] [address] [place] [phone] Tamica Ewing MD [address] [place] [address] COLONOSCOPY FLEXIBLE PROXIMAL DIAGNOSTIC Scheduled Procedures Name Priority Associated Diagnoses Date/Ti me COLONOSCOPY FLEXIBLE PROXIMA L DIAGNOSTIC Encounter for colorectal cancer screening 06/10/2024 11:15 AM EST ESOPHAGOGASTRODUODENOSCOPY ( EGD), FLEXIBLE, TRANSORAL, ENDOSCOPIC ULTRASOUND Recall Acute pancreatitis, unspecified complication status, unspecified pancreatitis type Health Maintenance Due Date Last Done Comments Pneumococcal Vaccine: Pediatrics (0 to 5 Years) and At-Risk Patients (6 to 64 Years) (1 of 2 - PCV) 1970 Hepatitis B Vaccine (1 of 3 - 19+ 3-dose series) 08/20/1983 HPV/Co-Test 1994 Cologuard 2009 Colonoscopy 2009 Colorectal Cancer Screening 2009 Fecal Occult Blood Test 2009 Sigmoidoscopy 2009 DTap/Tdap Vaccines (2 - Td or Tdap) 07/30/2023 07/29/2013 Mammogram 12/24/2023 12/23/2022, 11/26, 06/27/2020, Additional history exists COVID-19 Vaccine ( season) 2023 07/16/2021, 08/10/2020, 07/20/2020 Influenza Vaccine (FLU shot) (#1) 2023 Albumin/Creatinine Ratio 01/06/2024 01/05/2023 GFR 07/13/2024 01/14/2024, 12/26, 01/04/2024, Additional history exists Cervical Cancer Screening 10/14/2024 Pap Smear 10/14/2024 10/14/2021, 04/08/2020, 03/02/2017, Additional history exists Depression Screening 10/18/2024 10/19/2023 CKD HGB USE SMARTSET 60034 01/04/202501/04, 01/04/2024, 01/03/2024, Additional history exists CKD PHOS USE SMARTSET 31900 01/04/202512/26, 01/04/2024, 01/04/2024, Additional history exists Diabetes Screening 01/13/2027 01/14/2024, 0 01/05/2024, 01/04/2024, Additional history exists Lipid Panel 06/03/2028 06/03/2023, 03/27, 10/30/2016, Additional history exists Zoster Vaccines Completed 10/04/2019, 07/04/2019 HPV (Gardasil) Vaccine Aged Out No lo nger eligible based on patient's age to complete this topic MENINGOCOCCAL (MENACTRA/MENVEO) Aged Out No longer eligible based on patient's age to complete this topic documented as of this encounter Medical Devices Not on filedocumented as of this encounter Procedures Procedure Name Priority Date/Time Associated Diagnosis Comments OUTSIDE LAB RESULTS 01/22/2024 documented in this encounter Results * OUTSIDE LAB RESULTS (01/22/2024) 01/22/2024 [facility] documented in this encounter Advance Directives * Full Code (Latest Code Status on File) Date Activated Date Inactivated Comments 01/03/2024 5:15 PM 01/05/2024 7:53 PM This order re flects the patients wishes and were consensually agreed upon. Question Answer Comments Discussion of Advance Directives occurred with: Patient * Full Code Date Activated Date Inactivated Comments 10/13/2023 9:18 PM 10/17/2023 7:50 PM This order r eflects the patients wishes and were consensually agreed upon. Question Answer Comments Discussion of Advance Directives occurred with: Patient * Full Code Date Activated Date Inactivated Comments 06/03/2023 9:51 PM 06/04/2023 8:47 PM This order ref lects the patients wishes and were consensually agreed upon. Question Answer Comments Discussion of Advance Directives occurred with: Patient * Full Code Date Activated Date Inactivated Comments 11/29/2020 5:58 PM 12/02/2020 6:44 PM This order ref lects the patients wishes and were consensually agreed upon. Question Answer Comments Discussion of Advance Directives occurred with: Patient Healthcare Agents on File Name Relationship Healthcare Agent Relationshi p Communication Kamini Joseph Adult Child Health Care Repr esentative (appointed verbally by patient or by statute hierarchy) Care Teams Airdrop Systems Technician Relationship Specialty Start Date End Date Pennyjuly Kimberli, PHILLY [address] [facility] [place] [address] PCP - General Physician Cable Ferryboat Operator 09/06/18 documented as of this encounter
--- OUTSIDE RECORDS SUMMARY | 2024-01-28 10:13 | External Medical Summary ---
Author Name Unknown Address Unknown Organization [id number]:[facility] [address] [place] [address] Laboratory Report Ordering Provider Test Date Status 01/27/2024 11:03:33 Final Observation Date Value Abnormality Reference (Units ) Status Ammonia 01/27/2024 11:03:33 117 Above upper panic limits 11-35 (umol/L) Final Performing Location [facility] [address] [place] [address]
--- OUTSIDE RECORDS SUMMARY | 2024-01-28 10:13 | External Medical Summary | Summary of Care ---
Author Name Unknown Organization [facility] Address [address] [facility] [address] Phone [phone] Care Team Providers Care Chief Data Officer Name Role Phone Lisseth Sanchez PA-C Primary Care Provider [phone] Reason for Visit * Reason Comments Emergency Department Follow-Up Encounter Details Date Type Department Care Team (Latest Contact Info) Description 01/27/2024 9:40 AM EDT Office Visit [facility] [place] [address] [facility] [place] [address] Lisseth Sanchez PA-C [address] [facility] [place] [address] Chest wall pain*; Closed fracture of sixth thoracic vertebra with delayed healing, unspecified fracture morphology, subsequent encounter; Generalized edema; Hepatic encephalopathy (HCC); Liver cirrhosis secondary to CHRIS (nonalcoholic steatohepatitis) (HCC); Spinal stenosis of lumbar region with neurogenic claudication; Stage 3a chronic kidney disease (HCC); Iron deficiency anemia secondary to inadequate dietary iron intake; Tremors of nervous system Allergies Active Allergy Reactions Criticality Noted Date Comments Perflutren Lipid Microsphere Medium 020 Back pain Hydromorphone Hcl High 12/05/2017 Chest pain, SOB, trouble breathing Iodinated Contrast Media 02/19/2012 Sob, pain Bnek-Tyndeqmo-Xiaxdicqwp Hives High 01/16/2012 documented as of this encounter (statuses as of 01/27/2024) Medications Medication Sig Dispensed Refills Start Date End Date Status Pantoprazole Sodium 40 MG Oral Tablet Delayed Release (Protonix) TAKE 1 TABLET BY MOUTH EVERY DAY 90 Tablet 1 4 Active Albuterol Sulfate HFA 108 (90 Base) MCG/ACT Inhalation Aerosol Solution Inhale 2 Puffs by mouth every 4 hours as needed for Wheezing. 18 g 5 4 Active Ipratropium-Albu terol 0.5-2.5 (3) MG/3ML Inhalation Solution (Duoneb)Indicati ons:Cough, unspecified type,Bronchitis, complicated,Exac erbation of asthma, unspecified asthma severity, unspecified whether persistent Inhale 3 mL via nebulizer 4 times a day as needed for Wheezing or Dyspnea. 360 mL 3 4 Active Trelegy Ellipta 100-62.5-25 MCG/ACT Aerosol Powder Breath Activated (Fluticasone-Ume clidinium-Vilant alex)Indications :Exacerbation of persistent asthma, unspecified asthma severity Inhale 1 Puff by mouth in the morning. 60 Blister Dosing Unit 5 4 Active rifAXIMin 550 MG Oral Tablet (Xifaxan) Take 1 Tablet by mouth in the morning and 1 Tablet before bedtime. 60 Tablet 3 4 Active Lactulose 10 GM/15ML Oral Solution (Constulose) Take 30 mL by mouth in the morning and 30 mL at noon and 30 mL before bedtime. 2700 mL 3 4 Active Albumin Human 25 % Intravenous Solution Administer 25g IV before and 25g IV after paracentesis 50 mL 4 Active Naproxen 250 MG Oral Tablet (Naprosyn) Take 1 Tablet by mouth 2 times a day with morning and evening meals for 14 days. With food 28 Tablet 4 02/05/20 24 Active Furosemide 40 MG Oral Tablet (Lasix) Take 1 Tablet by mouth in the morning and 1 Tablet before bedtime. 60 Tablet 11 4 Active oxyCODONE HCl 5 MG Oral Tablet (Oxy IR)Indications:C hest wall pain,Closed fracture of sixth thoracic vertebra with delayed healing, unspecified fracture morphology, subsequent encounter Take 1 Tablet by mouth 2 times a day as needed for Pain, Severe. 20 Tablet 4 Active Baclofen 10 MG Oral Tablet (Lioresal) Take 1 Tablet by mouth in the morning and 1 Tablet before bedtime. 30 Tablet 1 4 Active Furosemide 20 MG Oral Tablet (Lasix) Take 1 Tablet by mouth in the morning and 1 Tablet before bedtime. 60 Tablet 3 4 01/27/20 24 Discontinued documented as of this encounter (statuses as of 01/27/2024) Active Problems Problem Noted Date Diagnosed Date [...] as of this encounter (statuses as of 01/27/2024) Resolved Problems Problem Noted Date Diagnosed Date [...] as of this encounter (statuses as of 01/27/2024) Immunizations Name Administration Dates Next Due COVID-19 mRNA, LNP-s, No Pre serve, 2-Dose Series (Pfizer) 08/10/2020,07/20/2020 COVID-19, LNP-s, No Preserve , Lupillo-sucrose, Ages 12+ (Pfizer) 07/16/2021 Pneumococcal Conjugate Vacci ne, 20-valent (Basalsl10) 01/05/2024(Deferred: Patient Refused) Seasonal Influenza, Trivalen t, (IIV3), PF, (Fluzone) 01/05/2024(Deferred: Patient Refused) TDAP (age 10 and older)(Boostrix) 07/29/2013 Zoster Vaccine Recombinant (Shingrix) 10/04/2019 ,07/04/2019 documented as of this encounter Social History Tobacco Use Types Packs/Day Years Used Date Smoking Tobacco: Never Smokeless Tobacco: Never Tobacco Cessation:Counseling Given: Not Answered Alcohol Use Standard Drinks/Week Comments Yes 0 [...] 10/19/2023 Does the household have a re gular source of income? (Household - for ages [...] Sign Reading Time Taken Comments Blood Pressure 110/70 01/27/2024 9:54 AM EDT Pulse 88 01/27/2024 9:54 AM EDT Temperature 36.3 C (97.4 F) 01/27/2024 9:54 AM ED T Respiratory Rate 16 01/27/2024 9:54 AM EDT Oxygen Saturation 97% 01/27/2024 9:54 AM EDT Inhaled Oxygen Concentration - - Weight 94.3 kg (208 lb) 01/27/2024 9:54 AM EDT Height 160 cm (5' 3") 01/27/2024 9:54 AM EDT Body Mass Index 36.85 01/27/2024 9:54 AM EDT documented in this encounter Functional [...] No 01/03/2024 documented as of this encounter Progress Notes * Lisseth Sanchez PA-C - 01/27/2024 10:15 AM EDT Images from the original note were not included. History of Present Illness Hannah Belle is a 58 year old female that presents for Emergency Department Follow-Up Patient is a 58 year old female who presents for a follow up after being in the ER on 01/22. Went tothe ER after a fall onto her chest and abdomen. Foot got caught and she fell. Pain is a 10/10. Feels in her chest. Burning pain. Not taking her lactulose as she has problems getting up to go the bathroom. Daughter feels that sheis more jaundiced. Is drinking well appetite is fair. Physical Exam Vitals: 01/27/24 0954 Temp: 36.3 C (97.4 F) Pulse: 88 Resp: 16 SpO2: 97% BP: 110/70 BMI: 36.85 BP Readings from Last 3 Encounters: 01/27/24 110/70 01/14/24 114/60 01/12/24 123/57 Wt Readings from Last 3 Encounters: 01/27/24 94.3 kg (208 lb) 01/14/24 85 kg (187 lb 6.4 oz) 01/12/24 84.8 kg (186 lb 14.4 oz) General: alert, well nourished, well developed, cooperative, and ill looking Head: Normocephalic, No masses, lesions, tenderness or abnormalities Eye Exam: PERRLA, extraocular movements intact, conjunctiva are pink and non- injected, Jaundice noted Neck: supple, no adenopathy, no bruits, thyroid normal size, non-tender, without nodularity Heart: regular rate & rhythm, no murmur, and no gallops Lungs: chest symmetric with normal AP diameter, no chest deformities noted, normal respiratory rateand rhythm, chest wall tenderness, diaphragmatic excursion normal, lungs clear to auscultation Abdomen: abdomen soft, non-tender, obese, normal bowel sounds, and no masses or organomegaly Extremities: less than 2 second capillary refill, no joint deformities, effusion, or inflammation, no skin discoloration, no clubbing, no cyanosis, moderate edema of both lower extremities I have reviewed the following results: CBC and BMP Assessment and Plan Chest wall pain (Primary) - oxyCODONE HCl 5 MG Oral Tablet (Oxy IR); Take 1 Tablet by mouth 2 times a day as needed for Pain,Severe. Closed fracture of sixth thoracic vertebra with delayed healing, unspecified fracture morphology, subsequent encounter - oxyCODONE HCl 5 MG Oral Tablet (Oxy IR); Take 1 Tablet by mouth 2 times a day as needed for Pain,Severe. Generalized edema - CBC; Future; Expected date: 01/27/2024 - COMPREHENSIVE METABOLIC PANEL; Future; Expected date: 01/27/2024 Hepatic encephalopathy (HCC) - AMMONIA; Future; Expected date: 01/27/2024 Liver cirrhosis secondary to CHRIS (nonalcoholic steatohepatitis) (HCC) Spinal stenosis of lumbar region with neurogenic claudication Stage 3a chronic kidney disease (HCC) Iron deficiency anemia secondary to inadequate dietary iron intake - IRON SCREEN, INCLUDING TIBC; Future; Expected date: 01/27/2024 - FERRITIN; Future; Expected date: 01/27/2024 Other orders - Furosemide 40 MG Oral Tablet (Lasix); Take 1 Tablet by mouth in the morning and 1 Tablet before bedtime. - Baclofen 10 MG Oral Tablet (Lioresal); Take 1 Tablet by mouth in the morning and 1 Tablet before bedtime. Wrap-Up Time: I spent a total of 30-39 minutes (exact time 38 mins) on the date of service in preparation, delivery, and documentation of the care provided to Hannah Belle excluding any time spent in the performance of separately billed services. documented in this encounter Nursing Notes * Jacqui Fall LPN - 01/27/2024 9:53 AM EDT The patient has been properly identified by confirmation of name and date of . Chief Complaint Patient presents with Emergency Department Follow-Up documented in this encounter Plan of Treatment Upcoming Encounters Date Type Department Care Team (Latest Contact Info) Description 02/08/2024 10:00 AM EDT Office Visit Transplant Clinic, [address] [phone] Flavio Steele MD [facility] [place], [place] Onel Ng MD [facility] [place], [place] Nurse [facility] [address] [place] [address] Molly Sevilla LSW [address] [place] [address] 02/08/2024 2:00 PM EDT Laboratory Outpatient Laboratory, [place] [address] [place] [address] [place], [facility] [address] [place] [address] 03/23/2024 1:30 PM EST Office Visit [facility] [address] Chikis Jones MD [address] [facility] [place] [address] 03/30/2024 9:30 AM EST Office Visit Gastroenterology, [facility] [address] [facility] [place] [address] Maylin Swartz CRNP [address] [facility] [place] [address] 04/14/2024 2:00 PM EST Office Visit Family Practice [facility] 200 [place] [address] Lisseth Sanchez PA-C [address] [facility] [place] [address] 05/11/2024 10:00 AM EST Office Visit Pulmonary Medicine, [facility] 132 [facility] [place] [address] Urban Mariee MD [address] [place] [address] 06/10/2024 11:15 AM EST Hospital Encounter ENDO [facility], Endoscopy Room [facility] [address] [place] [phone] Tamica Ewing MD 132 [facility] [place] [address] 06/10/2024 11:15 AM EST - 06/10/2024 11:45 AM EST Surgery ENDO [facility], Endoscopy Room [facility] [address] [place] [address] Tamica Ewing MD [address] [place] [address] COLONOSCOPY FLEXIBLE PROXIMAL DIAGNOSTIC Pending Results Name Type Priority Associated Diagnoses Date /Time AMMONIA Lab Routine Hepatic encephalopathy (HCC) 01/27/2024 11:03 AM EDT IRON SCREEN, INCLUDING TIBC Lab Routine Iron deficiency anemia secondary to inadequate dietary iron intake 01/27/2024 11:03 AM EDT FERRITIN Lab Routine Iron deficiency anemia secondary to inadequate dietary iron intake 01/27/2024 11:03 AM EDT Scheduled Orders Name Type Priority Associated Diagnoses Orde r Schedule AMMONIA Lab Routine Hepatic encephalopathy (HCC) Expected: 01/27/2024, Expires: 01/26/2025 IRON SCREEN, INCLUDING TIBC Lab Routine Iron deficiency anemia secondary to inadequate dietary iron intake Expected: 01/27/2024 (Approximate), Expires: 01/26/2025 FERRITIN Lab Routine Iron deficiency anemia secondary to inadequate dietary iron intake Expected: 01/27/2024 (Approximate), Expires: 01/26/2025 Scheduled Procedures Name Priority Associated Diagnoses Date/Ti [...] (#1) 2023 Albumin/Creatinine Ratio 01/06/2024 01/05/2023 GFR 07/27/2024 01/27/2024, 12/26, 01/05/2024, Additional history exists Cervical Cancer Screening 10/14/2024 Pap Smear 10/14/2024 10/14/2021, 04/0 08/2020, 03/02/2017, Additional history exists Depression Screening 10/18/2024 10/19/2023 CKD PHOS USE SMARTSET 06972 01/04/202512/26, 01/04/2024, 01/04/2024, Additional history exists CKD HGB USE SMARTSET 91773 01/26/202501/26, 01/05/2024, 01/04/2024, Additional history exists Diabetes Screening 01/26/2027 01/27/2024, 0 01/14/2024, 01/05/2024, Additional history exists Lipid Panel 06/03/2028 06/03/2023, [...] Procedure Name Priority Date/Time Associated Diagnosis Comments COMPREHENSIVE METABOLIC PANEL Routine 01/27/2024 11:03 AM EDT Tremors of nervous system CBC Routine 01/27/2024 11:03 AM EDT Generalized edema documented in this encounter Results * (ABNORMAL) COMPREHENSIVE METABOLIC PANEL (01/27/2024 11:03 AM EDT) Pathologist [facility] BUN 36(H) 6 - 20 mg/dL 01/27/2024 12:58 PM EDT [address] CREATININE 1.3(H) 0.5 - 1.0 mg/dL 01/27/2024 12:58 PM EDT [address] EGFR 50(L) >=60 mL/min 01/27/2024 12:58 PM T [address] Comment:eGFR is calculated b ased on the CKD-EPI 2020 equation. SODIUM 129(L) 135 - 146 mmol/L 01/27/2024 12:58 PM EDT [address] POTASSIUM 4.6 3.5 - 5.1 mmol/L 01/27/2024 12:58 PM EDT [address] CHLORIDE 96(L) 98 - 107 mmol/L 01/27/2024 12:58 PM EDT [address] CO2 19(L) 22 - 32 mmol/L 01/27/2024 12:58 PM T [place] [address] ANION GAP 14 7 - 15 mmol/L 01/27/2024 12:58 PM T [address] GLUCOSE 94 70 - 120 mg/dL 01/27/2024 12:58 PM T [address] Albumin 2.6(L) 3.8 - 5.0 g/dL 01/27/2024 12:58 PM T [address] AST 63(H) 10 - 35 U/L 01/27/2024 12:58 PM T [address] Alkaline Phosphatase 142(H) 35 - 130 U/L 01/27/2024 12:58 PM T [address] Bilirubin, Total 2.1(H) <=1.2 mg/dL 01/27/2024 12:58 PM T [address] CALCIUM 8.2(L) 8.4 - 10.2 mg/dL 01/27/2024 12:58 PM EDT [address] Protein 5.2(L) 6.0 - 8.3 g/dL 01/27/2024 12:58 PM EDT [address] ALT 32 10 - 35 U/L 01/27/2024 12:58 PM EDT [facility] Blood Venous blood specimen / Unknown Venipuncture / Unknown 01/27/2024 11:03 AM EDT 01/27/2024 11:03 AM EDT Lisseth Ag Laura [facility] LAB BLOOD ORDERABLES [place] [address] [place], [place] [id number] * (ABNORMAL) CBC (01/27/2024 11:03 AM EDT) WBC 8.97 4.00 - 10.80 K/uL 01/27/2024 11:11 AM EDT [place] [address] RBC 2.40 3.85 - 5.15 M/uL 01/27/2024 11:11 AM EDT [place] [address] HGB 7.6(L) 12.0 - 15.3 g/dL 01/27/2024 11:11 AM EDT [place] [address] HCT 23.4(L) 36.0 - 45.2 % 01/27/2024 11:11 AM EDT [place] [address] MCV 97.5 81.5 - 97.5 fL 01/27/2024 11:11 AM EDT [place] [address] MCH 31.7 27.0 - 34.0 pg 01/27/2024 11:11 AM EDT [place] [address] MCHC 32.5 32.0 - 36.0 g/dL 01/27/2024 11:11 AM EDT [place] [address] RDW 15.4 11.5 - 15.5 % 01/27/2024 11:11 AM EDT [address] PLT 227 140 - 400 K/uL 01/27/2024 11:11 AM EDT [address] MPV 9.2 6.6 - 11.1 fL 01/27/2024 11:11 AM EDT [place] [address] Blood Venous blood specimen / Unknown Venipuncture / Unknown 01/27/2024 11:03 AM EDT 01/27/2024 11:03 AM EDT July Laura [facility] LAB BLOOD ORDERABLES [facility] [place] [address] [place] [address] documented in this encounter Visit Diagnoses Diagnosis Chest wall pain- Primary Painful respiration Closed fracture of sixth thoracic vertebra with delayed healing, unspecified fracture morphology, subsequent encounter Generalized edema Edema Hepatic encephalopathy (HCC) Hepatic encephalopathy Liver cirrhosis secondary to CHRIS (nonalcoholic steatohepatitis) (HCC) Other chronic nonalcoholic liver disease Spinal stenosis of lumbar region with neurogenic claudication Spinal stenosis, lumbar region, with neurogenic claudication Stage 3a chronic kidney disease (HCC) Iron deficiency anemia secondary to inadequate dietary iron intake Tremors of nervous system Abnormal involuntary movements Encounter for colorectal cancer screening Special screening for malignant neoplasms, colon documented in this encounter Advance Directives * [...] Agents on File Name Relationship Healthcare Agent [facility] Communication Kamini Joseph Adult Child Health Care Repr esentative (appointed verbally by patient or by statute hierarchy) Care Teams Chief Data Officer Relationship Specialty Start Date End Date Lisseth Sanchez PA-C [address] [place] [address] PCP - General Physician Powerhouse Tender 09/06/18 documented as of this encounter
--- OUTSIDE RECORDS SUMMARY | 2024-01-28 10:13 | External Medical Summary | Summary of Care ---
Author Name Unknown Organization [facility] Address [address] [place] [address] Phone [phone] Care Team Providers Care Zigzag Tunnel Elastic Operator Name Role Phone Lisseth Sanchez PA-C Primary Care Provider [phone] Reason for Visit * Reason Onset Date Comments Test Results 01/17/2024 Unexpected or In determinate Result Encounter Details Date Type Department Care Team (Late st Contact Info) Description 01/17/2024 Telephone Family Practice [facility] [address] [place] [address] Lisseth Sanchez PA-C 200 [facility] [place] [address] Test Results (Unexpected or Indeterminate ... Allergies Active Allergy Reactions Criticality Noted Date Comments Perflutren Lipid Microsphere Medium 020 Back pain Hydromorphone Hcl High 12/05/2017 Chest pain, SOB, trouble breathing Iodinated Contrast Media 02/19/2012 Sob, pain Ngbg-Ibaeiako-Nsqfjjtioc Hives High 01/16/2012 documented as of this encounter (statuses as of 01/26/2024) Medications Medication Sig Dispensed Refills Start Date End Date Status Pantoprazole Sodium 40 MG Oral Tablet Delayed Release (Protonix) TAKE 1 TABLET BY MOUTH EVERY DAY 90 Tablet 1 08/26/2023 Active Albuterol Sulfate HFA 108 (90 Base) MCG/ACT Inhalation Aerosol Solution Inhale 2 Puffs by mouth every 4 hours as needed for Wheezing. 18 g 5 10/12/2023 Active Ipratropium-Albute rol 0.5-2.5 (3) MG/3ML Inhalation Solution (Duoneb)Indication s:Cough, unspecified type,Bronchitis, complicated,Exacer bation of asthma, unspecified asthma severity, unspecified whether persistent Inhale 3 mL via nebulizer 4 times a day as needed for Wheezing or Dyspnea. 360 mL 3 11/04/2023 Active Trelegy Ellipta 100-62.5-25 MCG/ACT Aerosol Powder Breath Activated (Fluticasone-Umecl idinium-Vilanterol )Indications:Exace rbation of persistent asthma, unspecified asthma severity Inhale [...] before bedtime. 60 Tablet 3 01/12/2024 Active Naproxen 250 MG Oral Tablet (Naprosyn) Take 1 Tablet by mouth 2 times a day with morning and evening meals for 14 days. With food 28 Tablet 01/22/2024 02/05/2024 Active documented as of this encounter (statuses as of 01/26/2024) Active Problems Problem Noted Date Diagnosed Date [...] as of this encounter (statuses as of 01/26/2024) Resolved Problems Problem Noted Date Diagnosed Date [...] as of this encounter (statuses as of 01/26/2024) Immunizations Name Administration Dates Next Due COVID-19 mRNA, LNP-s, No Pre serve, 2-Dose Series ([employer]) 08/10/2020,07/20/2020 COVID-19, LNP-s, No Preserve , Lupillo-sucrose, Ages 12+ (Pfizer) 07/16/2021 Pneumococcal Conjugate Vacci ne, 20-valent (Nbidume65) 01/05/2024(Deferred: Patient Refused) Seasonal Influenza, Trivalen t, [...] No 01/03/2024 documented as of this encounter Miscellaneous Notes * Telephone Encounter - Cookie Flores, MED ASSIST - 01/26/2024 11:37 AM EDT Please assist patient with scheduling appt. * Addendum Note - Gustavo Yee DO - 01/22/2024 1:11 PM EDTAddended by: GUSTAVO YEE on: 01/22/2024 01:11 PM Modules accepted: Orders * Telephone Encounter - Lisseth Sanchez PA-C - 01/18/2024 6:51 PM EDT my[facility]neer sent. * Telephone Encounter - Svetlana Dubon OSA - 01/18/2024 8:23 AM EDT Pt would like a call back about her x-rays. Please advise. * Telephone Encounter - Susie Lawson OSA - 01/17/2024 11:22 AM EDT Hello- The radiologist discovered an unexpected or indeterminate finding on Hannah Sandi Belle ([id number]) andasks that you review the following report. IMPRESSION Moderate compression deformity within the upper thoracic spine, likely the T5 level which is new since the prior CT of the chest dated 10/14/2023. Study Type:XR C SPINE 4-5 VIEWS Date of Study: 01/14/2024 Please respond to this encounter to acknowledge receipt of this message and take responsibility to ensure this report is reviewed. Thank you, ELSA Mayfield Client Service [facility] Medicine [place] documented in this encounter Plan of Treatment Upcoming Encounters Date Type Department Care Team (Latest Contact Info) Description 01/27/2024 9:40 AM EDT Office Visit [facility] [address] [place] [address] Lisseth Sanchez PA-C [address] [place] [address] 03/23/2024 1:30 PM EST Office Visit [facility] Surgery [facility] [address] [place] [address] Chikis Jones MD [facility] [place] [address] 03/30/2024 9:30 AM EST Office Visit Gastroenterology, [facility] [address] [facility] [place] [address] Maylin Swartz CRNP [address] [place] [address] 04/14/2024 2:00 PM EST Office Visit [facility] [address] [place] [address] Lisseth Sanchez PA-C [address] [facility] [place] [address] 05/11/2024 10:00 AM EST Office Visit Pulmonary Medicine, [facility] [address] [facility] [place] [address] Urban Mariee MD [address] [place] [address] 06/10/2024 11:15 AM EST Hospital Encounter ENDO [facility], Endoscopy Room [facility] [address] [place] [phone] Tamica Ewing MD [address] [place] [address] 06/10/2024 11:15 AM EST - 06/10/2024 11:45 AM EST Surgery ENDO [facility], Endoscopy Room [facility] [address] [place] [address] Tamica Ewing MD [address] [place] [address] COLONOSCOPY FLEXIBLE PROXIMAL DIAGNOSTIC Scheduled Procedures Name [...] Screening 10/18/2024 10/19/2023 CKD HGB USE SMARTSET 71875 01/04/202501/04, 01/04/2024, 01/03/2024, Additional history exists CKD PHOS USE SMARTSET 60741 01/04/202512/26, 01/04/2024, 01/04/2024, Additional history exists Diabetes [...] filedocumented as of this encounter Advance Directives * Full Code [...] Agents on File Name Relationship Healthcare Agent [facility] p Communication Kamini Joseph Adult Child Health Care Repr esentative (appointed verbally by patient or by statute hierarchy) Care Teams Zigzag Tunnel Elastic Operator Relationship Specialty Start Date End Date Laura July PHILLY Ag [address] [place] [address] PCP - General Physician Loss Prevention Operations Manager 09/06/18 documented as of this encounter
--- OUTSIDE RECORDS SUMMARY | 2024-01-28 10:13 | External Medical Summary | Summary of Care ---
Author Name Unknown Organization [facility] Address [address] [place] [address] Phone [phone] Care Team Providers Care Cnc Operator Name Role Phone Laura Lisseth Ag PA-C Primary Care Provider [phone] Reason for Visit * Reason Onset Date Comments Pre-Transplant Evaluation 01/26/2024 Encounter Details Date Type Department Care Team (Late st Contact Info) Description [facility] [address] [place] [address] Aye Jenkins, RN Pre-Transplant Evaluation Allergies Active Allergy Reactions Criticality Noted Date Comments Perflutren Lipid Microsphere Medium 020 Back pain Hydromorphone Hcl High 12/05/2017 Chest pain, SOB, trouble breathing Iodinated Contrast Media 02/19/2012 Sob, pain Zddc-Kfxzzryn-Xejbphkpjh Hives High 01/16/2012 documented as of this [...] mRNA, LNP-s, No Pre serve, 2-Dose Series ([employer]) 08/10/2020,07/20/2020 COVID-19, LNP-s, No Preserve , Lupillo-sucrose, Ages 12+ (Pfizer) 07/16/2021 Pneumococcal Conjugate Vacci ne, 20-valent ([id number]) 01/05/2024(Deferred: Patient Refused) Seasonal Influenza, Trivalen t, [...] encounter Miscellaneous Notes * Telephone Encounter - Aye Jenkins RN - 01/26/2024 5:42 PM EDT Transplant Nurse Coordinator Chart Review Hannah Belle is a 58 year old 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 Hannah shares that she learned about her liver disease in 2016 when she developed "bad pains in her stomach and needed to be seen in the emergency room". She was recently admitted to [facility] for an episode of hepatic encephalopathy thought to be brought on by a UTI. 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 She denies any heavy alcohol use. Her last drink of alcohol was August. She denies any smoking history She denies any drug use She has lower extremity edema and had her first paracentesis on 01/22/24. She is taking Furosemide for management of her volume status. She has had some recent hepatic encephalopathy and is currently prescribed Lactulose and Xifaxan. She was able to complete her ADLs and walk independently until this weekend when she fell on a cement floor and suffered a chest wall contusion. A CT scan of the Abd/Pelvis was completed at [facility] on 01/23/24. She gave verbalpermission for me to request that the imaging be pushed into the [facility] system. A Chest CT was completed on 01/23/24 ans showed no pulmonary masses, consolidation, or pneumothorax. EGD was last completed on 04/02/22. Mammogram was completed on 12/23/22 A colonoscopy is scheduled for 06/10/24 She does not remember the date of her last pap test but thinks it was more than 5 years ago. Chart review shows that she had a LEEP procedure completed on 07/31/16 that showed a portion of benign cervix. I reviewed the allocation of liver transplants based on MELD scores. We discussed that her MELD score calculated from her last set of labs was 17. She has accepted an appointment for initial evaluation on February 07. She is aware that she will need to bring a support person with her to the initial evaluation. documented in this encounter Plan of Treatment Upcoming Encounters Date Type Department Care Team (Latest Contact Info) Description 01/27/2024 9:40 AM EDT Office Visit [facility] [address] [place] [address] Lisseth Sanchez PA-C [address] [place] [address] 03/23/2024 1:30 PM EST Office Visit [facility] [address] [place] [address] Chikis Jones MD [address] [place] [address] 03/30/2024 9:30 AM EST Office Visit Gastroenterology, [facility] [address] [place] [address] Maylin Swartz CRNP [address] [facility] [place] [address] 04/14/2024 2:00 PM EST Office Visit [facility] [address] [place] [address] Lisseth Sanchez PA-C [address] [place] [address] 05/11/2024 10:00 AM EST Office Visit Pulmonary Medicine, [facility] [address] [facility] [place] [address] [facility] [address] [facility] [address] 06/10/2024 11:15 AM EST Hospital Encounter [facility]O [facility], Endoscopy Room [facility] [address] [place] [phone] Tamica Ewing MD [address] [facility] [place] [address] 06/10/2024 11:15 AM EST - 06/10/2024 11:45 AM EST Surgery ENDO [facility], Endoscopy Room [facility] [address] [place] [phone] Tamica Ewing MD [address] [place] [address] COLONOSCOPY FLEXIBLE PROXIMAL DIAGNOSTIC Scheduled Orders Name Type Priority Associated Diagnoses Orde r Schedule COMPREHENSIVE METABOLIC PANEL Lab Routine Liver cirrhosis secondary to CHRIS (nonalcoholic steatohepatitis) (HCC) Pre-transplant evaluation for chronic liver disease Expected: 02/08/2024 (Approximate), Expires: 01/30/2025 GGTP Lab Routine Liver cirrhosis secondary to CHRIS (nonalcoholic steatohepatitis) (HCC) Pre-transplant evaluation for chronic liver disease Expected: 02/08/2024 (Approximate), Expires: 01/30/2025 T4, FREE Lab Routine Liver cirrhosis secondary to CHRIS (nonalcoholic steatohepatitis) (HCC) Pre-transplant evaluation for chronic liver disease Expected: 02/08/2024 (Approximate), Expires: 01/30/2025 TSH Lab Routine Liver cirrhosis secondary to CHRIS (nonalcoholic steatohepatitis) (HCC) Pre-transplant evaluation for chronic liver disease Expected: 02/08/2024 (Approximate), Expires: 01/30/2025 ALPHA-FETOPROTEIN TUMOR MARKER Lab Routine Liver cirrhosis secondary to CHRIS (nonalcoholic steatohepatitis) (HCC) Pre-transplant evaluation for chronic liver disease Expected: 02/08/2024 (Approximate), Expires: 01/30/2025 HEPATITIS C ANTIBODY SCREEN WITH PROGRESSION TO HEPATITIS C RNA QUANTITATIVE Lab Routine Liver cirrhosis secondary to CHRIS (nonalcoholic steatohepatitis) (HCC) Pre-transplant evaluation for chronic liver disease Expected: 02/08/2024 (Approximate), Expires: 01/30/2025 CMV IGG ANTIBODY Lab Routine Liver cirrhosis secondary to CHRIS (nonalcoholic steatohepatitis) (HCC) Pre-transplant evaluation for chronic liver disease Expected: 02/08/2024 (Approximate), Expires: 01/30/2025 EBV VIRAL CAPSID ANTIGEN IGG ANTIBODY Lab Routine Liver cirrhosis secondary to CHRIS (nonalcoholic steatohepatitis) (HCC) Pre-transplant evaluation for chronic liver disease Expected: 02/08/2024 (Approximate), Expires: 01/30/2025 VARICELLA-ZOSTER VIRUS ANTIBODY, IGG Lab Routine Liver cirrhosis secondary to CHRIS (nonalcoholic steatohepatitis) (HCC) Pre-transplant evaluation for chronic liver disease Expected: 02/08/2024 (Approximate), Expires: 01/30/2025 RPR Lab Routine Liver cirrhosis secondary to CHRIS (nonalcoholic steatohepatitis) (HCC) Pre-transplant evaluation for chronic liver disease Expected: 02/08/2024 (Approximate), Expires: 01/30/2025 QUANTIFERON TB GOLD PLUS Lab Routine Liver cirrhosis secondary to CHRIS (nonalcoholic steatohepatitis) (HCC) Pre-transplant evaluation for chronic liver disease Expected: 02/08/2024 (Approximate), Expires: 01/30/2025 CBC WITH WBC DIFFERENTIAL Lab Routine Liver cirrhosis secondary to CHRIS (nonalcoholic steatohepatitis) (HCC) Pre-transplant evaluation for chronic liver disease Expected: 02/08/2024 (Approximate), Expires: 01/30/2025 PT INR Lab Routine Liver cirrhosis secondary to CHRIS (nonalcoholic steatohepatitis) (HCC) Pre-transplant evaluation for chronic liver disease Expected: 02/08/2024 (Approximate), Expires: 01/30/2025 APTT Lab Routine Liver cirrhosis secondary to CHRIS (nonalcoholic steatohepatitis) (HCC) Pre-transplant evaluation for chronic liver disease Expected: 02/08/2024 (Approximate), Expires: 01/30/2025 URINALYSIS, REFLEX TO MICROSCOPIC Lab Routine Liver cirrhosis secondary to CHRIS (nonalcoholic steatohepatitis) (HCC) Pre-transplant evaluation for chronic liver disease Expected: 02/08/2024 (Approximate), Expires: 01/30/2025 TYPE AND SCREEN Lab Routine Liver cirrhosis secondary to CHRIS (nonalcoholic steatohepatitis) (HCC) Pre-transplant evaluation for chronic liver disease Expected: 02/08/2024 (Approximate), Expires: 01/30/2025 ABO/RH Lab Routine Liver cirrhosis secondary to CHRIS (nonalcoholic steatohepatitis) (HCC) Pre-transplant evaluation for chronic liver disease Expected: 02/08/2024 (Approximate), Expires: 01/30/2025 HIV ANTIGEN & ANTIBODY SCREEN W/ CONFIRMATION Lab Routine Liver cirrhosis secondary to CHRIS (nonalcoholic steatohepatitis) (HCC) Pre-transplant evaluation for chronic liver disease Expected: 02/08/2024 (Approximate), Expires: 01/30/2025 PHOSPHORUS Lab Routine Liver cirrhosis secondary to CHRIS (nonalcoholic steatohepatitis) (HCC) Pre-transplant evaluation for chronic liver disease Expected: 02/08/2024 (Approximate), Expires: 01/30/2025 MAGNESIUM Lab Routine Liver cirrhosis secondary to CHRIS (nonalcoholic steatohepatitis) (HCC) Pre-transplant evaluation for chronic liver disease Expected: 02/08/2024 (Approximate), Expires: 01/30/2025 LIPID PANEL WITHOUT DIRECT LDL Lab Routine Liver cirrhosis secondary to CHRIS (nonalcoholic steatohepatitis) (HCC) Pre-transplant evaluation for chronic liver disease Expected: 02/08/2024 (Approximate), Expires: 01/30/2025 HEMOGLOBIN A1C Lab Routine Liver cirrhosis secondary to CHRIS (nonalcoholic steatohepatitis) (HCC) Pre-transplant evaluation for chronic liver disease Expected: 02/08/2024 (Approximate), Expires: 01/30/2025 ETHANOL, MEDICAL Lab Routine Liver cirrhosis secondary to CHRIS (nonalcoholic steatohepatitis) (HCC) Pre-transplant evaluation for chronic liver disease Expected: 02/08/2024 (Approximate), Expires: 01/30/2025 TOXICOLOGY, URINESCREEN W/ CONFIRMATION Lab Routine Liver cirrhosis secondary to CHRIS (nonalcoholic steatohepatitis) (HCC) Pre-transplant evaluation for chronic liver disease Expected: 02/08/2024 (Approximate), Expires: 01/30/2025 PHOSPHATIDYLETHANOL, BLOOD Lab Routine Liver cirrhosis secondary to CHRIS (nonalcoholic steatohepatitis) (HCC) Pre-transplant evaluation for chronic liver disease Expected: 02/08/2024 (Approximate), Expires: 01/30/2025 Scheduled Procedures Name Priority Associated Diagnoses Date/Ti [...] Cancer Screening 10/14/2024 Pap Smear 10/14/2024 10/14/2021, 0408/2020, 03/02/2017, Additional history exists Depression Screening 10/18/2024 10/19/2023 CKD HGB USE SMARTSET 28153 01/04/202501/04, 01/04/2024, 01/03/2024, Additional history exists CKD PHOS USE SMARTSET 33383 01/04/202512/26, 01/04/2024, 01/04/2024, Additional history exists Diabetes [...] as of this encounter Visit Diagnoses Diagnosis Pre-transplant evaluation for chronic liver disease- Primary Other specified pre-operative examination Liver cirrhosis secondary to CHRIS (nonalcoholic steatohepatitis) (HCC) Other chronic nonalcoholic liver disease Encounter for colorectal cancer screening Special screening [...] Agents on File Name Relationship Healthcare Agent [facility] p Communication Kamini Houck Adult Child Health Care Repr esentative (appointed verbally by patient or by statute hierarchy) Care Teams Cnc Operator Relationship Specialty Start Date End Date LauraJuly PHILLY Ag [address] [place] [address] PCP - General Physician Leather Cartridge Belt Maker 09/06/18 documented as of this encounter
--- OUTSIDE RECORDS SUMMARY | 2024-01-28 10:13 | External Medical Summary ---
Author Name Unknown Address Unknown Organization K09:[facility] [place] [place] [address] Laboratory Report Ordering Provider Test Date Status 01/27/2024 11:03:33 Final Observation Date Value Abnormality Reference (Units ) Status WBC, Total 01/27/2024 11:03:33 8.97 4.00-10.8 0 (K/uL) Final RBC 01/27/2024 11:03:33 2.40 3.85-5.15 (M/uL) Final Hemoglobin 01/27/2024 11:03:33 7.6 Below low normal 12 .0-15.3 (g/dL) Final HCT 01/27/2024 11:03:33 23.4 Below low normal 36. 0-45.2 (%) Final MCV 01/27/2024 11:03:33 97.5 81.5-97.5 (fL) Final MCH 01/27/2024 11:03:33 31.7 27.0-34.0 (pg) Final MCHC 01/27/2024 11:03:33 32.5 32.0-36.0 (g/dL) Final RDW 01/27/2024 11:03:33 15.4 11.5-15.5 (%) Final Platelets 01/27/2024 11:03:33 227 140-400 (K /uL) Final MPV 01/27/2024 11:03:33 9.2 6.6-11.1 ( fL) Final Performing Location [facility] [place] [place] [address]
--- OUTSIDE RECORDS SUMMARY | 2024-01-28 10:40 | External Medical Summary ---
Author Name Unknown Address Unknown Organization K01:[facility] - [address] [place] [id number] Laboratory Report Ordering Provider Test Date Status 01/27/2024 11:03:33 Final Observation Date Value Abnormality Reference (Units ) Status Iron 01/27/2024 11:03:33 16 Below low normal 33-151 (ug/dL) Final Iron-binding capacity 01/27/2024 11:03:33 214 Below low normal 250-425 (ug/dL) Final Transferrin Sat % 01/27/2024 11:03:33 7 Below low normal 15-55 (%) Final Performing Location [facility] - [address] [place] [address]
--- OUTSIDE RECORDS SUMMARY | 2024-01-28 10:40 | External Medical Summary ---
Author Name Unknown Address Unknown Organization K01:[facility] [place] - [address] [facility] [id number] Laboratory Report Ordering Provider Test Date Status 01/27/2024 11:03:33 Final Observation Date Value Abnormality Reference (Units ) Status Ferritin 01/27/2024 11:03:33 144 13-150 (ng /mL) Final Postmenopausal women have hi gher ferritin levels than pre-menopausal women. The above reference interval is based on pre-menopausal women. Performing Location LAB[facility]ORY [facility] - [address] [place] [address]
--- NOTE | 2024-01-28 11:32 | GI REPORT ---
[facility] Patient: CHRISTINA JEREZ : 1965 Sex at : Female Age: 58 Years Procedure: Upper GI endoscopy Date: 01/28/2024 Attending Physician: Talon Black MD Referring MD: Referred Self; July Indications: - Recent gastrointestinal bleeding - Melena, worsening of anemia, history of esophageal varices, cirrhosis, celiac disease. Medications: - Monitored Anesthesia Care Complications: - No immediate complications. Estimated Blood Loss: - Estimated blood loss: None. Procedure: - The egd scope was introduced through the mouth and advanced to the third part of the duodenum. - The upper GI endoscopy was accomplished without difficulty. - The patient tolerated the procedure well. Findings: - The Z-line was regular and was found 36 cm from the incisors. - A scar was found in the lower third of the esophagus, 34 cm from the incisors. - Grade I varices were found in the lower third of the esophagus. Sen red spot was seen Estimated blood loss was minimal. Two bands were successfully placed with complete eradication, resulting in deflation of varices. There was no bleeding during the procedure. - Mild portal hypertensive gastropathy was found in the gastric body and in the gastric fundus. Otherwise the stomach was normal. There was no evidence of gastric varices. - The examined duodenum was normal. Biopsies for histology were taken with a cold forceps for evaluation of celiac disease. Impression: - Z-line regular, 36 cm from the incisors. - Scar in the lower third of the esophagus. - Grade I esophageal varices. Completely eradicated. Banded. - Sen red spot was seen - Portal hypertensive gastropathy. - Otherwise the stomach was normal. There was no evidence of gastric varices. - Normal examined duodenum. Biopsied. Recommendation: - Observe patient's clinical course. - Continue beta-carol - Liquid diet, advance as tolerated Procedure Code(s): - 06207, Esophagogastroduodenoscopy, flexible, transoral; with band ligation of esophageal/gastric varices - 56359, Esophagogastroduodenoscopy, flexible, transoral; with biopsy, single or multiple Diagnosis Code(s): - K92.2, Gastrointestinal hemorrhage, unspecified - K22.89, Other specified disease of esophagus - I85.00, Esophageal varices without bleeding - K76.6, Portal hypertension - K31.89, Other diseases of stomach and duodenum CPT(R) - 2023 copyright [employer]. All Rights Reserved. The CPT codes, CCI edits and ICD codes generated are intended as suggestions and were generated based on input data. These codes are preliminary and upon health/safety job titles review may be revised to meet current compliance and payer requirements. The provider is responsible for the final determination of appropriate codes, and modifiers. Talon Black M.D. , This document has been electronically signed. Note Initiated:01/28/2024 Note Completed:01/28/2024 11:31 AM [email or web address]\[id number]
--- NOTE | 2024-01-28 12:32 | Anesthesiology Progress Note ---
Date of Service January 28, 2024 Anesthesia Post Procedure Vital Signs Vital Signs: Temp Pulse Pulse Pulse Resp BP BP 01/28/24 12:00 91 H 16 01/28/24 11:45 94 H 16 01/28/24 11:27 103 H 103 H 14 01/28/24 10:45 37.4 C 92 H 20 108/57 L 01/28/24 10:18 36.5 C 01/28/24 10:07 01/28/24 10:00 90 01/28/24 09:59 01/28/24 09:59 36.9 C 94 H 16 01/28/24 08:33 82 01/28/24 08:33 01/28/24 07:50 36.4 C L 84 17 01/28/24 07:34 35.6 C L 01/28/24 06:53 35.5 C L 01/28/24 06:15 35.4 C L 01/28/24 05:41 35.2 C L 01/28/24 05:41 16 100/64 01/28/24 04:41 35.8 C L 81 16 106/69 01/28/24 03:41 36.1 C L 76 16 119/66 01/28/24 03:11 36.3 C L 76 16 116/70 01/28/24 03:10 36.3 C L 76 16 116/70 01/28/24 02:56 36.3 C L 83 16 108/59 L 01/28/24 02:40 36.3 C L 77 16 113/71 01/28/24 02:21 36.3 C L 79 16 113/71 01/28/24 00:12 01/28/24 00:12 36.4 C L 83 16 112/74 01/27/24 20:30 79 18 100/57 L 01/27/24 20:12 81 01/27/24 19:46 36.3 C L 83 20 130/82 BP Pulse Ox O2 Del Method O2 Flow Rate 01/28/24 12:00 126/72 97 Room Air 01/28/24 11:45 126/64 97 Room Air 01/28/24 11:27 102/55 L 98 Room Air 01/28/24 10:45 Nasal Cannula 2 01/28/24 10:18 01/28/24 10:07 Nasal Cannula 2 01/28/24 10:00 01/28/24 09:59 93 Nasal Cannula 2 01/28/24 09:59 100/57 L 90 Room Air 01/28/24 08:33 01/28/24 08:33 Room Air 01/28/24 07:50 85/51 L 92 Room Air 01/28/24 07:34 01/28/24 06:53 01/28/24 06:15 01/28/24 05:41 01/28/24 05:41 93 01/28/24 04:41 94 01/28/24 03:41 95 01/28/24 03:11 95 01/28/24 03:10 95 01/28/24 02:56 94 01/28/24 02:40 94 01/28/24 02:21 95 01/28/24 00:12 Room Air 01/28/24 00:12 92 Room Air 01/27/24 20:30 92 Room Air 01/27/24 20:12 01/27/24 19:46 95 Room Air Pain Intensity Back: Pain Intensity: 10 Transfer of Care Handoff Completed per policy Notes Mental Status: alert / awake / arousable and participated in evaluation Patient Amnestic to Procedure: Yes Nausea / Vomiting: adequately controlled Pain: adequately controlled Airway Patency, RR, SpO2: stable & adequate BP & HR: stable & adequate Hydration State: stable & adequate Anesthetic Complications: no major complications apparent and Pt Satisfied with anesthetic care
[2024-01-28] MEDS: LIDOCAINE 2% 2 ML VIAL/AMP(20MG/ML) INFIL ONE (12:50)
[2024-01-28] MEDS: PROPOFOL IV EMULSION 10 MG/ML 20 ML VIAL IV ONE ×2 (12:50→12:51)
[2024-01-28 13:30] LABS: Hematocrit (blood only) 20.4 % (37.0-47.0)
[2024-01-28] MEDS: oxyCODONE HCL IR 5 MG TAB (IMMEDIATE RELEASE) PO PRN (13:43)
[2024-01-28 15:27] LABS: Hematocrit (blood only) 21.1 % (37.0-47.0); Hemoglobin 7.2 g/dl (12.0-16.0)
[2024-01-28] MEDS: IRON SUCROSE 200 MG in 0.9 % SODIUM CHLORIDE 100 ML IV ONE (16:44)
[2024-01-28 17:34] LABS: Folate (Folic Acid),Ser orPlas 6.13 ng/ml (>5.38)
[2024-01-28 17:36] LABS: Vitamin B12 > 1500 pg/ml (180-914)
--- NOTE | 2024-01-28 18:05 | Hospitalist Progress Note ---
Date of Service January 28, 2024 Assessment & Plan (1) Hepatic encephalopathy: Plan Pt is a 58yoF with PMHx significant for hypertension, PSVT, COPD, NAFLD cirrhosis, history of esophageal varices as per records, portal hypertension, celiac disease, chronic hyponatremia, leukocytoclastic vasculitis as per records, cervical dysplasia, anxiety/mood disorder presenting for evaluation after a fall and increasing lethargy at home. Hepatic Encephalopathy History NAFLD/cirrhosis Multifactorial: Missed lactulose doses from decreased mobility secondary to recent thoracic compression fracture UGIB, history of esophageal varices as per records progressive anemia from normal outpatient baseline hemoglobin last November 2023 heme positive melanotic stool documented at the ER Facilitate lactulose and rifaximin Continue IV rocephin IV PPI for UGIB, add octreotide if with significant subsequent H&H drop Follow H&H, transfuse pRBC to maintain hemoglobin of at least 7 GI consult re: UGIB -s/p EGD on 01/27 with varices banding Continue to monitor h/h and transfuse as needed Complicated UTI no sepsis for now UA suggestive of infection Urine Cx pending On IV ceftriaxone for SBP prophylaxis as above, continue complicated UTI and LE cellulitis Decompensated cirrhosis secondary to above with associated fluid retention Acute on chronic hyponatremia secondary to above LE swelling secondary to cirrhosis with secondary cellulitis no sepsis for now Continue IV Rocephin hypertension BP on the lower side DVT prophylaxis. SCDs if no blood clot on venous Dopplers Full code Admission and Anticipated Discharge Date Admission Date: January 27, 2024 Subjective Patient was seen post EGD. Sleepy but alert and oriented x 2. Daughter at bedside, lots of questions answered to the best of her ability. Review of Systems Review of Systems: All systems reviewed & are unremarkable except as noted in Subjective Physical Exam Physical Exam: General:sleepy but easily arousable Skin:bruising on right breast and right knee Neuro: drowsy HEENT: NC/AT CV: RRR Resp: no increased effort of breathing Abdomen: Soft Extremities: edema in lower extremities bilaterally. Results & Data Results & Data Vital Signs (Past 12 Hours) Vital Signs Temp Pulse Pulse Resp BP BP Pulse Ox 01/28/24 07:34 35.6 C L 01/28/24 06:53 35.5 C L 01/28/24 06:15 35.4 C L 01/28/24 05:41 35.2 C L 01/28/24 05:41 16 100/64 93 01/28/24 04:41 35.8 C L 81 16 106/69 94 01/28/24 03:41 36.1 C L 76 16 119/66 95 01/28/24 03:11 36.3 C L 76 16 116/70 95 01/28/24 03:10 36.3 C L 76 16 116/70 95 01/28/24 02:56 36.3 C L 83 16 108/59 L 94 01/28/24 02:40 36.3 C L 77 16 113/71 94 01/28/24 02:21 36.3 C L 79 16 113/71 95 01/28/24 00:12 01/28/24 00:12 36.4 C L 83 16 112/74 92 01/27/24 20:30 79 18 100/57 L 92 01/27/24 20:12 81 O2 Del Method 01/28/24 07:34 01/28/24 06:53 01/28/24 06:15 01/28/24 05:41 01/28/24 05:41 01/28/24 04:41 01/28/24 03:41 01/28/24 03:11 01/28/24 03:10 01/28/24 02:56 01/28/24 02:40 01/28/24 02:21 01/28/24 00:12 Room Air 01/28/24 00:12 Room Air 01/27/24 20:30 Room Air 01/27/24 20:12
[2024-01-28] MEDS: cefTRIAXone SODIUM 2,000 MG/50 ML BAG IV SCH (21:03)
[2024-01-28 21:40] LABS: Hematocrit (blood only) 21.2 % (37.0-47.0); Hemoglobin 7.4 g/dl (12.0-16.0)
[2024-01-29 03:24] LABS: Mean Corpuscular Hgb Conc 33.3 g/dL (32.0-36.0); Mean Corpuscular Volume 92.9 fL (80.0-100.0); Mean Platelet Volume 9.6 fL (9.4-12.4); Platelet Count 195 K/uL (130-400); RDW Coefficient of Variation 15.5 % (11.5-14.5); RDW Standard Deviation 52.3 fL (36.4-46.3); Red Blood Count 2.26 M/uL (4.20-5.40); White Blood Count 7.47 K/ul (4.8-10.8)
[2024-01-29 03:38] LABS: Albumin Globulin Ratio 1.3 (0.9-2); BUN Creatinine Ratio 28.8 (10-20); Bilirubin,Total 3.1 mg/dl (0.2-1.0); Calcium 8.6 mg/dl (8.6-10.3); Creatinine Clr Calc Pharmacy 59.4 ml/min; Globulin 2.3 gm/dl (2.5-4.0); Magnesium 2.1 mg/dl (1.7-2.4); Potassium 3.8 mmol/L (3.5-5.1); Total Protein 5.3 gm/dl (6.0-8.3)
[2024-01-29 03:46] LABS: Basophils # (auto) 0.06 K/uL (0.00-0.20); Basophils % (auto) 0.8 %; Eosinophils # (auto) 0.32 K/uL (0.00-0.50); Eosinophils % (auto) 4.3 %; Immature Granulocytes # (auto) 0.03 K/uL (0.01-0.20); Immature Granulocytes % (auto) 0.4 %; Lymphocytes # (auto) 0.83 K/uL (1.20-3.40); Lymphocytes % (auto) 11.1 %; Monocytes # (auto) 0.86 K/uL (0.11-0.59); Monocytes % (auto) 11.5 %; Neutrophils # (auto) 5.37 K/uL (1.40-6.50); Neutrophils % (auto) 71.9 %
[2024-01-29 06:25] LABS: Hematocrit (blood only) 22.1 % (37.0-47.0); Hemoglobin 7.4 g/dl (12.0-16.0)
[2024-01-29] MEDS: ACETAMINOPHEN 500 MG TAB PO PRN (08:34)
--- NOTE | 2024-01-29 10:16 | Gastroenterology Progress Note ---
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 GI asked to evaluate for UGI bleeding w/ report of "heme positive melanotic stool documented at the ER" and acute on chronic anemia requiring transfusion. S/P EGD w/ scar in the lower third of the esophagus, Grade I esophageal varices, completely eradicated w/ banding, portal hypertensive gastropathy. - Advance diet as tolerated - Trend H&H - Monitor and document GI output - PO PPI - AMS - Improving, treat the UTI - TID Lactulose, titrate for goal 3-5 BMs daily - Xifaxan 550mg twice daily - Cirrhosis management - Continue OP diuretics once medically appropriate to resume - Nadolol 20mg daily once medically appropriate to resume - Continue OP follow up with [facility] - MELD labs every 6 months - ABD imaging w/ AFP every 6 months - EGD every 1-2 years - No ETOH - No NSAIDs - Avoid hepatotoxin - Low NA diet, less than 2G daily - Less than 2G acetaminophen containing products daily I spent a total of 45 minutes on the date of service in review of patient's record, and previously obtained information in person and appropriate medical visit, discussion and education of plan, with patient and/or caregiver, placing orders for tests/referral/procedures as medically necessary and documentation of pertinent clinical information in patient's medical records for their visit today. Admission and Anticipated Discharge Date Admission Date: January 27, 2024 Supervising Physician Co-Signing Physician Notes I examined the patient and reviewed patient's chart , laboratory data and imaging studies. I agree with with assessment and plan of care as suggested by advanced practice provider Subjective Pt was seen and evaluated, chart reviewed. Sleeping on entering her room but awoke to name. Is alert to person, place, time this AM. History is limited and she states she is tired and easily falls asleep. Denies abd pain. Notes she moved her stools this AM but is unsure if they were black or bloody. No abd pain, nausea/vomiting. No fever, chills, CP, SOB. HGB 8.4 --> 7.6 --> 6.7 --> 1 unit --> 7.9 --> 7 --> 7.2 --> 7.4 --> 7 --> 7.4 EGD 2023: - Z-line regular, 36 cm from the incisors. - Scar in the lower third of the esophagus. - Grade I esophageal varices. Completely eradicated. Banded. - Sen red spot was seen - Portal hypertensive gastropathy. - Otherwise the stomach was normal. There was no evidence of gastric varices. - Normal examined duodenum. Biopsied. Review of Systems Review of Systems: All other findings negative except as noted in HPI. Physical Exam Constitutional: WD/WN, vitals as above Respiratory: normal respiratory effort Cardiovascular: Rate/Rhythm: regular rate Gastrointestinal (Abdomen): normal bowel sounds, soft, nontender, no hepatosplenomegaly Skin: no rashes, warm and dry Results & Data Results & Data Vital Signs (Past 12 Hours) Vital Signs Temp Pulse Pulse Resp BP Pulse Ox O2 Del Method 01/29/24 08:41 Nasal Cannula 01/29/24 07:47 36.7 C 91 H 18 129/79 93 Nasal Cannula 01/29/24 07:36 84 01/29/24 02:35 36.8 C 90 18 121/73 95 Nasal Cannula 01/28/24 22:51 36.6 C 85 18 107/62 96 Nasal Cannula O2 Flow Rate 01/29/24 08:41 1.5 01/29/24 07:47 1 01/29/24 07:36 01/29/24 02:35 1 01/28/24 22:51 1 Laboratory Results 01/29/24 01/29/24 01/29/24 Range/Units 05:56 05:52 02:55 WBC 7.47 (4.8-10.8) K/ul RBC 2.26 L (4.20-5.40) M/uL Hgb 7.4 L 7.0 L (12.0-16.0) g/dl Hct 22.1 L 21.0 L (37.0-47.0) % MCV 92.9 (80.0-100.0) fL MCH 31.0 (25.0-34.0) pg MCHC 33.3 (32.0-36.0) g/dL RDW Std Deviation 52.3 H (36.4-46.3) fL RDW Coeff of [place] 15.5 H (11.5-14.5) % Plt Count 195 (130-400) K/uL MPV 9.6 (9.4-12.4) fL Immature Gran % (Auto) 0.4 % Neut % (Auto) 71.9 % Lymph % (Auto) 11.1 % [place] % (Auto) 11.5 % Eos % (Auto) 4.3 % Baso % (Auto) 0.8 % Neut # (Auto) 5.37 (1.40-6.50) K/uL Lymph # (Auto) 0.83 L (1.20-3.40) K/uL [place] # (Auto) 0.86 H (0.11-0.59) K/uL Eos # (Auto) 0.32 (0.00-0.50) K/uL Baso # (Auto) 0.06 (0.00-0.20) K/uL Immature Gran # (Auto) 0.03 (0.01-0.20) K/uL Sodium 130 L (136-145) mmol/L Potassium 3.8 (3.5-5.1) mmol/L Chloride 100 (98-107) mmol/L Carbon Dioxide 21 (21-32) mmol/L Anion Gap 9 (3-11) BUN 32 H (6-23) mg/dl Creatinine 1.11 (0.6-1.2) mg/dl Est Cr Clr Drug Dosing 59.4 ml/min eGFR 57.26 BUN/Creatinine Ratio 28.8 H (10-20) Glucose 94 (70-99(Fasting)) mg/dl Calcium 8.6 (8.6-10.3) mg/dl Phosphorus 4.0 (2.5-4.9) mg/dl Magnesium 2.1 (1.7-2.4) mg/dl Iron (35-150) mcg/dl TIBC (250-450) mcg/dl Unsaturated IBC (155-355) mcg/dl Transferrin % Sat (15-50) % Ferritin (8-388) ng/ml Total Bilirubin 3.1 H (0.2-1.0) mg/dl AST 39 (13-39) U/L ALT 20 (7-52) U/L Alkaline Phosphatase 83 (34-104) U/L Troponin I High Sens 5.6 (0-14) pg/ml Total Protein 5.3 L (6.0-8.3) gm/dl Albumin 3.0 L (3.4-5.0) gm/dl Globulin 2.3 L (2.5-4.0) gm/dl Albumin/Globulin Ratio 1.3 (0.9-2) Vitamin B12 (180-914) pg/ml Folate (>5.38) ng/ml Crossmatch 01/28/24 01/28/24 01/28/24 Range/Units 21:06 16:28 14:46 WBC (4.8-10.8) K/ul RBC (4.20-5.40) M/uL Hgb 7.4 L 7.2 L (12.0-16.0) g/dl Hct 21.2 L 21.1 L (37.0-47.0) % MCV (80.0-100.0) fL MCH (25.0-34.0) pg MCHC (32.0-36.0) g/dL RDW Std Deviation (36.4-46.3) fL RDW Coeff of [place]zar (11.5-14.5) % Plt Count (130-400) K/uL MPV (9.4-12.4) fL Immature Gran % (Auto) % Neut % (Auto) % Lymph % (Auto) % [place] % (Auto) % Eos % (Auto) % Baso % (Auto) % Neut # (Auto) (1.40-6.50) K/uL Lymph # (Auto) (1.20-3.40) K/uL [place] # (Auto) (0.11-0.59) K/uL Eos # (Auto) (0.00-0.50) K/uL Baso # (Auto) (0.00-0.20) K/uL Immature Gran # (Auto) (0.01-0.20) K/uL Sodium (136-145) mmol/L Potassium (3.5-5.1) mmol/L Chloride (98-107) mmol/L Carbon Dioxide (21-32) mmol/L Anion Gap (3-11) BUN (6-23) mg/dl Creatinine (0.6-1.2) mg/dl Est Cr Clr Drug Dosing ml/min eGFR BUN/Creatinine Ratio (10-20) Glucose (70-99(Fasting)) mg/dl Calcium (8.6-10.3) mg/dl Phosphorus (2.5-4.9) mg/dl Magnesium (1.7-2.4) mg/dl Iron (35-150) mcg/dl TIBC (250-450) mcg/dl Unsaturated IBC (155-355) mcg/dl Transferrin % Sat (15-50) % Ferritin 55.7 (8-388) ng/ml Total Bilirubin (0.2-1.0) mg/dl AST (13-39) U/L ALT (7-52) U/L Alkaline Phosphatase (34-104) U/L Troponin I High Sens (0-14) pg/ml Total Protein (6.0-8.3) gm/dl Albumin (3.4-5.0) gm/dl Globulin (2.5-4.0) gm/dl Albumin/Globulin Ratio (0.9-2) Vitamin B12 > 1500 H (180-914) pg/ml Folate 6.13 (>5.38) ng/ml Crossmatch 01/28/24 01/28/24 01/27/24 Range/Units 12:48 06:04 20:46 WBC (4.8-10.8) K/ul RBC (4.20-5.40) M/uL Hgb 7.0 L (12.0-16.0) g/dl Hct 20.4 L* (37.0-47.0) % MCV (80.0-100.0) fL MCH (25.0-34.0) pg MCHC (32.0-36.0) g/dL RDW Std Deviation (36.4-46.3) fL RDW Coeff of [place] (11.5-14.5) % Plt Count (130-400) K/uL MPV (9.4-12.4) fL Immature Gran % (Auto) % Neut % (Auto) % Lymph % (Auto) % [place] % (Auto) % Eos % (Auto) % Baso % (Auto) % Neut # (Auto) (1.40-6.50) K/uL Lymph # (Auto) (1.20-3.40) K/uL [place] # (Auto) (0.11-0.59) K/uL Eos # (Auto) (0.00-0.50) K/uL Baso # (Auto) (0.00-0.20) K/uL Immature Gran # (Auto) (0.01-0.20) K/uL Sodium (136-145) mmol/L Potassium (3.5-5.1) mmol/L Chloride (98-107) mmol/L Carbon Dioxide (21-32) mmol/L Anion Gap (3-11) BUN (6-23) mg/dl Creatinine (0.6-1.2) mg/dl Est Cr Clr Drug Dosing ml/min eGFR BUN/Creatinine Ratio (10-20) Glucose (70-99(Fasting)) mg/dl Calcium (8.6-10.3) mg/dl Phosphorus (2.5-4.9) mg/dl Magnesium (1.7-2.4) mg/dl Iron 26 L (35-150) mcg/dl TIBC 200 L (250-450) mcg/dl Unsaturated IBC 174 (155-355) mcg/dl Transferrin % Sat 13 L (15-50) % Ferritin (8-388) ng/ml Total Bilirubin (0.2-1.0) mg/dl AST (13-39) U/L ALT (7-52) U/L Alkaline Phosphatase (34-104) U/L Troponin I High Sens (0-14) pg/ml Total Protein (6.0-8.3) gm/dl Albumin (3.4-5.0) gm/dl Globulin (2.5-4.0) gm/dl Albumin/Globulin Ratio (0.9-2) Vitamin B12 (180-914) pg/ml Folate (>5.38) ng/ml Crossmatch See Detail PG Care Time/CCT Total # of Minutes Spent Total Time Spent with Patient: Total time spent is greater than 50% in coordination of care (as documented) at patient's floor/unit and/or counseling patient: Coding Level of Care Code 33814 SUB INP/OBS CARE 2/35MIN Diagnoses 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
--- NOTE | 2024-01-29 10:41 | Nephrology Consultation ---
Date of Consultation January 29, 2024 Assessment & Plan (1) Acute hyponatremia: hyponatremia with Severe Volume overload--anasarca and massive pre admission wt gain in patient with Liver Cirrhosis which is the underlying problem. although urine osmolarity and urine sodium has been done they are not of that significant clinical use in setting with liver cirrhosis. currently kidney function is normal with normal BUN and creatinine. There is no need of urea or salt tablet. Free fluid restriction of 1500 mL per day. Hyponatremia is dilutional from vol overload. needs Aggressive Diuretics. Do 40 iv q8hr. also do spironolactone 50 mg daily. potassium chloride 20 twice daily. close monitoring of kidney function as well as all the electrolytes with daily labs. she had low blood pressure earlier but at this time for the last 12 hours blood pressure looks good so hopefully she can tolerate the Lasix. 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 (3) Anasarca: Plan case complexity high. reviewed gastroenterology note and in agreement. plan discuss with primary team. History of Present Illness Reason for Consultation: Hyponatremia Attending Physician: Lainey Lanza MD History of Present Illness 58/F with T2DM, obesity, CHRIS Cirrhosis with Volume overload, varices and ascites, PSVT, CKD, COPD/Asthma, Celiac and others below admitted through the ED after she came with weakness and confusion, recent falls and elevated ammonia levels. She does not provide much recall in her history. She tells me she is tired. Denies abd pain. No nausea,vomiting. "heme positive melanotic stool documented at the ER" had EGD showed scar in the lower third of the esophagus, Grade I esophageal varices, completely eradicated w/ banding, portal hypertensive gastropathy. On lactulose and protonix drip., na was low at 127 on Admission and then today is 130. got brief NS but currently no IVF and no Diuretics. CT--C/A/P shows Anasarca and pleural eff. she had low blood pressure as well as cardiac rhythm issues. However more recent blood pressure is 149/83 currently she has reilly--made 925 ml urine yesterday. review of systems---- unable to obtain as patient is still seems very weak lethargic and unable to recall what all happened in the last few days. Physical Exam Physical Exam: GENERAL: Lethargic, obese, no respiratory distress HEENT: mucous membrane moist neck is supple no JVD CHEST : Decreased breath sounds, contusion right chest, right chest tenderness HEART : RRR, no obvious murmurs ABDOMEN: +ve Distention, nontender ExTREMITIES : anasarca noted abdominal wall edema as well as bilateral lower extremity edema NEUROLOGIC : Lethargic, not able to give detailed account for medical problems Allergies Allergy/AdvReac Type Severity Reaction Status Date / Time pepper (genus Capsicum) Allergy Severe Diarrhea Verified 01/27/24 20:17 hydromorphone Allergy Intermediate Anaphylaxis Verified 01/27/24 20:17 pamabrom Allergy Intermediate HIVES Verified 01/27/24 20:17 pyrilamine Allergy Intermediate HIVES Verified 01/27/24 20:17 Penicillins Allergy Unknown Unknown Verified 01/27/24 20:17 Iodinated Contrast Media AdvReac Intermediate TACHYCARDIA Verified 01/27/24 20:17 Home Medications Medication Instructions Recorded Confirmed Type ferrous sulfate 325 mg (65 mg 325 mg PO QAM 01/29/18 01/27/24 History iron) tablet pantoprazole 40 mg tablet,delayed 40 mg PO QAM 01/29/18 01/27/24 History release fluticasone propionate 50 2 spray intranasal DAILY PRN 03/05/20 01/27/24 History mcg/actuation nasal Allergy Symptoms spray,suspension albuterol sulfate 90 mcg/actuation 2 puff inhalation Q4 PRN Wheezing 01/23/24 01/27/24 History aerosol inhaler fluticasone fur. 100 mcg-umeclid 1 inh inhalation QAM 01/23/24 01/27/24 History 62.5 mcg-vilant 25 mcg inhalat.powder (Trelegy Ellipta) ipratropium 0.5 mg-albuterol 3 mg 3 ml inhalation QID PRN Wheezing 01/23/24 01/27/24 History (2.5 mg base)/3 mL nebulization soln lactulose 10 gram/15 mL oral 30 ml PO TID 01/23/24 01/27/24 History solution rifaximin 550 mg tablet (Xifaxan) 550 mg PO AMHS 01/23/24 01/27/24 History baclofen 10 mg tablet 10 mg PO PRN muscle relaxer 01/27/24 History furosemide 40 mg tablet 40 mg PO BID 01/27/24 01/27/24 History oxycodone 5 mg tablet 5 mg PO PRN Pain 01/27/24 History Patient History Medical History Hepatic encephalopathy Decompensated cirrhosis Celiac disease Pt does not follow gluten free diet-Pt states she does not have Esophageal varices H/O BANDING 11/2017 + 2018 [facility] SVT (supraventricular tachycardia) FOLLOWS YEARLY W/ DR. BISHOP. Last seen 03/2021. "Walking several miles per day without exertional symptoms. Weight unchanged. Exercising regularly on her treadmill. Functional capacity as improved. Denies palpitations, lightheadedness, dizziness, syncope, or near syncope. ...Continue beta-b locker, nadolol 10 mg twice daily. Furosemide and Aldactone will be continued as directed per Gastroenterology. No further cardiac testing at this time." CKD (chronic kidney disease), stage III Abdominal pain Pancreatitis Dehydration Hypokalemia Tick bite UTI (urinary tract infection) Abdominal pain History of COVID-19 07/2020-sob, cough, no hospitalization, no current issues Reactive airway disease Following with [facility] pulmonology, recently had chest CT showing air trapping, PFTs with good BD response. Surgical History Family history of reaction to anesthesia MOTHER-NAUSEA/VOMITTING [place] teeth removed History of nasal cauterization History of surgery nasal cauterization S/P D&C (status post dilation and curettage) "S/P miscarriage " H/O elbow surgery "Antecubital elbow release" Status post carpal tunnel release of both wrists Family History Mother Family history of diabetes mellitus Sister Family history of diabetes mellitus 2 sisters Social History Smoking Status: Never smoker Second Hand Exposure: No; Do You Dip or Chew Tobacco: No; Hx Alcohol Use: Yes Alcohol type: wine and hard liquor Alcohol Intake Frequency: 2-4 x/Month Hx Substance Use: No Preferred Language: Sinhala Communication Ability: Effective Coil Cleaner Required: No Beliefs That Will Affect Care: None Current Living Situation: Family Current Living Situation Comment: Lives with daughter and son in law Feels Safe at Home: Yes Diet: low salt and regular Physical Activity Frequency: Daily Gender Identity: Female Assistive Devices: Cane Results & Data Vital Signs (Past 12 Hours) Vital Signs Temp Pulse Pulse Resp BP Pulse Ox O2 Del Method 01/29/24 08:41 Nasal Cannula 01/29/24 07:47 36.7 C 91 H 18 129/79 93 Nasal Cannula 01/29/24 07:36 84 01/29/24 02:35 36.8 C 90 18 121/73 95 Nasal Cannula 01/28/24 22:51 36.6 C 85 18 107/62 96 Nasal Cannula O2 Flow Rate 01/29/24 08:41 1.5 01/29/24 07:47 1 01/29/24 07:36 01/29/24 02:35 1 01/28/24 22:51 1
[2024-01-29] MEDS: FUROSEMIDE 40 MG/4 ML VIAL IV SCH (10:56)
[2024-01-29] MEDS: SPIRONOLACTONE 25 MG TAB PO SCH (12:20)
[2024-01-29] MEDS: POTASSIUM CHLORIDE CRTAB 20 MEQ TABCR PO SCH (13:06)
--- NOTE | 2024-01-29 13:25 | Hospitalist Progress Note ---
Date of Service January 29, 2024 Assessment & Plan (1) Hepatic encephalopathy: Plan Pt is a 58yoF with PMHx significant for hypertension, PSVT, COPD, NAFLD cirrhosis, history of esophageal varices as per records, portal hypertension, celiac disease, chronic hyponatremia, leukocytoclastic vasculitis as per records, cervical dysplasia, anxiety/mood disorder presenting for evaluation after a fall and increasing lethargy at home. Hepatic Encephalopathy History NAFLD/cirrhosis Multifactorial: Missed lactulose doses from decreased mobility secondary to recent thoracic compression fracture UGIB, history of esophageal varices as per records progressive anemia from normal outpatient baseline hemoglobin last November 2023 heme positive melanotic stool documented at the ER Facilitate lactulose and rifaximin Continue IV rocephin IV PPI for UGIB, add octreotide if with significant subsequent H&H drop Follow H&H, transfuse pRBC to maintain hemoglobin of at least 7 GI consult re: UGIB -s/p EGD on 01/27 with varices banding Continue to monitor h/h and transfuse as needed H/h stable Complicated UTI no sepsis for now UA suggestive of infection Urine Cx growing gram negative bacilli On IV ceftriaxone for SBP prophylaxis as above, continue Decompensated cirrhosis secondary to above with associated fluid retention Acute on chronic hyponatremia secondary to above Nephrology consulted- started pt on lasix 40mg q8h and spironolactone LE swelling Anasarca secondary to cirrhosis with secondary cellulitis no sepsis for now Continue IV Rocephin Per neprhology, continue ;asix 4mg q8h and spironolactone hypertension BP on the lower side Monitor while on aggressive diuresis Fall Contusions PRN pain meds PT/OT Diet: full liquids at this time DVT prophylaxis. SCDs, concern for GI bleed Full code Dispo: PT/OT ordered for further recs Admission and Anticipated Discharge Date Admission Date: January 27, 2024 Subjective patient was seen in the AM. Her daughter was also on the phone. Discussion with both patient and daughter. Patient states she is feeling much better than she has in the last few days. Alert and oriented x 3. States she still has some pain in her chest but that is not new, states is related to her recent fall. Review of Systems Review of Systems: All systems reviewed & are unremarkable except as noted in Subjective Physical Exam Physical Exam: General:AAOx3 Skin:bruising on right breast and right knee Neuro: AAOx3 HEENT: NC/AT CV: RRR Resp: no increased effort of breathing Abdomen: Soft Extremities: edema in lower extremities bilaterally. Results & Data Results & Data Vital Signs (Past 12 Hours) Vital Signs Temp Pulse Pulse Resp BP Pulse Ox O2 Del Method 01/29/24 12:08 36.5 C 97 H 19 149/83 H 92 Nasal Cannula 01/29/24 08:41 Nasal Cannula 01/29/24 07:47 36.7 C 91 H 18 129/79 93 Nasal Cannula 01/29/24 07:36 84 01/29/24 02:35 36.8 C 90 18 121/73 95 Nasal Cannula O2 Flow Rate 01/29/24 12:08 1 01/29/24 08:41 1.5 01/29/24 07:47 1 01/29/24 07:36 01/29/24 02:35 1 Diagnostic Findings Chest X-Ray 01/27/24 19:51 XR chest 1V portable HISTORY: 58 years-old Female chest pain COMPARISON: Chest CT of same day TECHNIQUE: AP view of the chest FINDINGS: Cardiac silhouette is enlarged. Pulmonary vascular congestion. Trace pleural effusions with mild bibasilar atelectasis. No pneumothorax or lobar airspace consolidation. The bones of the chest appear grossly intact. IMPRESSION: Cardiomegaly with pulmonary vascular congestion and trace pleural effusions. ACT 112: Negative or not required by law. The above report was generated using voice recognition software. It may contain grammatical, syntax or spelling errors. Electronically signed by: Tim Galo M.D. 01/28/2024 6:46 AM Abdomen/Pelvis CT 01/27/24 22:02 Exam(s): CT ABDOMEN + PELVIS Without Contrast EXAM: CT Abdomen and Pelvis Without Intravenous Contrast CLINICAL HISTORY: Reason for exam: pain, gi bleed. TECHNIQUE: Axial computed tomography images of the abdomen and pelvis without intravenous contrast. CTDI is 28.14 mGy and DLP is 2235.54 mGy-cm. Automated exposure control was utilized for the study. A dose lowering technique was utilized adhering to the principles of ALARA. COMPARISON: CT abdomen and pelvis January 23, 2024. FINDINGS: Lung bases: Unremarkable. No mass. No consolidation. Pleural space: Trace bilateral pleural effusions. ABDOMEN: Liver: Unremarkable. Gallbladder and bile ducts: Unremarkable. No calcified stones. No ductal dilation. Pancreas: Unremarkable. No ductal dilation. Spleen: Unremarkable. No splenomegaly. Adrenals: Unremarkable. No mass. Kidneys and ureters: Unremarkable. No hydronephrosis, nephrolithiasis, or obstructive uropathy. Stomach and bowel: Unremarkable. No obstruction. No mucosal thickening. PELVIS: Appendix: No findings to suggest acute appendicitis. Bladder: Danielson catheter terminates in the urinary bladder. No stones. Reproductive: Unremarkable as visualized. ABDOMEN and PELVIS: Intraperitoneal space: Unremarkable. No free air. No significant fluid collection. Bones/joints: Posterior fusion at L4-5. No acute fracture. No dislocation. Soft tissues: Anasarca. Vasculature: Unremarkable. No abdominal aortic aneurysm. Lymph nodes: Unremarkable. No enlarged lymph nodes. IMPRESSION: 1. No hydronephrosis, nephrolithiasis, or obstructive uropathy. 2. Trace bilateral pleural effusions. Evaluation for GI bleed is limited on a noncontrast exam. Electronically signed by: Xavier Miguel MD 01/28/24 01:[address] 01/27/24 22:02 Exam(s): CT CHEST Without Contrast EXAM: CT Chest Without Intravenous Contrast CLINICAL HISTORY: Reason for exam: worsening pain, trauma. TECHNIQUE: Axial computed tomography images of the chest without intravenous contrast. CTDI is 28.14 mGy and DLP is 2235.54 mGy-cm. Automated exposure control was utilized for the study. A dose lowering technique was utilized adhering to the principles of ALARA. COMPARISON: CTA chest January 23, 2024. FINDINGS: Lungs: Unremarkable. No mass. No consolidation. Pleural space: Small bilateral pleural effusions. No pneumothorax. Heart: Unremarkable. No cardiomegaly. No significant pericardial effusion. No significant coronary artery calcifications. Bones/joints: Unremarkable. No acute fracture. No dislocation. Vertebral plana at T7. Soft tissues: Anasarca. Vasculature: Unremarkable. No thoracic aortic aneurysm. Lymph nodes: Unremarkable. No enlarged lymph nodes. Intraperitoneal space: Ascites. IMPRESSION: Small bilateral pleural effusions. Electronically signed by: Xavier Miguel MD 01/28/24 00:[address] 01/27/24 22:02 Exam(s): CT RIGHT KNEE Without Contrast EXAM: CT Right Lower Extremity Without Intravenous Contrast, Knee CLINICAL HISTORY: Reason for exam: pain. TECHNIQUE: Axial computed tomography images of the right knee without intravenous contrast. CTDI is 28.14 mGy and DLP is 2235.54 mGy-cm. Automated exposure control was utilized for the study. A dose lowering technique was utilized adhering to the principles of ALARA. COMPARISON: No relevant prior studies available. FINDINGS: Bones/joints: Diffuse osseous demineralization. Mildly joint effusion. No acute fracture or subluxation. Soft tissues: Circumferential subcutaneous edema. IMPRESSION: No acute fracture or subluxation. Electronically signed by: Xavier Miguel MD 01/28/24 01:12 AM Venous Doppler Study 01/28/24 00:00 Exam(s): US VENOUS BILATERAL LOWER EXTREMITIES EXAM: US Duplex Bilateral Lower Extremities Veins CLINICAL HISTORY: Reason for exam: swelling. TECHNIQUE: Real-time duplex ultrasound scan of the bilateral lower extremity veins integrating B-mode two-dimensional vascular structure, Doppler spectral analysis, color flow Doppler imaging and compression. COMPARISON: No relevant prior studies available. FINDINGS: Right deep veins: Unremarkable. No DVT in the right common femoral, femoral, proximal deep femoral or popliteal veins. The veins demonstrate normal color flow, are normally compressible, with normal phasic flow and/or augmentation response. Right superficial veins: Unremarkable. No thrombus in the visualized right great saphenous vein. Left deep veins: Unremarkable. No DVT in the left common femoral, femoral, proximal deep femoral or popliteal veins. The veins demonstrate normal color flow, are normally compressible, with normal phasic flow and/or augmentation response. Left superficial veins: Unremarkable. No thrombus in the visualized left great saphenous vein. Soft tissues: Exam limited secondary to patient body habitus and extensive soft tissue edema. No popliteal cyst. IMPRESSION: No acute DVT in the bilateral lower extremity veins. Electronically signed by: Lake Reed MD 01/28/24 04:[address] 01/28/24 06:26 CT head/brain wo con CLINICAL HISTORY: 58 years-old Female with ams. head trauma. Acutely altered mental status with head trauma TECHNIQUE: Multiple axial CT images of the head were obtained without contrast. A dose lowering technique was utilized adhering to the principles of ALARA. CT DOSE: 625.8 mGy.cm COMPARISON: 01/23/2024 FINDINGS: No acute intracranial hemorrhage, midline shift, intracranial mass, hydrocephalus, territorial ischemia or abnormal extra-axial collection. Mildly degraded exam. The calvarium is intact. Moderate mucosal thickening of the paranasal sinuses with maxillary air-fluid levels. Mastoid air cells are clear. IMPRESSION: No acute intracranial abnormality. ACT 112: Negative or not required by law. The above report was generated using voice recognition software. It may contain grammatical, syntax or spelling errors. Electronically signed by: Tim Galo M.D. 01/28/2024 7:46 AM
--- NOTE | 2024-01-29 18:49 | Electrocardiogram Report ---
Test Reason : Blood Pressure : */* mmHG Vent. Rate : 89 BPM Atrial Rate : 89 BPM P-R Int : 186 ms QRS Dur : 114 ms QT Int : 392 ms P-R-T Axes : 64 -18 77 degrees QTcB Int : 476 ms Normal sinus rhythm Normal ECG When compared with ECG of 27-Jan-2024 20:03, No significant change was found Confirmed by Sanjay Henry ([id number]) on 01/29/2024 6:49:23 PM Referred By: REFERRED SELF Confirmed By: Sanjay Henry
[2024-01-30 06:42] LABS: Hematocrit (blood only) 21.1 % (37.0-47.0); Hemoglobin 7.2 g/dl (12.0-16.0); Mean Corpuscular Hemoglobin 31.4 pg (25.0-34.0); Mean Corpuscular Hgb Conc 34.1 g/dL (32.0-36.0); Mean Corpuscular Volume 92.1 fL (80.0-100.0); Mean Platelet Volume 9.6 fL (9.4-12.4); Platelet Count 207 K/uL (130-400); RDW Coefficient of Variation 15.4 % (11.5-14.5); RDW Standard Deviation 51.8 fL (36.4-46.3); Red Blood Count 2.29 M/uL (4.20-5.40); White Blood Count 8.15 K/ul (4.8-10.8)
[2024-01-30 06:49] LABS: Basophils # (auto) 0.07 K/uL (0.00-0.20); Basophils % (auto) 0.9 %; Eosinophils # (auto) 0.34 K/uL (0.00-0.50); Eosinophils % (auto) 4.2 %; Immature Granulocytes # (auto) 0.04 K/uL (0.01-0.20); Immature Granulocytes % (auto) 0.5 %; Lymphocytes # (auto) 0.99 K/uL (1.20-3.40); Lymphocytes % (auto) 12.1 %; Monocytes # (auto) 1.03 K/uL (0.11-0.59); Monocytes % (auto) 12.6 %; Neutrophils # (auto) 5.68 K/uL (1.40-6.50); Neutrophils % (auto) 69.7 %; Polychromasia 1+
[2024-01-30 06:50] LABS: Albumin Globulin Ratio 1.2 (0.9-2); Albumin Level 2.9 gm/dl (3.4-5.0); BUN Creatinine Ratio 23.9 (10-20); Bilirubin,Total 2.3 mg/dl (0.2-1.0); Calcium 8.3 mg/dl (8.6-10.3); Creatinine Clr Calc Pharmacy 71.6 ml/min; Globulin 2.4 gm/dl (2.5-4.0); Magnesium 1.7 mg/dl (1.7-2.4); Phosphorus 3.1 mg/dl (2.5-4.9); Potassium 3.8 mmol/L (3.5-5.1); Total Protein 5.3 gm/dl (6.0-8.3)
--- NOTE | 2024-01-30 11:48 | Hospitalist Progress Note ---
Date of Service January 30, 2024 Assessment & Plan (1) Hepatic encephalopathy: Plan Pt is a 58yoF with PMHx significant for hypertension, PSVT, COPD, NAFLD cirrhosis, history of esophageal varices as per records, portal hypertension, celiac disease, chronic hyponatremia, leukocytoclastic vasculitis as per records, cervical dysplasia, anxiety/mood disorder presenting for evaluation after a fall and increasing lethargy at home. Hepatic Encephalopathy History NAFLD/cirrhosis Acute Blood Loss anemia Upper GI Bleed Multifactorial: Missed lactulose doses from decreased mobility secondary to recent thoracic compression fracture UGIB, history of esophageal varices as per records progressive anemia from normal outpatient baseline hemoglobin last November 2023 heme positive melanotic stool documented at the ER Facilitate lactulose and rifaximin Continue IV rocephin IV PPI for UGIB, add octreotide if with significant subsequent H&H drop Follow H&H, transfuse pRBC to maintain hemoglobin of at least 7 GI consult re: UGIB -s/p EGD on 01/27 with varices banding Continue to monitor h/h and transfuse as needed H/h stable Complicated UTI no sepsis for now UA suggestive of infection Urine Cx growing Klesiella oxytoca resistant to cefazolin On IV ceftriaxone for SBP prophylaxis as above (day 3/7), continue Decompensated cirrhosis secondary to above with associated fluid retention LE swelling Anasarca secondary to cirrhosis with secondary cellulitis no sepsis for now Continue IV Rocephin for possible cellulitis Echo noting EF of 60 to 65%, grade 1 diastolic failure, left atrium mildly dilated, right ventricle with mildly increased pressures 30-40 Venous dopplers unremarkable Arterial dopplers pending given tightness, r/o compartment syndrome Per nephrology, continue Lasix 40mg q8h and spironolactone Acute on chronic hyponatremia secondary to above Nephrology consulted- started pt on lasix 40mg q8h and spironolactone hypertension BP on the lower side Monitor while on aggressive diuresis Fall Contusions PRN pain meds PT/OT Diet: full liquids at this time DVT prophylaxis. SCDs, concern for GI bleed Full code Dispo: PT/OT ordered for further recs Admission and Anticipated Discharge Date Admission Date: January 27, 2024 Subjective patient was seen sitting in chair at bedside. States that she feels "beat and tired" States her legs are still swollen and tight Still having pain Review of Systems Review of Systems: All systems reviewed & are unremarkable except as noted in Subjective Physical Exam Physical Exam: General:AAOx3 Skin:bruising on right breast and right knee Neuro: AAOx3 HEENT: NC/AT CV: RRR Resp: no increased effort of breathing Abdomen: Soft Extremities: edema in lower extremities bilaterally. Results & Data Results & Data Vital Signs (Past 12 Hours) Vital Signs Temp Pulse Pulse Resp BP BP Pulse Ox 01/30/24 11:34 37.0 C 91 H 18 102/65 91 01/30/24 10:40 01/30/24 07:34 37.0 C 98 H 19 98/58 L 94 01/30/24 07:32 100 H 01/30/24 04:03 37.1 C 95 H 18 99/53 L 92 01/30/24 02:30 110/70 O2 Del Method O2 Flow Rate 01/30/24 11:34 Nasal Cannula 1 01/30/24 10:40 Room Air 01/30/24 07:34 Nasal Cannula 1 01/30/24 07:32 01/30/24 04:03 Nasal Cannula 1.0 01/30/24 02:30
--- NOTE | 2024-01-31 01:27 | Ultrasound Report ---
Exam(s): US ARTERIAL BILATERAL LOWER EXTREMITIES EXAM: US Duplex Bilateral Lower Extremities Arteries CLINICAL HISTORY: Reason for exam: lower extremity tightness, swelling. TECHNIQUE: Real-time duplex ultrasound scan of the bilateral lower extremity arteries integrating B-mode two-dimensional vascular structure, Doppler spectral analysis and color flow Doppler imaging. COMPARISON: No relevant prior studies available. FINDINGS: Limitations: Per technologist notes: Slightly limited exam due to swelling in bilateral lower extremities. Minimal plaque within bilateral lower extremity arteries. Right common femoral artery: No acute findings. No occlusion or significant stenosis on color flow and spectral Doppler imaging. Normal waveform. Right superficial femoral artery: No acute findings. No occlusion or significant stenosis on color flow and spectral Doppler imaging. Normal waveform. Right popliteal artery: No acute findings. No occlusion or significant stenosis on color flow and spectral Doppler imaging. Normal waveform. Right calf/foot arteries: No acute findings. No occlusion or significant stenosis on color flow and spectral Doppler imaging. Monophasic waveforms in the right peroneal artery. Slightly increased velocity in the right posterior tibial artery. 160 cm/s; may represent mild stenosis. Left common femoral artery: No acute findings. No occlusion or significant stenosis on color flow and spectral Doppler imaging. Normal waveform. Left superficial femoral artery: No acute findings. No occlusion or significant stenosis on color flow and spectral Doppler imaging. Normal waveform. Left popliteal artery: No acute findings. No occlusion or significant stenosis on color flow and spectral Doppler imaging. Normal waveform. Left calf/foot arteries: No acute findings. No occlusion or significant stenosis on color flow and spectral Doppler imaging. Monophasic waveforms in the left peroneal artery. Soft tissues: Unremarkable. IMPRESSION: No acute findings in the bilateral lower extremity arteries. Electronically signed by: Vikash Henriquez M.D. 01/31/24 01:26 AM
[2024-01-31 06:46] LABS: Hematocrit (blood only) 21.2 % (37.0-47.0); Hemoglobin 6.8 g/dl (12.0-16.0); Mean Corpuscular Hemoglobin 30.5 pg (25.0-34.0); Mean Corpuscular Hgb Conc 32.1 g/dL (32.0-36.0); Mean Corpuscular Volume 95.1 fL (80.0-100.0); Mean Platelet Volume 9.4 fL (9.4-12.4); Platelet Count 200 K/uL (130-400); RDW Coefficient of Variation 15.3 % (11.5-14.5); RDW Standard Deviation 52.6 fL (36.4-46.3); Red Blood Count 2.23 M/uL (4.20-5.40); White Blood Count 6.97 K/ul (4.8-10.8)
[2024-01-31] MEDS ORDERED: SODIUM CHLORIDE 0.9% 250 ML IV PRN (06:50)
[2024-01-31 07:01] LABS: Albumin Globulin Ratio 1.2 (0.9-2); Albumin Level 2.8 gm/dl (3.4-5.0); BUN Creatinine Ratio 22.4 (10-20); Bilirubin,Total 2.2 mg/dl (0.2-1.0); Calcium 8.1 mg/dl (8.6-10.3); Creatinine Clr Calc Pharmacy 85.6 ml/min; Globulin 2.3 gm/dl (2.5-4.0); Magnesium 1.6 mg/dl (1.7-2.4); Phosphorus 2.6 mg/dl (2.5-4.9); Potassium 3.9 mmol/L (3.5-5.1); Total Protein 5.1 gm/dl (6.0-8.3)
[2024-01-31 07:06] LABS: Basophils # (auto) 0.07 K/uL (0.00-0.20); Eosinophils # (auto) 0.35 K/uL (0.00-0.50); Immature Granulocytes # (auto) 0.04 K/uL (0.01-0.20); Immature Granulocytes % (auto) 0.6 %; Lymphocytes # (auto) 1.06 K/uL (1.20-3.40); Lymphocytes % (auto) 15.2 %; Monocytes # (auto) 1.01 K/uL (0.11-0.59); Monocytes % (auto) 14.5 %; Neutrophils # (auto) 4.44 K/uL (1.40-6.50); Neutrophils % (auto) 63.7 %; RBC Morphology Unremarkable
--- NOTE | 2024-01-31 09:50 | Gastroenterology Progress Note ---
Date of Service January 31, 2024 Assessment & Plan (1) Esophageal varices determined by endoscopy: Plan: She still could have a portal hypertensive bleed. Normally we do not like to repeat an EGD so soon after banding to prevent inadvertently knocking the bands off but sometimes bleeding can be temporazied by hemostatic spray application. If this fails to stop bleeding - then she may benefit from TIPS. Agree with transfusion. She ate cream of chicken soup this morning so will plan for EGD tomorrow. The EGD procedure, alternatives including no work up or treatment, risks and benefits were discussed. Among the risks discussed included cardioprespiratory suppression, aspiration, bleeding, failure to diagnose cancer or other pathology and perforation requiring surgery. The patient claimed to understand all that was discussed, consented to all and all of her questions were answered. Admission and Anticipated Discharge Date Admission Date: January 27, 2024 [facility] GI Service was asked to see patient again for drop in Hgb. Patient had an EGD on 01/27 with banding of esophageal varices and findings of portal hyperten sive gastropathy. She has continued to have melanotic stool but no vomiting. Review of Systems Gastrointestinal: She denies abdominal pain or vomiting. Endorses melena. Physical Exam Physical Exam: WD WN WF NAD Afebrile BP stable P 90's Respiratory: Clear Cardiovascular: Reg Gastrointestinal (Abdomen): NL BS, soft, nontender Musculoskeletal: Neg CCE Results & Data Results & Data Vital Signs (Past 12 Hours) Vital Signs Temp Pulse Pulse Resp BP BP BP 01/31/24 09:17 37.3 C 94 H 20 111/68 01/31/24 08:15 01/31/24 07:21 36.9 C 93 H 18 107/70 01/31/24 03:38 36.8 C 99 H 16 108/65 01/31/24 02:21 99/57 L 01/31/24 00:09 36.7 C 90 16 99/64 L 01/30/24 23:10 95 H Pulse Ox O2 Del Method O2 Flow Rate 01/31/24 09:17 94 01/31/24 08:15 Room Air 01/31/24 07:21 92 Nasal Cannula 1 01/31/24 03:38 92 Nasal Cannula 1 01/31/24 02:21 01/31/24 00:09 91 Nasal Cannula 1 01/30/24 23:10 Laboratory Results Hgb down to 6.8 Plts 200 INR from 01/26 was 1.2 PG Care Time/CCT Total # of Minutes Spent Total Time Spent with Patient: Total time spent is greater than 50% in coordination of care (as documented) at patient's floor/unit and/or counseling patient: Coding Level of Care Code 40323 SUB INP/OBS CARE 25MIN Diagnoses Esophageal varices determined by endoscopy I85.00
[2024-01-31] MEDS ORDERED: SIMETHICONE (ENDO) IR PRN (09:55)
--- NOTE | 2024-01-31 12:56 | Hospitalist Progress Note ---
Date of Service January 31, 2024 Assessment & Plan (1) Hepatic encephalopathy: Plan Pt is a 58yoF with PMHx significant for hypertension, PSVT, COPD, NAFLD cirrhosis, history of esophageal varices as per records, portal hypertension, celiac disease, chronic hyponatremia, leukocytoclastic vasculitis as per records, cervical dysplasia, anxiety/mood disorder presenting for evaluation after a fall and increasing lethargy at home. Hepatic Encephalopathy History NAFLD/cirrhosis Acute Blood Loss anemia Upper GI Bleed Multifactorial: Missed lactulose doses from decreased mobility secondary to recent thoracic compression fracture UGIB, history of esophageal varices as per records progressive anemia from normal outpatient baseline hemoglobin last November 2023 heme positive melanotic stool documented at the ER Facilitate lactulose and rifaximin Continue IV rocephin IV PPI for UGIB, add octreotide if with significant subsequent H&H drop Follow H&H, transfuse pRBC to maintain hemoglobin of at least 7 GI consult re: UGIB -s/p EGD on 01/27 with varices banding - patient with low hemoglobin once more requiring transfusion of 1 more unit of packed red blood cells -N.p.o. after midnight for repeat EGD Continue to monitor h/h and transfuse as needed Complicated UTI no sepsis for now UA suggestive of infection Urine Cx growing Klesiella oxytoca resistant to cefazolin On IV ceftriaxone as above (day 4/7), continue Decompensated cirrhosis secondary to above with associated fluid retention LE swelling Anasarca secondary to cirrhosis with secondary cellulitis no sepsis for now Continue IV Rocephin for possible cellulitis Echo noting EF of 60 to 65%, grade 1 diastolic failure, left atrium mildly dilated, right ventricle with mildly increased pressures 30-40 Venous dopplers unremarkable Arterial dopplers given tightness, r/o compartment syndrome- did not note any abnormalities Per nephrology, continue Lasix 40mg q8h and spironolactone Acute on chronic hyponatremia secondary to above Nephrology consulted- started pt on lasix 40mg q8h and spironolactone hypertension BP on the lower side Monitor while on aggressive diuresis Fall Contusions PRN pain meds PT/OT Diet: full liquids at this time DVT prophylaxis. SCDs, concern for GI bleed Full code Dispo: PT/OT ordered for further recs- home with h/h Admission and Anticipated Discharge Date Admission Date: January 27, 2024 Subjective patient was seen in the early a.m. Requiring transfusion of 1 unit of packed red blood cells for a hemoglobin of 6.8 once more GI was contacted advised keep patient n.p.o. after midnight we will repeat EGD and banding tomorrow. She denies any dizziness, chest pain, shortness of breath, palpitations Review of Systems Review of Systems: All systems reviewed & are unremarkable except as noted in Subjective Physical Exam Physical Exam: General:AAOx3 Skin:bruising on right breast and right knee Neuro: AAOx3 HEENT: NC/AT CV: RRR Resp: no increased effort of breathing Abdomen: Soft Extremities: edema in lower extremities bilaterally. Results & Data Results & Data Vital Signs (Past 12 Hours) Vital Signs Temp Pulse Pulse Resp BP BP BP 01/31/24 11:49 37.1 C 97 H 18 121/78 01/31/24 11:24 37.2 C 90 18 111/66 01/31/24 10:24 37.2 C 94 H 18 117/75 01/31/24 09:54 36.6 C 94 H 16 120/73 01/31/24 09:39 37.1 C 97 H 18 113/69 01/31/24 09:17 37.3 C 94 H 20 111/68 01/31/24 08:15 01/31/24 07:21 36.9 C 93 H 18 107/70 01/31/24 03:38 36.8 C 99 H 16 108/65 01/31/24 02:21 99/57 L Pulse Ox O2 Del Method O2 Flow Rate 01/31/24 11:49 93 1 01/31/24 11:24 94 1 01/31/24 10:24 94 1 01/31/24 09:54 94 01/31/24 09:39 94 01/31/24 09:17 94 01/31/24 08:15 Room Air 01/31/24 07:21 92 Nasal Cannula 1 01/31/24 03:38 92 Nasal Cannula 1 01/31/24 02:21 Diagnostic Findings Chest X-Ray 01/27/24 19:51 XR chest 1V portable HISTORY: 58 years-old Female chest pain COMPARISON: Chest CT of same day TECHNIQUE: AP view of the chest FINDINGS: Cardiac silhouette is enlarged. Pulmonary vascular congestion. Trace pleural effusions with mild bibasilar atelectasis. No pneumothorax or lobar airspace consolidation. The bones of the chest appear grossly intact. IMPRESSION: Cardiomegaly with pulmonary vascular congestion and trace pleural effusions. ACT 112: Negative or not required by law. The above report was generated using voice recognition software. It may contain grammatical, syntax or spelling errors. Electronically signed by: Tim Galo M.D. 01/28/2024 6:46 AM Abdomen/Pelvis CT 01/27/24 22:02 Exam(s): CT ABDOMEN + PELVIS Without Contrast EXAM: CT Abdomen and Pelvis Without Intravenous Contrast CLINICAL HISTORY: Reason for exam: pain, gi bleed. TECHNIQUE: Axial computed tomography images of the abdomen and pelvis without intravenous contrast. CTDI is 28.14 mGy and DLP is 2235.54 mGy-cm. Automated exposure control was utilized for the study. A dose lowering technique was utilized adhering to the principles of ALARA. COMPARISON: CT abdomen and pelvis January 23, 2024. FINDINGS: Lung bases: Unremarkable. No mass. No consolidation. Pleural space: Trace bilateral pleural effusions. ABDOMEN: Liver: Unremarkable. Gallbladder and bile ducts: Unremarkable. No calcified stones. No ductal dilation. Pancreas: Unremarkable. No ductal dilation. Spleen: Unremarkable. No splenomegaly. Adrenals: Unremarkable. No mass. Kidneys and ureters: Unremarkable. No hydronephrosis, nephrolithiasis, or obstructive uropathy. Stomach and bowel: Unremarkable. No obstruction. No mucosal thickening. PELVIS: Appendix: No findings to suggest acute appendicitis. Bladder: Danielson catheter terminates in the urinary bladder. No stones. Reproductive: Unremarkable as visualized. ABDOMEN and PELVIS: Intraperitoneal space: Unremarkable. No free air. No significant fluid collection. Bones/joints: Posterior fusion at L4-5. No acute fracture. No dislocation. Soft tissues: Anasarca. Vasculature: Unremarkable. No abdominal aortic aneurysm. Lymph nodes: Unremarkable. No enlarged lymph nodes. IMPRESSION: 1. No hydronephrosis, nephrolithiasis, or obstructive uropathy. 2. Trace bilateral pleural effusions. Evaluation for GI bleed is limited on a noncontrast exam. Electronically signed by: Xavier Miguel MD 01/28/24 01:[address] 01/27/24 22:02 Exam(s): CT CHEST Without Contrast EXAM: CT Chest Without Intravenous Contrast CLINICAL HISTORY: Reason for exam: worsening pain, trauma. TECHNIQUE: Axial computed tomography images of the chest without intravenous contrast. CTDI is 28.14 mGy and DLP is 2235.54 mGy-cm. Automated exposure control was utilized for the study. A dose lowering technique was utilized adhering to the principles of ALARA. COMPARISON: CTA chest January 23, 2024. FINDINGS: Lungs: Unremarkable. No mass. No consolidation. Pleural space: Small bilateral pleural effusions. No pneumothorax. Heart: Unremarkable. No cardiomegaly. No significant pericardial effusion. No significant coronary artery calcifications. Bones/joints: Unremarkable. No acute fracture. No dislocation. Vertebral plana at T7. Soft tissues: Anasarca. Vasculature: Unremarkable. No thoracic aortic aneurysm. Lymph nodes: Unremarkable. No enlarged lymph nodes. Intraperitoneal space: Ascites. IMPRESSION: Small bilateral pleural effusions. Electronically signed by: Xavier Miguel MD 01/28/24 00:[address] 01/27/24 22:02 Exam(s): CT RIGHT KNEE Without Contrast EXAM: CT Right Lower Extremity Without Intravenous Contrast, Knee CLINICAL HISTORY: Reason for exam: pain. TECHNIQUE: Axial computed tomography images of the right knee without intravenous contrast. CTDI is 28.14 mGy and DLP is 2235.54 mGy-cm. Automated exposure control was utilized for the study. A dose lowering technique was utilized adhering to the principles of ALARA. COMPARISON: No relevant prior studies available. FINDINGS: Bones/joints: Diffuse osseous demineralization. Mildly joint effusion. No acute fracture or subluxation. Soft tissues: Circumferential subcutaneous edema. IMPRESSION: No acute fracture or subluxation. Electronically signed by: Xavier Miguel MD 01/28/24 01:12 AM Venous Doppler Study 01/28/24 00:00 Exam(s): US VENOUS BILATERAL LOWER EXTREMITIES EXAM: US Duplex Bilateral Lower Extremities Veins CLINICAL HISTORY: Reason for exam: swelling. TECHNIQUE: Real-time duplex ultrasound scan of the bilateral lower extremity veins integrating B-mode two-dimensional vascular structure, Doppler spectral analysis, color flow Doppler imaging and compression. COMPARISON: No relevant prior studies available. FINDINGS: Right deep veins: Unremarkable. No DVT in the right common femoral, femoral, proximal deep femoral or popliteal veins. The veins demonstrate normal color flow, are normally compressible, with normal phasic flow and/or augmentation response. Right superficial veins: Unremarkable. No thrombus in the visualized right great saphenous vein. Left deep veins: Unremarkable. No DVT in the left common femoral, femoral, proximal deep femoral or popliteal veins. The veins demonstrate normal color flow, are normally compressible, with normal phasic flow and/or augmentation response. Left superficial veins: Unremarkable. No thrombus in the visualized left great saphenous vein. Soft tissues: Exam limited secondary to patient body habitus and extensive soft tissue edema. No popliteal cyst. IMPRESSION: No acute DVT in the bilateral lower extremity veins. Electronically signed by: Lake Reed MD 01/28/24 04:[address] 01/28/24 06:26 CT head/brain wo con CLINICAL HISTORY: 58 years-old Female with ams. head trauma. Acutely altered mental status with head trauma TECHNIQUE: Multiple axial CT images of the head were obtained without contrast. A dose lowering technique was utilized adhering to the principles of ALARA. CT DOSE: 625.8 mGy.cm COMPARISON: 01/23/2024 FINDINGS: No acute intracranial hemorrhage, midline shift, intracranial mass, hydrocephalus, territorial ischemia or abnormal extra-axial collection. Mildly degraded exam. The calvarium is intact. Moderate mucosal thickening of the paranasal sinuses with maxillary air-fluid levels. Mastoid air cells are clear. IMPRESSION: No acute intracranial abnormality. ACT 112: Negative or not required by law. The above report was generated using voice recognition software. It may contain grammatical, syntax or spelling errors. Electronically signed by: Tim Galo M.D. 01/28/2024 7:46 AM Duplex Scan Lower Extremity Artery 01/30/24 16:41 Exam(s): US ARTERIAL BILATERAL LOWER EXTREMITIES EXAM: US Duplex Bilateral Lower Extremities Arteries CLINICAL HISTORY: Reason for exam: lower extremity tightness, swelling. TECHNIQUE: Real-time duplex ultrasound scan of the bilateral lower extremity arteries integrating B-mode two-dimensional vascular structure, Doppler spectral analysis and color flow Doppler imaging. COMPARISON: No relevant prior studies available. FINDINGS: Limitations: Per technologist notes: Slightly limited exam due to swelling in bilateral lower extremities. Minimal plaque within bilateral lower extremity arteries. Right common femoral artery: No acute findings. No occlusion or significant stenosis on color flow and spectral Doppler imaging. Normal waveform. Right superficial femoral artery: No acute findings. No occlusion or significant stenosis on color flow and spectral Doppler imaging. Normal waveform. Right popliteal artery: No acute findings. No occlusion or significant stenosis on color flow and spectral Doppler imaging. Normal waveform. Right calf/foot arteries: No acute findings. No occlusion or significant stenosis on color flow and spectral Doppler imaging. Monophasic waveforms in the right peroneal artery. Slightly increased velocity in the right posterior tibial artery. 160 cm/s; may represent mild stenosis. Left common femoral artery: No acute findings. No occlusion or significant stenosis on color flow and spectral Doppler imaging. Normal waveform. Left superficial femoral artery: No acute findings. No occlusion or significant stenosis on color flow and spectral Doppler imaging. Normal waveform. Left popliteal artery: No acute findings. No occlusion or significant stenosis on color flow and spectral Doppler imaging. Normal waveform. Left calf/foot arteries: No acute findings. No occlusion or significant stenosis on color flow and spectral Doppler imaging. Monophasic waveforms in the left peroneal artery. Soft tissues: Unremarkable. IMPRESSION: No acute findings in the bilateral lower extremity arteries. Electronically signed by: Vikash Henriquez M.D. 01/31/24 01:26 AM
[2024-01-31 13:11] LABS: Hematocrit (blood only) 25.5 % (37.0-47.0); Hemoglobin 8.3 g/dl (12.0-16.0)
--- NOTE | 2024-01-31 15:29 | Nephrology Progress Note ---
Date of Service January 31, 2024 Assessment & Plan Admission and Anticipated Discharge Date Admission Date: January 27, 2024 Subjective Assessment & Plan (1) Acute hyponatremia: hyponatremia with Severe Volume overload--anasarca and massive pre admission wt gain in patient with Liver Cirrhosis which is the underlying problem. although urine osmolarity and urine sodium has been done they are not of that significant clinical use in setting with liver cirrhosis. currently kidney function is normal with normal BUN and creatinine. There is no need of urea or salt tablet. Free fluid restriction of 1200 mL per day. Hyponatremia is dilutional from vol overload. na is not rising much as she still has anasarca and massive edema. needs Aggressive Diuretics. I am confused by Urine charting but as per RN she is making a lot--1000 ml for today so far which is not a lot. So Raise lasix to 60 iv q8hr. Continue spironolactone 50 mg daily. potassium chloride 20 -3x daily. close monitoring of kidney function as well as all the electrolytes with daily labs. she had low blood pressure earlier but at this time for the last 12 hours blood pressure looks good so hopefully she can tolerate the Lasix. 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 (3) Anasarca: Still has massive edema. Raise lasix to 60 iv q8h S--Feels weak. Poor appetite. hgb dropped again. EGD for tomorrow. PRBC and hgb went up. No SOB. Seems interactive. . Physical Exam Physical Exam: GENERAL: Lethargic, obese, no respiratory distress HEENT: mucous membrane moist neck is supple no JVD CHEST : Decreased breath sounds, contusion right chest, right chest tenderness HEART : RRR, no obvious murmurs ABDOMEN: +ve Distention, nontender ExTREMITIES : anasarca noted abdominal wall edema as well as bilateral lower extremity edema NEUROLOGIC : Lethargic, not able to give detailed account for medical problems Results & Data Vital Signs (Past 12 Hours) Vital Signs Temp Pulse Pulse Resp BP BP Pulse Ox 01/31/24 14:59 93 01/31/24 14:33 01/31/24 11:49 37.1 C 97 H 18 121/78 93 01/31/24 11:24 37.2 C 90 18 111/66 94 01/31/24 10:24 37.2 C 94 H 18 117/75 94 01/31/24 09:54 36.6 C 94 H 16 120/73 94 01/31/24 09:39 37.1 C 97 H 18 113/69 94 01/31/24 09:17 37.3 C 94 H 20 111/68 94 01/31/24 08:15 01/31/24 07:21 36.9 C 93 H 18 107/70 92 01/31/24 03:38 36.8 C 99 H 16 108/65 92 Pulse Ox O2 Del Method O2 Flow Rate O2 Flow Rate 01/31/24 14:59 01/31/24 14:33 92 1 01/31/24 11:49 1 01/31/24 11:24 1 01/31/24 10:24 1 01/31/24 09:54 01/31/24 09:39 01/31/24 09:17 01/31/24 08:15 Room Air 01/31/24 07:21 Nasal Cannula 1 01/31/24 03:38 Nasal Cannula 1
[2024-01-31] MEDS: FUROSEMIDE 40 MG/4 ML VIAL IV SCH (17:13)
[2024-02-01 06:11] LABS: Basophils # (auto) 0.09 K/uL (0.00-0.20); Basophils % (auto) 1.3 %; Eosinophils # (auto) 0.42 K/uL (0.00-0.50); Eosinophils % (auto) 5.9 %; Hematocrit (blood only) 22.7 % (37.0-47.0); Hemoglobin 7.7 g/dl (12.0-16.0); Immature Granulocytes # (auto) 0.04 K/uL (0.01-0.20); Immature Granulocytes % (auto) 0.6 %; Lymphocytes # (auto) 1.09 K/uL (1.20-3.40); Lymphocytes % (auto) 15.2 %; Mean Corpuscular Hemoglobin 31.3 pg (25.0-34.0); Mean Corpuscular Hgb Conc 33.9 g/dL (32.0-36.0); Mean Corpuscular Volume 92.3 fL (80.0-100.0); Mean Platelet Volume 9.3 fL (9.4-12.4); Monocytes # (auto) 1.15 K/uL (0.11-0.59); Monocytes % (auto) 16.1 %; Neutrophils # (auto) 4.36 K/uL (1.40-6.50); Neutrophils % (auto) 60.9 %; Platelet Count 205 K/uL (130-400); RDW Standard Deviation 50.3 fL (36.4-46.3); Red Blood Count 2.46 M/uL (4.20-5.40); White Blood Count 7.15 K/ul (4.8-10.8)
[2024-02-01 06:30] LABS: Albumin Globulin Ratio 1.1 (0.9-2); Albumin Level 2.7 gm/dl (3.4-5.0); Bilirubin,Total 2.6 mg/dl (0.2-1.0); Calcium 7.9 mg/dl (8.6-10.3); Creatinine Clr Calc Pharmacy 106.1 ml/min; Globulin 2.4 gm/dl (2.5-4.0); Magnesium 1.6 mg/dl (1.7-2.4); Phosphorus 2.6 mg/dl (2.5-4.9); Total Protein 5.1 gm/dl (6.0-8.3)
[2024-02-01 06:41] LABS: RBC Morphology Unremarkable
--- NOTE | 2024-02-01 08:55 | Gastroenterology Progress Note ---
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 GI asked to evaluate for UGI bleeding w/ report of "heme positive melanotic stool documented at the ER" and acute on chronic anemia requiring transfusion. S/P EGD w/ scar in the lower third of the esophagus, Grade I esophageal varices, completely eradicated w/ banding, portal hypertensive gastropathy. GI was asked to evaluate for anemia requiring transfusion, continued dark stools. NPO for repeat endoscopic evaluation. - NPO - EGD evaluation We appreciate assistance in the management of any serological abnormality and corrections to include: hemoglobin >7, INR <2, platelets >50,000, potassium levels >3.5 but <5.3, and sodium levels within 5 points of the reference range prior to endoscopic evaluation. Admission and Anticipated Discharge Date Admission Date: January 27, 2024 Subjective Pt was seen and evaluated, chart reviewed. NPO for EGD evaluation this AM. Offers no concerns. Denies abd pain, nausea/vomiting. She notes she was made aware her last BM was black. Review of Systems Review of Systems: All other findings negative except as noted in HPI. Physical Exam Constitutional: WD/WN, vitals as above Respiratory: normal respiratory effort, lungs clear to auscultation Cardiovascular: Rate/Rhythm: regular rate and regular rhythm Gastrointestinal (Abdomen): normal bowel sounds, soft, nontender, no hepatosplenomegaly Skin: no rashes, warm and dry Results & Data Results & Data Vital Signs (Past 12 Hours) Vital Signs Temp Pulse Pulse Resp BP Pulse Ox O2 Del Method 02/01/24 07:28 84 02/01/24 07:16 37.0 C 82 19 99/60 L 92 Nasal Cannula 02/01/24 04:11 37.1 C 87 18 117/68 93 Nasal Cannula 01/31/24 22:56 37.1 C 91 H 16 110/66 93 Nasal Cannula O2 Flow Rate 02/01/24 07:28 02/01/24 07:16 2 02/01/24 04:11 1 10/06/24 22:56 1 Laboratory Results 02/01/24 01/31/24 01/31/24 Range/Units 05:35 12:43 05:47 WBC 7.15 (4.8-10.8) K/ul RBC 2.46 L (4.20-5.40) M/uL Hgb 7.7 L 8.3 L (12.0-16.0) g/dl Hct 22.7 L 25.5 L (37.0-47.0) % MCV 92.3 (80.0-100.0) fL MCH 31.3 (25.0-34.0) pg MCHC 33.9 (32.0-36.0) g/dL RDW Std Deviation 50.3 H (36.4-46.3) fL RDW Coeff of Baltazar 15.0 H (11.5-14.5) % Plt Count 205 (130-400) K/uL MPV 9.3 L (9.4-12.4) fL Immature Gran % (Auto) 0.6 % Neut % (Auto) 60.9 % Lymph % (Auto) 15.2 % [place] % (Auto) 16.1 % Eos % (Auto) 5.9 % Baso % (Auto) 1.3 % Neut # (Auto) 4.36 (1.40-6.50) K/uL Lymph # (Auto) 1.09 L (1.20-3.40) K/uL [place] # (Auto) 1.15 H (0.11-0.59) K/uL Eos # (Auto) 0.42 (0.00-0.50) K/uL Baso # (Auto) 0.09 (0.00-0.20) K/uL Immature Gran # (Auto) 0.04 (0.01-0.20) K/uL RBC Morphology Unremarkable Sodium 126 L (136-145) mmol/L Potassium 4.0 (3.5-5.1) mmol/L Chloride 96 L (98-107) mmol/L Carbon Dioxide 23 (21-32) mmol/L Anion Gap 7 (3-11) BUN 13 (6-23) mg/dl Creatinine 0.62 (0.6-1.2) mg/dl Est Cr Clr Drug Dosing 106.1 ml/min eGFR 102.52 BUN/Creatinine Ratio 21.0 H (10-20) Glucose 88 (70-99(Fasting)) mg/dl Calcium 7.9 L (8.6-10.3) mg/dl Phosphorus 2.6 (2.5-4.9) mg/dl Magnesium 1.6 L (1.7-2.4) mg/dl Total Bilirubin 2.6 H (0.2-1.0) mg/dl AST 28 (13-39) U/L ALT 13 (7-52) U/L Alkaline Phosphatase 93 (34-104) U/L Total Protein 5.1 L (6.0-8.3) gm/dl Albumin 2.7 L (3.4-5.0) gm/dl Globulin 2.4 L (2.5-4.0) gm/dl Albumin/Globulin Ratio 1.1 (0.9-2) Blood Type O Positive Antibody Screen NEGATIVE Crossmatch See Detail PG Care Time/CCT Total # of Minutes Spent Total Time Spent with Patient: Total time spent is greater than 50% in coordination of care (as documented) at patient's floor/unit and/or counseling patient: Coding Level of Care Code None Diagnoses 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
[2024-02-01] MEDS: MAGNESIUM OXIDE 400 MG TAB PO SCH (09:17)
[2024-02-01] MEDS: SODIUM CHLORIDE 0.9% 500 ML IV SCH (11:58)
--- NOTE | 2024-02-01 12:26 | Nephrology Progress Note ---
Date of Service February 01, 2024 Assessment & Plan (1) Acute hyponatremia: Plan: worsening hypervolemic hyponatremia with Severe Volume overload--anasarca and massive pre admission wt gain in patient with Liver Cirrhosis which is the underlying problem. however suspect intravascular volume depletion concomitant since sodium dropped w/ starting lasix; though could also be d/t spironolactone >> improved on recheck to 128 -urea/salt tabs not appropriate w/ hypervolemic hyponatremia -cont Free fluid restriction of 1500 mL per day. 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 (3) Anasarca: Plan: ongoing; d/t liver cirrhosis Admission and Anticipated Discharge Date Admission Date: January 27, 2024 Subjective seen on late afternoon rounds; lethargic, difficult to waken; when I do wake her she c/o chest and R rib pain; denies sob, n/v; not aware of edema particularly. s/p EGD today >> esophagus w/ banded varix >> scope not advanced past this; hemostatic spray applied to varix; for TIPS eval if rebleeds Review of Systems 2 Review of Systems: All systems reviewed & are unremarkable except as noted in Subjective Physical Exam 2 Constitutional: well developed, well nourished, + frail appearing and + lethargic ENMT: Mouth: + dry oral mucous membranes Respiratory: normal respiratory effort Auscultation: + diminished lung sounds Cardiovascular: Rate/Rhythm: regular rate and regular rhythm Extremities: + edema (3+) Musculoskeletal: Extremities: strength 5/5 throughout Skin: no rashes, warm and dry Results & Data Vital Signs (Past 12 Hours) Vital Signs Temp Pulse Pulse Resp BP Pulse Ox O2 Del Method 02/01/24 11:56 36.9 C 84 18 120/70 94 Nasal Cannula 02/01/24 11:29 36.7 C 77 19 101/63 95 Nasal Cannula 02/01/24 09:57 High Flow Nasal Cannula 02/01/24 07:28 84 02/01/24 07:16 37.0 C 82 19 99/60 L 92 Nasal Cannula 02/01/24 04:11 37.1 C 87 18 117/68 93 Nasal Cannula O2 Flow Rate 02/01/24 11:56 1 10/07/24 11:29 1 02/01/24 09:57 1 02/01/24 07:28 02/01/24 07:16 2 02/01/24 04:11 1 Laboratory Results 02/01/24 05:35 02/01/24 05:35
--- NOTE | 2024-02-01 13:17 | GI REPORT ---
[facility] Patient: CHRISTINA JEREZ : 1965 Sex at : Female Age: 58 Years Procedure: Upper GI endoscopy Date: 02/01/2024 Attending Physician: Martell Zuñiga MD Referring MD: Lainey Lanza Md Indications: - Esophageal varices Medications: - Monitored Anesthesia Care Complications: Estimated Blood Loss: - Estimated blood loss: None. Procedure: - ASA Grade Assessment: IV - A patient with severe systemic disease that is a constant threat to life. - The egd scope was introduced through the mouth and advanced to the lower third of the esophagus. - The upper GI endoscopy was accomplished without difficulty. - The patient tolerated the procedure well. Findings: - Grade I varices were found in the lower third of the esophagus. One varix had a band around it and we applied hemostatic spray to this area. We did not advance the scope distal to this point to avoid knocking the band off. Impression: - Grade I esophageal varices. - One varix had a band around it and we applied hemostatic spray to this area. - No specimens collected. Recommendation: - NPO x 4 hrs then advance diet to liquids. If rebleeds consider TIPS Procedure Code(s): - 30324, Esophagoscopy, flexible, transoral; diagnostic, including collection of specimen(s) by brushing or washing, when performed (separate procedure) Diagnosis Code(s): - I85.00, Esophageal varices without bleeding CPT(R) - 2023 copyright [employer]. All Rights Reserved. The CPT codes, CCI edits and ICD codes generated are intended as suggestions and were generated based on input data. These codes are preliminary and upon director of testing review may be revised to meet current compliance and payer requirements. The provider is responsible for the final determination of appropriate codes, and modifiers. Martell Zuñiga MD This document has been electronically signed. Note Initiated:02/01/2024 Note Completed:02/01/2024 1:16 PM [id number]
--- NOTE | 2024-02-01 13:18 | Communication Note ---
Date of Service: February 01, 2024 See Provation note for complete report. Summary: Esophagus with band around varix. Distally there could have been a scar from where a varix was previously banded but we did not advance the scope distal to this point to avoid knocking off the band. Hemostatic spray applied to banded varix. Rec: NPO x 4 hrs to allow hemostatic spray to congeal Liquids after 4 hrs If rebleeds consider TIPS.
--- NOTE | 2024-02-01 14:04 | Hospitalist Progress Note ---
Date of Service February 01, 2024 Assessment & Plan (1) Hepatic encephalopathy: Plan Pt is a 58yoF with PMHx significant for hypertension, PSVT, COPD, NAFLD cirrhosis, history of esophageal varices as per records, portal hypertension, celiac disease, chronic hyponatremia, leukocytoclastic vasculitis as per records, cervical dysplasia, anxiety/mood disorder presenting for evaluation after a fall and increasing lethargy at home. Hepatic Encephalopathy History NAFLD/cirrhosis Acute Blood Loss anemia Upper GI Bleed Multifactorial: Missed lactulose doses from decreased mobility secondary to recent thoracic compression fracture UGIB, history of esophageal varices as per records progressive anemia from normal outpatient baseline hemoglobin last November 2023 heme positive melanotic stool documented at the ER Facilitate lactulose and rifaximin Continue IV rocephin IV PPI for UGIB, add octreotide if with significant subsequent H&H drop Follow H&H, transfuse pRBC to maintain hemoglobin of at least 7 GI consult re: UGIB -s/p EGD on 01/27 with varices banding - patient with low hemoglobin once more requiring transfusion of 1 more unit of packed red blood cells -N.p.o. after midnight for repeat EGD - had repeat EGD today 02/01/2024 with the following recs from GI noted. "NPO x 4 hrs to allow hemostatic spray to congeal Liquids after 4 hrs If rebleeds consider TIPS." Continue to monitor h/h and transfuse as needed Complicated UTI no sepsis for now UA suggestive of infection Urine Cx growing Klesiella oxytoca resistant to cefazolin On IV ceftriaxone as above (day 5/7), continue Decompensated cirrhosis secondary to above with associated fluid retention LE swelling Anasarca secondary to cirrhosis with secondary cellulitis no sepsis for now Continue IV Rocephin for possible cellulitis Echo noting EF of 60 to 65%, grade 1 diastolic failure, left atrium mildly dilated, right ventricle with mildly increased pressures 30-40 Venous dopplers unremarkable Arterial dopplers given tightness, r/o compartment syndrome- did not note any abnormalities Per nephrology, continue Lasix 40mg q8h and spironolactone Improving Acute on chronic hyponatremia secondary to above Nephrology consulted- started pt on lasix 40mg q8h and spironolactone stable hypertension BP on the lower side Monitor while on aggressive diuresis Fall Contusions PRN pain meds PT/OT Diet: full liquids at this time DVT prophylaxis. SCDs, concern for GI bleed Full code Dispo: PT/OT ordered for further recs- home with h/h Admission and Anticipated Discharge Date Admission Date: January 27, 2024 Subjective patient was seen in the a.m. with son at bedside before EGD. Denied acute concerns, which is anxious to have the procedure completed. Denying previously reported chest pain at this time. Noted that there was little improvement in the lower extremity swelling Review of Systems Review of Systems: All systems reviewed & are unremarkable except as noted in Subjective Physical Exam Physical Exam: General:AAOx3 Skin:bruising on right breast and right knee Neuro: AAOx3 HEENT: NC/AT CV: RRR Resp: no increased effort of breathing Abdomen: Soft Extremities: edema in lower extremities bilaterally. Results & Data Results & Data Vital Signs (Past 12 Hours) Vital Signs Temp Pulse Pulse Resp BP Pulse Ox O2 Del Method 02/01/24 13:48 77 16 92/58 L 95 Room Air 02/01/24 13:33 71 16 93/55 L 99 Room Air 02/01/24 13:18 75 18 91/53 L 98 Room Air 02/01/24 11:56 36.9 C 84 18 120/70 94 Nasal Cannula 02/01/24 11:29 36.7 C 77 19 101/63 95 Nasal Cannula 02/01/24 09:57 High Flow Nasal Cannula 02/01/24 07:28 84 02/01/24 07:16 37.0 C 82 19 99/60 L 92 Nasal Cannula 02/01/24 04:11 37.1 C 87 18 117/68 93 Nasal Cannula O2 Flow Rate 02/01/24 13:48 02/01/24 13:33 02/01/24 13:18 02/01/24 11:56 1 02/01/24 11:29 1 02/01/24 09:57 1 02/01/24 07:28 02/01/24 07:16 2 02/01/24 04:11 1
[2024-02-01] MEDS: LIDOCAINE 2% 2 ML VIAL/AMP(20MG/ML) INFIL ONE ×2 (15:30→15:31)
[2024-02-01] MEDS: PROPOFOL IV EMULSION 10 MG/ML 20 ML VIAL IV ONE (15:31)
[2024-02-01] MEDS: PHENYLEPHRINE 100MCG/ML 10ML SYR IV ONE (15:32)
[2024-02-01 15:54] LABS: Appearance Urine Clear (Clear); Bacteria Urine Automated None Seen (None Seen); Bilirubin Urine Negative (Negative); Blood Urine Negative (Negative); Cast Urine Automated 0-2 /lpf (0-2); Color Urine Yellow; Epithelial Cell Urine Auto 0-2 /hpf (0-2); Glucose Urine UA Negative (Negative); Ketones Urine Negative (Negative); Leukocyte Esterase Urine 2+ (Negative); Nitrite Urine Negative (Negative); Protein Urine Trace (Negative); RBC Urine Automated 0-2 /hpf (0-2); Specific Gravity Urine 1.013 (1.000-1.030); Urobilinogen Urine Negative (Negative)
--- NOTE | 2024-02-01 16:05 | Anesthesiology Progress Note ---
Date of Service February 01, 2024 Anesthesia Post Procedure Vital Signs Vital Signs: Temp Pulse Pulse Resp BP Pulse Ox O2 Del Method 02/01/24 14:47 73 02/01/24 13:48 77 16 92/58 L 95 Room Air 02/01/24 13:33 71 16 93/55 L 99 Room Air 02/01/24 13:18 75 18 91/53 L 98 Room Air 02/01/24 11:56 36.9 C 84 18 120/70 94 Nasal Cannula 02/01/24 11:29 36.7 C 77 19 101/63 95 Nasal Cannula 02/01/24 09:57 High Flow Nasal Cannula 02/01/24 07:28 84 02/01/24 07:16 37.0 C 82 19 99/60 L 92 Nasal Cannula 02/01/24 04:11 37.1 C 87 18 117/68 93 Nasal Cannula 01/31/24 22:56 37.1 C 91 H 16 110/66 93 Nasal Cannula 01/31/24 20:16 High Flow Nasal Cannula 01/31/24 19:45 37.1 C 96 H 18 116/70 93 Nasal Cannula 01/31/24 16:36 37.1 C 87 19 106/67 94 Nasal Cannula O2 Flow Rate 02/01/24 14:47 02/01/24 13:48 02/01/24 13:33 02/01/24 13:18 02/01/24 11:56 1 02/01/24 11:29 1 02/01/24 09:57 1 02/01/24 07:28 02/01/24 07:16 2 02/01/24 04:11 1 01/31/24 22:56 1 01/31/24 20:16 1 01/31/24 19:45 1 01/31/24 16:36 1 Pain Intensity Back: Pain Intensity: 6 Transfer of Care Handoff Completed per policy Notes Mental Status: alert / awake / arousable and participated in evaluation Nausea / Vomiting: adequately controlled Pain: adequately controlled Airway Patency, RR, SpO2: stable & adequate BP & HR: stable & adequate Hydration State: stable & adequate Anesthetic Complications: no major complications apparent and Pt Satisfied with anesthetic care
[2024-02-01 16:17] LABS: Urine Potassium 38.8 mmol/L
[2024-02-01 17:04] LABS: BUN Creatinine Ratio 17.6 (10-20); Calcium 8.4 mg/dl (8.6-10.3); Creatinine Clr Calc Pharmacy 96.7 ml/min
[2024-02-02 06:44] LABS: Basophils % (auto) 1.6 %; Eosinophils % (auto) 6.5 %; Hematocrit (blood only) 23.4 % (37.0-47.0); Immature Granulocytes # (auto) 0.03 K/uL (0.01-0.20); Immature Granulocytes % (auto) 0.5 %; Lymphocytes # (auto) 1.01 K/uL (1.20-3.40); Lymphocytes % (auto) 16.3 %; Mean Corpuscular Hemoglobin 31.5 pg (25.0-34.0); Mean Corpuscular Hgb Conc 34.2 g/dL (32.0-36.0); Mean Corpuscular Volume 92.1 fL (80.0-100.0); Mean Platelet Volume 9.4 fL (9.4-12.4); Monocytes # (auto) 0.97 K/uL (0.11-0.59); Monocytes % (auto) 15.6 %; Neutrophils # (auto) 3.69 K/uL (1.40-6.50); Neutrophils % (auto) 59.5 %; Platelet Count 221 K/uL (130-400); RDW Coefficient of Variation 15.3 % (11.5-14.5); RDW Standard Deviation 51.4 fL (36.4-46.3); Red Blood Count 2.54 M/uL (4.20-5.40)
[2024-02-02 07:05] LABS: Albumin Globulin Ratio 1.1 (0.9-2); Albumin Level 2.7 gm/dl (3.4-5.0); BUN Creatinine Ratio 16.4 (10-20); Bilirubin,Total 2.2 mg/dl (0.2-1.0); Calcium 8.1 mg/dl (8.6-10.3); Creatinine Clr Calc Pharmacy 95.5 ml/min; Globulin 2.5 gm/dl (2.5-4.0); Magnesium 1.7 mg/dl (1.7-2.4); Phosphorus 2.6 mg/dl (2.5-4.9); Total Protein 5.2 gm/dl (6.0-8.3)
--- NOTE | 2024-02-02 09:20 | Gastroenterology Progress Note ---
<Statement entered by Martell Zuñiga MD - 02/02/24 15:34> Patient tolerated diet and states she feels improved. Keep on soft diet and OP repeat EGD in 2-4 weeks. If rebleeds would use IV Octreotide and consider TIPS. IP GI Service will sign off. 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 GI asked to evaluate for UGI bleeding w/ report of "heme positive melanotic stool documented at the ER" and acute on chronic anemia requiring transfusion. S/P EGD 01/27 w/ scar in the lower third of the esophagus, Grade I esophageal baltazar ices, completely eradicated w/ banding, portal hypertensive gastropathy. GI was asked to evaluate for anemia requiring transfusion, continued dark stools, repeat EGD 01/31 w/ evidence of banded varices, hemostatic spray applied to banded varix, scope was not advanced to avoid disrupting bands - May advance to low sodium, soft diet - If rebleeds, transfer for TIPS evaluation - Will need a HD appt with her [facility] GI/Hepatology providers - Cirrhosis management - Continue lactulose - Continue Xifaxan - Continue OP diuretics - Nadolol 20mg daily - MELD labs every 6 months - ABD imaging w/ AFP every 6 months - EGD every 1-2 years - No ETOH - No NSAIDs - Avoid hepatotoxin - Low NA diet, less than 2G daily - Less than 2G acetaminophen containing products daily Recall GI as needed. Thank you for allowing us to participate in the care of this patient. Please call with any acute changes, questions or concerns. Please see addendum below with additional recommendation from my supervising physician. I spent a total of 40 minutes on the date of service in review of patient's record, and previously obtained information in person and appropriate medical visit, discussion and education of plan, with patient and/or caregiver, placing orders for tests/referral/procedures as medically necessary and documentation of pertinent clinical information in patient's medical records for their visit today. Admission and Anticipated Discharge Date Admission Date: January 27, 2024 Subjective S/P repeat EGD w/ hemospray therapy/ Feeling well. Denies abd pain. No nausea, vomiting. HGB stable Review of Systems Review of Systems: All other findings negative except as noted in HPI. Physical Exam Constitutional: WD/WN, vitals as above Respiratory: normal respiratory effort, lungs clear to auscultation Cardiovascular: Rate/Rhythm: regular rate and regular rhythm Gastrointestinal (Abdomen): normal bowel sounds, soft, nontender, no hepatosplenomegaly Skin: no rashes, warm and dry Results & Data Results & Data Vital Signs (Past 12 Hours) Vital Signs Temp Pulse Pulse Resp BP Pulse Ox O2 Del Method 02/02/24 07:31 36.7 C 62 18 107/64 96 Room Air 02/02/24 02:53 36.4 C L 82 14 104/63 92 Room Air 02/02/24 00:23 86 109/65 02/01/24 23:25 85 02/01/24 23:25 Room Air 02/01/24 23:03 36.5 C 89 16 108/65 91 Room Air Laboratory Results 02/02/24 02/01/24 02/01/24 Range/Units 05:46 16:18 14:56 WBC 6.20 (4.8-10.8) K/ul RBC 2.54 L (4.20-5.40) M/uL Hgb 8.0 L (12.0-16.0) g/dl Hct 23.4 L (37.0-47.0) % MCV 92.1 (80.0-100.0) fL MCH 31.5 (25.0-34.0) pg MCHC 34.2 (32.0-36.0) g/dL RDW Std Deviation 51.4 H (36.4-46.3) fL RDW Coeff of Baltazar 15.3 H (11.5-14.5) % Plt Count 221 (130-400) K/uL MPV 9.4 (9.4-12.4) fL Immature Gran % (Auto) 0.5 % Neut % (Auto) 59.5 % Lymph % (Auto) 16.3 % [place] % (Auto) 15.6 % Eos % (Auto) 6.5 % Baso % (Auto) 1.6 % Neut # (Auto) 3.69 (1.40-6.50) K/uL Lymph # (Auto) 1.01 L (1.20-3.40) K/uL [place] # (Auto) 0.97 H (0.11-0.59) K/uL Eos # (Auto) 0.40 (0.00-0.50) K/uL Baso # (Auto) 0.10 (0.00-0.20) K/uL Immature Gran # (Auto) 0.03 (0.01-0.20) K/uL Sodium 127 L 128 L (136-145) mmol/L Potassium 4.0 4.0 (3.5-5.1) mmol/L Chloride 97 L 97 L (98-107) mmol/L Carbon Dioxide 24 23 (21-32) mmol/L Anion Gap 6 8 (3-11) BUN 11 12 (6-23) mg/dl Creatinine 0.67 0.68 (0.6-1.2) mg/dl Est Cr Clr Drug Dosing 95.5 96.7 ml/min eGFR 100.62 100.26 BUN/Creatinine Ratio 16.4 17.6 (10-20) Glucose 80 94 (70-99(Fasting)) mg/dl Osmolality 269 L (280-300) mOsm/kg Calcium 8.1 L 8.4 L (8.6-10.3) mg/dl Phosphorus 2.6 (2.5-4.9) mg/dl Magnesium 1.7 (1.7-2.4) mg/dl Total Bilirubin 2.2 H (0.2-1.0) mg/dl AST 31 (13-39) U/L ALT 13 (7-52) U/L Alkaline Phosphatase 93 (34-104) U/L Total Protein 5.2 L (6.0-8.3) gm/dl Albumin 2.7 L (3.4-5.0) gm/dl Globulin 2.5 (2.5-4.0) gm/dl Albumin/Globulin Ratio 1.1 (0.9-2) Urine Color Yellow Urine Appearance Clear (Clear) Urine pH 7.0 (4.5-7.5) Ur Specific [place] 1.013 (1.000-1.030) Urine Protein Trace H (Negative) Urine Glucose (UA) Negative (Negative) Urine Ketones Negative (Negative) Urine Blood Negative (Negative) Urine Nitrite Negative (Negative) Urine Bilirubin Negative (Negative) Urine Urobilinogen Negative (Negative) Ur Leukocyte Esterase 2+ H (Negative) Urine WBC (Auto) 6-10 H (0-5) /hpf Urine RBC (Auto) 0-2 (0-2) /hpf U Hyaline Cast (Auto) 0-2 (0-2) /lpf U Epithel Cells (Auto) 0-2 (0-2) /hpf Urine Bacteria (Auto) None Seen (None Seen) Urine Osmolality 347 L (500-800) mOsm/kg Urine Sodium 56 mmol/L Urine Potassium 38.8 mmol/L Urine Chloride 41 mmol/L PG Care Time/CCT Total # of Minutes Spent Total Time Spent with Patient: Total time spent is greater than 50% in coordination of care (as documented) at patient's floor/unit and/or counseling patient: Coding Level of Care Code 39210 SUB INP/OBS CARE 2/35MIN Diagnoses 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
--- NOTE | 2024-02-02 10:33 | Nephrology Progress Note ---
Date of Service February 02, 2024 Assessment & Plan (1) Acute hyponatremia: Plan: essentially plateau'd hypervolemic hyponatremia with Severe Volume overload--anasarca and massive pre admission wt gain in patient with Liver Cirrhosis which is the underlying problem -- with intravascular volume depletion concomitant since sodium dropped w/ starting lasix; though could also be d/t spironolactone >> trial of intensified fluid reduction -urea/salt tabs not appropriate w/ hypervolemic hyponatremia -now that she's on regular diet, Free fluid restriction= 1200 mL per day, toward which protein shakes don't count -held spironolactone starting tomorrow -increase frequency of lasix 60 mg IV q6hr -continue K CL bid current dose (2) 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 (3) Anasarca: Plan: ongoing; d/t liver cirrhosis Admission and Anticipated Discharge Date Admission Date: January 27, 2024 Subjective GI w/ d/c recs in chart; still w/ significant chest pain; no sob; no n/v; just starting regular diet Review of Systems 2 Review of Systems: All systems reviewed & are unremarkable except as noted in Subjective Physical Exam 2 Constitutional: well developed (more alert today), well nourished and + frail appearing ENMT: Mouth: + dry oral mucous membranes Respiratory: normal respiratory effort Auscultation: + diminished lung sounds Cardiovascular: Rate/Rhythm: regular rate and regular rhythm Heart Sounds: + murmur Extremities: + edema (3+) anterior chest TTP Musculoskeletal: Extremities: strength 5/5 throughout Skin: no rashes, warm and dry Results & Data Vital Signs (Past 12 Hours) Vital Signs Temp Pulse Pulse Resp BP Pulse Ox O2 Del Method 02/02/24 07:31 36.7 C 62 18 107/64 96 Room Air 02/02/24 02:53 36.4 C L 82 14 104/63 92 Room Air 02/02/24 00:23 86 109/65 02/01/24 23:25 85 02/01/24 23:25 Room Air 02/01/24 23:03 36.5 C 89 16 108/65 91 Room Air Laboratory Results 02/02/24 05:46 02/02/24 05:46
--- NOTE | 2024-02-02 12:03 | Hospitalist Progress Note ---
Date of Service February 02, 2024 Assessment & Plan (1) Hepatic encephalopathy: Plan Pt is a 58yoF with PMHx significant for hypertension, PSVT, COPD, NAFLD cirrhosis, history of esophageal varices as per records, portal hypertension, celiac disease, chronic hyponatremia, leukocytoclastic vasculitis as per records, cervical dysplasia, anxiety/mood disorder presenting for evaluation after a fall and increasing lethargy at home. Hepatic Encephalopathy History NAFLD/cirrhosis Acute Blood Loss anemia Upper GI Bleed Multifactorial: Missed lactulose doses from decreased mobility secondary to recent thoracic compression fracture UGIB, history of esophageal varices as per records progressive anemia from normal outpatient baseline hemoglobin last November 2023 heme positive melanotic stool documented at the ER Facilitate lactulose and rifaximin Continue IV rocephin IV PPI for UGIB, add octreotide if with significant subsequent H&H drop, continue with drip at this time given re-bleed Follow H&H, transfuse pRBC to maintain hemoglobin of at least 7 GI consult re: UGIB -s/p EGD on 01/27 with varices banding - patient with low hemoglobin once more requiring transfusion of 1 more unit of packed red blood cells -N.p.o. after midnight for repeat EGD - had repeat EGD on 02/01/2024 with the following recs from GI noted. "NPO x 4 hrs to allow hemostatic spray to congeal Liquids after 4 hrs If rebleeds consider TIPS." Continue to monitor h/h and transfuse as needed 02/02/24- patient stable post EGD, diet advanced to soft low-sodium with fluid restriction per nephrology. Nadolol added to regimen per GI recs, monitor blood pressure. hemoglobin stable at 8 Complicated UTI no sepsis for now UA suggestive of infection Urine Cx growing Klesiella oxytoca resistant to cefazolin On IV ceftriaxone as above (day 6/7), continue Decompensated cirrhosis secondary to above with associated fluid retention LE swelling Anasarca secondary to cirrhosis with secondary cellulitis no sepsis for now Continue IV Rocephin for possible cellulitis Echo noting EF of 60 to 65%, grade 1 diastolic failure, left atrium mildly dilated, right ventricle with mildly increased pressures 30-40 Venous dopplers unremarkable Arterial dopplers given tightness, r/o compartment syndrome- did not note any abnormalities Per nephrology, continue Lasix 40mg q8h and spironolactone Improving Acute on chronic hyponatremia secondary to above Nephrology consulted- started pt on lasix 40mg q8h and spironolactone stable hypertension BP on the lower side Monitor while on aggressive diuresis Fall Contusions PRN pain meds PT/OT Diet: soft, low sodium, fluid restriction DVT prophylaxis. SCDs, concern for GI bleed Full code Dispo: PT/OT ordered for further recs- home with h/h Admission and Anticipated Discharge Date Admission Date: January 27, 2024 Subjective patient was seen with Family member at bedside. patient very concerned about her diet. States that she would like to eat solid food. Concerned about her salt intake. Review of Systems Review of Systems: All systems reviewed & are unremarkable except as noted in Subjective Physical Exam Physical Exam: General:AAOx3 Skin:bruising on right breast and right knee Neuro: AAOx3 HEENT: NC/AT CV: RRR Resp: no increased effort of breathing Abdomen: Soft Extremities: edema in lower extremities bilaterally. Results & Data Results & Data Vital Signs (Past 12 Hours) Vital Signs Temp Pulse Resp BP Pulse Ox O2 Del Method 02/02/24 11:19 36.5 C 84 18 106/65 94 Room Air 02/02/24 07:31 36.7 C 62 18 107/64 96 Room Air 02/02/24 02:53 36.4 C L 82 14 104/63 92 Room Air 02/02/24 00:23 86 109/65
[2024-02-02] MEDS: FUROSEMIDE 40 MG/4 ML VIAL IV SCH (12:58)
[2024-02-02] MEDS: nadoloL 40 MG TAB PO SCH ×2 (17:18→20:33)
[2024-02-03 06:14] LABS: Basophils # (auto) 0.09 K/uL (0.00-0.20); Basophils % (auto) 1.4 %; Eosinophils # (auto) 0.49 K/uL (0.00-0.50); Eosinophils % (auto) 7.6 %; Hematocrit (blood only) 24.1 % (37.0-47.0); Immature Granulocytes # (auto) 0.03 K/uL (0.01-0.20); Immature Granulocytes % (auto) 0.5 %; Lymphocytes # (auto) 0.92 K/uL (1.20-3.40); Lymphocytes % (auto) 14.2 %; Mean Corpuscular Hemoglobin 31.7 pg (25.0-34.0); Mean Corpuscular Hgb Conc 33.2 g/dL (32.0-36.0); Mean Corpuscular Volume 95.6 fL (80.0-100.0); Mean Platelet Volume 9.3 fL (9.4-12.4); Monocytes # (auto) 1.02 K/uL (0.11-0.59); Monocytes % (auto) 15.8 %; Neutrophils # (auto) 3.91 K/uL (1.40-6.50); Neutrophils % (auto) 60.5 %; Platelet Count 219 K/uL (130-400); RDW Coefficient of Variation 15.6 % (11.5-14.5); Red Blood Count 2.52 M/uL (4.20-5.40); White Blood Count 6.46 K/ul (4.8-10.8)
[2024-02-03 06:34] LABS: Albumin Globulin Ratio 1.1 (0.9-2); Albumin Level 2.7 gm/dl (3.4-5.0); BUN Creatinine Ratio 14.5 (10-20); Bilirubin,Total 1.6 mg/dl (0.2-1.0); Calcium 8.2 mg/dl (8.6-10.3); Creatinine Clr Calc Pharmacy 84.2 ml/min; Globulin 2.5 gm/dl (2.5-4.0); Magnesium 1.8 mg/dl (1.7-2.4); Phosphorus 2.8 mg/dl (2.5-4.9); Potassium 3.9 mmol/L (3.5-5.1); Total Protein 5.2 gm/dl (6.0-8.3)
--- NOTE | 2024-02-03 11:36 | Nephrology Progress Note ---
Date of Service February 03, 2024 Assessment & Plan (1) Acute hyponatremia: Plan: essentially plateau'd hypervolemic hyponatremia with Severe Volume overload--anasarca and massive pre admission wt gain in patient with Liver Cirrhosis which is the underlying problem -- with intravascular volume depletion concomitant since sodium dropped w/ starting lasix; though could also be d/t spironolactone. urea/salt tabs not appropriate w/ hypervolemic hyponatremia. though sNa plateau'd, clinical status slightly improved and > 2L negative (at times > 3L negative) each day past 48 hrs -continue fluid restriction= 1200 mL per day, toward which protein shakes don't count < did d/w RN -continue low sodium diet -encourage protein intake; dietary c/s placed to teach on this and to recommend concentrated protein supplement -cont to hold spironolactone ->>increased frequency of lasix 60 mg IV q4hr from q6h ->>>increased K CL tid > qid same mEq >>daily STANDING weight ordered/ appreciate nursing assistance w/ this -cont strict I/O -needs daily bmp pls Care coordinated with Dr Jaime via TText re standing wts, med changes above, dietary c/s plan; we are in agreement. 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 (3) Anasarca: Plan: ongoing; d/t liver cirrhosis Admission and Anticipated Discharge Date Admission Date: January 27, 2024 Subjective ambulated today w/ walker w/ PT; pain a bit better controlled w/ lidocaine patch and other meds; feels legs are a bit less tight; not weeping as much if at all; no sob; no n/v Review of Systems 2 Review of Systems: All systems reviewed & are unremarkable except as noted in Subjective Physical Exam 2 Constitutional: well developed (sitting up in bed eating small midday meal), well nourished, + frail appearing and cooperative; no acute distress ENMT: Mouth: + dry oral mucous membranes Respiratory: normal respiratory effort Auscultation: + diminished lung sounds Cardiovascular: Rate/Rhythm: regular rate and regular rhythm Heart Sounds: + murmur Extremities: + edema (3+; less taut) Musculoskeletal: Extremities: strength 5/5 throughout Skin: no rashes, warm and dry Psychiatric: Orientation: alert and oriented x 3 Results & Data Vital Signs (Past 12 Hours) Vital Signs Temp Pulse Resp BP Pulse Ox O2 Del Method 02/03/24 07:53 36.7 C 68 18 95/58 L 90 Room Air 02/03/24 06:29 72 93/54 L 02/03/24 04:02 36.6 C 74 16 95/61 L 91 Room Air Laboratory Results 02/03/24 05:48 02/03/24 05:48
[2024-02-03] MEDS: POTASSIUM CHLORIDE CRTAB 20 MEQ TABCR PO SCH (13:33)
[2024-02-03] MEDS: FUROSEMIDE 40 MG/4 ML VIAL IV SCH ×2 (13:35→14:22)
--- NOTE | 2024-02-03 14:07 | Hospitalist Progress Note ---
Date of Service February 03, 2024 Assessment & Plan (1) Hepatic encephalopathy: Plan Pt is a 58yoF with PMHx significant for hypertension, PSVT, COPD, NAFLD cirrhosis, history of esophageal varices as per records, portal hypertension, celiac disease, chronic hyponatremia, leukocytoclastic vasculitis as per records, cervical dysplasia, anxiety/mood disorder presenting for evaluation after a fall and increasing lethargy at home. Hepatic Encephalopathy- Resolved History NAFLD/cirrhosis Acute Blood Loss anemia Upper GI Bleed Multifactorial: Missed lactulose doses from decreased mobility secondary to recent thoracic compression fracture UGIB, history of esophageal varices as per records Progressive anemia from normal outpatient baseline hemoglobin last November 2023 Underwent EGD on 3grade 1 varices in the lower third of the stomach with garner red spot. 2 bands were successfully placed with complete eradication. Mild portal hypertensive gastropathy found. Underwent EGD again on ound to have grade 1 varices again. Applied hemostatic spray to the area. Monitor for signs and symptoms of rebleeding. Will need to evaluate for TIPS if she has another rebleeding episode. Complicated UTI UA suggestive of infection Urine Cx growing Klesiella oxytoca resistant to cefazolin Continue iv ceftriaxone for 7 days Decompensated cirrhosis LE swelling Anasarca Echo noting EF of 60 to 65%, grade 1 diastolic failure, left atrium mildly dilated, right ventricle with mildly increased pressures 30-40 Venous dopplers unremarkable Arterial dopplers given tightness, r/o compartment syndrome- did not note any abnormalities On diuretics as per nephrology. Discussed with Dr. King Acute on chronic hyponatremia secondary to above Nephrology consulted- on diuretics as per nephrology stable hypertension BP on the lower side Monitor while on aggressive diuresis Fall Contusions PRN pain meds PT/OT Diet: soft, low sodium, fluid restriction DVT prophylaxis. SCDs, concern for GI bleed Full code Dispo: PT/OT ordered for further recs- home with h/h Time spent evaluating patient, direct bedside care, chart review, placing orders, interpretation of diagnostic studies, discussion with consultants, patient, and family members, as well as other required patient management activities is 50 minutes Please note the above document was generated using voice recognition software. It may contain grammatical, syntax or spelling errors. Any formal questions or concerns about the content, text or information contained within the body of this dictation should be directly addressed to the provider for clarification Admission and Anticipated Discharge Date Admission Date: January 27, 2024 Subjective Patient seen and examined at bedside. She reports pain on right side of her lateral chest wall Patient worked with occupational therapy; walked on the hallways No significant events overnight Review of Systems Review of Systems: All systems reviewed & are unremarkable except as noted in Subjective Physical Exam Physical Exam: Constitutional: Alert oriented x 3; not in distress. Respiratory: Bilateral vesicular breath sound. Cardiovascular: RRR, no murmur, no edema Vessels: no JVD or carotid bruit Chest: normal inspection of chest Abdomen: normal bowel sounds, soft, nontender, no hepatosplenomegaly Musculoskeletal: 2+ pitting edema present in bilateral lower extremities Skin: no rashes, warm and dry normal turgor Neurologic: PERRL, EOMI, accommodation nl, no face palsy, no dysarthria CN's II- XI intact bilaterally and moves all extremities Psychiatric: A+Ox3, euthymic affect Results & Data Results & Data Vital Signs (Past 12 Hours) Vital Signs Temp Pulse Resp BP Pulse Ox O2 Del Method 02/03/24 11:33 36.3 C L 64 18 98/61 L 92 Room Air 02/03/24 07:53 36.7 C 68 18 95/58 L 90 Room Air 02/03/24 06:29 72 93/54 L 02/03/24 04:02 36.6 C 74 16 95/61 L 91 Room Air
[2024-02-04 08:07] LABS: Basophils # (auto) 0.09 K/uL (0.00-0.20); Basophils % (auto) 1.1 %; Eosinophils # (auto) 0.42 K/uL (0.00-0.50); Eosinophils % (auto) 5.3 %; Hematocrit (blood only) 24.2 % (37.0-47.0); Hemoglobin 8.1 g/dl (12.0-16.0); Immature Granulocytes # (auto) 0.04 K/uL (0.01-0.20); Immature Granulocytes % (auto) 0.5 %; Lymphocytes # (auto) 1.15 K/uL (1.20-3.40); Lymphocytes % (auto) 14.5 %; Mean Corpuscular Hemoglobin 31.6 pg (25.0-34.0); Mean Corpuscular Hgb Conc 33.5 g/dL (32.0-36.0); Mean Corpuscular Volume 94.5 fL (80.0-100.0); Mean Platelet Volume 9.2 fL (9.4-12.4); Monocytes # (auto) 1.04 K/uL (0.11-0.59); Monocytes % (auto) 13.1 %; Neutrophils # (auto) 5.19 K/uL (1.40-6.50); Neutrophils % (auto) 65.5 %; Platelet Count 225 K/uL (130-400); RDW Coefficient of Variation 15.4 % (11.5-14.5); RDW Standard Deviation 53.4 fL (36.4-46.3); Red Blood Count 2.56 M/uL (4.20-5.40); White Blood Count 7.93 K/ul (4.8-10.8)
[2024-02-04 08:30] LABS: BUN Creatinine Ratio 14.6 (10-20); Calcium 8.1 mg/dl (8.6-10.3); Creatinine Clr Calc Pharmacy 77.7 ml/min; Potassium 4.2 mmol/L (3.5-5.1)
--- NOTE | 2024-02-04 13:53 | Hospitalist Progress Note ---
Date of Service February 04, 2024 Assessment & Plan (1) Hepatic encephalopathy: Plan Pt is a 58yoF with PMHx significant for hypertension, PSVT, COPD, NAFLD cirrhosis, history of esophageal varices as per records, portal hypertension, celiac disease, chronic hyponatremia, leukocytoclastic vasculitis as per records, cervical dysplasia, anxiety/mood disorder presenting for evaluation after a fall and increasing lethargy at home. Hepatic Encephalopathy- Resolved History NAFLD/cirrhosis Acute Blood Loss anemia Upper GI Bleed Multifactorial: Missed lactulose doses from decreased mobility secondary to recent thoracic compression fracture UGIB, history of esophageal varices as per records Progressive anemia from normal outpatient baseline hemoglobin last November 2023 Underwent EGD on 3grade 1 varices in the lower third of the stomach with garner red spot. 2 bands were successfully placed with complete eradication. Mild portal hypertensive gastropathy found. Underwent EGD again on ound to have grade 1 varices again. Applied hemostatic spray to the area. Monitor for signs and symptoms of rebleeding. Will need to evaluate for TIPS if she has another rebleeding episode. Complicated UTI UA suggestive of infection Urine Cx growing Klesiella oxytoca resistant to cefazolin Continue iv ceftriaxone for 7 days Decompensated cirrhosis LE swelling Anasarca Echo noting EF of 60 to 65%, grade 1 diastolic failure, left atrium mildly dilated, right ventricle with mildly increased pressures 30-40 Venous dopplers unremarkable Arterial dopplers given tightness, r/o compartment syndrome- did not note any abnormalities On diuretics as per nephrology. Discussed with Dr. King Acute on chronic hyponatremia secondary to above Serum sodium of 124 today. Patient is currently on IV Lasix 40 mg every 6 hours. Will repeat BMP in the afternoon. hypertension BP on the lower side Monitor while on aggressive diuresis Fall Contusions PRN pain meds PT/OT Diet: soft, low sodium, fluid restriction DVT prophylaxis. SCDs, concern for GI bleed Full code Dispo: PT/OT ordered for further recs- home with h/h Discussed with patient's daughter over the phone. Time spent evaluating patient, direct bedside care, chart review, placing orders, interpretation of diagnostic studies, discussion with consultants, patient, and family members, as well as other required patient management activities is 50 minutes Please note the above document was generated using voice recognition software. It may contain grammatical, syntax or spelling errors. Any formal questions or concerns about the content, text or information contained within the body of this dictation should be directly addressed to the provider for clarification Admission and Anticipated Discharge Date Admission Date: January 27, 2024 Subjective Patient seen and examined at bedside. Comfortable; not in distress. Denies fever, chills, chest pain, shortness of breath, abdominal pain or urinary symptoms. No significant overnight events Review of Systems Review of Systems: All systems reviewed & are unremarkable except as noted in Subjective Physical Exam Physical Exam: Constitutional: Alert oriented x 3; not in distress. Respiratory: Bilateral vesicular breath sound. Cardiovascular: RRR, no murmur, no edema Vessels: no JVD or carotid bruit Chest: normal inspection of chest Abdomen: normal bowel sounds, soft, nontender, no hepatosplenomegaly Musculoskeletal: 2+ pitting edema present in bilateral lower extremities Skin: no rashes, warm and dry normal turgor Neurologic: PERRL, EOMI, accommodation nl, no face palsy, no dysarthria CN's II- XI intact bilaterally and moves all extremities Psychiatric: A+Ox3, euthymic affect Results & Data Results & Data Vital Signs (Past 12 Hours) Vital Signs Temp Pulse Resp BP Pulse Ox O2 Del Method O2 Flow Rate 02/04/24 11:04 36.8 C 68 18 93/60 L 98 Nasal Cannula 1 02/04/24 08:00 Nasal Cannula 2 02/04/24 07:56 77 95 Nasal Cannula 2 02/04/24 07:29 36.7 C 77 18 96/62 L 90 Room Air 02/04/24 02:41 36.7 C 79 19 97/60 L 90 Room Air
[2024-02-04 15:24] LABS: Calcium 8.1 mg/dl (8.6-10.3); Potassium 4.2 mmol/L (3.5-5.1)
[2024-02-04 15:30] LABS: BUN Creatinine Ratio 13.6 (10-20); Creatinine Clr Calc Pharmacy 72.4 ml/min
--- NOTE | 2024-02-04 17:30 | Nephrology Progress Note ---
Date of Service February 04, 2024 Assessment & Plan (1) Acute hyponatremia: Plan: worsened hypervolemic hyponatremia after several days of plateau in high 120s with Severe Volume overload--anasarca and massive pre admission wt gain in patient with Liver Cirrhosis which is the underlying problem; though could also be d/t spironolactone. urea/salt tabs not appropriate w/ hypervolemic hyponatremia. 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 (3) Anasarca: Plan: ongoing; d/t liver cirrhosis Admission and Anticipated Discharge Date Admission Date: January 27, 2024 Subjective seen on late AM rounds; up in chair; no c/o. still w/ reilly. daughter joins visit at pt request by phone. no sob, no change in edema Review of Systems 2 Review of Systems: All systems reviewed & are unremarkable except as noted in Subjective Physical Exam 2 Constitutional: well developed (sitting up in recliner eating small midday meal), well nourished, + frail appearing and cooperative; no acute distress ENMT: Mouth: + dry oral mucous membranes Respiratory: normal respiratory effort Auscultation: + diminished lung sounds Cardiovascular: Rate/Rhythm: regular rate and regular rhythm Heart Sounds: + murmur Extremities: + edema (3+; less taut but still extensive) Musculoskeletal: Extremities: strength 5/5 throughout Skin: no rashes, warm and dry Psychiatric: Orientation: alert and oriented x 3 Results & Data Vital Signs (Past 12 Hours) Vital Signs Temp Pulse Resp BP Pulse Ox O2 Del Method O2 Flow Rate 02/04/24 15:54 36.7 C 71 18 88/62 L 90 Room Air 02/04/24 11:04 36.8 C 68 18 93/60 L 98 Nasal Cannula 1 02/04/24 08:00 Nasal Cannula 2 02/04/24 07:56 77 95 Nasal Cannula 2 02/04/24 07:29 36.7 C 77 18 96/62 L 90 Room Air Laboratory Results 02/04/24 07:50 02/04/24 14:32
[2024-02-04] MEDS: PANTOprazole 40 MG TAB PO SCH (21:11)
[2024-02-05 06:10] LABS: Basophils # (auto) 0.07 K/uL (0.00-0.20); Basophils % (auto) 0.9 %; Eosinophils # (auto) 0.41 K/uL (0.00-0.50); Hematocrit (blood only) 24.4 % (37.0-47.0); Hemoglobin 7.9 g/dl (12.0-16.0); Immature Granulocytes # (auto) 0.03 K/uL (0.01-0.20); Immature Granulocytes % (auto) 0.4 %; Lymphocytes # (auto) 1.01 K/uL (1.20-3.40); Lymphocytes % (auto) 12.3 %; Mean Corpuscular Hemoglobin 31.1 pg (25.0-34.0); Mean Corpuscular Hgb Conc 32.4 g/dL (32.0-36.0); Mean Corpuscular Volume 96.1 fL (80.0-100.0); Mean Platelet Volume 9.4 fL (9.4-12.4); Monocytes # (auto) 1.02 K/uL (0.11-0.59); Monocytes % (auto) 12.4 %; Neutrophils # (auto) 5.66 K/uL (1.40-6.50); Platelet Count 197 K/uL (130-400); RDW Coefficient of Variation 15.1 % (11.5-14.5); RDW Standard Deviation 52.4 fL (36.4-46.3); Red Blood Count 2.54 M/uL (4.20-5.40)
[2024-02-05 06:34] LABS: Polychromasia 1+
[2024-02-05 06:47] LABS: BUN Creatinine Ratio 15.7 (10-20); Calcium 8.1 mg/dl (8.6-10.3); Creatinine Clr Calc Pharmacy 71.7 ml/min; Potassium 4.8 mmol/L (3.5-5.1)
[2024-02-05] MEDS: NYSTATIN POWDER 15GM BTL EXT SCH (08:05)
[2024-02-05] MEDS: ALBUMIN 25% 25 GM/100 ML VIAL IV ONE (12:19)
[2024-02-05] MEDS: MIDODRINE HCL 2.5 MG TAB PO SCH (12:27)
--- NOTE | 2024-02-05 13:12 | Hospitalist Progress Note ---
Date of Service February 05, 2024 Assessment & Plan (1) Hepatic encephalopathy: Plan Pt is a 58yoF with PMHx significant for hypertension, PSVT, COPD, NAFLD cirrhosis, history of esophageal varices as per records, portal hypertension, celiac disease, chronic hyponatremia, leukocytoclastic vasculitis as per records, cervical dysplasia, anxiety/mood disorder presenting for evaluation after a fall and increasing lethargy at home. Hepatic Encephalopathy- Resolved History NAFLD/cirrhosis Acute Blood Loss anemia Upper GI Bleed Missed lactulose doses from decreased mobility secondary to recent thoracic compression fracture UGIB, history of esophageal varices as per records Progressive anemia from normal outpatient baseline hemoglobin last November 2023 Underwent EGD on 3grade 1 varices in the lower third of the stomach with garner red spot. 2 bands were successfully placed with complete eradication. Mild portal hypertensive gastropathy found. Underwent EGD again on ound to have grade 1 varices again. Applied hemostatic spray to the area. Monitor for signs and symptoms of rebleeding. Will need to evaluate for TIPS if she has another rebleeding episode. Nadolol on hold due to low blood pressure Complicated UTI UA suggestive of infection Urine Cx growing Klesiella oxytoca resistant to cefazolin Completed antibiotics course. Decompensated cirrhosis LE swelling Anasarca Echo noting EF of 60 to 65%, grade 1 diastolic failure, left atrium mildly dilated, right ventricle with mildly increased pressures 30-40 Venous dopplers unremarkable On diuretics as per nephrology. Discussed with Dr. King Her blood pressure has been on lower side; will start on midodrine. Also given 1 dose of IV albumin on 02/05/2024 Will hold tonight's Nadolol dose Acute on chronic hyponatremia secondary to above Serum sodium of 124 today. Patient is currently on IV Lasix 40 mg every 6 hours. Her blood pressure has been on lower side; will start on midodrine. Also given 1 dose of IV albumin on 02/05/2024 Will hold tonight's Nadolol dose hypertension BP on the lower side Monitor while on aggressive diuresis hold nadolol Fall Contusions PRN pain meds PT/OT Diet: soft, low sodium, fluid restriction DVT prophylaxis. SCDs, concern for GI bleed Full code Dispo: PT/OT ordered for further recs- home with h/h Discussed with patient's daughter and son over the phone at patient's bedside. Time spent evaluating patient, direct bedside care, chart review, placing orders , interpretation of diagnostic studies, discussion with consultants, patient, and family members, as well as other required patient management activities is 50 minutes Please note the above document was generated using voice recognition software. It may contain grammatical, syntax or spelling errors. Any formal questions or concerns about the content, text or information contained within the body of this dictation should be directly addressed to the provider for clarification Admission and Anticipated Discharge Date Admission Date: January 27, 2024 Subjective Patient seen and examined at bedside She is comfortably sitting up on the bed; not in distress She denies dizziness, fever, chills, chest pain or shortness of breath No significant events overnight Review of Systems Review of Systems: All systems reviewed & are unremarkable except as noted in Subjective Physical Exam Physical Exam: Constitutional: Alert oriented x 3; not in distress. Respiratory: Bilateral vesicular breath sound. Cardiovascular: RRR, no murmur, no edema Vessels: no JVD or carotid bruit Chest: normal inspection of chest Abdomen: normal bowel sounds, soft, nontender, no hepatosplenomegaly Musculoskeletal: 2+ pitting edema present in bilateral lower extremities Skin: no rashes, warm and dry normal turgor Neurologic: PERRL, EOMI, accommodation nl, no face palsy, no dysarthria CN's II- XI intact bilaterally and moves all extremities Psychiatric: A+Ox3, euthymic affect Results & Data Results & Data Vital Signs (Past 12 Hours) Vital Signs Temp Pulse Pulse Resp BP Pulse Ox O2 Del Method 02/05/24 11:08 36.8 C 69 18 88/57 L 95 Nasal Cannula 02/05/24 09:27 Nasal Cannula 02/05/24 07:58 36.9 C 69 17 94/61 L 97 Room Air 02/05/24 05:39 71 02/05/24 04:29 91/53 L 02/05/24 03:12 36.8 C 73 16 87/51 L 96 Nasal Cannula 02/05/24 01:41 103/65 O2 Flow Rate 02/05/24 11:08 2 02/05/24 09:27 1 02/05/24 07:58 02/05/24 05:39 02/05/24 04:29 02/05/24 03:12 2 02/05/24 01:41
[2024-02-05] MEDS: ALBUMIN 25% 25 GM/100 ML VIAL IV SCH (17:32)
--- NOTE | 2024-02-05 18:18 | Nephrology Progress Note ---
Date of Service February 05, 2024 Assessment & Plan (1) Acute hyponatremia: Plan: worsened now x 2 days hypervolemic hyponatremia after several days of plateau in high 120s with Severe Volume overload--anasarca and massive pre admission wt gain in patient with Liver Cirrhosis which is the underlying problem; though could also be d/t spironolactone. urea/salt tabs not appropriate w/ hypervolemic hyponatremia. a set back since 02/03 w/ her on midday and with sNa down to 124 after several lasix doses held d/t hypotension -continue fluid restriction= 1200 mL per day, toward which protein shakes don't count < did d/w pie cutter 02/03; order is in on diet order and now also as separate communication -agree w/midodrine 5 mg tid to see if we can avoid missing more diuretic which if anything we need to increase -continue low sodium diet -encourage protein intake -cont to hold spironolactone ->>lasix dose unchanged today >> maintain at 40 mg IV q 6h w/ hold for sbp <95 <<<<one dose held today agree w/ albumin to try to imrpove BP ->>>lowered K dose frequency from qid to bid and next dose 10/12 AM >>daily STANDING weight ordered/ appreciate nursing assistance w/ this -cont strict I/O -consider 2X daily bmp now defer to primary service on next ammonia level check; did tell family lower sodium could make her confused she just finished abtx 02/02 x 7 days for UTI; defer to primary on exchanging reilly; believe that removing it now would lead to skin breakdown w/ diuresis/anasarca (2) 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 (3) Anasarca: Plan: ongoing; d/t liver cirrhosis Admission and Anticipated Discharge Date Admission Date: January 27, 2024 Subjective seen on evening rounds; pt c/o fatigue. family notes more confusion. states not getting protein shake b/c of fluid limit. family asking to have ammonia levels checked. remains on ; no pain; missed midday lasix d/t hypotension; states catheter bey "when I pee" Review of Systems 2 Review of Systems: All systems reviewed & are unremarkable except as noted in Subjective Physical Exam 2 Constitutional: well developed (sitting in bed, tired, slightly confused), well nourished, + frail appearing and cooperative; no acute distress ENMT: Mouth: + dry oral mucous membranes Respiratory: normal respiratory effort Auscultation: + diminished lung sounds and + crackles (fine BL bases) Cardiovascular: Rate/Rhythm: regular rate and regular rhythm Heart Sounds: + murmur Extremities: + edema (3+) Musculoskeletal: Extremities: strength 5/5 throughout Skin: no rashes, warm and dry Psychiatric: Orientation: alert and oriented x 3 Results & Data Vital Signs (Past 12 Hours) Vital Signs Temp Pulse Pulse Resp BP Pulse Ox O2 Del Method 02/05/24 18:00 70 02/05/24 16:08 37.1 C 66 17 91/60 L 94 Nasal Cannula 02/05/24 11:08 36.8 C 69 18 88/57 L 95 Nasal Cannula 02/05/24 09:27 Nasal Cannula 02/05/24 07:58 36.9 C 69 17 94/61 L 97 Room Air O2 Flow Rate 02/05/24 18:00 02/05/24 16:08 2 02/05/24 11:08 2 02/05/24 09:27 1 02/05/24 07:58 Laboratory Results 02/05/24 05:41 02/05/24 05:41
[2024-02-05 19:10] LABS: BUN Creatinine Ratio 16.7 (10-20); Calcium 8.7 mg/dl (8.6-10.3); Creatinine Clr Calc Pharmacy 62.6 ml/min
[2024-02-05 22:33] LABS: Appearance Urine Clear (Clear); Bacteria Urine Automated 1+ (None Seen); Bilirubin Urine Negative (Negative); Blood Urine Negative (Negative); Color Urine Yellow; Epithelial Cell Urine Auto 0-2 /hpf (0-2); Glucose Urine UA Negative (Negative); Hyaline Casts Urine Present /lpf (None Presnt); Ketones Urine Negative (Negative); Leukocyte Esterase Urine 1+ (Negative); Nitrite Urine Negative (Negative); Protein Urine Negative (Negative); RBC Urine Automated 0-2 /hpf (0-2); Specific Gravity Urine 1.009 (1.000-1.030); Urobilinogen Urine Negative (Negative); WBC Urine Automated 0-5 /hpf (0-5)
[2024-02-06 06:56] LABS: Basophils # (auto) 0.05 K/uL (0.00-0.20); Basophils % (auto) 0.8 %; Eosinophils # (auto) 0.39 K/uL (0.00-0.50); Hematocrit (blood only) 23.2 % (37.0-47.0); Hemoglobin 7.6 g/dl (12.0-16.0); Immature Granulocytes # (auto) 0.03 K/uL (0.01-0.20); Immature Granulocytes % (auto) 0.5 %; Lymphocytes % (auto) 15.4 %; Mean Corpuscular Hemoglobin 31.5 pg (25.0-34.0); Mean Corpuscular Hgb Conc 32.8 g/dL (32.0-36.0); Mean Corpuscular Volume 96.3 fL (80.0-100.0); Mean Platelet Volume 9.7 fL (9.4-12.4); Monocytes # (auto) 0.99 K/uL (0.11-0.59); Monocytes % (auto) 15.2 %; Neutrophils # (auto) 4.05 K/uL (1.40-6.50); Neutrophils % (auto) 62.1 %; Platelet Count 204 K/uL (130-400); RDW Coefficient of Variation 14.9 % (11.5-14.5); RDW Standard Deviation 52.2 fL (36.4-46.3); Red Blood Count 2.41 M/uL (4.20-5.40); White Blood Count 6.51 K/ul (4.8-10.8)
[2024-02-06 07:12] LABS: BUN Creatinine Ratio 20.7 (10-20); Calcium 8.9 mg/dl (8.6-10.3); Creatinine Clr Calc Pharmacy 69.5 ml/min; Potassium 4.5 mmol/L (3.5-5.1)
[2024-02-06 07:24] LABS: ALC (manual) 0.72 K/uL (1.2-3.4); ANC (manual) 5.27 K/uL (1.4-6.5); Basophils # (manual) 0.07 K/uL (0-0.2); Basophils % (manual) 1 %; Eosinophils % (manual) 3 %; Lymphocytes # (manual) 0.72 K/uL (1.2-3.4); Lymphocytes % (manual) 11 %; Monocytes # (manual) 0.26 K/uL (0.11-0.59); Monocytes % (manual) 4 %; Neutrophils # (manual) 5.27 K/uL (1.40-6.50); Neutrophils % (manual) 81 %; Polychromasia 1+
[2024-02-06] MEDS: cefTRIAXone SODIUM 2,000 MG/50 ML BAG IV SCH (08:28)
[2024-02-06] MEDS: POTASSIUM CHLORIDE CRTAB 20 MEQ TABCR PO SCH (08:42)
--- NOTE | 2024-02-06 12:25 | Nephrology Progress Note ---
Date of Service February 06, 2024 Assessment & Plan (1) Acute hyponatremia: Plan: worsened now x 2 days hypervolemic hyponatremia after several days of plateau in high 120s with Severe Volume overload--anasarca and massive pre admission wt gain in patient with Liver Cirrhosis which is the underlying problem; though could also be d/t spironolactone. urea/salt tabs not appropriate w/ hypervolemic hyponatremia. a set back since 02/03 w/ her on midday and with sNa down to 124 after several lasix doses held d/t hypotension. improved to 126 today -continue fluid restriction= 1200 mL per day, toward which protein shakes don't count < did d/w workforce services representative 02/03; order is in on diet order and now also as separate communication -Continue w/midodrine 5 mg tid -continue low sodium diet -encourage protein intake -cont to hold spironolactone ->>lasix dose unchanged>> maintain at 40 mg IV q 6h w/ hold for sbp <95 - Continue w/ albumin and K supplements >>daily STANDING weight ordered/ appreciate nursing assistance w/ this -cont strict I/O -consider 2X daily bmp now she just finished abtx 02/02 x 7 days for UTI; defer to primary on exchanging reilly; believe that removing it now would lead to skin breakdown w/ diuresis/anasarca (2) 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 (3) Anasarca: Plan: ongoing; d/t liver cirrhosis Admission and Anticipated Discharge Date Admission Date: January 27, 2024 Subjective seen in am , Alert ans Oriented , family asking to have ammonia levels - made then aware of Sodium and Ammonia levels. Review of Systems 2 Review of Systems: All systems reviewed & are unremarkable except as noted in HPI & below Physical Exam 2 Physical Exam: Constitutional: Alert oriented x 3; not in distress. Respiratory: Bilateral vesicular breath sound. Cardiovascular: RRR, no murmur, no edema Vessels: no JVD or carotid bruit Chest: normal inspection of chest Abdomen: normal bowel sounds, soft, nontender, no hepatosplenomegaly Musculoskeletal: 1+ pitting edema present in bilateral lower extremities Skin: no rashes, warm and dry normal turgor Neurologic: PERRL, EOMI, accommodation nl, no face palsy, no dysarthria CN's II- XI intact bilaterally and moves all extremities Psychiatric: A+Ox3, euthymic affect Results & Data Vital Signs (Past 12 Hours) Vital Signs Temp Pulse Pulse Resp BP Pulse Ox O2 Del Method 02/06/24 08:24 99/58 L 02/06/24 07:36 36.7 C 63 20 89/55 L 92 Room Air 02/06/24 07:00 68 02/06/24 04:25 36.5 C 71 18 110/57 L 91 Room Air 02/06/24 02:43 98/60 L 02/06/24 00:00 Room Air 02/05/24 23:49 36.9 C 73 18 105/61 91 Room Air 02/05/24 22:44 67 O2 Flow Rate 02/06/24 08:24 02/06/24 07:36 02/06/24 07:00 02/06/24 04:25 02/06/24 02:43 02/06/24 00:00 0 02/05/24 23:49 02/05/24 22:44 Laboratory Results 02/06/24 05:53 02/06/24 05:53
--- NOTE | 2024-02-06 12:47 | Hospitalist Progress Note ---
Date of Service February 06, 2024 Assessment & Plan (1) Hepatic encephalopathy: Plan Pt is a 58yoF with PMHx significant for hypertension, PSVT, COPD, NAFLD cirrhosis, history of esophageal varices as per records, portal hypertension, celiac disease, chronic hyponatremia, leukocytoclastic vasculitis as per records, cervical dysplasia, anxiety/mood disorder presenting for evaluation after a fall and increasing lethargy at home. Hepatic Encephalopathy- Resolved History NAFLD/cirrhosis Acute Blood Loss anemia Upper GI Bleed Missed lactulose doses from decreased mobility secondary to recent thoracic compression fracture UGIB, history of esophageal varices as per records Progressive anemia from normal outpatient baseline hemoglobin last November 2023 Underwent EGD on 3grade 1 varices in the lower third of the stomach with garner red spot. 2 bands were successfully placed with complete eradication. Mild portal hypertensive gastropathy found. Underwent EGD again on ound to have grade 1 varices again. Applied hemostatic spray to the area. Monitor for signs and symptoms of rebleeding. Will need to evaluate for TIPS if she has another rebleeding episode. Nadolol on hold due to low blood pressure Complicated UTI UA suggestive of infection Urine Cx growing Klesiella oxytoca resistant to cefazolin Completed antibiotics course. However, reported confusion by family members on 02/04; urine culture pending. on ceftriaxone Decompensated cirrhosis LE swelling Anasarca Echo noting EF of 60 to 65%, grade 1 diastolic failure, left atrium mildly dilated, right ventricle with mildly increased pressures 30-40 Venous dopplers unremarkable On diuretics as per nephrology. Her blood pressure has been on lower side; continue on midodrine and albumin. Will hold tonight's Nadolol dose Acute on chronic hyponatremia secondary to above Serum sodium of 126 today. Patient is currently on IV Lasix 40 mg every 6 hours.Discussed with ne phrology;recommended to continue current dose hypertension BP on the lower side Monitor while on aggressive diuresis hold nadolol Fall Contusions PRN pain meds PT/OT Diet: soft, low sodium, fluid restriction DVT prophylaxis. SCDs, concern for GI bleed Full code Dispo: PT/OT ordered for further recs- home with h/h Discussed with patient's son over the phone at patient's bedside. Time spent evaluating patient, direct bedside care, chart review, placing orders, interpretation of diagnostic studies, discussion with consultants, patient, and family members, as well as other required patient management activities is 50 minutes Please note the above document was generated using voice recognition software. It may contain grammatical, syntax or spelling errors. Any formal questions or concerns about the content, text or information contained within the body of this dictation should be directly addressed to the provider for clarification Admission and Anticipated Discharge Date Admission Date: January 27, 2024 Subjective Patient seen and examined at bedside. She is alert oriented x 3; not in distress Blood pressure low intermittently; Review of Systems Review of Systems: All systems reviewed & are unremarkable except as noted in Subjective Physical Exam Physical Exam: Constitutional: Alert oriented x 3; not in distress. Respiratory: Bilateral vesicular breath sound. Cardiovascular: RRR, no murmur, no edema Vessels: no JVD or carotid bruit Chest: normal inspection of chest Abdomen: normal bowel sounds, soft, nontender, no hepatosplenomegaly Musculoskeletal: 1+ pitting edema present in bilateral lower extremities Skin: no rashes, warm and dry normal turgor Neurologic: PERRL, EOMI, accommodation nl, no face palsy, no dysarthria CN's II- XI intact bilaterally and moves all extremities Psychiatric: A+Ox3, euthymic affect Results & Data Results & Data Vital Signs (Past 12 Hours) Vital Signs Temp Pulse Pulse Resp BP Pulse Ox O2 Del Method 02/06/24 11:43 36.5 C 68 20 93/55 L 95 Room Air 02/06/24 08:24 99/58 L 02/06/24 07:36 36.7 C 63 20 89/55 L 92 Room Air 02/06/24 07:00 68 02/06/24 04:25 36.5 C 71 18 110/57 L 91 Room Air 02/06/24 02:43 98/60 L
[2024-02-06] MEDS: COUGH DROP (SUGAR FREE) LOZ 24 LOZ/1 BOX BUCCAL STA (21:24)
[2024-02-07 07:13] LABS: Basophils # (auto) 0.06 K/uL (0.00-0.20); Basophils % (auto) 0.8 %; Eosinophils # (auto) 0.23 K/uL (0.00-0.50); Hemoglobin 7.6 g/dl (12.0-16.0); Immature Granulocytes # (auto) 0.03 K/uL (0.01-0.20); Immature Granulocytes % (auto) 0.4 %; Lymphocytes # (auto) 0.76 K/uL (1.20-3.40); Mean Corpuscular Hemoglobin 31.5 pg (25.0-34.0); Mean Corpuscular Volume 95.4 fL (80.0-100.0); Mean Platelet Volume 9.9 fL (9.4-12.4); Monocytes # (auto) 1.06 K/uL (0.11-0.59); Monocytes % (auto) 13.9 %; Neutrophils # (auto) 5.47 K/uL (1.40-6.50); Neutrophils % (auto) 71.9 %; Platelet Count 196 K/uL (130-400); RDW Standard Deviation 52.2 fL (36.4-46.3); Red Blood Count 2.41 M/uL (4.20-5.40); White Blood Count 7.61 K/ul (4.8-10.8)
[2024-02-07 07:35] LABS: Polychromasia 1+
[2024-02-07 07:47] LABS: BUN Creatinine Ratio 18.3 (10-20); Calcium 9.1 mg/dl (8.6-10.3); Creatinine Clr Calc Pharmacy 54.7 ml/min; Potassium 4.3 mmol/L (3.5-5.1)
--- NOTE | 2024-02-07 11:49 | Hospitalist Progress Note ---
Date of Service February 07, 2024 Assessment & Plan (1) Hepatic encephalopathy: Plan Pt is a 58yoF with PMHx significant for hypertension, PSVT, COPD, NAFLD cirrhosis, history of esophageal varices as per records, portal hypertension, celiac disease, chronic hyponatremia, leukocytoclastic vasculitis as per records, cervical dysplasia, anxiety/mood disorder presenting for evaluation after a fall and increasing lethargy at home. Hepatic Encephalopathy- Resolved History NAFLD/cirrhosis Acute Blood Loss anemia Upper GI Bleed Missed lactulose doses from decreased mobility secondary to recent thoracic compression fracture UGIB, history of esophageal varices as per records Progressive anemia from normal outpatient baseline hemoglobin last November 2023 Underwent EGD on 3grade 1 varices in the lower third of the stomach with garner red spot. 2 bands were successfully placed with complete eradication. Mild portal hypertensive gastropathy found. Underwent EGD again on ound to have grade 1 varices again. Applied hemostatic spray to the area. Monitor for signs and symptoms of rebleeding. Will need to evaluate for TIPS if she has another rebleeding episode. Nadolol on hold due to low blood pressure Complicated UTI UA suggestive of infection Urine Cx growing Klesiella oxytoca resistant to cefazolin Completed antibiotics course initially with ceftriaxone However, reported confusion by family members on 02/04; Urine culture was again done; sensitive VRE Started on linezolid; plan to treat for 7 days Remove Danielson catheter Decompensated cirrhosis LE swelling Anasarca Echo noting EF of 60 to 65%, grade 1 diastolic failure, left atrium mildly dilated, right ventricle with mildly increased pressures 30-40 Venous dopplers unremarkable On diuretics as per nephrology. Her blood pressure has been on lower side; continue on midodrine; hold albumin. Hold Nadolol Acute on chronic hyponatremia secondary to above Serum sodium of 128 today. Patient is currently on IV Lasix 40 mg every 6 hours.Discussed with nephrology;recommended to continue current dose hypertension BP on the lower side Monitor while on aggressive diuresis hold nadolol Fall Contusions PRN pain meds PT/OT Diet: soft, low sodium, fluid restriction DVT prophylaxis. SCDs, concern for GI bleed Full code Dispo: PT/OT ordered for further recs- home with h/h Discussed with patient's daughter and son over the phone. Patient's serum sodium level has gradually improved. She wanted to go home. However, on further discussion we determined that patient will benefit from being in the hospital to see how her blood pressure does without albumin. Possible discharge in next few days if her serum sodium continues to improve. Time spent evaluating patient, direct bedside care, chart review, placing orders, interpretation of diagnostic studies, discussion with consultants, patient, and family members, as well as other required patient management activities is 50 minutes Please note the above document was generated using voice recognition software. It may contain grammatical, syntax or spelling errors. Any formal questions or concerns about the content, text or information contained within the body of this dictation should be directly addressed to the provider for clarification Admission and Anticipated Discharge Date Admission Date: January 27, 2024 Subjective Patient seen patient seen and examined at bedside. She is comfortable; not in distress. She is alert oriented x 3 No significant events overnight Review of Systems Review of Systems: All systems reviewed & are unremarkable except as noted in Subjective Physical Exam Physical Exam: Constitutional: Alert oriented x 3; not in distress. Respiratory: Bilateral vesicular breath sound. Cardiovascular: RRR, no murmur, no edema Vessels: no JVD or carotid bruit Chest: normal inspection of chest Abdomen: normal bowel sounds, soft, nontender, no hepatosplenomegaly Musculoskeletal: 1+ pitting edema present in bilateral lower extremities Skin: no rashes, warm and dry normal turgor Neurologic: PERRL, EOMI, accommodation nl, no face palsy, no dysarthria CN's II- XI intact bilaterally and moves all extremities Psychiatric: A+Ox3, euthymic affect Results & Data Results & Data Vital Signs (Past 12 Hours) Vital Signs Temp Pulse Pulse Resp BP Pulse Ox O2 Del Method 02/07/24 09:50 84 02/07/24 07:50 37.3 C 80 18 103/64 90 Room Air 02/07/24 03:30 37.0 C 80 18 110/69 92 Room Air
[2024-02-07] MEDS: LINEZOLID 600 MG TAB PO SCH (12:06)
--- NOTE | 2024-02-07 12:30 | Nephrology Progress Note ---
Date of Service February 07, 2024 Assessment & Plan (1) Acute hyponatremia: Plan: Hypervolemic hyponatremia which had worsened after several days of plateau in high 120s. this has improved to 128 now.Systolic BP also improved >>systolic's in early 100's -Severe Volume overload--anasarca and massive pre admission wt gain in patient with Liver Cirrhosis which is the underlying problem; though could also be d/t spironolactone. urea/salt tabs not appropriate w/ hypervolemic hyponatremia. a set back since 02/03 w/ her on midday and with sNa down to 124 after several lasix doses held d/t hypotension. improved to 128 today -continue fluid restriction= 1200 mL per day, toward which protein shakes don't count < did d/w blending plant operator 02/03; order is in on diet order and now also as separate communication -Increase /midodrine 10 mg tid -continue low sodium diet -encourage protein intake -cont to hold spironolactone ->>lasix dose unchanged>> maintain at 40 mg IV q 6h w/ hold for sbp <95 - OK to hold albumin today to see what her pressure are tmrw, as Nicky is very eager to go home. 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 She is alert oriented x 3; not in distress Blood pressure better Review of Systems 2 Review of Systems: All systems reviewed & are unremarkable except as noted in HPI & below Physical Exam 2 Physical Exam: Constitutional: Alert oriented x 3; not in distress. Respiratory: Bilateral vesicular breath sound. Cardiovascular: RRR, no murmur, no edema Vessels: no JVD or carotid bruit Chest: normal inspection of chest Abdomen: normal bowel sounds, soft, nontender, no hepatosplenomegaly Musculoskeletal: 1+ pitting edema present in bilateral lower extremities Skin: no rashes, warm and dry normal turgor Neurologic: PERRL, EOMI, accommodation nl, no face palsy, no dysarthria CN's II- XI intact bilaterally and moves all extremities Psychiatric: A+Ox3, euthymic affect Results & Data Vital Signs (Past 12 Hours) Vital Signs Temp Pulse Pulse Resp BP Pulse Ox O2 Del Method 02/07/24 11:59 37.5 C 79 20 101/67 91 Nasal Cannula 02/07/24 09:50 84 02/07/24 07:50 37.3 C 80 18 103/64 90 Room Air 02/07/24 03:30 37.0 C 80 18 110/69 92 Room Air O2 Flow Rate 02/07/24 11:59 2 02/07/24 09:50 02/07/24 07:50 02/07/24 03:30 Laboratory Results 02/07/24 06:37 02/07/24 06:37
[2024-02-08 08:07] VITALS: BP 102/64; RESP 20
[2024-02-08 08:31] LABS: Basophils # (auto) 0.07 K/uL (0.00-0.20); Basophils % (auto) 1.2 %; Eosinophils # (auto) 0.31 K/uL (0.00-0.50); Eosinophils % (auto) 5.3 %; Hemoglobin 7.4 g/dl (12.0-16.0); Immature Granulocytes # (auto) 0.03 K/uL (0.01-0.20); Immature Granulocytes % (auto) 0.5 %; Lymphocytes # (auto) 0.89 K/uL (1.20-3.40); Lymphocytes % (auto) 15.2 %; Mean Corpuscular Hemoglobin 30.8 pg (25.0-34.0); Mean Corpuscular Hgb Conc 32.2 g/dL (32.0-36.0); Mean Corpuscular Volume 95.8 fL (80.0-100.0); Mean Platelet Volume 10.1 fL (9.4-12.4); Monocytes # (auto) 0.83 K/uL (0.11-0.59); Monocytes % (auto) 14.2 %; Neutrophils # (auto) 3.71 K/uL (1.40-6.50); Neutrophils % (auto) 63.6 %; Platelet Count 187 K/uL (130-400); RDW Coefficient of Variation 14.9 % (11.5-14.5); RDW Standard Deviation 52.2 fL (36.4-46.3); White Blood Count 5.84 K/ul (4.8-10.8)
[2024-02-08 08:58] LABS: Polychromasia 1+
[2024-02-08 09:09] LABS: BUN Creatinine Ratio 17.3 (10-20); Calcium 8.9 mg/dl (8.6-10.3); Creatinine Clr Calc Pharmacy 50.1 ml/min; Potassium 3.9 mmol/L (3.5-5.1)
--- NOTE | 2024-02-08 10:55 | Nephrology Progress Note ---
Date of Service February 08, 2024 Assessment & Plan (1) Acute hyponatremia: Plan: Hypervolemic hyponatremia in setting of decompensated cirrhosis.Sodium of 129 today. -continue fluid restriction= 1200 mL per day, toward which protein shakes don't count < did d/w pipe foreman 02/03; order is in on diet order and now also as separate communication -continue low sodium diet -encourage protein intake -cont to hold spironolactone Stop IV Lasix. -Start Torsemide 60 mg twice daily. Patient can be discharged on torsemide 60 mg twice daily and potassium chloride 20 meq bid. No Aldactone. Renal follow- up in 1 to 2 weeks. >>daily STANDING weight at home. Discussed with Dr. Jaime the diuretic regimen and he agrees. 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 Low salt diet. Continue diuretics as above (3) Anasarca: Plan: ongoing; d/t liver cirrhosis Admission and Anticipated Discharge Date Admission Date: February 08, 2024 Subjective Patient seen in follow-up for hyponatremia and cirrhosis. She complains of leg swelling. No shortness of breath Review of Systems 2 Review of Systems: All other systems were reviewed and negative except as noted in HPI Physical Exam 2 Physical Exam: General exam: Appears comfortable, no acute distress HEENT: Pupils are equal and reactive to light Neck: No JVD, neck is supple trachea is midline Respiratory system: Clear breath sounds bilaterally. Gastrointestinal: Abdomen is soft, non distended, non tender, bowel sounds are present CVS: Regular rate and rhythm. No murmurs, rubs or gallops Musculoskeletal: No joint or muscle tenderness Extremities: Non tender, no edema, peripheral pulses are present Neuro: Oriented, no tremors, no focal neurological deficits Skin: No rashes Results & Data Vital Signs (Past 12 Hours) Vital Signs Temp Pulse Pulse Resp BP BP Pulse Ox 02/08/24 08:20 71 02/08/24 08:07 36.5 C 67 20 102/64 96 02/08/24 03:18 36.5 C 65 16 93/55 L 91 02/08/24 01:44 68 92/53 L O2 Del Method O2 Flow Rate 02/08/24 08:20 02/08/24 08:07 Nasal Cannula 2 02/08/24 03:18 Nasal Cannula 2 02/08/24 01:44 Laboratory Results 02/08/24 07:47 02/08/24 07:47 WBC 5.84 RBC 2.40 L MCV 95.8 MCH 30.8 MCHC 32.2 RDW Std Deviation 52.2 H RDW Coeff of Baltazar 14.9 H Plt Count 187 MPV 10.1
[2024-02-08] MEDS: TORSEMIDE 20 MG TAB PO SCH (11:19)
[2024-02-08 11:48] VITALS: TEMP 97.5; O2SAT 93
[2024-02-08 12:45] VITALS: PULSE 91
--- NOTE | 2024-02-08 13:08 | Discharge Summary ---
Date of Service February 08, 2024 Admission HPI Per Admitting Provider History obtained from patient, family, and records. Limited history from patient secondary to lethargic state. Medical history significant for hypertension, PSVT, COPD, NAFLD cirrhosis, history of esophageal varices as per records, portal hypertension, celiac disease, chronic hyponatremia, leukocytoclastic vasculitis as per records, cervical dysplasia, anxiety/mood disorder. Last confinement March 2023 for pancreatitis and Campylobacter gastroenteritis. Patient fell forward at work 4 days ago. Sustained head trauma and achy chest and abdominal pain following fall. No LOC. Chest, forehead,LE bruising noted after fall. Patient evaluated at the ER. CT chest showed T8 compression fracture, indeterminate age. Patient discharged home. Patient unable to move as much at home from pain after fall. She stopped taking her home lactulose because she would have trouble going to the bathroom once medication work. No unusual headache symptoms. Patient noted to be more sleepy the last couple of days as per daughter. Patient complaining of worsening chest/back pain, abdominal pain. Patient looking more yellow as per family. Dark stools noted. No hematemesis. Increased bilateral leg swelling and redness. No fever, no chills. Daughter unaware of OTC NSAID intake. Patient seen at PCPs office today. Weight gain of 14 kg from October 2023 as per daughter. Outpatient ammonia level noted to be 100s. Patient directed to ER for evaluation. Lasix and lactulose administered at the ER. 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, [facility] Admission Exam Per Admitting Provider GENERAL: Lethargic, obese, no respiratory distress SKIN: Pallor, warm HEENT: Ecchymosis right frontal area, pale palpebral conjunctivae, no ptosis, dry buccal mucosa NECK : Supple, no tenderness CHEST : Decreased breath sounds, contusion right chest, right chest tenderness HEART : RRR, no obvious murmurs ABDOMEN: Some distention, nontender RECTAL : Intact sphincter, melanotic stool (FOBT positive) EXTREMITIES : Bilateral LE swelling with erythema, right knee ecchymosis, no LE tenderness, no other conspicuous deformities noted NEUROLOGIC : Lethargic, no facial asymmetry, gait and stance not assessed Principal Diagnosis Hepatic Encephalopathy- Resolved History NAFLD/cirrhosis Acute Blood Loss anemia Upper GI Bleed Complicated UTI Acute on chronic hyponatremia Discharge Exam Constitutional: Alert oriented x 3; not in distress. Respiratory: Bilateral vesicular breath sound. Cardiovascular: RRR, no murmur, no edema Vessels: no JVD or carotid bruit Chest: normal inspection of chest Abdomen: normal bowel sounds, soft, nontender, no hepatosplenomegaly Musculoskeletal: 1+ pitting edema present in bilateral lower extremities Skin: no rashes, warm and dry normal turgor Neurologic: PERRL, EOMI, accommodation nl, no face palsy, no dysarthria CN's II- XI intact bilaterally and moves all extremities Psychiatric: A+Ox3, euthymic affect Discharge Data Allergies Allergy/AdvReac Type Severity Reaction Status Date / Time hydromorphone Allergy Intermediate Anaphylaxis Verified 02/01/24 11:55 pamabrom Allergy Intermediate HIVES Verified 02/01/24 11:55 pyrilamine Allergy Intermediate HIVES Verified 02/01/24 11:55 gluten Allergy Unknown Diarrhea Verified 02/04/24 19:55 Penicillins Allergy Unknown Unknown Verified 02/01/24 11:55 Iodinated Contrast Media AdvReac Intermediate TACHYCARDIA Verified 02/01/24 11:55 Consultations 01/27/24 23:41 Consult Gastroenterology Routine 01/29/24 09:00 Consult Nephrology Routine Procedures Performed Operation Date: 02/01/24 17:10 Actual Procedures p EGD Hemostasis(Not Applicable) - Martell Zuñiga MD Ordered Studies 01/27/24 22:02 CT abd pelvis wo con Stat CT chest without contrast [CT chest diagnostic wo con] Stat CT knee RT wo con Stat 01/28/24 US venous doppler LE BI Stat 01/28/24 06:26 CT head/brain wo con Stat 01/30/24 16:41 US arterial duplex LE BI Urgent Hospital Course (1) Hepatic encephalopathy: Plan Pt is a 58yoF with PMHx significant for hypertension, PSVT, COPD, NAFLD cirrhosis, history of esophageal varices as per records, portal hypertension, celiac disease, chronic hyponatremia, leukocytoclastic vasculitis as per records, cervical dysplasia, anxiety/mood disorder presenting for evaluation after a fall and increasing lethargy at home. Hepatic Encephalopathy- Resolved History NAFLD/cirrhosis Acute Blood Loss anemia Upper GI Bleed Missed lactulose doses from decreased mobility secondary to recent thoracic compression fracture UGIB, history of esophageal varices as per records Progressive anemia from normal outpatient baseline hemoglobin last November 2023 Underwent EGD on 3grade 1 varices in the lower third of the stomach with garner red spot. 2 bands were successfully placed with complete eradication. Mild portal hypertensive gastropathy found. Underwent EGD again on ound to have grade 1 varices again. Applied hemostatic spray to the area. Patient hemoglobin remained stable. There were no signs or symptoms of bleeding after the procedure. Initially, patient was started on nadolol. However, patient's blood pressure was low; Nadolol was discontinued. Patient to follow-up next week with renal transplant clinic in [place] Complicated UTI UA suggestive of infection Urine Cx growing Klesiella oxytoca resistant to cefazolin Completed antibiotics course initially with ceftriaxone However, reported confusion by family members on 02/04; Urine culture was again done; found to have VRE Patient was placed on linezolid at discharge to complete the antibiotic course. Discussed adverse reactions of the medication; patient verbalized understanding. Acute on chronic hyponatremia Patient was found to have acute on chronic hyponatremia; it was treated with fluid restriction, IV diuretics and albumin. Diuresis was challenging due to patient's low blood pressure. At the time of the discharge, her serum sodium had increased to 129. Patient was alert oriented x 3. Discussion was done with nephrology regarding diuretic dose; she was placed on torsemide 60 mg twice a day. Midodrine was also prescribed; 5 mg 3 times a day for hypertension. Discharge instructions given to patient's daughter over the phone. She verbalized understanding. Please note the above document was generated using voice recognition software. It may contain grammatical, syntax or spelling errors. Any formal questions or concerns about the content, text or information contained within the body of this dictation should be directly addressed to the provider for clarification Total Time Total Time Spent Total Time Spent (In Minutes): 35 Total Time Includes: Examination of the Patient, Discharge Planning, Medication Reconciliation, Communication With Other Providers and Other Discharge Plan Discharge Items Patient Disposition: Home - Self-Care Reason For Visit: ANEMIA; GI BLEED, ENCEPHALOPATHY Discharge Diagnosis: UTI Hyponatremia Upper GI bleed Activity: Resume your previous activity Non-emergency contact: Primary Care Provider Call non-emergency contact if: you have any medication questions and your symptoms worsen Follow-up/Referrals: Ky Puentes MD [Surgeon] - (The Nephrology office will contact you for a follow up appointment.) Lisseth Sanchez PA-C [Primary Care Provider] - (Date & Time 02/10/2024 12:00 PM Provider Lisseth Sanchez PA-C Department [facility] ) Flavio Steele MD [Outside Practitioners] - (Date & Time 02/15/2024 10:00 AM Provider [facility] Diet: Regular Fluids: 1200ml (5 cups) Addtl Attending Provider Instructions: You were admitted to the hospital due to GI bleeding. He underwent endoscopy during the hospitalization. You are prescribed Protonix to be taken twice daily for it. Please continue to take lactulose every day. The dose of the lactulose needs to be adjusted based on bowel movement. Dose needs to titrated to have 3 bowel movements throughout a day. Will prescribe linezolid (antibiotic) 600 mg twice daily for 5 more days to treat for UTI. You are also found to have low sodium level during the hospitalization. Please limit your fluid intake to 40 ounces throughout the day. This includes water, coffee, tea or soda. You can drink protein shakes; they do not account for the fluid restriction. You are prescribed torsemide 60 mg to be taken twice daily. Please stop taking furosemide that you are taking previously. Take it in the morning and around 2- 3 PM. You are prescribed midodrine to be taken 3 times a day. Please do not take it after 6 PM or within 4 hours of bedtime. Please take it at a upright position. This will help to keep your blood pressure higher. An appointment with your primary care doctor is set up in 2 days. You will need blood work to check your electrolytes level with your primary care doctor. Pending Studies at Discharge: No Stand-Alone Forms: My Watch-Sites, Smoking Cessation Medications and DC Order Prescriptions: New potassium chloride 20 mEq Tablet,Er Particles/Crystals 20 meq PO BID Qty: 60 0RF linezolid 600 mg Tablet 600 mg PO BID 5 Days Qty: 10 0RF pantoprazole 40 mg Tablet,Delayed Release (Dr/Ec) 40 mg PO BID Qty: 30 0RF torsemide 60 mg tablet 60 mg PO BID Qty: 60 0RF midodrine 5 mg tablet 5 mg PO TID Qty: 90 0RF Rx Instructions: do not give last dose of day after 6PM or within 4 hrs of bedtime Continued ferrous sulfate 325 mg (65 mg iron) Tablet 325 mg PO QAM fluticasone propionate 50 mcg/actuation spray,suspension 2 spray intranasal DAILY PRN (Reason: Allergy Symptoms) lactulose 10 gram/15 mL solution 30 ml PO TID Xifaxan 550 mg tablet 550 mg PO [facility]HS Trelegy Ellipta 100-62.5-25 mcg blister with device 1 inh INHALATION QAM ipratropium-albuterol 0.5 mg-3 mg(2.5 mg base)/3 mL solution for nebulization 3 ml INHALATION QID PRN (Reason: Wheezing) albuterol sulfate 90 mcg/actuation HFA aerosol inhaler 2 puff INHALATION Q4 PRN (Reason: Wheezing) baclofen 10 mg tablet 10 mg PO PRN (Reason: muscle relaxer) oxycodone 5 mg tablet 5 mg PO PRN (Reason: Pain) Discontinued pantoprazole 40 mg Tablet,Delayed Release (Dr/Ec) 40 mg PO QAM furosemide 40 mg tablet 40 mg PO BID Discharge Orders: Discharge Order (Routine); Ordered 02/08/24 Ordered By: Cachorro Jaime Admission Data Admit Date/Time: 01/27/24 22:00 Attending Provider: Cachorro Jaime Admit Provider: Oscar Leblanc Primary Care Provider: Lisseth Sanchez Other Providers: Maylin Swartz; Dylan Washington; Madeline Avendaño; Gail Eller; Karon Ryan; Sana Sims; Rosa Isela Rhodes; Triston Lawton; Bud Champion; Poli Velásquez; Tamica Ewing; Osmani Gupta; Yanira King; Frida Nunez; Karlie Delacruz; Meena Landrum; Austin Florian; Leonid Yuan; Adriana Lee; Bobby Long Jr; Talon Black.; Osvaldo Giordano; Héctor Lauren; Martell Zuñiga; Lisandra Pratt.; Anders Mitchell I; Sonia Avendaño; Ky Puentes; [facility] Other Interventions: Discharge Summary Assessment (RN) Last Done: 02/08/24 12:43
== END 2024-02-08 14:25 | disposition home health service (06) | DRG 433 ==
LOC: ED 19:38 → SUATTDRO 22:00 → 2W 22:00 → 2S 01-28 09:28